=== PATIENT | female | born 1945 | race Caucasian/White ===

== ENCOUNTER 2017-12-17 08:19 | Inpatient (IN) | payer OTHER ==
[2017-11-25 15:45] VITALS: Ht 162.6 cm; Wt 127.6 kg
--- NOTE | 2017-11-25 16:30 | PAT Medication Instructions ---
Service Date Nov 25, 2017. Current Home Medication List Acetaminophen (Tylenol Arthritis Ext Rel), 650 MG PO Q8H PRN for Pain or Fever Albuterol Hfa (Ventolin Hfa), 2-4 PUFFS INH Q6H PRN for SOB/Wheezing Cholecalciferol (Vitamin D), 1 TAB PO QAM Diclofenac (Voltaren), 50 MG PO TID Fish Oil (Dundas-3), 1 CAP PO QDD Hydrochlorothiazide (Hydrochlorothiazide), 1 TAB PO QAM Lisinopril (Zestril), 40 MG PO QAM Meclizine HCl (Meclizine HCl), 1 TAB PO TID PRN for Dizziness or Vertigo Multivitamins/Minerals (Mvi With Minerals), 1 TABLET PO QDL Medication Instructions For Your Scheduled Surgery - Hold the following medications 2 weeks prior to surgery (stop 12/03): Fish Oil (Dundas-3), 1 CAP PO QDD - Hold the following medications 7 days prior to surgery per your surgeon's instructions: Diclofenac (Voltaren), 50 MG PO TID Cholecalciferol (Vitamin D), 1 TAB PO QAM Multivitamins/Minerals (Mvi With Minerals), 1 TABLET PO QDL - Hold the following medications the morning of surgery: Hydrochlorothiazide (Hydrochlorothiazide), 1 TAB PO QAM Lisinopril (Zestril), 40 MG PO QAM - Take the following medications the morning of surgery with a sip of water: Acetaminophen (Tylenol Arthritis Ext Rel), 650 MG PO Q8H PRN for Pain or Fever ( if needed, can be taken up to four hours before surgery) Albuterol Hfa (Ventolin Hfa), 2-4 PUFFS INH Q6H PRN for SOB/Wheezing (if needed , and bring it with you to the hospital) - Take the following medications as scheduled the night before surgery: Acetaminophen (Tylenol Arthritis Ext Rel), 650 MG PO Q8H PRN for Pain or Fever ( if needed) Albuterol Hfa (Ventolin Hfa), 2-4 PUFFS INH Q6H PRN for SOB/Wheezing (if needed) Meclizine HCl (Meclizine HCl), 1 TAB PO TID PRN for Dizziness or Vertigo (if needed) If you have any questions please call us at [phone] or [phone] or [phone]
[2017-11-25 17:18] LABS: BASO % 0.5 %; BASO ABS # 0.04 K/uL (0-0.2); EOS ABS # 0.23 K/uL (0-0.5); HEMATOCRIT 35.2 % (37-47); HEMOGLOBIN 11.5 g/dL (12.0-16.0); IG# 0.01 K/uL (0.00-0.02); LYMPH % 21.7 %; LYMPH ABS # 1.69 K/uL (1.2-3.4); MEAN CELL VOLUME 93.9 fL (80-100); MEAN CORPUSCULAR HEMOGLOBIN 30.7 pg (25-34); MEAN CORPUSCULAR HGB CONC 32.7 g/dl (32-36); MEAN PLATELET VOLUME 11.1 fL (7.4-10.4); MONO % 9.1 %; MONO ABS # 0.71 K/uL (0.11-0.59); NEUT % 65.6 %; NEUT ABS # 5.11 K/uL (1.4-6.5); PLATELET COUNT 257 K/uL (130-400); RED CELL DISTRIBUTION WIDTH CV 13.6 % (11.5-14.5); RED CELL DISTRIBUTION WIDTH SD 46.5 fL (36.4-46.3); WHITE BLOOD COUNT 7.79 K/uL (4.8-10.8)
--- NOTE | 2017-11-25 17:18 | DIAGNOSTIC IMAGING REPORT ---
CHEST 2 VIEWS ROUTINE CLINICAL HISTORY: pat preoperative evaluation COMPARISON STUDY: 11/02/2009 FINDINGS: The bones soft tissues and hemidiaphragms are normal. The cardiomediastinal silhouette is normal. The lungs are clear. The pulmonary vasculature is normal. IMPRESSION: Negative chest. The above report was generated using voice recognition software. It may contain grammatical, syntax or spelling errors. Electronically signed by: Osmar Osborne M.D. 11/25/2017 5:17 PM Dictated Date/Time: 11/25/2017 5:17 PM
[2017-11-25 17:25] LABS: CREATININE 1.2 mg/dl (0.60-1.20); POTASSIUM 4.5 mmol/L (3.5-5.1)
[2017-11-25 17:28] LABS: PTT PATIENT 24.3 SECONDS (21.0-31.0)
--- NOTE | 2017-12-16 17:06 | HISTORY & PHYSICAL EXAMINATION ---
DATE OF ADMISSION: 12/17/2017 CHIEF COMPLAINT: Primary osteoarthritis of the left hip. HISTORY OF PRESENT ILLNESS: Candi is a pleasant 71-year-old female who has been dealing with chronic progressively worsening left hip pain. She is having a hard time ambulating up and down stairs. She lives in a split level house. X-rays and clinical examination were diagnostic for advanced osteoarthritis of the left hip. I have given her injections, but the injections do not seem to last long. She elected to proceed with a left total hip arthroplasty. PAST MEDICAL HISTORY: Significant for hypertension, asthma, sleep apnea on a CPAP machine, and obesity. MEDICATIONS: Lisinopril 40 mg daily, HCTZ 25 mg daily, Diclofenac 50 mg 3 times a day for pain, meclizine 12.5 mg as needed for vertigo, hydroxyzine 10 mg as needed, vitamin D 2000 units daily, multivitamin, omega 3 and Albuterol inhaler as needed. PAST SURGICAL HISTORY: Cholecystectomy in 1964. ALLERGIES: MOLD AND PENICILLIN. SOCIAL HISTORY: She denies any tobacco, alcohol or IV drug use. She lives in a split level house. FAMILY HISTORY: Denies. REVIEW OF SYSTEMS: She complains of left hip pain. All other pertinent review of systems are negative. PHYSICAL EXAMINATION. GENERAL: She is awake, alert and orient x3. She is in no apparent distress. She is very pleasant. HEENT: Pupils equal, round, reactive to light. Extraocular motions are intact. Oral mucosa is pink and moist. HEART: The heart is regular rate per radial pulse. LUNGS: Dawn symmetrically bilaterally with no audible breath sounds. ABDOMEN: Soft, nontender, nondistended. MUSCULOSKELETAL: On physical examination of the hip, she ambulates via cane in the office. Her leg lengths are essentially equal. She has very limited internal and external rotation of the hip and reproducible deep groin pain. She has active dorsiflexion and plantarflexion of her left ankle and sensation is intact. IMAGING DATA: X-rays of the left hip do show advanced osteoarthritis with joint space narrowing and osteophyte formation. IMPRESSION: Primary osteoarthritis of the left hip. PLAN: Will proceed with a left lateral total hip arthroplasty using Biomet Taperloc total hip system. Postoperatively, she will be placed on aspirin for DVT prophylaxis and kept in the hospital, likely 2 midnights for postoperative medical management.
[~2017-12-17] VITALS: Ht 162.6 cm; Wt 127.6 kg
[2017-12-17] MEDS: TRANEXAMIC ACID INJ 1,000 MG x 2 Bags IV SCH ×4 (06:00→06:30)
[~2017-12-17 08:19] MED LIST: ACET1TAB84 PO; ACETAMINOPHEN 500 MG TAB PO SCH; ATROPINE SULFATE 0.1 MG/ML 5ML SYR IV PRN; BUPIVACAINE 0.5 % 5 MG/1 ML PF 10ML VIAL ONE; CHOL1TAB42 PO; DICL50TA3 PO; EpHEDrine SULFATE INJ 50 MG/ML AMP IV PRN; FAMOTIDINE 20 MG TAB PO SCH; FENTANYL CITRATE INJ 50 MCG/1 ML 2 ML VIAL IV PRN; GABAPENTIN 300 MG CAP PO SCH; HYDR25TA5 PO; HYDROmorphone INJ 1 MG/ML SYR IV PRN; LACTATED RINGER'S 1000ML 1,000 ML IV SCH; LACTATED RINGER'S 1000ML 500 ML IV SCH; LACTATED RINGER'S 1000ML IV SCH; LISI40TA PO; MECL1TAB40 PO; MULTTAB PO; OMEG10007 PO; ONDANSETRON INJ 2 MG/ML 2 ML VIAL IV PRN; PHENYLEPHRINE 100MCG/ML 5ML SYR IV PRN; ROPIVACAINE 5MG/ML 30 ML 150 MG, BUPIVACAINE 0.5% MPF INJ 30 ML, EpINEphrine HCL INJ 0.... INFIL SCH; VANCOMYCIN INJ 2,000 MG in SODIUM CHLORIDE 0.9% 500ML 500 ML IV SCH; VNTHFA/IN INH; [UNRECOGNIZED DRUG - REMARK] SCH
[2017-12-17] MEDS ORDERED: FENTANYL CITRATE INJ 50 MCG/1 ML 2 ML VIAL ONE (08:58)
[2017-12-17] MEDS ORDERED: MIDAZOLAM HCL 1 MG/ML 2ML VIAL ONE ×3 (08:58→13:15)
[2017-12-17 09:31] VITALS: O2SAT 100
[2017-12-17] MEDS ORDERED: BACITRACIN 50000 UNIT VIAL ONE (11:11)
--- NOTE | 2017-12-17 11:59 | History & Physical Bridge Note ---
H&P Re-Evaluation Bridge Note: I have examined the patient, reviewed the History & Physical and in the interval since the performance of the History & Physical I have noted the following changes of clinical significance: No changes noted
--- NOTE | 2017-12-17 13:44 | DIAGNOSTIC IMAGING REPORT ---
CROSSTABLE AP VIEW OF THE LEFT HIP History: Left total hip arthroplasty. Degenerative arthritis. FINDINGS: Intraoperative view of the left hip was submitted. The acetabular cup appears to be in good position. The femoral spacer is in place. There are 2 long radiopaque linear densities overlying the left hip possibly representing a sponge. There is partially visualized metallic clamp along the medial aspect of the left hip. No additional radiopaque foreign bodies identified. The hardware is intact. No fracture or dislocation. IMPRESSION: Intraoperative view of the left hip for a left hip arthroplasty. No evidence for hardware complication. Electronically signed by: Xavier Montano M.D. 12/17/2017 1:42 PM Dictated Date/Time: 12/17/2017 1:40 PM
[2017-12-17] MEDS ORDERED: PHENYLEPHRINE 100MCG/ML 5ML SYR ONE (14:15)
[2017-12-17] MEDS ORDERED: PHENYLEPHRINE HCL INJ 10 MG/ML VIAL ONE (14:15)
[2017-12-17] MEDS ORDERED: EpHEDrine SULFATE 50MG/5ML SYR ONE (14:15)
[2017-12-17] MEDS ORDERED: PROPOFOL IV EMULSION 10 MG/ML 20 ML VIAL IV ONE ×2 (14:15→14:39)
[2017-12-17] MEDS ORDERED: LIDOCAINE HCL 2% 2 ML VIAL (20MG/ML) ONE (14:15)
--- NOTE | 2017-12-17 14:46 | [facility] Post Operative Brief Note ---
Immediate Operative Summary Operative Date Dec 17, 2017. Pre-Operative Diagnosis Primary Osteoarthritis, Left Hip Post-Operative Diagnosis Primary Osteoarthritis, Left Hip Procedure(s) Performed Lateral Left Total Hip Arthroplasty Surgeon Dr. Breezy Hilliard Regional Sales Leader Surgeon(s) None Estimated Blood Loss 200ML Findings Consistent with Post-Op Diagnosis Specimens Permanent Solution: A.) Left Femoral Head Anesthesia Type Spinal MAC Complication(s) none Disposition Disposition: Recovery Room / PACU
[2017-12-17] MEDS ORDERED: METOCLOPRAMIDE HCL INJ 5 MG/ML 2 ML VIAL IV PRN (15:00)
[2017-12-17] MEDS ORDERED: ONDANSETRON INJ 2 MG/ML 2 ML VIAL IV PRN (15:00)
[2017-12-17] MEDS ORDERED: MAGNESIUM HYDROXIDE SUSP 30 ML UDC PO PRN (15:00)
[2017-12-17] MEDS ORDERED: VANCOMYCIN CONSULT ACTIVE PRN (15:00)
[2017-12-17] MEDS ORDERED: SOD PHOSPHATE/SOD BIPHOSPHATE ENEMA 132 ML BTL PR PRN (15:00)
[2017-12-17] MEDS ORDERED: MoRPHine SULFATE 2 MG/ML CARP IV PRN (15:00)
[2017-12-17] MEDS ORDERED: MECLIZINE HCL 12.5 MG TAB PO PRN (15:00)
[2017-12-17] MEDS ORDERED: BISACODYL 10 MG SUPP PR PRN (15:00)
[2017-12-17] MEDS ORDERED: ACETAMINOPHEN 325 MG TAB PO PRN (15:00)
[2017-12-17] MEDS ORDERED: ALBUTEROL HFA 8 GM INHALER INH PRN (15:00)
--- NOTE | 2017-12-17 15:41 | DIAGNOSTIC IMAGING REPORT ---
SINGLE VIEW PELVIS; SINGLE VIEW LEFT HIP CLINICAL HISTORY: Postoperative examination. FINDINGS: An AP portable view of the hips and pelvis with a crosstable lateral portable view of the left hip are obtained. A bipolar left hip arthroplasty is in near-anatomic alignment. A single cortical lag screw transfixes the acetabular cup. No acute fracture is identified. There are expected postoperative changes overlying the left hip including skin clips, subcutaneous gas, a surgical drain, and soft tissue swelling. IMPRESSION: Expected postoperative findings status post left hip arthroplasty. No acute fracture is seen. Electronically signed by: Ronni Mills M.D. 12/17/2017 3:40 PM Dictated Date/Time: 12/17/2017 3:39 PM
[2017-12-17] MEDS ORDERED: MEPERIDINE HCL 25 MG/ML CARP ONE (16:11)
--- NOTE | 2017-12-17 16:19 | Anesthesiology Progress Note ---
Anesthesia Post Op Note Date & Time Dec 17, 2017 at 16:13 Vital Signs Pain Intensity: 0 Vital Signs Past 12 Hours Date Time Temp Pulse Resp B/P (MAP) Pulse Ox O2 Delivery O2 Flow Rate FiO2 12/17/17 16:00 58 16 123/55 100 Nasal Cannula 3 12/17/17 15:50 61 16 129/56 100 Oxymask 3 12/17/17 15:40 60 16 118/56 99 Oxymask 3 12/17/17 15:30 36.4 68 16 112/66 99 Oxymask 3 12/17/17 15:20 60 16 116/48 99 Oxymask 3 12/17/17 15:10 58 16 113/55 99 Oxymask 3 12/17/17 15:00 58 18 108/51 98 Oxymask 3 12/17/17 14:52 36.4 72 18 103/56 99 Oxymask 5 12/17/17 09:31 100 Room Air Notes Mental Status: alert / awake / arousable, participated in evaluation Pt Amnestic to Procedure: Yes Nausea / Vomiting: adequately controlled Pain: adequately controlled Airway Patency, RR, SpO2: stable & adequate BP & HR: stable & adequate, see Notes Hydration State: stable & adequate Neuraxial Anesthesia: was administered, sensory block is resolving Anesthetic Complications: no major complications apparent The patient appears to have tolerated the procedure well. In the PACU, she was noted to have several PACs by the PACU nurse. The patient noted that her heart "raced a little" but quickly resolved and her chest now feels fine. She has experienced this sensation in the past prior to surgery. A 12 lead EKG was obtained and showed NSR with sinus arrhythmia. The patient's vital signs are stable with HR in the 60s, BP 126/57, RR 16, SpO2 98, and T 36.4. The patient' s only complaint is some shivering so she was given meperidine IV. She is otherwise stable, comfortable, and is moving her legs.
[2017-12-17] MEDS ORDERED: MEPERIDINE HCL 25 MG/ML CARP IV ONE (16:30)
[2017-12-17 17:00] VITALS: BP 117/71; PULSE 56; TEMP 36.3; O2SAT 99
[2017-12-17] MEDS: ACETAMINOPHEN IV 100 ML IV SCH ×2 (17:00→21:41)
[2017-12-17 17:39] VITALS: BP 127/75; PULSE 58; TEMP 36.4; O2SAT 100
[2017-12-17] MEDS: KETOROLAC TROMETHAMINE 15 MG/ML VIAL IV. SCH ×2 (18:36→23:43)
[2017-12-17] MEDS: ACETAMINOPHEN 500 MG TAB PO SCH ×2 (18:36→21:41)
[2017-12-17] MEDS: SODIUM CHLORIDE 0.9% 1000ML 1,000 ML IV SCH (18:44)
[2017-12-17 18:58] VITALS: BP 113/73; PULSE 62; TEMP 37.5; O2SAT 100
[2017-12-17] MEDS: SENNA 8.6 MG TAB PO SCH (20:34)
[2017-12-17] MEDS: ASPIRIN 325 MG ECTAB PO SCH (20:34)
[2017-12-17] MEDS: DOCUSATE SODIUM 100 MG CAP PO SCH (20:34)
[2017-12-17] MEDS ORDERED: VANCOMYCIN INJ 2,000 MG in SODIUM CHLORIDE 0.9% 500ML 500 ML IV ONE (21:00)
--- NOTE | 2017-12-17 21:23 | OPERATIVE REPORT ---
DATE OF OPERATION: 12/17/2017 PREOPERATIVE DIAGNOSIS: Primary osteoarthritis of the left hip. POSTOPERATIVE DIAGNOSIS: Same. PROCEDURE: Left total hip arthroplasty. SURGEON: Breezy Hilliard DO. BUSINESS IMPROVEMENT MANAGER: None. ANESTHESIA: Spinal. COMPLICATIONS: None. CONDITION: Stable to PACU. This case took almost twice as long as a normal total hip arthroplasty given her size. Her BMI was 48 and all her weight was right in her hips. It caused difficulty with retraction as well as position the leg for insertion of the components. IMPLANTS USED: Biomet Taperloc total hip arthroplasty system with a 46 mm G7 cup, a 20 mm screw, a 32 mm neutral E-poly liner, a 12 mm Taperloc standard offset stem and a 32 mm ceramic head with a 0 neck. INDICATIONS: Candi is a pleasant 71-year-old female who presented to my office with chronic left hip and groin pain. X-rays and clinical examination were diagnostic for primary osteoarthritis of the left hip. After failing extensive conservative treatment, she elected to undergo a left total hip arthroplasty. OPERATION AND FINDINGS: On 12/17/2017, she arrived at [facility] for the above procedure. She was seen in preoperative holding and the operative extremity was identified and signed. She was given preoperative antibiotic and a spinal anesthetic. She was taken back to the operating room, laid on the table in supine position and put under basic sedation. She was then put in lateral decubitus position. The left hip was then prepped and draped in sterile fashion. Time-out was done. The patient and operative extremity was properly identified. An anterior lateral approach was used. She had a very large thigh and I had to do a larger incision. Dissection was taken down through all the fat tissue and significant time was spent obtaining hemostasis. The extra long retractors were used to help retract back the fat layers. The fascia was then identified and split. The abductors were then exposed. The anterior third of the abductors were then tenotomized off the greater trochanter. The capsule was identified and excised. The proximal femur was then dislocated out of the joint. The femoral neck was then resected with an oscillating saw and the head was removed. Time was spent to gain exposure of the acetabulum. Again, given her size, exposure was difficult and I had to use extra long retractors. Once I had exposure, time was spent doing a complete circumferential capsular and labral release. Sequential reaming of the acetabulum up to a size 45 reamer was done. A size 46 mm G7 cup was then impacted into place. A single 20 mm screw was placed. The 32 mm neutral E-poly liner was then snapped into place. The leg was then placed in a [id number] position and the proximal femur was exposed. It was very difficult getting exposure of the proximal femur given the size of her leg. Once I did have exposure, sequential broaching of the femur up to a size 12 broach was done. A standard head and neck assembly was applied. The hip was reduced. The hip was brought through a full range of motion and felt to be stable. A single flat plate x-ray was taken and I was happy with the overall size of the components and the length and the version. The hip was then dislocated. The broach was removed. The final size 12 standard offset Taperloc stem was then impacted into place. A 32 mm ceramic head with a 0 neck was then impacted into place. The hip was then reduced, brought through a full range of motion and felt to be stable. The abductors were then tenodesed back to the greater trochanter with transosseous FiberWire sutures and [id number] sutures. Two drains were placed. The fascia was then closed with PDS suture. Time was spent doing deep fat layer closures followed by a 2-0 Vicryl superficial closure and brigette. A Prevena VAC dressing was applied. She was then transferred to a hospital bed and taken to the postanesthesia care unit in stable condition. She tolerated the procedure well. I attest to the content of the Intraoperative Record and any orders documented therein. Any exception s are noted below.
[2017-12-17 23:07] VITALS: BP 97/63; PULSE 60; TEMP 36.9; O2SAT 97
[2017-12-18] MEDS: SODIUM CHLORIDE 0.9% 1000ML 1,000 ML IV SCH ×2 (00:40→05:50)
[2017-12-18 03:32] VITALS: BP 109/60; PULSE 57; TEMP 36.5; O2SAT 98
[2017-12-18] MEDS: ACETAMINOPHEN 500 MG TAB PO SCH ×3 (05:49→21:32)
[2017-12-18] MEDS: KETOROLAC TROMETHAMINE 15 MG/ML VIAL IV. SCH ×2 (05:49→12:56)
[2017-12-18] MEDS: ACETAMINOPHEN IV 100 ML IV SCH ×2 (05:50→14:00)
[2017-12-18 06:26] LABS: BASO % 0.2 %; BASO ABS # 0.02 K/uL (0-0.2); EOS % 0.2 %; EOS ABS # 0.02 K/uL (0-0.5); HEMATOCRIT 30.5 % (37-47); HEMOGLOBIN 9.7 g/dL (12.0-16.0); IG# 0.02 K/uL (0.00-0.02); LYMPH % 8.7 %; LYMPH ABS # 0.73 K/uL (1.2-3.4); MEAN CELL VOLUME 92.4 fL (80-100); MEAN CORPUSCULAR HEMOGLOBIN 29.4 pg (25-34); MEAN CORPUSCULAR HGB CONC 31.8 g/dl (32-36); MEAN PLATELET VOLUME 11.2 fL (7.4-10.4); MONO % 8.8 %; MONO ABS # 0.74 K/uL (0.11-0.59); NEUT % 81.9 %; NEUT ABS # 6.87 K/uL (1.4-6.5); PLATELET COUNT 202 K/uL (130-400); RED CELL DISTRIBUTION WIDTH CV 13.2 % (11.5-14.5); RED CELL DISTRIBUTION WIDTH SD 44.9 fL (36.4-46.3)
[2017-12-18 07:07] VITALS: BP 102/63; PULSE 59; TEMP 36.8; O2SAT 94
[2017-12-18 07:07] LABS: CALCIUM 8.1 mg/dl (8.5-10.1); CREATININE 1.22 mg/dl (0.60-1.20); POTASSIUM 4.3 mmol/L (3.5-5.1)
[2017-12-18] MEDS: OXYCODONE HCL IR 5 MG TAB (IMMEDIATE RELEASE) PO PRN ×3 (09:33→18:50)
[2017-12-18] MEDS: ASPIRIN 325 MG ECTAB PO SCH ×2 (09:33→20:43)
[2017-12-18] MEDS: MULTIVITAMIN TAB PO SCH (09:33)
[2017-12-18] MEDS: DOCUSATE SODIUM 100 MG CAP PO SCH ×2 (09:33→20:43)
--- NOTE | 2017-12-18 09:33 | PROGRESS NOTE ---
DATE: 12/18/2017 CHIEF COMPLAINT: Status post left total hip arthroplasty postop day #1. PROGRESS: Candi was seen and examined at bedside today. She was sitting up at bedside when I came in. Overall, she is doing fairly well. She has not ambulated much yet which I had not expected. She says her leg feels heavy, but is neurovascularly intact. She has no other complaints. PHYSICAL EXAMINATION: LEFT HIP: The Prevena VAC dressing is in place and to suction. Her Hemovac drain is to suction. She has active dorsiflexion, plantarflexion of her left ankle. She can actively extend her knee and her sensation is intact. LABORATORY DATA: She has an H&H today of 9.7 and 30.5. Her glucose is 121. Her vital signs are all stable on room air. Her Hemovac put out 125 mL since midnight and she just had a White catheter removed. X-rays postoperatively of the left hip show the prosthesis to be in anatomic alignment without any evidence of fracture, dislocation or loosening. IMPRESSION: Status post left total hip arthroplasty postop day #1. PLAN: At this point, she is doing as well as expected. She will be up and walking today with physical therapy. I wanted to take it slow and steady. She is looking to discharge to [facility] on Wednesday.
[2017-12-18] MEDS: LISINOPRIL 40 MG TAB PO SCH (09:34)
[2017-12-18] MEDS: HYDROCHLOROTHIAZIDE 25 MG TAB PO SCH (09:34)
[2017-12-18] MEDS: CHOLECALCIFEROL 1000 INTER.UNIT TAB PO SCH (11:24)
[2017-12-18 15:37] VITALS: BP 96/63; PULSE 56; TEMP 36.5; O2SAT 100
[2017-12-18] MEDS: SENNA 8.6 MG TAB PO SCH (21:32)
[2017-12-18 23:17] VITALS: BP 111/66; PULSE 62; TEMP 36.9; O2SAT 92
[2017-12-19] MEDS: OXYCODONE HCL IR 5 MG TAB (IMMEDIATE RELEASE) PO PRN ×4 (04:51→18:49)
[2017-12-19] MEDS: ACETAMINOPHEN 500 MG TAB PO SCH ×3 (05:44→21:38)
[2017-12-19 07:26] VITALS: BP 122/70; PULSE 64; TEMP 36.9; O2SAT 94
[2017-12-19] MEDS: LISINOPRIL 40 MG TAB PO SCH (09:39)
[2017-12-19] MEDS: MULTIVITAMIN TAB PO SCH (09:39)
[2017-12-19] MEDS: HYDROCHLOROTHIAZIDE 25 MG TAB PO SCH (09:39)
[2017-12-19] MEDS: DOCUSATE SODIUM 100 MG CAP PO SCH ×2 (13:03→20:34)
[2017-12-19] MEDS: ASPIRIN 325 MG ECTAB PO SCH ×2 (13:03→20:34)
[2017-12-19] MEDS: CHOLECALCIFEROL 1000 INTER.UNIT TAB PO SCH (14:18)
[2017-12-19 15:27] VITALS: BP 113/54; PULSE 65; TEMP 36.9; O2SAT 94
[2017-12-19] MEDS ORDERED: ASPEC325 PO (16:02)
[2017-12-19] MEDS ORDERED: RXC5 PO (16:02)
--- NOTE | 2017-12-19 16:04 | Discharge Instructions ---
Discharge Instructions Date of Service Dec 19, 2017. Admission Reason for Admission: Left Hip Degenerative Joint Disease Discharge Discharge Diagnosis / Problem: Left Total Hip Arthroplasty Discharge Goals Goal(s): Decrease discomfort, Improve function Activity Recommendations Activity Limitations: as noted below . Instructions / Follow-Up Instructions / Follow-Up Activity and Therapy Recommendations: * If you are using [facility] then Physical Therapy will be provided until they feel you are ready to start Outpatient Physical Therapy. If you are not using a Home Health agency then Outpatient Physical Therapy should start about 3-5 days from your day of surgery. Therapy will last about 3-6 weeks * You were shown a series of exercises in the hospital. Do these exercises three times each day including the exercises you were shown in physical therapy. * Get up and walk several times each day.~ For the first four weeks, try not to stand or walk for more than one hour at a time. If you do stand or walk for more than one hour, you will not hurt anything, but your leg will likely swell.~ ~ * As you feel comfortable, you may change from the walker or crutches to a cane and~then to independent walking. Medications: * Narcotic You will likely be sent home from the hospital with a prescription for the narcotic pain medication that worked best throughout your stay. * Aspirin Most patients will be required to take Aspirin 325mg twice a day for 6 weeks after surgery. This is obtained [id number] and a prescription is not necessary. * Other medications may be prescribed for specific circumstances. If you have any questions, please call the office at . * Resume previous home medications unless otherwise instructed TEDs/Elastic Stockings: The white elastic stockings help limit swelling and prevent blood clots from forming in your legs. The more you wear them, the more they work. Wear them for six weeks. Dressing Care: The VAC will stop working in 8 days. Just peel it off and leave incision open to air or cover with dry dressing. Showering: You may shower with the VAC in place. Let the shower spray hit the opposite side. Things To Watch For: * Drainage from the incision site that occurs more than one week after your surgery. * Increased redness at the incision site. * Fever above 102 degrees Fahrenheit. * Unusual chest pain or shortness of breath. * Call [facility] at with any of the above problems Follow-Up Visit: Follow-up with Dr. Hilliard 2 weeks after your day of surgery. An appointment was probably scheduled when you signed-up for surgery in the office. If you have any questions call Office Instructions: More detailed instructions as well as Frequently Asked Questions were provided in a folder by our office when you signed-up for surgery. Please review these instructions when you get home. If you have any further questions or concerns, please feel free to call the office at [phone] Current Hospital Diet Patient's current hospital diet: Regular Diet Discharge Diet Recommended Diet: Regular Diet Procedures Procedures Performed: Lateral Left Total Hip Arthroplasty Pending Studies Studies pending at discharge: no Medical Emergencies . Who to Call and When: Medical Emergencies: If at any time you feel your situation is an emergency, please call 911 immediately. . Non-Emergent Contact Non-Emergency issues call your: Surgeon Call Non-Emergent contact if: wound has increased drainage, wound has increased redness . "Provider Documentation" section prepared by Breezy Hilliard. .
--- NOTE | 2017-12-19 16:40 | PROGRESS NOTE ---
DATE: 12/19/2017 CHIEF COMPLAINT: Status post left total hip arthroplasty, postop day #2. PROGRESS: Kenan Christopher was seen and examined at bedside today. She complained a lot of soreness in her hip. She has been very slow to ambulate with physical therapy. She walked about 30 feet today. She could only go to the bathroom yesterday. She has had no acute events and has no other complaints. PHYSICAL EXAMINATION: LEFT HIP: The Prevena VAC dressing is to suction. The drain has been removed. Her leg lengths are equal. She has active dorsiflexion and plantarflexion of the left ankle. IMPRESSION: Status post left total hip arthroplasty, postop day #2. PLAN: At this point, she is doing fairly well. She has soreness in her hip and her ambulation has been slow. This is to be expected given her weight. Will continue aspirin for DVT prophylaxis. We will look at discharge to [facility] tomorrow morning.
[2017-12-19] MEDS: SENNA 8.6 MG TAB PO SCH (20:34)
[2017-12-19 23:15] VITALS: BP 138/75; PULSE 72; TEMP 37.1; O2SAT 94
[2017-12-20] MEDS: OXYCODONE HCL IR 5 MG TAB (IMMEDIATE RELEASE) PO PRN ×2 (04:23→13:04)
[2017-12-20 06:07] VITALS: BP 148/74; PULSE 75; TEMP 37.6; O2SAT 91
[2017-12-20] MEDS: ACETAMINOPHEN 500 MG TAB PO SCH ×2 (06:26→13:04)
[2017-12-20 07:09] VITALS: TEMP 36.8
[2017-12-20 07:30] VITALS: BP 110/73; PULSE 62; TEMP 37; O2SAT 95
[2017-12-20] MEDS: HYDROCHLOROTHIAZIDE 25 MG TAB PO SCH (07:54)
[2017-12-20] MEDS: ASPIRIN 325 MG ECTAB PO SCH (07:54)
[2017-12-20] MEDS: DOCUSATE SODIUM 100 MG CAP PO SCH (07:54)
[2017-12-20] MEDS: MULTIVITAMIN TAB PO SCH (07:54)
[2017-12-20] MEDS: CHOLECALCIFEROL 1000 INTER.UNIT TAB PO SCH (07:55)
[2017-12-20] MEDS: LISINOPRIL 40 MG TAB PO SCH (07:55)
[2017-12-20 08:19] VITALS: O2SAT 95
[2017-12-20 09:30] VITALS: BP 110/73; PULSE 62; TEMP 37; O2SAT 95
--- NOTE | 2017-12-20 11:00 | Anesthesiology Progress Note ---
Anesthesia Post Op Note Date & Time Dec 20, 2017 at 10:59 Vital Signs Pain Intensity: 0.0 Vital Signs Past 12 Hours Date Time Temp Pulse Resp B/P (MAP) Pulse Ox O2 Delivery O2 Flow Rate FiO2 12/20/17 09:30 37.0 62 16 95 Room Air 12/20/17 08:19 95 Room Air 12/20/17 07:41 Room Air 12/20/17 07:30 37.0 62 16 110/73 (85) 95 Room Air 12/20/17 07:09 36.8 12/20/17 06:07 37.6 75 16 148/74 (98) 91 Room Air 12/19/17 23:15 Room Air 12/19/17 23:15 37.1 72 18 138/75 (96) 94 Room Air Notes Mental Status: alert / awake / arousable, participated in evaluation Pt Amnestic to Procedure: Yes Nausea / Vomiting: adequately controlled Pain: adequately controlled Airway Patency, RR, SpO2: stable & adequate BP & HR: stable & adequate Hydration State: stable & adequate Anesthetic Complications: no major complications apparent Anesthetic Complications: Awake alert, awaiting discharge. No complaints.
[2017-12-20 11:43] VITALS: BP 134/77; PULSE 62; TEMP 36.8; O2SAT 98
--- NOTE | 2017-12-20 19:15 | DISCHARGE SUMMARY ---
DISCHARGE DIAGNOSIS: Primary osteoarthritis of the left hip. PROCEDURE: Left total hip arthroplasty on 12/18/[address] Breezy Hilliard. DISCHARGE INSTRUCTIONS: 1. Aspirin 325 mg twice a day for 6 weeks. 2. ORTIZ hose stockings for 6 weeks. 3. Oxycodone 5-10 mg every 4 hours as needed for pain. 4. Tylenol 650 mg every 8 hours. 5. Albuterol 2-4 puffs q. 6 hours. 6. Vitamin D 5000 units daily. 7. Diclofenac 50 mg 3 times a day. 8. Fish oil daily. 9. Hydrochlorothiazide 25 mg daily. 10. Zestril 40 mg daily. 11. Meclizine 12.5 mg as needed. 12. Daily multivitamin. 13. Weightbear as tolerated. 14. Keep wound VAC on for about 8 days. 15. Follow up with Dr. Hilliard in 2 weeks. 16. Call the office of Dr. Hilliard with any questions or concerns. HOSPITAL COURSE: Candi is a pleasant 71-year-old female who presented to my office with severe chronic left hip pain. X-rays and clinical examination were diagnostic for advanced osteoarthritis of the left hip. After failing conservative treatment, she elected to proceed with a left total hip arthroplasty. On 12/17/2017 she arrived at [facility] and underwent a left hip replacement without complications. She had a spinal anesthetic. Postoperatively, she was started on aspirin for DVT prophylaxis and discharged to general orthopedic floor. Her hospital course was uneventful. On postop day #1 her H&H was stable at 9.7 and 30.5. She was up and slow to ambulate with physical therapy. She was having soreness in her hip and given her weight she was just slow to keep moving. On postop day #2 she was still having pain in her hip. She was still very slow to ambulate with physical therapy. Otherwise, her vital signs were stable and she seemed to be doing fine from a medical standpoint. On postop day #3 she continued to ambulate slow with physical therapy. She continued to have some pain in her hip, but medically she was stable. [facility] with the above instructions.
== END 2017-12-20 13:39 | DRG 470 ==
LOC: C.ACU 08:19 → C.3E 12:03 → ENRESERV 15:47
PROVIDERS: ADMIT Orthopaedic Surgery; ATTEND Orthopaedic Surgery
PROC: 0SRB0JA Replacement of Left Hip Joint with Synthetic Substitute, Uncemented, Open Approach (ICD-10-PCS; principal; 2017-12-17 11:30)
DX: M16.12 Unilateral primary osteoarthritis, left hip (principal); Z68.42 Body mass index [BMI] 45.0-49.9, adult; E66.9 Obesity, unspecified; Z88.0 Allergy status to penicillin

== ENCOUNTER → 2018-02-18 | Outpatient (CLI) | payer OTHER ==
[~2018-02-18] MED LIST changes: -ACETAMINOPHEN 500 MG TAB PO SCH; -ATROPINE SULFATE 0.1 MG/ML 5ML SYR IV PRN; -BUPIVACAINE 0.5 % 5 MG/1 ML PF 10ML VIAL ONE; -EpHEDrine SULFATE INJ 50 MG/ML AMP IV PRN; -FAMOTIDINE 20 MG TAB PO SCH; -FENTANYL CITRATE INJ 50 MCG/1 ML 2 ML VIAL IV PRN; -GABAPENTIN 300 MG CAP PO SCH; -HYDROmorphone INJ 1 MG/ML SYR IV PRN; -LACTATED RINGER'S 1000ML 1,000 ML IV SCH; -LACTATED RINGER'S 1000ML 500 ML IV SCH; -LACTATED RINGER'S 1000ML IV SCH; +LEVO1TAB33 PO; +LINE1TAB6 PO; -ONDANSETRON INJ 2 MG/ML 2 ML VIAL IV PRN; -PHENYLEPHRINE 100MCG/ML 5ML SYR IV PRN; -ROPIVACAINE 5MG/ML 30 ML 150 MG, BUPIVACAINE 0.5% MPF INJ 30 ML, EpINEphrine HCL INJ 0.... INFIL SCH; +SULF800T23 PO; -VANCOMYCIN INJ 2,000 MG in SODIUM CHLORIDE 0.9% 500ML 500 ML IV SCH; -[UNRECOGNIZED DRUG - REMARK] SCH
== END | disposition home or self-care (01) ==
LOC: C.LABSPEC 11:09
PROVIDERS: ATTEND Emergency Medicine
DX: S71.002A Unspecified open wound, left hip, initial encounter (principal); X58.XXXA Exposure to other specified factors, initial encounter

== ENCOUNTER 2020-02-03 11:56 | Inpatient (IN) ==
--- OUTSIDE RECORDS SUMMARY | 2020-02-03 11:58 | External Medical Summary | Continuity of Care Document ---
:1945 Author Name Aydin Palomares, Provider Address Unavailable Unavailable , Care Team Providers Name Role Phone Unavailable Unavailable Unavailable PCP, UNKNOWN Unavailable Unavailable Problems Active medical history not documented Allergies and Adverse Reactions Allergy history not documented Medications Medications not documented Procedures Procedures not documented Immunizations Immunizations not documented Plan of Treatment Planned Observations Planned Goals not documented Results No Known Results Results not documented
[2020-02-03] MEDS ORDERED: SODIUM CHLORIDE 0.9% 1000ML 1,000 ML IV ONE (12:30)
--- NOTE | 2020-02-03 12:35 | Emergency Department Note ---
Impression & Plan Sepsis, Acute pyelonephritis, Acute hyponatremia, Acute dehydration, Leukocytosis, Elevated troponin ED Provider Note NAME: LATISHA BO AGE: 74 SEX: F : 1945 ARRIVES VIA: Ambulance INFORMANT: Patient ED PROVIDER(S): Michael Jones DO CHIEF COMPLAINT: Fever and weakness HPI: Patient is a 74-year-old female who presents the ER for weakness which has been present for the past week. She admits to fevers of about 103 for the past week. She has been taking Tylenol which has been helping with the fevers. She admits to a very intermittent mild cough associated with a runny nose. She did vomit several times couple days ago but nothing today. She denies any urinary frequency or urgency or dysuria but notes that she is incontinent. She has a rash on the upper extremities which she notes has been present for the past 24 hours but has now resolved. She notes she has not been eating as she feels very weak. ROS: See above HPI for pertinent positives & negatives. A total of 10 systems reviewed and were otherwise negative. PAST MEDICAL HISTORY:See Below PAST SURGICAL HISTORY:See Below FAMILY HISTORY:See Below SOCIAL HISTORY:See Below HOME MEDICATIONS:See Below ALLERGIES:See Below VITALS:See Below PHYSICAL EXAMINATION: GENERAL: Sitting up in bed, morbidly obese, chronically ill-appearing, disheveled EYE EXAM: normal conjunctiva. PERRL and EOM's grossly intact. OROPHARYNX: no exudate, no erythema, lips, buccal mucosa, and tongue normal and mucous membranes are dry NECK: supple, no nuchal rigidity, no adenopathy, non-tender LUNGS: Distant lung sounds. Normal chest wall mechanics HEART: no murmurs, S1 normal and S2 normal ABDOMEN: abdomen soft, non-tender, normo-active bowel sounds, no masses, no rebound or guarding. BACK: Back is symmetrical on inspection and there is no deformity, no midline tenderness, no CVA tenderness. SKIN: no rashes and no bruising UPPER EXTREMITIES: upper extremities are grossly normal. LOWER EXTREMITIES: No pitting edema. Calves are equal bilateral NEURO EXAM: Normal sensorium, cranial nerves II-XII grossly intact, normal speech, no gross weakness of arms, no gross weakness of legs. MEDICAL DECISION MAKING: Patient is a 74-year-old female who presents the ER for persistent fevers which have been present for the past week associated with weakness nausea and some in termittent vomiting. She notes that she has not been eating or drinking. IV was established blood work was obtained. Labs show a leukocytosis of 20,000. Mild anemia 11. INR was unremarkable. Significant hyponatremia at 118. Potassium low at 3.1. Creatinine is up to 2.8 off of a baseline of 1.2. Serum and urine osmolalities are low. Troponin was elevated 0.085 consistent with most likely demand ischemia at this point as she denies any chest pain or shortness of breath. UA does suggest a UTI with nitrite positive, white cells and bacteria without epithelial cells. Patient was covered with broad-spectrum antibiotics and given 2 L IV fluids. Influenza was negative. EKG did show new T wave inversions in the septal leads although I do again believe that this is secondary to demand ischemia. Chest x-ray was unremarkable. CT abdomen pelvis does show some inflammation around the kidney in conjunction with the UA that is consistent with pyelonephritis and her symptoms. Triage Nursing notes reviewed. Prior medical records reviewed Vital Signs: reviewed and remarkable for hypertension Differential diagnosis: Differential diagnosis includes etiologies such as sepsis, UTI, pneumonia, metabolic, electrolyte abnormalities, cardiac sources, intracerebral event, toxicologic, neurological, as well as others were entertained. ER treatment provided: See below Diagnostics interpreted by me: ECG: Sinus bradycardia rate of 57 Normal axis Inferior Q waves T WI in the septal leads Normal QTC T wave inversion is new from old. Cardiac Monitoring: An order was placed for continuous cardiac monitoring. The monitor shows a rate of 61 with sinus rhythm. Laboratory studies: As stated above and show below. Imaging studies: Portable AP upright 1 view of the chest shows no focal infiltrate or pneumothorax. CT abdomen pelvis shows inflammation around the left kidney suggesting pyelonephritis. Consultation(s): Discussed with Dr. Ame Carrion. ED COURSE: Procedures: none Critical Care: I have personally spent 35 minutes of critical care time in the direct management of this patient. This includes bedside care, interpretation of diagnostic studies, and testing, discussion with consultants, patient, and family members, and other required patient management activities. This 35 minutes is in excess of all separately billable procedures. 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 Required: No Beliefs That Will Affect Care: None Current Living Situation: Alone Feels Safe at Home: Yes Smoking Status: Never smoker Tobacco Type: cigarettes ; Cigarettes Per Day: QUIT AT AGE 36 ; Second Hand Exposure: No ; Hx Alcohol Use: Yes Alcohol type: wine Hx Substance Use: No Allergies Allergies Allergy/AdvReac Type Severity Reaction Status Date / Time gluten Allergy Unknown GI SYMPTOMS Verified 02/03/20 13:50 Penicillins Allergy Unknown CHILDHOOD Verified 02/03/20 13:50 ALLERGY adhesive tape Allergy Blister Verified 02/03/20 13:50 SEASONAL ALLERGIES Allergy Unknown itchy eyes Uncoded 02/03/20 13:50 and hayfever WHEAT/GLUTEN Allergy Unknown eczema and Uncoded 02/03/20 13:50 stomach ache Home Meds Home Medications Medication Instructions Recorded Confirmed hydrochlorothiazide 25 mg PO QAM 12/09/18 02/03/20 lisinopril 40 mg PO QAM 12/09/18 02/03/20 Results & Data (ED) Vital Signs Vital Signs - 24 hr 02/03/20 12:04 02/03/20 12:11 02/03/20 12:20 Temperature 36.6 C Temperature Source Oral Pulse Rate 59 L 59 L 60 Pulse Rate from SpO2 Sensor 59 L 59 L Pulse Rhythm Regular Pulse Strength Normal Respiratory Rate 20 26 H 20 Respiratory Effort / Characteristics Non-Labored Spontaneous Respiratory Depth Normal Blood Pressure 145/69 H 145/69 H Blood Pressure Mean 87 94 Blood Pressure Position Lying Pulse Oximetry 99 100 100 Oxygen Delivery Method Room Air Sepsis Recent Fever Within 48 Hours No Sepsis New/Unexplained Change in Mental Status No Sepsis Action Taken by Nursing No Action Required 02/03/20 12:30 02/03/20 12:31 02/03/20 13:03 Temperature Temperature Source Pulse Rate 58 L 53 L Pulse Rate from SpO2 Sensor 56 L 53 L 56 L Pulse Rhythm Pulse Strength Respiratory Rate 17 17 Respiratory Effort / Characteristics Respiratory Depth Blood Pressure 137/70 150/65 H Blood Pressure Mean 84 90 Blood Pressure Position Pulse Oximetry 99 99 100 Oxygen Delivery Method Sepsis Recent Fever Within 48 Hours Sepsis New/Unexplained Change in Mental Status Sepsis Action Taken by Nursing 02/03/20 13:30 02/03/20 13:40 02/03/20 13:44 Temperature Temperature Source Pulse Rate 51 L 54 L 56 L Pulse Rate from SpO2 Sensor 53 L 58 L Pulse Rhythm Pulse Strength Respiratory Rate 21 19 19 Respiratory Effort / Characteristics Respiratory Depth Blood Pressure 82/46 L 117/35 L Blood Pressure Mean 69 64 Blood Pressure Position Pulse Oximetry 97 97 Oxygen Delivery Method Sepsis Recent Fever Within 48 Hours Sepsis New/Unexplained Change in Mental Status Sepsis Action Taken by Nursing 02/03/20 13:45 02/03/20 14:00 02/03/20 14:01 Temperature Temperature Source Pulse Rate 61 54 L 58 L Pulse Rate from SpO2 Sensor 61 54 L 57 L Pulse Rhythm Pulse Strength Respiratory Rate 20 20 20 Respiratory Effort / Characteristics Respiratory Depth Blood Pressure 120/63 Blood Pressure Mean 83 Blood Pressure Position Pulse Oximetry 100 99 100 Oxygen Delivery Method Sepsis Recent Fever Within 48 Hours Sepsis New/Unexplained Change in Mental Status Sepsis Action Taken by Nursing 02/03/20 15:17 02/03/20 15:30 02/03/20 16:01 Temperature Temperature Source Pulse Rate 54 L 54 L 49 L Pulse Rate from SpO2 Sensor 52 L 54 L 49 L Pulse Rhythm Pulse Strength Respiratory Rate 19 19 18 Respiratory Effort / Characteristics Respiratory Depth Blood Pressure 114/69 145/77 H 135/54 L Blood Pressure Mean 83 123 86 Blood Pressure Position Pulse Oximetry 99 97 98 Oxygen Delivery Method Room Air Room Air Room Air Sepsis Recent Fever Within 48 Hours Sepsis New/Unexplained Change in Mental Status Sepsis Action Taken by Nursing Laboratory Data Result diagrams: 02/03/20 12:18 02/03/20 12:18 Lab Results 02/03/20 02/03/20 02/03/20 Range/Units 12:18 12:18 12:18 WBC 20.18 H (4.8-10.8) K/uL RBC 3.64 L (4.2-5.4) M/uL Hgb 11.1 L (12.0-16.0) g/dL Hct 30.7 L (37-47) % MCV 84.3 (80-100) fL MCH 30.5 (25-34) pg MCHC 36.2 H (32-36) g/dL RDW Std Deviation 40.6 (36.4-46.3) fL RDW Coeff of Carlos 13.2 (11.5-14.5) % Plt Count 240 (130-400) K/uL MPV 10.6 H (7.4-10.4) fL Immature Gran % (Auto) 1.0 % Neut % (Auto) 85.5 % Lymph % (Auto) 3.2 % [place] % (Auto) 10.0 % Eos % (Auto) 0.1 % Baso % (Auto) 0.2 % Immature Gran # (Auto) 0.21 H (0.00-0.02) K/uL Neut # (Auto) 17.26 H (1.4-6.5) K/uL Lymph # (Auto) 0.64 L (1.2-3.4) K/uL [place] # (Auto) 2.01 H (0.11-0.59) K/uL Eos # (Auto) 0.02 (0-0.5) K/uL Baso # (Auto) 0.04 (0-0.2) K/uL PT 10.9 (9.0-12.0) Seconds INR 1.0 (0.9-1.1) APTT 20.2 L (21.0-31.0) Seconds PTT Ratio 0.7 Sodium 118 L* (136-145) mmol/L Potassium 3.1 L (3.5-5.1) mmol/L Chloride 85 L (98-107) mmol/L Carbon Dioxide 23 (21-32) mmol/L Anion Gap 10.0 (3-11) BUN 68 H (7-18) mg/dl Creatinine 2.85 H (0.6-1.2) mg/dl Est Cr Clr Drug Dosing 22.5 ml/min Est GFR ( Amer) 18.2 Est GFR (Non-Af Amer) 15.7 BUN/Creatinine Ratio 23.9 H (10-20) Glucose 132 H (70-99) mg/dl Osmolality (280-300) mOsm/kg Lactate (0.4-2.0) mmol/L Calcium 8.6 (8.5-10.1) mg/dl Magnesium 2.2 (1.8-2.4) mg/dl Total Bilirubin 1.2 H (0.2-1) mg/dl AST 30 (15-37) U/L ALT 39 (12-78) U/L Alkaline Phosphatase 258 H (45-117) U/L Troponin I 0.085 H* (0-0.045) ng/ml Total Protein 6.4 (6.4-8.2) gm/dl Albumin 2.1 L (3.4-5.0) gm/dl Globulin 4.3 H (2.5-4.0) gm/dl Albumin/Globulin Ratio 0.5 L (0.9-2) Urine Color Urine Appearance (Clear) Urine pH (4.5-7.5) Ur Specific [place] (1.000-1.030) Urine Protein (Negative) Urine Glucose (UA) (Negative) Urine Ketones (Negative) Urine Blood (Negative) Urine Nitrite (Negative) Urine Bilirubin (Negative) Urine Urobilinogen (Negative) Ur Leukocyte Esterase (Negative) Urine WBC (Auto) (0-5) /hpf Urine RBC (Auto) (0-4) /hpf U Hyaline Cast (Auto) (0-5) /lpf U Epithel Cells (Auto) (0-5) /lpf Urine Bacteria (Auto) (Negative) Urine Osmolality (500-800) mOsm/kg Ur Random Sodium mmol/L Influenza Type A (PCR) (Neg) Influenza Type B (PCR) (Neg) 02/03/20 02/03/20 02/03/20 Range/Units 12:18 13:10 13:30 WBC (4.8-10.8) K/uL RBC (4.2-5.4) M/uL Hgb (12.0-16.0) g/dL Hct (37-47) % MCV (80-100) fL MCH (25-34) pg MCHC (32-36) g/dL RDW Std Deviation (36.4-46.3) fL RDW Coeff of Carlos (11.5-14.5) % Plt Count (130-400) K/uL MPV (7.4-10.4) fL Immature Gran % (Auto) % Neut % (Auto) % Lymph % (Auto) % [place] % (Auto) % Eos % (Auto) % Baso % (Auto) % Immature Gran # (Auto) (0.00-0.02) K/uL Neut # (Auto) (1.4-6.5) K/uL Lymph # (Auto) (1.2-3.4) K/uL [place] # (Auto) (0.11-0.59) K/uL Eos # (Auto) (0-0.5) K/uL Baso # (Auto) (0-0.2) K/uL PT (9.0-12.0) Seconds INR (0.9-1.1) APTT (21.0-31.0) Seconds PTT Ratio Sodium (136-145) mmol/L Potassium (3.5-5.1) mmol/L Chloride (98-107) mmol/L Carbon Dioxide (21-32) mmol/L Anion Gap (3-11) BUN (7-18) mg/dl Creatinine (0.6-1.2) mg/dl Est Cr Clr Drug Dosing ml/min Est GFR ( Amer) Est GFR (Non-Af Amer) BUN/Creatinine Ratio (10-20) Glucose (70-99) mg/dl Osmolality 267 L (280-300) mOsm/kg Lactate (0.4-2.0) mmol/L Calcium (8.5-10.1) mg/dl Magnesium (1.8-2.4) mg/dl Total Bilirubin (0.2-1) mg/dl AST (15-37) U/L ALT (12-78) U/L Alkaline Phosphatase (45-117) U/L Troponin I (0-0.045) ng/ml Total Protein (6.4-8.2) gm/dl Albumin (3.4-5.0) gm/dl Globulin (2.5-4.0) gm/dl Albumin/Globulin Ratio (0.9-2) Urine Color Yellow Urine Appearance Cloudy A (Clear) Urine pH 5.0 (4.5-7.5) Ur Specific [place] 1.012 (1.000-1.030) Urine Protein 1+ H (Negative) Urine Glucose (UA) Negative (Negative) Urine Ketones Negative (Negative) Urine Blood 1+ H (Negative) Urine Nitrite Positive A (Negative) Urine Bilirubin Negative (Negative) Urine Urobilinogen Negative (Negative) Ur Leukocyte Esterase 1+ H (Negative) Urine WBC (Auto) >30 H (0-5) /hpf Urine RBC (Auto) 5-10 H (0-4) /hpf U Hyaline Cast (Auto) 1-5 (0-5) /lpf U Epithel Cells (Auto) 0-5 (0-5) /lpf Urine Bacteria (Auto) 4+ H (Negative) Urine Osmolality (500-800) mOsm/kg Ur Random Sodium mmol/L Influenza Type A (PCR) Neg for Influ A (Neg) Influenza Type B (PCR) Neg for Influ B (Neg) 02/03/20 02/03/20 02/03/20 Range/Units 13:30 13:30 16:15 WBC (4.8-10.8) K/uL RBC (4.2-5.4) M/uL Hgb (12.0-16.0) g/dL Hct (37-47) % MCV (80-100) fL MCH (25-34) pg MCHC (32-36) g/dL RDW Std Deviation (36.4-46.3) fL RDW Coeff of Carlos (11.5-14.5) % Plt Count (130-400) K/uL MPV (7.4-10.4) fL Immature Gran % (Auto) % Neut % (Auto) % Lymph % (Auto) % [place] % (Auto) % Eos % (Auto) % Baso % (Auto) % Immature Gran # (Auto) (0.00-0.02) K/uL Neut # (Auto) (1.4-6.5) K/uL Lymph # (Auto) (1.2-3.4) K/uL [place] # (Auto) (0.11-0.59) K/uL Eos # (Auto) (0-0.5) K/uL Baso # (Auto) (0-0.2) K/uL PT (9.0-12.0) Seconds INR (0.9-1.1) APTT (21.0-31.0) Seconds PTT Ratio Sodium (136-145) mmol/L Potassium (3.5-5.1) mmol/L Chloride (98-107) mmol/L Carbon Dioxide (21-32) mmol/L Anion Gap (3-11) BUN (7-18) mg/dl Creatinine (0.6-1.2) mg/dl Est Cr Clr Drug Dosing ml/min Est GFR ( Amer) Est GFR (Non-Af Amer) BUN/Creatinine Ratio (10-20) Glucose (70-99) mg/dl Osmolality (280-300) mOsm/kg Lactate 0.9 (0.4-2.0) mmol/L Calcium (8.5-10.1) mg/dl Magnesium (1.8-2.4) mg/dl Total Bilirubin (0.2-1) mg/dl AST (15-37) U/L ALT (12-78) U/L Alkaline Phosphatase (45-117) U/L Troponin I (0-0.045) ng/ml Total Protein (6.4-8.2) gm/dl Albumin (3.4-5.0) gm/dl Globulin (2.5-4.0) gm/dl Albumin/Globulin Ratio (0.9-2) Urine Color Urine Appearance (Clear) Urine pH (4.5-7.5) Ur Specific [place] (1.000-1.030) Urine Protein (Negative) Urine Glucose (UA) (Negative) Urine Ketones (Negative) Urine Blood (Negative) Urine Nitrite (Negative) Urine Bilirubin (Negative) Urine Urobilinogen (Negative) Ur Leukocyte Esterase (Negative) Urine WBC (Auto) (0-5) /hpf Urine RBC (Auto) (0-4) /hpf U Hyaline Cast (Auto) (0-5) /lpf U Epithel Cells (Auto) (0-5) /lpf Urine Bacteria (Auto) (Negative) Urine Osmolality 234 L (500-800) mOsm/kg Ur Random Sodium 19 mmol/L Influenza Type A (PCR) (Neg) Influenza Type B (PCR) (Neg) Administered Medications Potassium Phosphate 9 mmol/ (Sodium Chloride) 253 mls @ 88 mls/hr IV NOW STA Stop: 02/03/20 20:11 Last Admin: 02/03/20 17:38 Dose: 88 mls/hr Documented by: [id number] Discontinued Medications Aspirin (Aspirin) 324 mg PO NOW STA Stop: 02/03/20 13:07 Last Admin: 02/03/20 13:41 Dose: 324 mg Documented by: [id number] Sodium Chloride (Nss 1000ml) 1,000 mls @ 999 mls/hr IV .Q1H1M ONE Stop: 02/03/20 13:30 Last Infusion: 02/03/20 16:03 Dose: 0 mls/hr Documented by: [id number] Admin: 02/03/20 13:41 Dose: 999 mls/hr Documented by: [id number] Cefepime HCl 2,000 mg/ Syringe 20 mls @ 5.5 mls/min IV NOW STA; Protocol Stop: 02/03/20 12:43 Last Admin: 02/03/20 13:41 Dose: 5.5 mls/min Documented by: [id number] Sodium Chloride (Nss 1000ml) 1,000 mls @ 999 mls/hr IV .Q1H1M CANDICE Stop: 02/03/20 14:07 Last Admin: 02/03/20 15:30 Dose: 999 mls/hr Documented by: [id number] Discharge Plan Visit Data Chief Complaint: Illness Stated Complaint: weakness/cough ED Provider: Michael Jones Discharge Problem: Sepsis, Acute pyelonephritis, Acute hyponatremia, Acute dehydration, Leukocytosis, Elevated troponin Forms Stand Alone Forms: [facility] Prescriptions Prescriptions: No Action hydrochlorothiazide 25 mg Tablet 25 mg PO QAM RF: 0 lisinopril 40 mg Tablet 40 mg PO QAM RF: 0 Discharge Problem: Sepsis Qualifiers: Sepsis type: sepsis due to unspecified organism Sepsis acute organ dysfunction status: unspecified Qualified Code(s): A41.9 - Sepsis, unspecified organism Leukocytosis Qualifiers: Leukocytosis type: unspecified Qualified Code(s): D72.829 - Elevated white blood cell count, unspecified
[2020-02-03 12:38] LABS: Hematocrit (blood only) 30.7 % (37-47); Hemoglobin 11.1 g/dL (12.0-16.0); Mean Corpuscular Hemoglobin 30.5 pg (25-34); Mean Corpuscular Hgb Conc 36.2 g/dL (32-36); Mean Corpuscular Volume 84.3 fL (80-100); Mean Platelet Volume 10.6 fL (7.4-10.4); Platelet Count 240 K/uL (130-400); RDW Coefficient of Variation 13.2 % (11.5-14.5); RDW Standard Deviation 40.6 fL (36.4-46.3); Red Blood Count 3.64 M/uL (4.2-5.4); White Blood Count 20.18 K/uL (4.8-10.8)
[2020-02-03] MEDS ORDERED: CEFEPIME 2,000 MG in SYRINGE 7.5 ML IV STA (12:40)
[2020-02-03 12:44] LABS: Partial Thromboplastin Ratio 0.7; Partial Thromboplastin Time 20.2 Seconds (21.0-31.0); Prothrombin Time 10.9 Seconds (9.0-12.0)
[2020-02-03 12:51] LABS: Albumin Globulin Ratio 0.5 (0.9-2); Albumin Level 2.1 gm/dl (3.4-5.0); BUN Creatinine Ratio 23.9 (10-20); Bilirubin,Total 1.2 mg/dl (0.2-1); Calcium 8.6 mg/dl (8.5-10.1); Creatinine Clr Calc Pharmacy 22.5 ml/min; Est GFR (African American) 18.2; Est GFR (Non-African American) 15.7; Globulin 4.3 gm/dl (2.5-4.0); Magnesium 2.2 mg/dl (1.8-2.4); Potassium 3.1 mmol/L (3.5-5.1); Total Protein 6.4 gm/dl (6.4-8.2); Troponin I 0.085 ng/ml (0-0.045)
[2020-02-03] MEDS ORDERED: ASPIRIN CHEW 324 MG PO STA (13:06)
[2020-02-03] MEDS ORDERED: SODIUM CHLORIDE 0.9% 1000ML 1,000 ML IV SCH (13:07)
[2020-02-03 13:19] LABS: Basophils # (auto) 0.04 K/uL (0-0.2); Basophils % (auto) 0.2 %; Eosinophils # (auto) 0.02 K/uL (0-0.5); Eosinophils % (auto) 0.1 %; Immature Granulocytes # (auto) 0.21 K/uL (0.00-0.02); Lymphocytes # (auto) 0.64 K/uL (1.2-3.4); Lymphocytes % (auto) 3.2 %; Monocytes # (auto) 2.01 K/uL (0.11-0.59); Neutrophils # (auto) 17.26 K/uL (1.4-6.5); Neutrophils % (auto) 85.5 %
[2020-02-03 14:03] LABS: Appearance Urine Cloudy (Clear); Bilirubin Urine Negative (Negative); Blood Urine 1+ (Negative); Color Urine Yellow; Glucose Urine UA Negative (Negative); Ketones Urine Negative (Negative); Leukocyte Esterase Urine 1+ (Negative); Nitrite Urine Positive (Negative); Protein Urine 1+ (Negative); Specific Gravity Urine 1.012 (1.000-1.030); Urobilinogen Urine Negative (Negative)
[2020-02-03 14:15] LABS: Influenza A virus by PCR Neg for Influ A (Neg); Influenza B virus by PCR Neg for Influ B (Neg)
[2020-02-03 14:17] LABS: Epithelial Cell Urine Auto 0-5 /lpf (0-5); WBC Urine Automated >30 /hpf (0-5)
[2020-02-03 14:18] LABS: Bacteria Urine Automated 4+ (Negative)
--- NOTE | 2020-02-03 14:36 | XRay Report ---
XR chest 1V portable CLINICAL HISTORY: Sepsis. COMPARISON STUDY: Chest radiograph November 25, 2017. FINDINGS: There is no pneumothorax or pleural effusion. A moderate sized hiatal hernia is noted. Mild cardiomegaly is noted without evidence for pulmonary edema. The appearance of the chest is unchanged . IMPRESSION: No acute cardiopulmonary findings. No change in appearance of the chest. ACT 112: Negative or not required by law. Electronically signed by: David Dobbins M.D. 02/03/2020 2:34 PM
--- NOTE | 2020-02-03 14:53 | CT Scan Report ---
CT OF THE ABDOMEN AND PELVIS WITHOUT CONTRAST CLINICAL HISTORY: Abdominal pain. COMPARISON STUDY: No previous studies for comparison. TECHNIQUE: Axial images of the abdomen and pelvis were obtained without IV contrast. Images were revi ewed in the axial, sagittal, and coronal planes. Automated exposure control was utilized for the malka dy. A dose lowering technique was utilized adhering to the principles of ALARA. FINDINGS: Imaged portions of the lower chest demonstrate trace bilateral pleural effusions and a mode rate sized hiatal hernia. Evaluation of the abdomen and pelvis is suboptimal on this unenhanced exami nation. No pneumatosis, free air or portal venous gas is present. Unenhanced images of liver, spleen, adrenal glands are unremarkable. Glandular atrophy of the pancreas is noted. The gallbladder is not visualized and likely surgically absent. There is no hydronephrosis. There is trace left perinephric fluid. No evidence for a bowel obstruction. Extensive colonic diverticulosis is noted without evidenc e for acute diverticulitis. A small amount of ascites within the pelvis is noted. Images of the pelvi s are degraded by streak artifact from a left hip arthroplasty. There is mild bladder wall thickening . The appendix is not visualized. There is no lymphadenopathy. No suspicious osseous lesions are note d. IMPRESSION: 1. Technically difficult study to interpret given the lack of contrast and streak artifact from left hip arthroplasty. 2. Evidence for mild volume overload. Trace ascites and trace bilateral pleural effusions. 3. Mild bladder wall thickening and trace left perinephric fluid. Findings could be correlated with u rinalysis to exclude an infectious process. 4. Extensive colonic diverticulosis without evidence for acute diverticulitis on this unenhanced exam . ACT 112: Negative or not required by law. Electronically signed by: David Dobbins M.D. 02/03/2020 2:51 PM
[2020-02-03] MEDS ORDERED: POTASSIUM PHOS 3 MMOL/1 ML INFUSION IV STA (17:16)
[2020-02-03] MEDS ORDERED: POTASSIUM PHOSPHATE 9 MMOL in SODIUM CHLORIDE 0.9% 250 ML IV STA (17:19)
--- NOTE | 2020-02-03 17:31 | History & Physical Report ---
Date of Service February 03, 2020 Assessment & Plan (1) Acute pyelonephritis: UA noted, CTAP c/w cystitis/pyelo Started on cefepime in the ED, will continue Urine and blood cx pending (2) Fever: Likely related to pyelo Flu swab neg CXR neg for acute No sick contacts, no SOB, will not continue with COVID precautions given clear reasons for fever COVID testing not sent from ED (3) Acute hyponatremia: Recent decreased PO intake Monitor with PO and IVF Repeat BMP 8p (4) Hypokalemia: Replace and monitor (5) Acute dehydration: Likely related to above Monitor on IVF Baseline cr 1.2, noted to be 2.8 on admission (6) Elevated troponin: Likely related to renal function Minimal elevation at 0.085, serials pending EKG with nonspecific T wave inversions (7) Hypertension: continue home meds (8) DVT prophylaxis: SCDs History of Present Illness Primary Care Provider: NO PCP 74 y/o F c/o feeling generally unwell. Pt states that she has been having fevers for the last week. She has had issues with nausea with emesis, but no emesis today. She has felt weak. She is having back pain on the L, which is unusual for her. She has been urinating a lot more recently, but no pain with urination. She has had some abd pain as well, mostly lower abd. Pt denies SOB, chest pain, c/d, LE pain or swelling. Pt was started on a medication last week for nausea and it has caused her to have hiccups with occasional coughing related to hiccups. She has had no appetite and her intake has been low. No loss of taste or smell. No sick contacts. Pt has hx of UTI a few years ago when she was in [facility] for rehab. She states she had no burning or other major sx, but a UA was done and she was tx with abx at that time. Pt states she is already feeling improved s/p IVF and abx in the ED. She is hungry now, which is the first she has been hungry in days. Allergies Allergy/AdvReac Type Severity Reaction Status Date / Time gluten Allergy Unknown GI SYMPTOMS Verified 02/03/20 13:50 Penicillins Allergy Unknown CHILDHOOD Verified 02/03/20 13:50 ALLERGY adhesive tape Allergy Blister Verified 02/03/20 13:50 SEASONAL ALLERGIES Allergy Unknown itchy eyes Uncoded 02/03/20 13:50 and hayfever WHEAT/GLUTEN Allergy Unknown eczema and Uncoded 02/03/20 13:50 stomach ache Home Medications Home Medications Medication Instructions Recorded Confirmed Type hydrochlorothiazide 25 mg PO QAM 12/09/18 02/03/20 History lisinopril 40 mg PO QAM 12/09/18 02/03/20 History Past Med/Surg History Medical History Asthma LAST USED PRN INH 2-3 MONTHS AGO Chronic back pain GERD (gastroesophageal reflux disease) Hypertension Osteoarthritis Sleep apnea CPAP Temporomandibular joint disorder Surgical History History of [place] with lens [place] [facility] [place] of chole[place]ectomy History of colonoscopy History of esophagogastroduodenoscopy (EGD) History of total hip arthroplasty LEFT Social History Preferred Language: Mozambican 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 Ability: Effective 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 Beliefs That Will Affect Care: None Current Living Situation: Alone Feels Safe at Home: Yes Smoking Status: Never smoker Tobacco Type: cigarettes ; Cigarettes Per Day: QUIT AT AGE 36 ; Second Hand Exposure: No ; Hx Alcohol Use: Yes Alcohol type: wine Hx Substance Use: No Review of Systems Review of Systems: Pertinent positives and negatives reviewed in HPI--all others negative Physical Exam Constitutional: WD/WN, vitals as above Eyes: normal visual chacon by confrontation and + anicteric sclerae Neck: normal visual inspection and trachea midline Respiratory: normal respiratory effort, lungs clear to auscultation Cardiovascular: Rate/Rhythm: regular rate and regular rhythm Gastrointestinal (Abdomen): Inspection/Auscultation: abdomen not distended Percussion/Palpation: + abdomen tender (mild lower abd) and abdomen soft Musculoskeletal: Head/Neck/Chest: normocephalic and head atraumatic negative for edema, peripheral pulses intact Mild discomfort to L CVA percussion Skin: no rashes, warm and dry Neurologic: awake; not confused Speech / Cognition: normal speech Psychiatric: A+Ox3, euthymic affect Results & Data Results & Data ([facility]) Vital Signs (Past 12 Hours) Vital Signs Temp Pulse Resp BP Pulse Ox 02/03/20 16:01 49 L 18 135/54 L 98 02/03/20 15:30 54 L 19 145/77 H 97 02/03/20 15:17 54 L 19 114/69 99 02/03/20 14:01 58 L 20 100 02/03/20 14:00 54 L 20 120/63 99 02/03/20 13:45 61 20 100 02/03/20 13:44 56 L 19 117/35 L 97 02/03/20 13:40 54 L 19 82/46 L 97 02/03/20 13:30 51 L 21 02/03/20 13:03 150/65 H 100 02/03/20 12:31 53 L 17 137/70 99 02/03/20 12:30 58 L 17 99 02/03/20 12:20 36.6 C 60 20 145/69 H 100 02/03/20 12:11 59 L 26 H 100 02/03/20 12:04 59 L 20 145/69 H 99 Diagnostic Findings CXR: neg for acute CTAP: L perinephritic fluid with bladder wall thickening c/w cystitis, trace pleural effusions ECG Additional Comments: T wave invesions, nonspecific Code Status & VTE Plan Code Status Full code. "I told them earlier no, but now I feel like I would want resuscitated." VTE Prophylaxis Plan VTE Prophylaxis will be ordered: Yes PG Care Time/CCT Total # of Minutes Spent Total Time Spent with Patient: Total time spent is greater than 50% in coordination of care (as documented) at patient's floor/unit and/or counseling patient: Coding Level of Care Code 33004 Initial Inpt Care Lvl 3 Diagnoses Acute pyelonephritis N10 Fever R50.9 Acute hyponatremia E87.1 Hypokalemia E87.6 Acute dehydration E86.0 Elevated troponin R79.89 Hypertension I10 DVT prophylaxis Z29.9
[2020-02-03] MEDS ORDERED: MAGNESIUM HYDROXIDE SUSP 30 ML UDC PO PRN (18:30)
[2020-02-03] MEDS ORDERED: ACETAMINOPHEN 325 MG TAB PO PRN (18:30)
[2020-02-03] MEDS: NSS + 20MEQ KCL 20 MEQ/1,000 ML BAG IV SCH (20:41)
[2020-02-03 21:24] LABS: BUN Creatinine Ratio 24.8 (10-20); Calcium 7.9 mg/dl (8.5-10.1); Creatinine Clr Calc Pharmacy 22.2 ml/min; Est GFR (African American) 18.6; Est GFR (Non-African American) 16.1; Potassium 2.9 mmol/L (3.5-5.1)
[2020-02-04] MEDS: NSS + 20MEQ KCL 20 MEQ/1,000 ML BAG IV SCH ×2 (06:13→16:36)
--- NOTE | 2020-02-04 07:43 | Hospitalist Progress Note ---
Date of Service February 04, 2020 Assessment & Plan (1) Acute pyelonephritis: UA abnormal, CTAP c/w cystitis/pyelo, also some ascites Started on cefepime in the ED, will continue Urine and blood cx show gram negative bacteria CT abd/Pelvis without contrast 02/04/20 IMPRESSION: 1. Technically difficult study to interpret given the lack of contrast and streak artifact from left hip arthroplasty. 2. Evidence for mild volume overload. Trace ascites and trace bilateral pleural effusions. 3. Mild bladder wall thickening and trace left perinephric fluid. Findings could be correlated with urinalysis to exclude an infectious process. (2) Fever: Likely related to pyelo and bacteremia Flu swab neg CXR neg for acute No sick contacts, no SOB, will not continue with COVID precautions given clear reasons for fever COVID testing not sent from ED (3) Acute hyponatremia: Recent decreased PO intake, low serum osm, likely siadh from illness, however her urine random sodium is not elevated Monitor with PO and IVF Repeat BMP 8p, has had a trend upward (4) Hypokalemia: Replete with both oral and intravenous infusion check a magnesium level on 02/05/2020 (5) Elevated troponin: Likely related to renal function Minimal elevation at 0.085-<0.068 EKG with nonspecific T wave inversions will order echo to evaluate for regional wall motion abnormalities (6) Hypertension: hold lisinopril given renal failure, may use as needed hydralazine (7) DVT prophylaxis: [facility] [place] Admission and Anticipated Discharge Date Admission Date: February 03, 2020 Subjective Patient is awake and alert she is less lethargic than 1 day ago. She recounts having escalating urinary symptoms prior to coming into the hospital. She is denies having any recent chest pain or pressure. She has no history of angina that she tells me. She does have some variable bowel habits having intermittent constipation which is been most recently resolved. Review of Systems Review of Systems: Mild distress and moderate fatigue no headache, blurry or double vision no speech or swallowing issues no chest pain, pressure or palpitations no shortness of breath, cough or wheezes no abdominal pain, nausea or vomiting, has had a few days of constipation now relieved Patient's had a few days of changes in urine habits but no overt dysuria, hematuria she has had increasing frequency no focal joint pain or swelling no back pain, CVA tenderness or radicular pain no bruising, bleeding or rashes no focal signs of weakness or numbness or altered sensation globally feels weak and deconditioned no complaints or anxiety or depression Physical Exam Physical Exam: The patient appeared morbidly obese she is markedly fatigued Vital signs as documented. Head exam is unremarkable. No scleral icterus Neck is without JVD, thyromegaly, or carotid bruits. Lungs are clear to auscultation but diminished at the bases Cardiac exam, Rhythm is regular.. No murmurs, rubs or gallops. Abdominal exam reveals normal bowel sounds, soft mild suprapubic and left-sided tenderness, no masses Extremities are nonedematous there is a bruise on her anterior right ankle Neurologic exam is alert and oriented, no focal loss of strength or sensation Skin is without bruises or rashes other than the right ankle Psychologically is without concerns for anxiety or depression Results & Data Results & Data ([facility]) Vital Signs (Past 12 Hours) Vital Signs Temp Pulse Pulse Resp BP Pulse Ox 02/04/20 03:51 97.9 F 86 16 100/63 97 02/04/20 01:41 99.7 F H 02/04/20 00:00 59 L 02/03/20 22:21 101.1 F H 70 22 145/67 H 94 02/03/20 22:03 76 16 95 02/03/20 21:00 75 PG Care Time/CCT Total # of Minutes Spent Total Time Spent with Patient: Total time spent is greater than 50% in coordination of care (as documented) at patient's floor/unit and/or counseling patient: Coding Level of Care Code 67470 Subseq Hosp Care Lvl 3 Diagnoses Acute pyelonephritis N10 Fever R50.9 Acute hyponatremia E87.1 Hypokalemia E87.6 Elevated troponin R79.89 Hypertension I10 DVT prophylaxis Z29.9
[2020-02-04] MEDS ORDERED: HydrALAZINE HCL 20 MG/ML VIAL IV PRN (07:44)
[2020-02-04] MEDS ORDERED: lisinopriL 40 MG TAB PO SCH (09:00)
[2020-02-04] MEDS ORDERED: hydroCHLOROthiazide 25 MG TAB PO SCH (09:00)
[2020-02-04 09:02] LABS: Hematocrit (blood only) 29.7 % (37-47); Hemoglobin 10.4 g/dL (12.0-16.0); Mean Corpuscular Hemoglobin 29.9 pg (25-34); Mean Corpuscular Volume 85.3 fL (80-100); Mean Platelet Volume 10.3 fL (7.4-10.4); Platelet Count 254 K/uL (130-400); RDW Coefficient of Variation 13.6 % (11.5-14.5); RDW Standard Deviation 42.2 fL (36.4-46.3); Red Blood Count 3.48 M/uL (4.2-5.4); White Blood Count 16.69 K/uL (4.8-10.8)
[2020-02-04 09:38] LABS: BUN Creatinine Ratio 26.4 (10-20); Calcium 7.6 mg/dl (8.5-10.1); Creatinine Clr Calc Pharmacy 22.6 ml/min; Est GFR (African American) 18.9; Est GFR (Non-African American) 16.3; Potassium 3.2 mmol/L (3.5-5.1)
[2020-02-04 09:43] LABS: Troponin I 0.031 ng/ml (0-0.045)
[2020-02-04 09:53] LABS: Basophils # (auto) 0.03 K/uL (0-0.2); Basophils % (auto) 0.2 %; Eosinophils # (auto) 0.07 K/uL (0-0.5); Eosinophils % (auto) 0.4 %; Immature Granulocytes # (auto) 0.31 K/uL (0.00-0.02); Immature Granulocytes % (auto) 1.9 %; Lymphocytes # (auto) 0.89 K/uL (1.2-3.4); Lymphocytes % (auto) 5.3 %; Monocytes # (auto) 1.93 K/uL (0.11-0.59); Monocytes % (auto) 11.6 %; Neutrophils # (auto) 13.46 K/uL (1.4-6.5); Neutrophils % (auto) 80.6 %
--- NOTE | 2020-02-04 10:25 | Electrocardiogram Report ---
Test Reason : Blood Pressure : / mmHG Vent. Rate : 057 BPM Atrial Rate : 057 BPM P-R Int : 180 ms QRS Dur : 104 ms QT Int : 462 ms P-R-T Axes : 083 -21 127 degrees QTc Int : 449 ms Sinus bradycardia Anteroseptal T wave abnormality Abnormal ECG When compared with ECG of 17-DEC-2017 16:06, Questionable change in QRS axis Confirmed by Howard Ngo ([id number]) on 02/04/2020 10:24:38 AM Referred By: REFERRED SELF Confirmed By:Howard Ngo
[2020-02-04] MEDS: CEFEPIME 1,000 MG in SYRINGE 0 ML IV SCH (12:36)
[2020-02-04] MEDS ORDERED: POTASSIUM CHLORIDE 20 MEQ TABCR PO SCH (21:00)
[2020-02-04] MEDS ORDERED: Nursing to Pharmacy Communication ONE (22:11)
[2020-02-04] MEDS: POTASSIUM CHLORIDE PWD 20 MEQ PACK PO SCH (23:14)
[2020-02-05] MEDS: NSS + 20MEQ KCL 20 MEQ/1,000 ML BAG IV SCH (00:58)
[2020-02-05] MEDS: POTASSIUM CHLORIDE PWD 20 MEQ PACK PO SCH (08:02)
[2020-02-05 08:13] LABS: BUN Creatinine Ratio 26.9 (10-20); Basophils # (auto) 0.03 K/uL (0-0.2); Basophils % (auto) 0.3 %; Calcium 7.9 mg/dl (8.5-10.1); Creatinine Clr Calc Pharmacy 25.6 ml/min; Eosinophils # (auto) 0.15 K/uL (0-0.5); Eosinophils % (auto) 1.3 %; Est GFR (African American) 21.6; Est GFR (Non-African American) 18.6; Hematocrit (blood only) 29.2 % (37-47); Hemoglobin 10.2 g/dL (12.0-16.0); Immature Granulocytes # (auto) 0.38 K/uL (0.00-0.02); Immature Granulocytes % (auto) 3.3 %; Lymphocytes # (auto) 0.87 K/uL (1.2-3.4); Lymphocytes % (auto) 7.6 %; Mean Corpuscular Hemoglobin 30.3 pg (25-34); Mean Corpuscular Hgb Conc 34.9 g/dL (32-36); Mean Corpuscular Volume 86.6 fL (80-100); Mean Platelet Volume 10.5 fL (7.4-10.4); Monocytes # (auto) 1.84 K/uL (0.11-0.59); Neutrophils # (auto) 8.22 K/uL (1.4-6.5); Neutrophils % (auto) 71.5 %; Platelet Count 348 K/uL (130-400); Potassium 4.4 mmol/L (3.5-5.1); RDW Standard Deviation 44.6 fL (36.4-46.3); Red Blood Count 3.37 M/uL (4.2-5.4); White Blood Count 11.49 K/uL (4.8-10.8)
[2020-02-05] MEDS ORDERED: SODIUM CHLORIDE 0.9% 1000ML 1,000 ML IV SCH (10:00)
--- NOTE | 2020-02-05 10:12 | XCELERA ---
[id number] \\[id number]___[id number]
--- NOTE | 2020-02-05 11:14 | Hospitalist Progress Note ---
Date of Service February 05, 2020 Assessment & Plan (1) Sepsis: Present on admission due to pyelonephritis with E coli bacteremia responding well to fluids, stop today responding well to Cefepime IV, continue for now repeat blood cultures drawn on 02/04 (2) Acute pyelonephritis: UA abnormal, CTAP c/w cystitis/pyelo, also some ascites Started on cefepime in the ED, will continue Urine and blood cx - growing E coli, sensitive to Cefepime repeat blood cultures drawn on 02/04 to prove clean would need 14 days of antibiotics from 02/04 could likely transition to Cipro BID for PO treatment (3) CARIE (acute kidney injury): due to dehydration and pyelonephritis Cr improving slowly, down to 2.4 today, making adequate urine electrolytes stable (4) Fever: Likely related to pyelo and bacteremia Flu swab neg CXR neg for acute No sick contacts, no SOB, will not continue with COVID precautions given clear reasons for fever COVID testing not sent from ED no fevers on antibiotics (5) Acute hyponatremia: Na up to 131 Cr down to 2.4 will repeat tomorrow stop NSS today (6) Hypokalemia: resolved today, K is 4.4 stop K in fluids, stop PO replacement repeat K tomorrow (7) Elevated troponin: Likely related to renal function Minimal elevation at 0.085-<0.068 EKG with nonspecific T wave inversions will order echo to evaluate for regional wall motion abnormalities no further work up (8) Hypertension: hold lisinopril given renal failure, may use as needed hydralazine BP stable (9) DVT prophylaxis: [facility] Admission and Anticipated Discharge Date Admission Date: February 03, 2020 Subjective patient doing a little better than yesterday she says she is eating well, making urine (a lot actually), has not moved BM for 5 days no fever/chills, no abdominal pain, no dysuria does admit to being really thirsty, drinking a lot of water today does admit to feeling a little short of breath, like she cannot take a deep breath in, no cough, no chest pain reviewed chart, urine and blood cultures grew E coli, sensitive to the Cefepime she is on labs this morning show WBC down to 11k, Cr down to 2.4, K is 4.4 patient very weak with getting cleaned up this morning, per aides will order PT/OT to evaluate discussed with her that likely not home until Wed at the earliest Review of Systems Review of Systems: All systems reviewed & are unremarkable except as noted in HPI & below Physical Exam Constitutional: well developed and + obese; no acute distress Eyes: PERRL, conjunctivae normal, anicteric sclerae ENMT: external ear and nose normal, oropharynx normal Neck: trachea midline, no thyromegaly Respiratory: normal respiratory effort, lungs clear to auscultation Cardiovascular: RRR, no murmur, no edema Gastrointestinal (Abdomen): normal bowel sounds, soft, nontender, no hepatosplenomegaly Musculoskeletal: no cyanosis or clubbing, extremities motor strength 5/5 Skin: no rashes, warm and dry Neurologic: patellar DTR's 2+ bilat, sensation intact and PERRL, EOMI, accommodation nl, no face palsy, no dysarthria Psychiatric: A+Ox3, euthymic affect Lymphatic: no cervical or axillary lymphadenopathy Results & Data Results & Data ([facility]) Vital Signs (Past 12 Hours) Vital Signs Temp Pulse Pulse Resp BP Pulse Ox 02/05/20 08:54 63 02/05/20 07:00 36.6 C 59 L 22 127/52 L 98 02/05/20 04:00 36.8 C 68 20 119/75 98 Laboratory Results Laboratory Results - last 24 hr 02/05/20 02/05/20 02/05/20 06:02 06:03 06:03 WBC 11.49 H RBC 3.37 L Hgb 10.2 L Hct 29.2 L MCV 86.6 MCH 30.3 MCHC 34.9 RDW Std Deviation 44.6 RDW Coeff of Carlos 14.0 Plt Count 348 MPV 10.5 H Immature Gran % (Auto) 3.3 Neut % (Auto) 71.5 Lymph % (Auto) 7.6 Wilkes % (Auto) 16.0 Eos % (Auto) 1.3 Baso % (Auto) 0.3 Immature Gran # (Auto) 0.38 H Neut # (Auto) 8.22 H Lymph # (Auto) 0.87 L Wilkes # (Auto) 1.84 H Eos # (Auto) 0.15 Baso # (Auto) 0.03 Sodium 131 L Potassium 4.4 D Chloride 101 Carbon Dioxide 21 Anion Gap 9.0 BUN 67 H Creatinine 2.48 H Est Cr Clr Drug Dosing 25.6 Est GFR ( Amer) 21.6 Est GFR (Non-Af Amer) 18.6 BUN/Creatinine Ratio 26.9 H Glucose 92 Calcium 7.9 L Magnesium 2.3 Microbiology 02/03/20 12:50 Blood Aerobic Blood Culture - Preliminary No growth in Aerobic bottle after 24 hours. 02/03/20 12:50 Blood Anaerobic Blood Culture - Preliminary Escherichia coli 02/03/20 12:45 Blood Aerobic Blood Culture - Preliminary No growth in Aerobic bottle after 24 hours. 02/03/20 12:45 Blood Anaerobic Blood Culture - Preliminary Escherichia coli 02/03/20 13:30 Urine,Indwelling Cath Urine Culture - Final Escherichia coli Medications Administered Current Inpatient Medications Acetaminophen (Tylenol) 650 mg PO Q4H PRN PRN Reason: Pain or Fever Stop: 03/04/20 18:29 Last Admin: 02/03/20 23:28 Dose: 650 mg Documented by: Hydralazine HCl (Hydralazine Hcl) 10 mg IV Q8H PRN PRN Reason: Blood Pressure - High Stop: 03/05/20 07:43 Cefepime HCl 1,000 mg/ Syringe 11.3 mls @ 5.5 mls/min IV Q24H [facility]; Protocol Stop: 02/14/20 12:59 Last Admin: 02/04/20 12:36 Dose: 5.5 mls/min Documented by: Sodium Chloride (Nss 1000ml) 1,000 mls @ 80 mls/hr IV .[id number] CANDICE Stop: 03/06/20 09:59 Last Admin: 02/05/20 10:23 Dose: 80 mls/hr Documented by: Magnesium Hydroxide (Milk Of Magnesia) 30 ml PO Q12H PRN PRN Reason: Constipation Stop: 03/04/20 18:29 Ondansetron HCl (Zofran) 4 mg IV Q6H PRN PRN Reason: Nausea Stop: 03/04/20 18:29 PG Care Time/CCT Total # of Minutes Spent Total Time Spent with Patient: Total time spent is greater than 50% in coordination of care (as documented) at patient's floor/unit and/or counseling patient: Coding Level of Care Code 84731 Subseq Hosp Care Lvl 3 Diagnoses Sepsis A41.9 Sepsis acute organ dysfunction status: unspecified Sepsis type: sepsis due to unspecified organism Acute pyelonephritis N10 CARIE (acute kidney injury) N17.9 Fever R50.9 Acute hyponatremia E87.1 Hypokalemia E87.6 Elevated troponin R79.89 Hypertension I10 DVT prophylaxis Z29.9 (1) Sepsis Sepsis acute organ dysfunction status: unspecified Sepsis type: sepsis due to unspecified organism Qualified Code(s): A41.9 - Sepsis, unspecified organism
[2020-02-05] MEDS: CEFEPIME 1,000 MG in SYRINGE 0 ML IV SCH (13:45)
[2020-02-05] MEDS: DOCUSATE SODIUM 100 MG CAP PO SCH ×2 (13:45→20:11)
[2020-02-05] MEDS: GUAIFENESIN/DEXTROM SYRUP 100MG/10MG 5ML UDC PO PRN (22:16)
[2020-02-06 07:13] LABS: Creatinine Clr Calc Pharmacy 27.9 ml/min; Est GFR (African American) 23.8; Est GFR (Non-African American) 20.5
[2020-02-06 07:58] LABS: BUN Creatinine Ratio 27.7 (10-20); Calcium 7.9 mg/dl (8.5-10.1); Creatinine Clr Calc Pharmacy 28.6 ml/min; Est GFR (African American) 24.5; Est GFR (Non-African American) 21.2; Potassium 4.7 mmol/L (3.5-5.1)
[2020-02-06] MEDS: GUAIFENESIN/DEXTROM SYRUP 100MG/10MG 5ML UDC PO PRN ×2 (09:15→16:38)
[2020-02-06] MEDS: DOCUSATE SODIUM 100 MG CAP PO SCH ×2 (09:17→21:43)
[2020-02-06] MEDS: ONDANSETRON INJ 2 MG/ML 2 ML VIAL IV PRN ×2 (12:17→21:46)
--- NOTE | 2020-02-06 15:56 | Hospitalist Progress Note ---
Date of Service February 06, 2020 Assessment & Plan (1) Sepsis: Present on admission due to pyelonephritis with E coli bacteremia responded well to fluids, stopped 02/04 responded well to Cefepime IV repeat blood cultures drawn on 02/04 - no growth changed antibiotics to Cipro 250mg BID (renally dosed), plan for 14 days total from 02/04 (02/18) (2) Acute pyelonephritis: UA abnormal, CTAP c/w cystitis/pyelo, also some ascites Started on cefepime on admission, continued until 02/05 Urine and blood cx - growing E coli, sensitive to Cefepime repeat blood cultures drawn on 02/04 - no growth would need 14 days of antibiotics from 02/04 transition to Cipro 250mg BID for PO treatment (3) CARIE (acute kidney injury): due to dehydration and pyelonephritis Cr improving slowly, down to 2.2 today, making adequate urine electrolytes stable unsure of baseline (4) Fever: Likely related to pyelo and bacteremia Flu swab neg CXR neg for acute No sick contacts, no SOB, will not continue with COVID precautions given clear reasons for fever COVID testing not sent from ED no fevers on antibiotics (5) Acute hyponatremia: Na up to 133 Cr down to 2.2 stopped saline on 02/04 (6) Hypokalemia: resolved, K is 4.7 (7) Elevated troponin: Likely related to renal function Minimal elevation at 0.085-<0.068 EKG with nonspecific T wave inversions will order echo to evaluate for regional wall motion abnormalities no further work up (8) Hypertension: held lisinopril given renal failure, may use as needed hydralazine BP up today resume Lisinopril tomorrow (9) DVT prophylaxis: SCDs Admission and Anticipated Discharge Date Admission Date: February 03, 2020 Subjective patient feeling much better, still admits that she is weak eating more today, no fever or chills labs show Cr down to 2.29, electrolytes stable, making urine changed antibiotics to Cipro 250mg BID to complete 14 days total she agrees to going to rehab reviewed PT/OT notes, discussed with CM, [facility] can accept the patient they will call tomorrow morning if they have a bed updated patient's brother over the phone Review of Systems Review of Systems: All systems reviewed & are unremarkable except as noted in HPI & below Constitutional: + fatigue and + weakness; no fever and no sweats Respiratory: no cough and no dyspnea Cardiovascular: no chest pain and no edema Gastrointestinal: no abdominal pain, no nausea, no vomiting, no constipation and no diarrhea/loose stools Genitourinary: + urinary incontinence; no dysuria, no difficulty urinating, no urinary frequency and no hematuria Musculoskeletal: + muscle weakness Physical Exam Constitutional: well developed and + obese; no acute distress Eyes: PERRL, conjunctivae normal, anicteric sclerae ENMT: external ear and nose normal, oropharynx normal Neck: trachea midline, no thyromegaly Respiratory: normal respiratory effort, lungs clear to auscultation Cardiovascular: RRR, no murmur, no edema Gastrointestinal (Abdomen): normal bowel sounds, soft, nontender, no hepatosplenomegaly Musculoskeletal: no cyanosis or clubbing, extremities motor strength 5/5 Skin: no rashes, warm and dry Neurologic: patellar DTR's 2+ bilat, sensation intact and PERRL, EOMI, accommodation nl, no face palsy, no dysarthria Psychiatric: A+Ox3, euthymic affect Lymphatic: no cervical or axillary lymphadenopathy Results & Data Results & Data ([facility]) Vital Signs (Past 12 Hours) Vital Signs Temp Pulse Resp BP Pulse Ox 02/06/20 15:50 36.8 C 61 20 162/70 H 98 02/06/20 07:45 36.7 C 64 20 120/63 96 Laboratory Results Laboratory Results - last 24 hr 02/06/20 02/06/20 05:52 05:53 Sodium 133 L Potassium 4.7 Chloride 105 Carbon Dioxide 21 Anion Gap 8.0 BUN 62 H Creatinine 2.23 H 2.29 H Est Cr Clr Drug Dosing 28.6 27.9 Est GFR ( Amer) 24.5 23.8 Est GFR (Non-Af Amer) 21.2 20.5 BUN/Creatinine Ratio 27.7 H Glucose 92 Calcium 7.9 L Medications Administered Current Inpatient Medications Acetaminophen (Tylenol) 650 mg PO Q4H PRN PRN Reason: Pain or Fever Stop: 03/04/20 18:29 Last Admin: 02/03/20 23:28 Dose: 650 mg Documented by: Ciprofloxacin (Cipro) 250 mg PO Q12H [facility] Stop: 02/16/20 20:59 Docusate Sodium (Colace) 100 mg PO BID CANDICE Stop: 03/06/20 11:59 Last Admin: 02/06/20 09:17 Dose: 100 mg Documented by: Guaifenesin/Dextromethorphan (Robitussin Cough-Chest Dm) 5 ml PO Q6H PRN PRN Reason: Cough Stop: 03/06/20 22:00 Last Admin: 02/06/20 09:15 Dose: 5 ml Documented by: Hydralazine HCl (Hydralazine Hcl) 10 mg IV Q8H PRN PRN Reason: Blood Pressure - High Stop: 03/05/20 07:43 Magnesium Hydroxide (Milk Of Magnesia) 30 ml PO Q12H PRN PRN Reason: Constipation Stop: 03/04/20 18:29 Ondansetron HCl (Zofran) 4 mg IV Q6H PRN PRN Reason: Nausea Stop: 03/04/20 18:29 Last Admin: 02/06/20 12:17 Dose: 4 mg Documented by: PG Care Time/CCT Total # of Minutes Spent Total Time Spent with Patient: Total time spent is greater than 50% in coordination of care (as documented) at patient's floor/unit and/or counseling patient: Coding Level of Care Code 25267 Subseq Hosp Care Lvl 3 Diagnoses Sepsis A41.9 Sepsis acute organ dysfunction status: unspecified Sepsis type: sepsis due to unspecified organism Acute pyelonephritis N10 CARIE (acute kidney injury) N17.9 Fever R50.9 Acute hyponatremia E87.1 Hypokalemia E87.6 Elevated troponin R79.89 Hypertension I10 DVT prophylaxis Z29.9 (1) Sepsis Sepsis acute organ dysfunction status: unspecified Sepsis type: sepsis due to unspecified organism Qualified Code(s): A41.9 - Sepsis, unspecified organism
[2020-02-06] MEDS: CIPROFLOXACIN 250 MG TAB PO SCH (21:43)
[2020-02-07 07:53] LABS: BUN Creatinine Ratio 26.8 (10-20); Calcium 8.4 mg/dl (8.5-10.1); Creatinine Clr Calc Pharmacy 30.5 ml/min; Est GFR (African American) 26.5; Est GFR (Non-African American) 22.9; Potassium 5.1 mmol/L (3.5-5.1)
[2020-02-07] MEDS: lisinopriL 40 MG TAB PO SCH (08:59)
[2020-02-07] MEDS: CIPROFLOXACIN 250 MG TAB PO SCH ×2 (08:59→21:06)
[2020-02-07] MEDS: DOCUSATE SODIUM 100 MG CAP PO SCH ×2 (08:59→21:06)
--- NOTE | 2020-02-07 12:27 | Hospitalist Progress Note ---
Date of Service February 07, 2020 Assessment & Plan (1) Acute pyelonephritis: CT a/p on 02/02 c/w cystitis & left-sided pyelonephritis. Urine & blood cultures from 02/02 growing E. coli. - Started on cefepime on admission, continued until 02/05. - Transitioned to ciprofloxacin (End date: 01/13/2020) (2) Sepsis: Present on admission due to pyelonephritis. - Resolved (3) CARIE (acute kidney injury): Due to dehydration and pyelonephritis. Baseline Cr unknown as her last Cr was in 2018 prior to this admission. - Cr peaked at 2.85, and down from there. - Cr 2.1 on 02/06. - Monitor (4) Fever: Likely related to pyelo and bacteremia. Flu swab neg. No sick contacts, no SOB, will not continue with COVID precautions given clear reasons for fever. - No further fevers since 02/02 (5) Acute hyponatremia: Na was 118 on presentation. - Now up to 132 on 02/04. (6) Elevated troponin: Likely related to renal function. Minimal elevation at 0.085-<0.068. EKG with nonspecific T wave inversions. Echo was normal with EF 60-65%, no regional wall motional abnormalities. - No further work up (7) Hypertension: Held lisinopril on admission due to renal failure. BP generally normal with highest being 160/70. - Restarted lisinopril on 02/06. (8) DVT prophylaxis: [facility] Admission and Anticipated Discharge Date Admission Date: February 03, 2020 Subjective Doing better today. Reported that she still has a post-nasal drip cough with frequent throat clearing. No sinus pressure. Reports no fevers/chills, chest pain, shortness of breath, abdominal pain, nausea, or vomiting. Physical Exam Constitutional: WD/WN, vitals as above + morbidly obese Eyes: EOM intact bilaterally; no conjunctival abnormality ENMT: external ear and nose normal, oropharynx normal Neck: trachea midline, no thyromegaly normal visual inspection Respiratory: normal respiratory effort, lungs clear to auscultation no respiratory distress Cardiovascular: RRR, no murmur, no edema Gastrointestinal (Abdomen): Inspection/Auscultation: abdomen normal to inspection; abdomen not distended Musculoskeletal: no cyanosis or clubbing, extremities motor strength 5/5 Skin: no rashes, warm and dry Neurologic: moves all extremities and awake Psychiatric: Orientation: alert, oriented to person and cooperative Results & Data Results & Data ([facility]) Vital Signs (Past 12 Hours) Vital Signs Temp Pulse Resp BP BP Pulse Ox 02/07/20 11:16 36.8 C 60 20 133/72 94 02/07/20 07:27 36.9 C 68 18 126/67 95 PG Care Time/CCT Total # of Minutes Spent Total Time Spent with Patient: Total time spent is greater than 50% in coordination of care (as documented) at patient's floor/unit and/or counseling patient: Coding Level of Care Code 52785 Subseq Hosp Care Lvl 3 Diagnoses Acute pyelonephritis N10 Sepsis A41.9 Sepsis acute organ dysfunction status: unspecified Sepsis type: sepsis due to unspecified organism CARIE (acute kidney injury) N17.9 Fever R50.9 Acute hyponatremia E87.1 Elevated troponin R79.89 Hypertension I10 DVT prophylaxis Z29.9 (1) Sepsis Sepsis acute organ dysfunction status: unspecified Sepsis type: sepsis due to unspecified organism Qualified Code(s): A41.9 - Sepsis, unspecified organism
[2020-02-07] MEDS: SODIUM CHLORIDE 0.65% NA SOLN 45 ML (OCEAN) SCH ×3 (14:05→21:07)
[2020-02-07] MEDS: FLUTICASONE PROPIONATE NA SPR 16 GM BTL SCH ×2 (14:06→21:06)
[2020-02-07] MEDS: GUAIFENESIN/DEXTROM SYRUP 100MG/10MG 5ML UDC PO PRN (21:23)
[2020-02-08 06:34] LABS: Creatinine Clr Calc Pharmacy 33.7 ml/min; Est GFR (Non-African American) 25.9
[2020-02-08] MEDS: lisinopriL 40 MG TAB PO SCH (09:33)
[2020-02-08] MEDS: SODIUM CHLORIDE 0.65% NA SOLN 45 ML (OCEAN) SCH ×2 (09:34→13:51)
[2020-02-08] MEDS: DOCUSATE SODIUM 100 MG CAP PO SCH (09:34)
[2020-02-08] MEDS: CIPROFLOXACIN 250 MG TAB PO SCH (09:34)
[2020-02-08] MEDS: FLUTICASONE PROPIONATE NA SPR 16 GM BTL SCH (09:34)
[2020-02-08] MEDS: ONDANSETRON INJ 2 MG/ML 2 ML VIAL IV PRN (14:05)
--- NOTE | 2020-02-08 18:12 | Discharge Summary ---
Date of Service February 08, 2020 Admission HPI Per Admitting Provider 74 y/o F c/o feeling generally unwell. Pt states that she has been having fevers for the last week. She has had issues with nausea with emesis, but no emesis today. She has felt weak. She is having back pain on the L, which is unusual for her. She has been urinating a lot more recently, but no pain with urination. She has had some abd pain as well, mostly lower abd. Pt denies SOB, chest pain, c/d, LE pain or swelling. Pt was started on a medication last week for nausea and it has caused her to have hiccups with occasional coughing related to hiccups. She has had no appetite and her intake has been low. No loss of taste or smell. No sick contacts. Pt has hx of UTI a few years ago when she was in [facility] for rehab. She states she had no burning or other major sx, but a UA was done and she was tx with abx at that time. Pt states she is already feeling improved s/p IVF and abx in the ED. She is hungry now, which is the first she has been hungry in days. Principal Diagnosis Sepsis due to pyelonephritis, E coli Discharge Exam Constitutional well developed and + obese; no acute distress Eyes PERRL, conjunctivae normal, anicteric sclerae ENMT external ear and nose normal, oropharynx normal Neck trachea midline, no thyromegaly Respiratory normal respiratory effort, lungs clear to auscultation Cardiovascular RRR, no murmur, no edema Gastrointestinal (Abdomen) normal bowel sounds, soft, nontender, no hepatosplenomegaly Musculoskeletal Head/Neck/Chest: normocephalic and head atraumatic Extremities: extremities normal to inspection and + abnormal strength (generalized weakness); no cyanosis and no clubbing Skin no rashes, warm and dry Neurologic patellar DTR's 2+ bilat, sensation intact and PERRL, EOMI, accommodation nl, no face palsy, no dysarthria Psychiatric A+Ox3, euthymic affect Lymphatic no cervical or axillary lymphadenopathy Discharge Data Allergies Allergy/AdvReac Type Severity Reaction Status Date / Time gluten Allergy Unknown GI SYMPTOMS Verified 02/03/20 13:50 Penicillins Allergy Unknown CHILDHOOD Verified 02/03/20 13:50 ALLERGY adhesive tape Allergy Blister Verified 02/03/20 13:50 SEASONAL ALLERGIES Allergy Unknown itchy eyes Uncoded 02/03/20 13:50 and hayfever WHEAT/GLUTEN Allergy Unknown eczema and Uncoded 02/03/20 13:50 stomach ache Consultations 02/03/20 15:06 ED Decision to Admit Stat Ordered Studies 02/03/20 13:06 CT abd pelvis wo con Stat Hospital Course (1) Acute pyelonephritis: CT a/p on 02/02 c/w cystitis & left-sided pyelonephritis. Urine & blood cultures from 02/02 growing E. coli. - Started on cefepime on admission, continued until 02/05. - Transitioned to ciprofloxacin 250mg BID complete a total of 14 days from the negative blood culture on 02/05/20 (2) Sepsis: Present on admission due to pyelonephritis. - Resolved with fluids and antibiotics (3) CARIE (acute kidney injury): Due to dehydration and pyelonephritis. Baseline Cr unknown as her last Cr was in 2017 prior to this admission. - Cr peaked at 2.85, and down from there. - Cr continues to improve, down to 1.8 today safe to resume Lisinopril HCTZ stopped, should not resume in future due to hyponatremia (4) Fever: Likely related to pyelo and bacteremia. Flu swab neg. No sick contacts, no SOB, will not continue with COVID precautions given clear reasons for fever. - No further fevers since 02/02 (5) Acute hyponatremia: Na was 118 on presentation. - Now up to 132 on 02/04. (6) Elevated troponin: Likely related to renal function. Minimal elevation at 0.085-<0.068. EKG with nonspecific T wave inversions. Echo was normal with EF 60-65%, no regional wall motional abnormalities. - No further work up (7) Hypertension: Held lisinopril on admission due to renal failure. BP generally normal with highest being 160/70. - Restarted lisinopril on 02/06 again, if BP elevated in the future, consider another agent such as Norvasc, would NOT use HCTZ due to hyponatremia (8) DVT prophylaxis: SCDs Total Time Total Time Spent Total Time Spent (In Minutes): 33 minutes Total Time Includes: Examination of the Patient, Discharge Planning and Medication Reconciliation Discharge Plan Discharge Items Patient Disposition: Transfer Detention Fac Reason For Visit: PYELONEPHRITIS, HYPONATREMIA Discharge Diagnosis: Pyelonephritis E coli bacteremia Acute kidney injury Hyponatremia Condition on Discharge: Good Goals: complete course of Ciprofloxacin improve strength and mobility improve nutrition and hydration Activity: Resume your previous activity Weightbearing: Full weightbearing Non-emergency contact: Primary Care Provider Call non-emergency contact if: you have any medication questions and you have a fever Follow-up/Referrals: PCP,NO [Primary Care Provider] - Diet: Regular Addtl Attending Provider Instructions: Medications: - CIPRO: 250mg twice a day for 10 more days for 14 days from negative culture for bacteremia, pyelonephritis - FLONASE: use for 7 days as prescribed - NASAL SPRAY, SALINE: use for 7 days as prescribed Pyelonephritis, E coli bacteremia, Acute kidney injury improved greatly over past 5 days, was treated with Cefepime initially transitioned to Cipro 250mg BID two days ago, tolerating well complete 10 more days, this would be 14 days from negative blood cultures renal function improving each day, Cr down to 1.8, was 2.8 on admission making more urine, electrolytes stable, Na up to normal would recheck a BMP next week Hypertension: BP fluctuates she is back on her Lisinopril 40mg daily if BP is elevated despite this, would NOT add back HCTZ due to hyponatremia event could consider Norvasc 5mg daily patient needs rehab, plan would be to go home once strong enough Pending Studies at Discharge: No Stand-Alone Forms: My [facility] Skilled Items Patient informed of condition?: Yes DNR: No Discharge Level of Care: Acute rehab Communicable Disease: No Discharge Prognosis: Stable Lines: None Urinary Catheter: No Medications and DC Order Prescriptions: New fluticasone propionate 50 mcg/actuation [place],Suspension 1 spray NA BID 7 Days Qty: 18.2 RF: 0 sodium chloride [Saline Mist] 0.65 % Aerosol,[place] 2 spray NA TID 7 Days Qty: 30 RF: 0 ciprofloxacin HCl 250 mg Tablet 250 mg PO Q12H 10 Days Qty: 20 RF: 0 Continued lisinopril 40 mg Tablet 40 mg PO QAM RF: 0 Discontinued hydrochlorothiazide 25 mg Tablet 25 mg PO QAM RF: 0 Discharge Orders: Discharge Order (Routine); Ordered 02/08/20 Ordered By: Cody Montoya Admission Data Admit Date/Time: 02/03/20 17:31 Attending Provider: Cody Montoya Admit Provider: Ame Carrion Primary Care Provider: PCP,NO Other Providers: Nabila Hayes at [place] ; Armin Arreaga ; Cele Pennington Other Interventions: Discharge Summary Assessment (RN) Last Done: 02/08/20 13:51 DC Date/Time DO NOT enter until pt leaves facility: 02/08/20 14:34 Coding Level of Care Code D/C Day Management >30 mins Diagnoses Acute pyelonephritis N10 Sepsis A41.9 Sepsis acute organ dysfunction status: unspecified Sepsis type: sepsis due to unspecified organism CARIE (acute kidney injury) N17.9 Fever R50.9 Acute hyponatremia E87.1 Elevated troponin R79.89 Hypertension I10 DVT prophylaxis Z29.9
== END 2020-02-08 14:34 | DRG 872 ==
LOC: ED 11:56 → SUATTDRO 17:31 → 2S 17:31 → 2N 02-04 16:49

== ENCOUNTER 2023-08-08 13:09 | Inpatient (IN) ==
[2023-08-08] MEDS ORDERED: ONDANSETRON INJ 2 MG/ML 2 ML VIAL IV STA (13:58)
[2023-08-08] MEDS ORDERED: SODIUM CHLORIDE 0.9% 1,000 ML IV ONE (13:58)
--- NOTE | 2023-08-08 13:58 | Emergency Department Note ---
Impression & Plan Generalized weakness, Acute UTI (urinary tract infection) ED Provider Note HISTORY OF PRESENT ILLNESS: Patient is a 77-year-old female presenting with general malaise and weakness. Patient reports for the last week she has been feeling very fatigued and rundown. States that she has been having some foul-smelling urine, but no dysuria or hematuria. Reports nausea but no vomiting or diarrhea. Denies any chest pain or shortness of breath. Denies any measured fevers, but reports subjective fevers and chills at home. She reports she has had a intermittent nonproductive cough. She had poor oral intake in the last week. States that last time she had symptoms like this was in 2020 when she was diagnosed with urosepsis. Denies any recent travel. Denies any recent sick contact exposure ROS: as above PHYSICAL EXAM: Constitutional: Patient appears in no acute distress. HENT: Head: Normocephalic and atraumatic. Eyes: EOMI, PERRL Mouth/Throat: Mucous membranes moist. Neck: Trachea midline. Neck supple. Cardiovascular: RRR, No murmurs, rubs or gallops. Intact distal pulses. Pulmonary/Chest: No respiratory distress. Breath sounds clear and equal bilaterally. No wheezes or rales. Abdominal: Abdomen soft, no tenderness, rebound or guarding. Musculoskeletal: No edema, tenderness or deformity noted. Skin: Warm and dry. No rash, erythema, pallor or cyanosis Psychiatric: Appropriate mood and affect for situation. Neurological: Alert and keenly responsive. CN II-XII grossly intact, moving all extremities equally and fully. MDM: - Vitals signs stable. - History obtained via patient. Patient presents with general malaise and weakness. Patient reports for the last week has been feeling very rundown and fatigued. States she has been having some foul-smelling urine but no dysuria or hematuria. Reports nausea but no vomiting or diarrhea. Denies any abdominal pa in. Denies any measured fevers, but reports subjective fevers and chills. Reports an intermittent nonproductive cough. - Chronic conditions affecting care: CKD; HTN - Differential diagnoses include, but are not limited to: viral syndrome; UTI; pneumonia; dehydration; electrolyte abnormality - Order placed for continuous cardiac monitoring. At this time, monitor showed rate of 74 bpm with normal sinus rhythm, per my interpretation. - External medical records reviewed. - EKG reviewed by myself showed normal sinus rhythm. Rate 70 bpm. QTc 425. No acute ischemic changes - Laboratory workup interpreted by myself showed normal WBC; chronic anemia; hyponatremia (Na 131); normal lactate; normal procalcitonin - UA showed evidence of infection. Given 2g IV rocephin - CXR negative for pneumonia, per my interpretation - Biofire negative - Blood cultures were obtained prior to antibiotic administration. - Discussed results with the patient. She is still feeling very and concerned about going home and that she has been unable to get up and get around like normal. Offered admission for observation for PT/OT assessment. - Discussion was had with perinatal social worker about patient's case and need for admit - Hospitalist consulted for admission - Patient admitted to [facility]ist service for further evaluation and management. ASSESSMENT AND PLAN: Diagnosis: generalized weakness; UTI Plan: admit Past Med/Surg History Medical History (Updated 08/08/23 @ 17:29 by Citlaly Kilgore MD) Asthma LAST USED PRN INH 2-3 MONTHS AGO Chronic back pain CKD (chronic kidney disease), stage III GERD (gastroesophageal reflux disease) Hypertension Obesity Osteoarthritis Sleep apnea CPAP Temporomandibular joint disorder Surgical History History of cataract extraction with lens replacement RIGHT EYE 12/21/[place] [facility] [place] of cholecystectomy History of colonoscopy History of esophagogastroduodenoscopy (EGD) History of total hip arthroplasty LEFT Social History Smoking Status: Never smoker Cigarettes Per Day: QUIT AT AGE 36; Second Hand Exposure: No; Do You Dip or Chew Tobacco: No; Hx Alcohol Use: Yes Alcohol type: wine Hx Substance Use: No Preferred Language: Ukrainian 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 Ability: Effective Dining Server Required: No Beliefs That Will Affect Care: None Current Living Situation: Alone Feels Safe at Home: Yes Assistive Devices: Walker Allergies Allergies Allergy/AdvReac Type Severity Reaction Status Date / Time gluten Allergy Unknown GI SYMPTOMS Verified 08/08/23 16:44 Penicillins Allergy Unknown CHILDHOOD Verified 08/08/23 16:44 ALLERGY adhesive tape Allergy Blister Verified 08/08/23 16:44 SEASONAL ALLERGIES Allergy Unknown itchy eyes Uncoded 08/08/23 16:44 and hayfever WHEAT/GLUTEN Allergy Unknown eczema and Uncoded 08/08/23 16:44 stomach ache Home Meds Home Medications Medication Instructions Recorded Confirmed conjugated estrogens 0.625 mg/gram 1 applic vaginal 2XWK 02/11/21 08/08/23 vaginal cream (Premarin) triamcinolone acetonide 0.025 % 1 applic topical BID PRN eczema 02/11/21 08/08/23 topical cream amlodipine 2.5 mg tablet 2.5 mg PO HS 08/08/23 08/08/23 clindamycin HCl 150 mg capsule 600 mg PO UD PRN dental procedures 08/08/23 08/08/23 furosemide 20 mg tablet 20 mg PO UD 08/08/23 08/08/23 lisinopril 5 mg tablet 5 mg PO DAILY 08/08/23 08/08/23 ondansetron HCl 4 mg tablet 4 mg PO Q6 PRN Nausea 08/08/23 08/08/23 pantoprazole 40 mg tablet,delayed 40 mg PO DAILYBB 08/08/23 08/08/23 release Previous Rx's Medication Instructions Recorded aspirin 81 mg chewable tablet 81 mg PO DAILY #30 tabs 02/11/21 Results & Data (ED) Vital Signs Vital Signs - 24 hr 08/08/23 13:18 08/08/23 15:54 08/08/23 16:03 Temperature 36.8 C Temperature Source Oral Pulse Rate 79 70 Pulse Rate [Right Finger] 74 Respiratory Rate 18 17 Blood Pressure 124/66 Blood Pressure [Left Arm] 169/83 H Blood Pressure Mean 85 Blood Pressure Mean [Left Arm] 111 Pulse Oximetry 96 96 Oxygen Delivery Method Room Air Room Air Sepsis Recent Fever Within 48 Hours No Sepsis New/Unexplained Change in Mental Status No Sepsis Action Taken by Nursing No Action Required Laboratory Data 08/08/23 14:15 08/08/23 14:15 Lab Results 08/08/23 08/08/23 08/08/23 Range/Units 14:15 14:15 14:15 WBC 9.80 (4.8-10.8) K/ul RBC 3.45 L (4.20-5.40) M/uL Hgb 9.2 L (12.0-16.0) g/dl Hct 29.0 L (37.0-47.0) % MCV 84.1 (80.0-100.0) fL MCH 26.7 (25.0-34.0) pg MCHC 31.7 L (32.0-36.0) g/dL RDW Std Deviation 45.9 (36.4-46.3) fL RDW Coeff of Carlos 14.9 H (11.5-14.5) % Plt Count 460 H (130-400) K/uL MPV 9.6 (9.4-12.4) fL Immature Gran % (Auto) 0.5 % Neut % (Auto) 77.8 % Lymph % (Auto) 10.0 % Jerome % (Auto) 10.8 % Eos % (Auto) 0.4 % Baso % (Auto) 0.5 % Neut # (Auto) 7.62 H (1.40-6.50) K/uL Lymph # (Auto) 0.98 L (1.20-3.40) K/uL Jerome # (Auto) 1.06 H (0.11-0.59) K/uL Eos # (Auto) 0.04 (0.00-0.50) K/uL Baso # (Auto) 0.05 (0.00-0.20) K/uL Immature Gran # (Auto) 0.05 (0.01-0.20) K/uL PT 11.3 (9.0-12.0) Seconds INR 1.0 (0.9-1.1) APTT 26.5 (21.0-31.0) Seconds PTT Ratio 0.9 Sodium (136-145) mmol/L Potassium (3.5-5.1) mmol/L Chloride (98-107) mmol/L Carbon Dioxide (21-32) mmol/L Anion Gap (3-11) BUN (6-23) mg/dl Creatinine (0.6-1.2) mg/dl Est Cr Clr Drug Dosing ml/min Est GFR ( Amer) ml/min Est GFR (Non-Af Amer) ml/min BUN/Creatinine Ratio (10-20) Glucose (70-99(Fasting)) mg/dl Lactate 1.5 (0.4-2.0) mmol/L Calcium (8.6-10.3) mg/dl Magnesium (1.7-2.4) mg/dl Total Bilirubin (0.2-1.0) mg/dl AST (13-39) U/L ALT (7-52) U/L Alkaline Phosphatase (34-104) U/L Troponin I High Sens (0-14) pg/ml Total Protein (6.0-8.3) gm/dl Albumin (3.4-5.0) gm/dl Globulin (2.5-4.0) gm/dl Albumin/Globulin Ratio (0.9-2) Procalcitonin (0-0.5) ng/ml Urine Color Urine Appearance (Clear) Urine pH (4.5-7.5) Ur Specific Wyano (1.000-1.030) Urine Protein (Negative) Urine Glucose (UA) (Negative) Urine Ketones (Negative) Urine Blood (Negative) Urine Nitrite (Negative) Urine Bilirubin (Negative) Urine Urobilinogen (Negative) Ur Leukocyte Esterase (Negative) Urine WBC (Auto) (0-5) /hpf Urine RBC (Auto) (0-4) /hpf U Hyaline Cast (Auto) (0-5) /lpf U Epithel Cells (Auto) (0-5) /lpf Urine Bacteria (Auto) (Negative) Adenovirus (PCR) (NotDetected) B. pertussis DNA (PCR) (NotDetected) B.parapertussis DNA PCR (NotDetected) C. pneumoniae DNA (PCR) (NotDetected) Coronavirus OC43 (PCR) (NotDetected) Coronavirus HKU1 (PCR) (NotDetected) Coronavirus 229E (PCR) (NotDetected) SARS-CoV-2 (PCR) (NotDetected) Coronavirus NL63 (PCR) (NotDetected) Human Metapneumovir PCR (NotDetected) Influenza Type A (PCR) (NotDetected) Influenza Type B (PCR) (NotDetected) M. pneumoniae (PCR) (NotDetected) Parainfluenza 1 (PCR) (NotDetected) Parainfluenza 2 (PCR) (NotDetected) Parainfluenza 3 (PCR) (NotDetected) Parainfluenza 4 (PCR) (NotDetected) RSV (PCR) (NotDetected) Entero/Rhino (PCR) (NotDetected) 08/08/23 08/08/23 08/08/23 Range/Units 14:15 14:15 14:50 WBC (4.8-10.8) K/ul RBC (4.20-5.40) M/uL Hgb (12.0-16.0) g/dl Hct (37.0-47.0) % MCV (80.0-100.0) fL MCH (25.0-34.0) pg MCHC (32.0-36.0) g/dL RDW Std Deviation (36.4-46.3) fL RDW Coeff of Carlos (11.5-14.5) % Plt Count (130-400) K/uL MPV (9.4-12.4) fL Immature Gran % (Auto) % Neut % (Auto) % Lymph % (Auto) % Jerome % (Auto) % Eos % (Auto) % Baso % (Auto) % Neut # (Auto) (1.40-6.50) K/uL Lymph # (Auto) (1.20-3.40) K/uL Jerome # (Auto) (0.11-0.59) K/uL Eos # (Auto) (0.00-0.50) K/uL Baso # (Auto) (0.00-0.20) K/uL Immature Gran # (Auto) (0.01-0.20) K/uL PT (9.0-12.0) Seconds INR (0.9-1.1) APTT (21.0-31.0) Seconds PTT Ratio Sodium 131 L (136-145) mmol/L Potassium 4.3 (3.5-5.1) mmol/L Chloride 98 (98-107) mmol/L Carbon Dioxide 25 (21-32) mmol/L Anion Gap 8 (3-11) BUN 20 (6-23) mg/dl Creatinine 1.19 (0.6-1.2) mg/dl Est Cr Clr Drug Dosing 48.2 ml/min Est GFR ( Amer) 51.4 ml/min Est GFR (Non-Af Amer) 44.3 ml/min BUN/Creatinine Ratio 16.8 (10-20) Glucose 91 (70-99(Fasting)) mg/dl Lactate (0.4-2.0) mmol/L Calcium 9.0 (8.6-10.3) mg/dl Magnesium 1.9 (1.7-2.4) mg/dl Total Bilirubin 0.5 (0.2-1.0) mg/dl AST 14 (13-39) U/L ALT 8 (7-52) U/L Alkaline Phosphatase 69 (34-104) U/L Troponin I High Sens 7.4 (0-14) pg/ml Total Protein 7.4 (6.0-8.3) gm/dl Albumin 3.3 L (3.4-5.0) gm/dl Globulin 4.1 H (2.5-4.0) gm/dl Albumin/Globulin Ratio 0.8 L (0.9-2) Procalcitonin 0.32 (0-0.5) ng/ml Urine Color Urine Appearance (Clear) Urine pH (4.5-7.5) Ur Specific Wyano (1.000-1.030) Urine Protein (Negative) Urine Glucose (UA) (Negative) Urine Ketones (Negative) Urine Blood (Negative) Urine Nitrite (Negative) Urine Bilirubin (Negative) Urine Urobilinogen (Negative) Ur Leukocyte Esterase (Negative) Urine WBC (Auto) (0-5) /hpf Urine RBC (Auto) (0-4) /hpf U Hyaline Cast (Auto) (0-5) /lpf U Epithel Cells (Auto) (0-5) /lpf Urine Bacteria (Auto) (Negative) Adenovirus (PCR) Not Detected (NotDetected) B. pertussis DNA (PCR) Not Detected (NotDetected) B.parapertussis DNA PCR Not Detected (NotDetected) C. pneumoniae DNA (PCR) Not Detected (NotDetected) Coronavirus OC43 (PCR) Not Detected (NotDetected) Coronavirus HKU1 (PCR) Not Detected (NotDetected) Coronavirus 229E (PCR) Not Detected (NotDetected) SARS-CoV-2 (PCR) Not Detected (NotDetected) Coronavirus NL63 (PCR) Not Detected (NotDetected) Human Metapneumovir PCR Not Detected (NotDetected) Influenza Type A (PCR) Not Detected (NotDetected) Influenza Type B (PCR) Not Detected (NotDetected) M. pneumoniae (PCR) Not Detected (NotDetected) Parainfluenza 1 (PCR) Not Detected (NotDetected) Parainfluenza 2 (PCR) Not Detected (NotDetected) Parainfluenza 3 (PCR) Not Detected (NotDetected) Parainfluenza 4 (PCR) Not Detected (NotDetected) RSV (PCR) Not Detected (NotDetected) Entero/Rhino (PCR) Not Detected (NotDetected) 08/08/23 Range/Units 15:15 WBC (4.8-10.8) K/ul RBC (4.20-5.40) M/uL Hgb (12.0-16.0) g/dl Hct (37.0-47.0) % MCV (80.0-100.0) fL MCH (25.0-34.0) pg MCHC (32.0-36.0) g/dL RDW Std Deviation (36.4-46.3) fL RDW Coeff of Carlos (11.5-14.5) % Plt Count (130-400) K/uL MPV (9.4-12.4) fL Immature Gran % (Auto) % Neut % (Auto) % Lymph % (Auto) % Jerome % (Auto) % Eos % (Auto) % Baso % (Auto) % Neut # (Auto) (1.40-6.50) K/uL Lymph # (Auto) (1.20-3.40) K/uL Jerome # (Auto) (0.11-0.59) K/uL Eos # (Auto) (0.00-0.50) K/uL Baso # (Auto) (0.00-0.20) K/uL Immature Gran # (Auto) (0.01-0.20) K/uL PT (9.0-12.0) Seconds INR (0.9-1.1) APTT (21.0-31.0) Seconds PTT Ratio Sodium (136-145) mmol/L Potassium (3.5-5.1) mmol/L Chloride (98-107) mmol/L Carbon Dioxide (21-32) mmol/L Anion Gap (3-11) BUN (6-23) mg/dl Creatinine (0.6-1.2) mg/dl Est Cr Clr Drug Dosing ml/min Est GFR ( Amer) ml/min Est GFR (Non-Af Amer) ml/min BUN/Creatinine Ratio (10-20) Glucose (70-99(Fasting)) mg/dl Lactate (0.4-2.0) mmol/L Calcium (8.6-10.3) mg/dl Magnesium (1.7-2.4) mg/dl Total Bilirubin (0.2-1.0) mg/dl AST (13-39) U/L ALT (7-52) U/L Alkaline Phosphatase (34-104) U/L Troponin I High Sens (0-14) pg/ml Total Protein (6.0-8.3) gm/dl Albumin (3.4-5.0) gm/dl Globulin (2.5-4.0) gm/dl Albumin/Globulin Ratio (0.9-2) Procalcitonin (0-0.5) ng/ml Urine Color Yellow Urine Appearance Clear (Clear) Urine pH 7.5 (4.5-7.5) Ur Specific Wyano 1.005 (1.000-1.030) Urine Protein Negative (Negative) Urine Glucose (UA) Negative (Negative) Urine Ketones Negative (Negative) Urine Blood Negative (Negative) Urine Nitrite Negative (Negative) Urine Bilirubin Negative (Negative) Urine Urobilinogen Negative (Negative) Ur Leukocyte Esterase 2+ H (Negative) Urine WBC (Auto) 10-30 H (0-5) /hpf Urine RBC (Auto) 0-4 (0-4) /hpf U Hyaline Cast (Auto) 1-5 (0-5) /lpf U Epithel Cells (Auto) 0-5 (0-5) /lpf Urine Bacteria (Auto) 2+ H (Negative) Adenovirus (PCR) (NotDetected) B. pertussis DNA (PCR) (NotDetected) B.parapertussis DNA PCR (NotDetected) C. pneumoniae DNA (PCR) (NotDetected) Coronavirus OC43 (PCR) (NotDetected) Coronavirus HKU1 (PCR) (NotDetected) Coronavirus 229E (PCR) (NotDetected) SARS-CoV-2 (PCR) (NotDetected) Coronavirus NL63 (PCR) (NotDetected) Human Metapneumovir PCR (NotDetected) Influenza Type A (PCR) (NotDetected) Influenza Type B (PCR) (NotDetected) M. pneumoniae (PCR) (NotDetected) Parainfluenza 1 (PCR) (NotDetected) Parainfluenza 2 (PCR) (NotDetected) Parainfluenza 3 (PCR) (NotDetected) Parainfluenza 4 (PCR) (NotDetected) RSV (PCR) (NotDetected) Entero/Rhino (PCR) (NotDetected) Administered Medications Discontinued Medications Sodium Chloride (Nss) 1,000 mls @ 999 mls/hr IV .[id number] ONE Stop: 08/08/23 14:58 Last Admin: 08/08/23 14:23 Dose: 999 mls/hr Documented By: OL Ceftriaxone Sodium (Rocephin) 2,000 mg in 50 mls @ 100 mls/hr IV NOW STA Stop: 08/08/23 16:20 Last Admin: 08/08/23 16:01 Dose: 100 mls/hr Documented By: ASW Ondansetron HCl (Ondansetron Inj 2 Mg/Ml 2 Ml Vial) 4 mg IV NOW STA Stop: 08/08/23 13:59 Last Admin: 08/08/23 14:45 Dose: 4 mg Documented By: OL Imaging Data Radiologist's Impression: Chest X-Ray 08/08/23 13:57 XR chest 1V portable HISTORY: 77 years-old Female Sepsis acute sepsis COMPARISON: 02/03/2020 TECHNIQUE: AP view of the chest FINDINGS: Cardiac silhouette is enlarged. Hiatal hernia. No pneumothorax, pleural effusion or airspace consolidation. Bones appear grossly intact. Thoracic dextroscoliosis. IMPRESSION: 1. Cardiomegaly without acute process. 2. Hiatal hernia. ACT 112: Negative or not required by law. The above report was generated using voice recognition software. It may contain grammatical, syntax or spelling errors. Electronically signed by: Tre Alvarado M.D. 08/08/2023 2:36 PM Discharge Plan Visit Data Chief Complaint: Urinary Symptoms Stated Complaint: WEAKNESS, URINARY SX ED Provider: Citlaly Kilgore Discharge Problem: Generalized weakness, Acute UTI (urinary tract infection) Forms Stand Alone Forms: [facility] Prescriptions Prescriptions: No Action ondansetron HCl 4 mg tablet 4 mg PO Q6 PRN (Reason: Nausea) pantoprazole 40 mg tablet,delayed release (DR/EC) 40 mg PO DAILYBB lisinopril 5 mg tablet 5 mg PO DAILY amlodipine 2.5 mg tablet 2.5 mg PO HS clindamycin HCl 150 mg capsule 600 mg PO UD PRN (Reason: dental procedures) Rx Instructions: take 4 capsules 1 hour prior to dental procedures furosemide 20 mg tablet 20 mg PO UD Rx Instructions: take 1 tablet every morning,take a 2nd tablet at least 4 hours after first dose on wednesday,wednesday,fridays triamcinolone acetonide 0.025 % cream 1 applic TOPICAL BID PRN (Reason: eczema) Premarin 0.625 mg/gram cream 1 applic vaginal 2XWK Rx Instructions: Insert 0.5 grams vaginally once daily on Wednesday and . aspirin 81 mg tablet,chewable 81 mg PO DAILY Qty: 30 0RF Referrals Referrals: Farhana Caraballo PA-C [Primary Care Provider] -
[2023-08-08 14:38] LABS: Basophils # (auto) 0.05 K/uL (0.00-0.20); Basophils % (auto) 0.5 %; Eosinophils # (auto) 0.04 K/uL (0.00-0.50); Eosinophils % (auto) 0.4 %; Hemoglobin 9.2 g/dl (12.0-16.0); Immature Granulocytes # (auto) 0.05 K/uL (0.01-0.20); Immature Granulocytes % (auto) 0.5 %; Lymphocytes # (auto) 0.98 K/uL (1.20-3.40); Mean Corpuscular Hemoglobin 26.7 pg (25.0-34.0); Mean Corpuscular Hgb Conc 31.7 g/dL (32.0-36.0); Mean Corpuscular Volume 84.1 fL (80.0-100.0); Mean Platelet Volume 9.6 fL (9.4-12.4); Monocytes # (auto) 1.06 K/uL (0.11-0.59); Monocytes % (auto) 10.8 %; Neutrophils # (auto) 7.62 K/uL (1.40-6.50); Neutrophils % (auto) 77.8 %; Platelet Count 460 K/uL (130-400); RDW Coefficient of Variation 14.9 % (11.5-14.5); RDW Standard Deviation 45.9 fL (36.4-46.3); Red Blood Count 3.45 M/uL (4.20-5.40)
--- NOTE | 2023-08-08 14:38 | XRay Report ---
XR chest 1V portable HISTORY: 77 years-old Female Sepsis acute sepsis COMPARISON: 02/03/2020 TECHNIQUE: AP view of the chest FINDINGS: Cardiac silhouette is enlarged. Hiatal hernia. No pneumothorax, pleural effusion or airspace consolid ation. Bones appear grossly intact. Thoracic dextroscoliosis. IMPRESSION: 1. Cardiomegaly without acute process. 2. Hiatal hernia. ACT 112: Negative or not required by law. The above report was generated using voice recognition software. It may contain grammatical, syntax o r spelling errors. Electronically signed by: Tre Alvarado M.D. 08/08/2023 2:36 PM
[2023-08-08 14:54] LABS: Albumin Globulin Ratio 0.8 (0.9-2); Albumin Level 3.3 gm/dl (3.4-5.0); BUN Creatinine Ratio 16.8 (10-20); Bilirubin,Total 0.5 mg/dl (0.2-1.0); Creatinine Clr Calc Pharmacy 48.2 ml/min; Est GFR (African American) 51.4 ml/min; Est GFR (Non-African American) 44.3 ml/min; Globulin 4.1 gm/dl (2.5-4.0); Magnesium 1.9 mg/dl (1.7-2.4); Potassium 4.3 mmol/L (3.5-5.1); Total Protein 7.4 gm/dl (6.0-8.3)
[2023-08-08 14:59] LABS: Troponin I High Sensitivity 7.4 pg/ml (0-14)
[2023-08-08 15:21] LABS: Partial Thromboplastin Ratio 0.9; Partial Thromboplastin Time 26.5 Seconds (21.0-31.0); Prothrombin Time 11.3 Seconds (9.0-12.0)
[2023-08-08 15:38] LABS: Appearance Urine Clear (Clear); Bacteria Urine Automated 2+ (Negative); Bilirubin Urine Negative (Negative); Blood Urine Negative (Negative); Color Urine Yellow; Epithelial Cell Urine Auto 0-5 /lpf (0-5); Glucose Urine UA Negative (Negative); Ketones Urine Negative (Negative); Leukocyte Esterase Urine 2+ (Negative); Nitrite Urine Negative (Negative); Protein Urine Negative (Negative); RBC Urine Automated 0-4 /hpf (0-4); Specific Gravity Urine 1.005 (1.000-1.030); Urobilinogen Urine Negative (Negative); pH Urine 7.5 (4.5-7.5)
[2023-08-08 15:51] LABS: Adenovirus PCR Not Detected (NotDetected); Bordetella parapertussis PCR Not Detected (NotDetected); Bordetella pertussis PCR Not Detected (NotDetected); Chlamydia pneumoniae PCR Not Detected (NotDetected); Coronavirus 229E PCR Not Detected (NotDetected); Coronavirus CoV-2 (COVID19)PCR Not Detected (NotDetected); Coronavirus HKU1 PCR Not Detected (NotDetected); Coronavirus NL63 PCR Not Detected (NotDetected); Coronavirus OC43PCR Not Detected (NotDetected); Human Metapneumovirus PCR Not Detected (NotDetected); Influenza A PCR Not Detected (NotDetected); Influenza B PCR Not Detected (NotDetected); Mycoplasma pneumoniae PCR Not Detected (NotDetected); Parainfluenza Virus 1 PCR Not Detected (NotDetected); Parainfluenza Virus 2 PCR Not Detected (NotDetected); Parainfluenza Virus 3 PCR Not Detected (NotDetected); Parainfluenza Virus 4 PCR Not Detected (NotDetected); Respiratory Syncytial VirusPCR Not Detected (NotDetected); Rhinovirus/Enterovirus PCR Not Detected (NotDetected)
[2023-08-08] MEDS ORDERED: cefTRIAXone SODIUM 2,000 MG/50 ML BAG IV STA (15:51)
--- NOTE | 2023-08-08 16:37 | History & Physical Report ---
Date of Service August 08, 2023 Assessment & Plan (1) UTI (urinary tract infection): (2) Generalized weakness: Plan: Patient is 77-year-old female with PMH HTN, CKD III, NTAHALIE, anemia presented to ER with c/o weakness x 1 week. Chronic dry cough. In ER afebrile, vitals stable. No leukocytosis. UA: 2+ leuk est, 10-20 WBC, 2+ bacteria. Negative respiratory panel CXR: no acute infiltrate Blood culture pending Urine culture pending In ER given 1L NSS, Rocephin Continue Rocephin PT/OT eval CBC, BMP in am (3) CKD (chronic kidney disease), stage III: Plan: Cr: 1.2. Baseline Cr: 1.2-1.3 Monitor renal functions, avoid nephrotoxic agents when possible (4) Bilateral lower extremity edema: Plan: history BLE edema On lasix 20mg daily with additional 20mg on MWF, however pt states forgets the extra dose will change lasix to 30mg daily for now and monitor (5) Hypertension: Plan: Continue amlodipine, lisinopril, lasix (6) Anemia: Plan: H/H: 9.. Hgb: 10.8 on 06/24/23 Anemia labs pending (7) Hyponatremia: Plan: Na: 131. Was 133 on 06/24/23 & 137 on 03/26/23 Serum osmolality, urine osmolality, urine sodium pending (8) NATHALIE (obstructive sleep apnea): Plan: CPAP HS DVT Prophylaxis Heparin SQ Full Code as per discussion with pt Follows with Dr Samy Sharif/Farhana Caraballo PA-C for routine care Pt was seen and care coordinated with Dr Lawson. See addendum History of Present Illness Chief Complaint: Generalized weakness Primary Care Provider: Farhana Caraballo PA-C Patient is 77-year-old female with PMH HTN, CKD III, NATHALIE, anemia presented to ER with c/o weakness x 1 week. Patient states past week having generalized weakness. Typically can do all ADLs, past couple of days having a hard time doing ADLs. Also c/o chills. Denies hematuria, dysuria, urinary frequency. Thinks urine has increased odor last week. Did not take temperature. Denies abdominal pain. Has chronic dry cough since 02/2023. Having nausea for past several months also. Saw PCP and thought may be GERD and started on PPI. Constipation last week but did have BM yesterday. In 2019 history E. coli bacteremia, pyelonephritis. Denies N/V/D/C, SALEEM, dizziness, CP, SOB, hemoptysis, sore throat, choking, rhinorrhea, extremity edema, rashes. Allergies Allergy/AdvReac Type Severity Reaction Status Date / Time gluten Allergy Unknown GI SYMPTOMS Verified 08/08/23 16:44 Penicillins Allergy Unknown CHILDHOOD Verified 08/08/23 16:44 ALLERGY adhesive tape Allergy Blister Verified 08/08/23 16:44 SEASONAL ALLERGIES Allergy Unknown itchy eyes Uncoded 08/08/23 16:44 and hayfever WHEAT/GLUTEN Allergy Unknown eczema and Uncoded 08/08/23 16:44 stomach ache Home Medications Medication Instructions Recorded Confirmed Type aspirin 81 mg chewable tablet 81 mg PO DAILY #30 tabs 02/11/21 08/08/23 Rx conjugated estrogens 0.625 mg/gram 1 applic vaginal 2XWK 02/11/21 08/08/23 History vaginal cream (Premarin) amlodipine 2.5 mg tablet 2.5 mg PO HS 08/08/23 08/08/23 History cholecalciferol (vitamin D3) 10 400 unit PO DAILY 08/08/23 08/08/23 History mcg (400 unit) tablet (Vitamin D3) clindamycin HCl 150 mg capsule 600 mg PO UD PRN dental procedures 08/08/23 08/08/23 History furosemide 20 mg tablet 20 mg PO UD 08/08/23 08/08/23 History lisinopril 5 mg tablet 5 mg PO DAILY 08/08/23 08/08/23 History ondansetron HCl 4 mg tablet 4 mg PO Q6 PRN Nausea 08/08/23 08/08/23 History pantoprazole 40 mg tablet,delayed 40 mg PO DAILYBB 08/08/23 08/08/23 History release Past Med/Surg History Medical History (Updated 08/08/23 @ 17:41 by Tara Vieyra PA-C) Asthma LAST USED PRN INH 2-3 MONTHS AGO Chronic back pain CKD (chronic kidney disease), stage III GERD (gastroesophageal reflux disease) Hypertension Obesity Osteoarthritis Sleep apnea CPAP Temporomandibular joint disorder Surgical History History of cataract extraction with lens replacement RIGHT EYE 12/21/18 [facility] – [place], [place] History of cholecystectomy History of colonoscopy History of esophagogastroduodenoscopy (EGD) History of total hip arthroplasty LEFT Social History Smoking Status: Never smoker Cigarettes Per Day: QUIT AT AGE 36; Second Hand Exposure: No; Do You Dip or Chew Tobacco: No; Hx Alcohol Use: Yes Alcohol type: wine Hx Substance Use: No Preferred Language: Syrian 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 Ability: Effective Websphere Architect Required: No Beliefs That Will Affect Care: None Current Living Situation: Alone Feels Safe at Home: Yes Assistive Devices: Walker Review of Systems Review of Systems: All systems reviewed & are unremarkable except as noted in HPI & below Physical Exam Physical Exam: PE per Dr Lawson Results & Data Results & Data Vital Signs (Past 12 Hours) Vital Signs Temp Pulse Pulse Resp BP BP Pulse Ox 08/08/23 16:03 74 17 169/83 H 96 08/08/23 15:54 70 08/08/23 13:18 36.8 C 79 18 124/66 96 O2 Del Method 08/08/23 16:03 Room Air 08/08/23 15:54 08/08/23 13:18 Room Air Laboratory Results Short CBC 08/08/23 Range/Units 14:15 WBC 9.80 (4.8-10.8) K/ul Hgb 9.2 L (12.0-16.0) g/dl Hct 29.0 L (37.0-47.0) % Plt Count 460 H (130-400) K/uL BMP 08/08/23 14:15 Sodium 131 L Potassium 4.3 Chloride 98 Carbon Dioxide 25 BUN 20 Creatinine 1.19 Glucose 91 Calcium 9.0 Liver Function 08/08/23 Range/Units 14:15 Total Bilirubin 0.5 (0.2-1.0) mg/dl AST 14 (13-39) U/L ALT 8 (7-52) U/L Alkaline Phosphatase 69 (34-104) U/L Albumin 3.3 L (3.4-5.0) gm/dl Urine 08/08/23 Range/Units 15:15 Urine Color Yellow Urine Appearance Clear (Clear) Urine pH 7.5 (4.5-7.5) Ur Specific [place] 1.005 (1.000-1.030) Urine Protein Negative (Negative) Urine Glucose (UA) Negative (Negative) Diagnostic Findings Chest X-Ray 08/08/23 13:57 XR chest 1V portable HISTORY: 77 years-old Female Sepsis acute sepsis COMPARISON: 02/03/2020 TECHNIQUE: AP view of the chest FINDINGS: Cardiac silhouette is enlarged. Hiatal hernia. No pneumothorax, pleural effusion or airspace consolidation. Bones appear grossly intact. Thoracic dextrosc oliosis. IMPRESSION: 1. Cardiomegaly without acute process. 2. Hiatal hernia. ACT 112: Negative or not required by law. The above report was generated using voice recognition software. It may contain grammatical, syntax or spelling errors. Electronically signed by: Tre Alvarado M.D. 08/08/2023 2:36 PM Supervising Physician Co-Signing Physician Notes Patient seen and examined Reports generalized weakness, chills and subjective fever over the past week Had one fall at home Denied dysuria, freq, urgency, hematuria but reported her urine had changed odor Denied melena, hematochezia but reported constipation Reports chronic dry cough and nausea Reports she had been taking her meds daily but has not been taking the extra 20mg lasix on MWF On exam, General: No acute distress, Obese Eyes: PERRL, conjunctivae normal, not pale, anicteric sclerae, EOM intact bilaterally ENMT: External ear and nose normal, oropharynx normal Respiratory: Normal respiratory effort, no respiratory distress, lungs clear to auscultation, no crackles and no wheezes Cardiovascular: RRR S1 S2 Gastrointestinal (Abdomen): Abdomen is not distended, soft, non-tender to palpation, no guarding, no palpable hepatosplenomegaly, normal bowel sounds Musculoskeletal: Trace pedal edema Genitourinary: No CVA tenderness Skin: No rash noted on gross inspection, No ulcers noted Neurologic: Alert and oriented x 3, No focal weakness, sensation grossly intact Psychiatric: Euthymic affect Lab notable for Hb of 9.2 (was 10.8 last month). UA showed 2+ Leuk esterase, 10-30 WBC IV ceftriaxone for possible UTI Continue lasix. May benefit from doing daily lasix 30 or 40mg instead of the extra dose on MWF as patient reports she usually forgets the second dose. Follow up infectious workup; blood cultures and urine cultures PT/OT eval Anemia workup Hyponatremia. Check serum Osm, UOsm, Berenice
[2023-08-08 18:32] LABS: Ferritin 435.6 ng/ml (8-388)
[2023-08-08 19:12] LABS: Folate (Folic Acid),Ser orPlas 14.02 ng/ml (>5.38)
[2023-08-08 19:13] LABS: Vitamin B12 > 1500 pg/ml (180-914)
[2023-08-08] MEDS ORDERED: ACETAMINOPHEN 325 MG TAB PO PRN (20:05)
[2023-08-08] MEDS ORDERED: ONDANSETRON INJ 2 MG/ML 2 ML VIAL IV PRN (20:05)
[2023-08-08] MEDS ORDERED: POLYETHYLENE (MIRALAX) 17 GM PACK PO PRN (20:05)
[2023-08-08] MEDS: amLODIPine BESYLATE 5 MG TAB PO SCH (22:48)
[2023-08-08] MEDS: HEPARIN SOD 5,000 UNIT/0.5 ML VIAL SQ SCH (22:55)
[2023-08-09] MEDS: PANTOprazole 40 MG TAB PO SCH (05:50)
[2023-08-09 07:42] LABS: Hematocrit (blood only) 26.7 % (37.0-47.0); Hemoglobin 8.6 g/dl (12.0-16.0); Mean Corpuscular Hgb Conc 32.2 g/dL (32.0-36.0); Mean Platelet Volume 9.9 fL (9.4-12.4); Platelet Count 426 K/uL (130-400); RDW Coefficient of Variation 15.4 % (11.5-14.5); Red Blood Count 3.18 M/uL (4.20-5.40); White Blood Count 7.78 K/ul (4.8-10.8)
--- NOTE | 2023-08-09 07:57 | Hospitalist Progress Note ---
Date of Service August 09, 2023 Assessment & Plan (1) UTI (urinary tract infection): (2) Generalized weakness: Plan: Patient is 77-year-old female with PMH HTN, CKD III, NATHALIE, anemia presented to ER with c/o weakness x 1 week. Chronic dry cough. In ER afebrile, vitals stable. No leukocytosis. UA: 2+ leuk est, 10-20 WBC, 2+ bacteria. Negative respiratory panel CXR: no acute infiltrate Blood culture pending Urine culture pending In ER given 1L NSS, Rocephin Continue Rocephin PT/OT eval CBC, BMP in am (3) CKD (chronic kidney disease), stage III: Plan: Cr: 1.2. Baseline Cr: 1.2-1.3 Monitor renal functions, avoid nephrotoxic agents when possible (4) Bilateral lower extremity edema: Plan: history BLE edema On lasix 20mg daily with additional 20mg on MWF, however pt states forgets the extra dose changed lasix to 30mg daily for now and monitor (5) Hypertension: Plan: Continue amlodipine, lisinopril, lasix (6) Anemia: Plan: H/H: 9.. Hgb: 10.8 on 06/24/23 Anemia labs pending (7) Hyponatremia: Plan: Na: 131. Was 133 on 06/24/23 & 137 on 03/26/23 Serum osmolality, urine osmolality, urine sodium pending (8) NATHALIE (obstructive sleep apnea): Plan: CPAP HS DVT Prophylaxis Heparin SQ Full Code as per discussion with pt Follows with Dr Samy Sharif/Farhana Caraballo PA-C for routine care Admission and Anticipated Discharge Date Admission Date: August 08, 2023 Subjective Pt seen in follow up of weakness, UTI Currently sitting up in bed in NAD, working w/ PT No fever, chills, chest pain, shortness of breath, no abd. pain Nausea has resolved Reports foul smelling urine Overall feels improved Review of Systems Review of Systems: All systems reviewed & are unremarkable except as noted in Subjective Physical Exam Physical Exam: General: No acute distress, Obese F Eyes: PERRL, conjunctivae normal, not pale, anicteric sclerae, EOM intact bilaterally ENMT: External ear and nose normal, oropharynx normal Respiratory: Normal respiratory effort, no respiratory distress, lungs clear to auscultation, no crackles and no wheezes Cardiovascular: RRR S1 S2 Gastrointestinal (Abdomen): Abdomen is not distended, soft, non-tender to palpation, no guarding,normal bowel sounds Musculoskeletal: Trace pedal edema Genitourinary: No CVA tenderness Skin: No rash noted on gross inspection, No ulcers noted Neurologic: Alert and oriented x 3, No focal weakness, sensation grossly intact Psychiatric: Euthymic affect Results & Data Results & Data Vital Signs (Past 12 Hours) Vital Signs Temp Pulse Pulse Resp BP Pulse Ox O2 Del Method 08/09/23 03:03 21 08/08/23 23:10 68 28 H 97 08/08/23 20:45 Room Air 08/08/23 20:45 Room Air 08/08/23 20:45 36.7 C 82 18 127/77 95 Room Air 08/08/23 20:14 95 H 22 114/80 95 Room Air [email or web address] 08/09/23 03:03 21 08/08/23 23:10 21 08/08/23 20:45 08/08/23 20:45 08/08/23 20:45 08/08/23 20:14 Laboratory Results 08/09/23 08/09/23 08/09/23 Range/Units 06:39 06:39 06:39 WBC 7.78 (4.8-10.8) K/ul RBC 3.18 L (4.20-5.40) M/uL Hgb 8.6 L (12.0-16.0) g/dl Hct 26.7 L (37.0-47.0) % MCV 84.0 (80.0-100.0) fL MCH 27.0 (25.0-34.0) pg MCHC 32.2 (32.0-36.0) g/dL RDW Std Deviation 47.0 H (36.4-46.3) fL RDW Coeff of Carlos 15.4 H (11.5-14.5) % Plt Count 426 H (130-400) K/uL MPV 9.9 (9.4-12.4) fL Immature Gran % (Auto) % Neut % (Auto) % Lymph % (Auto) % [place] % (Auto) % Eos % (Auto) % Baso % (Auto) % Neut # (Auto) (1.40-6.50) K/uL Lymph # (Auto) (1.20-3.40) K/uL [place] # (Auto) (0.11-0.59) K/uL Eos # (Auto) (0.00-0.50) K/uL Baso # (Auto) (0.00-0.20) K/uL Immature Gran # (Auto) (0.01-0.20) K/uL Haptoglobin PT (9.0-12.0) Seconds INR (0.9-1.1) APTT (21.0-31.0) Seconds PTT Ratio Sodium Pending (136-145) mmol/L Potassium Pending (3.5-5.1) mmol/L Chloride Pending (98-107) mmol/L Carbon Dioxide Pending (21-32) mmol/L Anion Gap Pending (3-11) BUN Pending (6-23) mg/dl Creatinine Pending (0.6-1.2) mg/dl Est Cr Clr Drug Dosing Pending ml/min Est GFR ( Amer) Pending ml/min Est GFR (Non-Af Amer) Pending ml/min BUN/Creatinine Ratio Pending (10-20) Glucose Pending (70-99(Fasting)) mg/dl Osmolality (280-300) mOsm/kg Lactate (0.4-2.0) mmol/L Calcium Pending (8.6-10.3) mg/dl Magnesium (1.7-2.4) mg/dl Iron (35-150) mcg/dl Transferrin (200-360) mg/dl Ferritin (8-388) ng/ml Total Bilirubin (0.2-1.0) mg/dl AST (13-39) U/L ALT (7-52) U/L Alkaline Phosphatase (34-104) U/L Lactate Dehydrogenase (86-244) U/L Troponin I High Sens (0-14) pg/ml Total Protein (6.0-8.3) gm/dl Albumin (3.4-5.0) gm/dl Globulin (2.5-4.0) gm/dl Albumin/Globulin Ratio (0.9-2) Vitamin B12 (180-914) pg/ml Folate (>5.38) ng/ml Procalcitonin (0-0.5) ng/ml Urine Color Urine Appearance (Clear) Urine pH (4.5-7.5) Ur Specific [place] (1.000-1.030) Urine Protein (Negative) Urine Glucose (UA) (Negative) Urine Ketones (Negative) Urine Blood (Negative) Urine Nitrite (Negative) Urine Bilirubin (Negative) Urine Urobilinogen (Negative) Ur Leukocyte Esterase (Negative) Urine WBC (Auto) (0-5) /hpf Urine RBC (Auto) (0-4) /hpf U Hyaline Cast (Auto) (0-5) /lpf U Epithel Cells (Auto) (0-5) /lpf Urine Bacteria (Auto) (Negative) Urine Osmolality (500-800) mOsm/kg Ur Random Sodium mmol/L Adenovirus (PCR) (NotDetected) B. pertussis DNA (PCR) (NotDetected) B.parapertussis DNA PCR (NotDetected) C. pneumoniae DNA (PCR) (NotDetected) Coronavirus OC43 (PCR) (NotDetected) Coronavirus HKU1 (PCR) (NotDetected) Coronavirus 229E (PCR) (NotDetected) SARS-CoV-2 (PCR) (NotDetected) Coronavirus NL63 (PCR) (NotDetected) Hepatitis C Ab (EIA) Pending Human Metapneumovir PCR (NotDetected) Influenza Type A (PCR) (NotDetected) Influenza Type B (PCR) (NotDetected) M. pneumoniae (PCR) (NotDetected) Parainfluenza 1 (PCR) (NotDetected) Parainfluenza 2 (PCR) (NotDetected) Parainfluenza 3 (PCR) (NotDetected) Parainfluenza 4 (PCR) (NotDetected) RSV (PCR) (NotDetected) Entero/Rhino (PCR) (NotDetected) 08/08/23 08/08/23 08/08/23 Range/Units 18:17 15:15 15:15 WBC (4.8-10.8) K/ul RBC (4.20-5.40) M/uL Hgb (12.0-16.0) g/dl Hct (37.0-47.0) % MCV (80.0-100.0) fL MCH (25.0-34.0) pg MCHC (32.0-36.0) g/dL RDW Std Deviation (36.4-46.3) fL RDW Coeff of Carlos (11.5-14.5) % Plt Count (130-400) K/uL MPV (9.4-12.4) fL Immature Gran % (Auto) % Neut % (Auto) % Lymph % (Auto) % [place] % (Auto) % Eos % (Auto) % Baso % (Auto) % Neut # (Auto) (1.40-6.50) K/uL Lymph # (Auto) (1.20-3.40) K/uL [place] # (Auto) (0.11-0.59) K/uL Eos # (Auto) (0.00-0.50) K/uL Baso # (Auto) (0.00-0.20) K/uL Immature Gran # (Auto) (0.01-0.20) K/uL Haptoglobin Pending PT (9.0-12.0) Seconds INR (0.9-1.1) APTT (21.0-31.0) Seconds PTT Ratio Sodium (136-145) mmol/L Potassium (3.5-5.1) mmol/L Chloride (98-107) mmol/L Carbon Dioxide (21-32) mmol/L Anion Gap (3-11) BUN (6-23) mg/dl Creatinine (0.6-1.2) mg/dl Est Cr Clr Drug Dosing ml/min Est GFR ( Amer) ml/min Est GFR (Non-Af Amer) ml/min BUN/Creatinine Ratio (10-20) Glucose (70-99(Fasting)) mg/dl Osmolality (280-300) mOsm/kg Lactate (0.4-2.0) mmol/L Calcium (8.6-10.3) mg/dl Magnesium (1.7-2.4) mg/dl Iron (35-150) mcg/dl Transferrin (200-360) mg/dl Ferritin (8-388) ng/ml Total Bilirubin (0.2-1.0) mg/dl AST (13-39) U/L ALT (7-52) U/L Alkaline Phosphatase (34-104) U/L Lactate Dehydrogenase (86-244) U/L Troponin I High Sens (0-14) pg/ml Total Protein (6.0-8.3) gm/dl Albumin (3.4-5.0) gm/dl Globulin (2.5-4.0) gm/dl Albumin/Globulin Ratio (0.9-2) Vitamin B12 (180-914) pg/ml Folate (>5.38) ng/ml Procalcitonin (0-0.5) ng/ml Urine Color Urine Appearance (Clear) Urine pH (4.5-7.5) Ur Specific [place] (1.000-1.030) Urine Protein (Negative) Urine Glucose (UA) (Negative) Urine Ketones (Negative) Urine Blood (Negative) Urine Nitrite (Negative) Urine Bilirubin (Negative) Urine Urobilinogen (Negative) Ur Leukocyte Esterase (Negative) Urine WBC (Auto) (0-5) /hpf Urine RBC (Auto) (0-4) /hpf U Hyaline Cast (Auto) (0-5) /lpf U Epithel Cells (Auto) (0-5) /lpf Urine Bacteria (Auto) (Negative) Urine Osmolality 166 L (500-800) mOsm/kg Ur Random Sodium 38 mmol/L Adenovirus (PCR) (NotDetected) B. pertussis DNA (PCR) (NotDetected) B.parapertussis DNA PCR (NotDetected) C. pneumoniae DNA (PCR) (NotDetected) Coronavirus OC43 (PCR) (NotDetected) Coronavirus HKU1 (PCR) (NotDetected) Coronavirus 229E (PCR) (NotDetected) SARS-CoV-2 (PCR) (NotDetected) Coronavirus NL63 (PCR) (NotDetected) Hepatitis C Ab (EIA) Human Metapneumovir PCR (NotDetected) Influenza Type A (PCR) (NotDetected) Influenza Type B (PCR) (NotDetected) M. pneumoniae (PCR) (NotDetected) Parainfluenza 1 (PCR) (NotDetected) Parainfluenza 2 (PCR) (NotDetected) Parainfluenza 3 (PCR) (NotDetected) Parainfluenza 4 (PCR) (NotDetected) RSV (PCR) (NotDetected) Entero/Rhino (PCR) (NotDetected) 08/08/23 08/08/23 08/08/23 Range/Units 15:15 14:50 14:15 WBC (4.8-10.8) K/ul RBC (4.20-5.40) M/uL Hgb (12.0-16.0) g/dl Hct (37.0-47.0) % MCV (80.0-100.0) fL MCH (25.0-34.0) pg MCHC (32.0-36.0) g/dL RDW Std Deviation (36.4-46.3) fL RDW Coeff of [place] (11.5-14.5) % Plt Count (130-400) K/uL MPV (9.4-12.4) fL Immature Gran % (Auto) % Neut % (Auto) % Lymph % (Auto) % [place] % (Auto) % Eos % (Auto) % Baso % (Auto) % Neut # (Auto) (1.40-6.50) K/uL Lymph # (Auto) (1.20-3.40) K/uL [place] # (Auto) (0.11-0.59) K/uL Eos # (Auto) (0.00-0.50) K/uL Baso # (Auto) (0.00-0.20) K/uL Immature Gran # (Auto) (0.01-0.20) K/uL Haptoglobin PT (9.0-12.0) Seconds INR (0.9-1.1) APTT (21.0-31.0) Seconds PTT Ratio Sodium (136-145) mmol/L Potassium (3.5-5.1) mmol/L Chloride (98-107) mmol/L Carbon Dioxide (21-32) mmol/L Anion Gap (3-11) BUN (6-23) mg/dl Creatinine (0.6-1.2) mg/dl Est Cr Clr Drug Dosing ml/min Est GFR ( Amer) ml/min Est GFR (Non-Af Amer) ml/min BUN/Creatinine Ratio (10-20) Glucose (70-99(Fasting)) mg/dl Osmolality 276 L (280-300) mOsm/kg Lactate (0.4-2.0) mmol/L Calcium (8.6-10.3) mg/dl Magnesium (1.7-2.4) mg/dl Iron (35-150) mcg/dl Transferrin (200-360) mg/dl Ferritin (8-388) ng/ml Total Bilirubin (0.2-1.0) mg/dl AST (13-39) U/L ALT (7-52) U/L Alkaline Phosphatase (34-104) U/L Lactate Dehydrogenase (86-244) U/L Troponin I High Sens (0-14) pg/ml Total Protein (6.0-8.3) gm/dl Albumin (3.4-5.0) gm/dl Globulin (2.5-4.0) gm/dl Albumin/Globulin Ratio (0.9-2) Vitamin B12 (180-914) pg/ml Folate (>5.38) ng/ml Procalcitonin (0-0.5) ng/ml Urine Color Yellow Urine Appearance Clear (Clear) Urine pH 7.5 (4.5-7.5) Ur Specific [place] 1.005 (1.000-1.030) Urine Protein Negative (Negative) Urine Glucose (UA) Negative (Negative) Urine Ketones Negative (Negative) Urine Blood Negative (Negative) Urine Nitrite Negative (Negative) Urine Bilirubin Negative (Negative) Urine Urobilinogen Negative (Negative) Ur Leukocyte Esterase 2+ H (Negative) Urine WBC (Auto) 10-30 H (0-5) /hpf Urine RBC (Auto) 0-4 (0-4) /hpf U Hyaline Cast (Auto) 1-5 (0-5) /lpf U Epithel Cells (Auto) 0-5 (0-5) /lpf Urine Bacteria (Auto) 2+ H (Negative) Urine Osmolality (500-800) mOsm/kg Ur Random Sodium mmol/L Adenovirus (PCR) Not Detected (NotDetected) B. pertussis DNA (PCR) Not Detected (NotDetected) B.parapertussis DNA PCR Not Detected (NotDetected) C. pneumoniae DNA (PCR) Not Detected (NotDetected) Coronavirus OC43 (PCR) Not Detected (NotDetected) Coronavirus HKU1 (PCR) Not Detected (NotDetected) Coronavirus 229E (PCR) Not Detected (NotDetected) SARS-CoV-2 (PCR) Not Detected (NotDetected) Coronavirus NL63 (PCR) Not Detected (NotDetected) Hepatitis C Ab (EIA) Human Metapneumovir PCR Not Detected (NotDetected) Influenza Type A (PCR) Not Detected (NotDetected) Influenza Type B (PCR) Not Detected (NotDetected) M. pneumoniae (PCR) Not Detected (NotDetected) Parainfluenza 1 (PCR) Not Detected (NotDetected) Parainfluenza 2 (PCR) Not Detected (NotDetected) Parainfluenza 3 (PCR) Not Detected (NotDetected) Parainfluenza 4 (PCR) Not Detected (NotDetected) RSV (PCR) Not Detected (NotDetected) Entero/Rhino (PCR) Not Detected (NotDetected) 08/08/23 08/08/23 08/08/23 Range/Units 14:15 14:15 14:15 WBC (4.8-10.8) K/ul RBC (4.20-5.40) M/uL Hgb (12.0-16.0) g/dl Hct (37.0-47.0) % MCV (80.0-100.0) fL MCH (25.0-34.0) pg MCHC (32.0-36.0) g/dL RDW Std Deviation (36.4-46.3) fL RDW Coeff of [place] (11.5-14.5) % Plt Count (130-400) K/uL MPV (9.4-12.4) fL Immature Gran % (Auto) % Neut % (Auto) % Lymph % (Auto) % [place] % (Auto) % Eos % (Auto) % Baso % (Auto) % Neut # (Auto) (1.40-6.50) K/uL Lymph # (Auto) (1.20-3.40) K/uL [place] # (Auto) (0.11-0.59) K/uL Eos # (Auto) (0.00-0.50) K/uL Baso # (Auto) (0.00-0.20) K/uL Immature Gran # (Auto) (0.01-0.20) K/uL Haptoglobin PT (9.0-12.0) Seconds INR (0.9-1.1) APTT (21.0-31.0) Seconds PTT Ratio Sodium 131 L (136-145) mmol/L Potassium 4.3 (3.5-5.1) mmol/L Chloride 98 (98-107) mmol/L Carbon Dioxide 25 (21-32) mmol/L Anion Gap 8 (3-11) BUN 20 (6-23) mg/dl Creatinine 1.19 (0.6-1.2) mg/dl Est Cr Clr Drug Dosing 48.2 ml/min Est GFR ( Amer) 51.4 ml/min Est GFR (Non-Af Amer) 44.3 ml/min BUN/Creatinine Ratio 16.8 (10-20) Glucose 91 (70-99(Fasting)) mg/dl Osmolality (280-300) mOsm/kg Lactate (0.4-2.0) mmol/L Calcium 9.0 (8.6-10.3) mg/dl Magnesium 1.9 (1.7-2.4) mg/dl Iron 21 L (35-150) mcg/dl Transferrin 160 L (200-360) mg/dl Ferritin 435.6 H (8-388) ng/ml Total Bilirubin 0.5 (0.2-1.0) mg/dl AST 14 (13-39) U/L ALT 8 (7-52) U/L Alkaline Phosphatase 69 (34-104) U/L Lactate Dehydrogenase 163 (86-244) U/L Troponin I High Sens 7.4 (0-14) pg/ml Total Protein 7.4 (6.0-8.3) gm/dl Albumin 3.3 L (3.4-5.0) gm/dl Globulin 4.1 H (2.5-4.0) gm/dl Albumin/Globulin Ratio 0.8 L (0.9-2) Vitamin B12 > 1500 H (180-914) pg/ml Folate 14.02 (>5.38) ng/ml Procalcitonin 0.32 (0-0.5) ng/ml Urine Color Urine Appearance (Clear) Urine pH (4.5-7.5) Ur Specific [place] (1.000-1.030) Urine Protein (Negative) Urine Glucose (UA) (Negative) Urine Ketones (Negative) Urine Blood (Negative) Urine Nitrite (Negative) Urine Bilirubin (Negative) Urine Urobilinogen (Negative) Ur Leukocyte Esterase (Negative) Urine WBC (Auto) (0-5) /hpf Urine RBC (Auto) (0-4) /hpf U Hyaline Cast (Auto) (0-5) /lpf U Epithel Cells (Auto) (0-5) /lpf Urine Bacteria (Auto) (Negative) Urine Osmolality (500-800) mOsm/kg Ur Random Sodium mmol/L Adenovirus (PCR) (NotDetected) B. pertussis DNA (PCR) (NotDetected) B.parapertussis DNA PCR (NotDetected) C. pneumoniae DNA (PCR) (NotDetected) Coronavirus OC43 (PCR) (NotDetected) Coronavirus HKU1 (PCR) (NotDetected) Coronavirus 229E (PCR) (NotDetected) SARS-CoV-2 (PCR) (NotDetected) Coronavirus NL63 (PCR) (NotDetected) Hepatitis C Ab (EIA) Human Metapneumovir PCR (NotDetected) Influenza Type A (PCR) (NotDetected) Influenza Type B (PCR) (NotDetected) M. pneumoniae (PCR) (NotDetected) Parainfluenza 1 (PCR) (NotDetected) Parainfluenza 2 (PCR) (NotDetected) Parainfluenza 3 (PCR) (NotDetected) Parainfluenza 4 (PCR) (NotDetected) RSV (PCR) (NotDetected) Entero/Rhino (PCR) (NotDetected) 08/08/23 08/08/23 08/08/23 Range/Units 14:15 14:15 14:15 WBC 9.80 (4.8-10.8) K/ul RBC 3.45 L (4.20-5.40) M/uL Hgb 9.2 L (12.0-16.0) g/dl Hct 29.0 L (37.0-47.0) % MCV 84.1 (80.0-100.0) fL MCH 26.7 (25.0-34.0) pg MCHC 31.7 L (32.0-36.0) g/dL RDW Std Deviation 45.9 (36.4-46.3) fL RDW Coeff of [place] 14.9 H (11.5-14.5) % Plt Count 460 H (130-400) K/uL MPV 9.6 (9.4-12.4) fL Immature Gran % (Auto) 0.5 % Neut % (Auto) 77.8 % Lymph % (Auto) 10.0 % [place] % (Auto) 10.8 % Eos % (Auto) 0.4 % Baso % (Auto) 0.5 % Neut # (Auto) 7.62 H (1.40-6.50) K/uL Lymph # (Auto) 0.98 L (1.20-3.40) K/uL [place] # (Auto) 1.06 H (0.11-0.59) K/uL Eos # (Auto) 0.04 (0.00-0.50) K/uL Baso # (Auto) 0.05 (0.00-0.20) K/uL Immature Gran # (Auto) 0.05 (0.01-0.20) K/uL Haptoglobin PT 11.3 (9.0-12.0) Seconds INR 1.0 (0.9-1.1) APTT 26.5 (21.0-31.0) Seconds PTT Ratio 0.9 Sodium (136-145) mmol/L Potassium (3.5-5.1) mmol/L Chloride (98-107) mmol/L Carbon Dioxide (21-32) mmol/L Anion Gap (3-11) BUN (6-23) mg/dl Creatinine (0.6-1.2) mg/dl Est Cr Clr Drug Dosing ml/min Est GFR ( Amer) ml/min Est GFR (Non-Af Amer) ml/min BUN/Creatinine Ratio (10-20) Glucose (70-99(Fasting)) mg/dl Osmolality (280-300) mOsm/kg Lactate 1.5 (0.4-2.0) mmol/L Calcium (8.6-10.3) mg/dl Magnesium (1.7-2.4) mg/dl Iron (35-150) mcg/dl Transferrin (200-360) mg/dl Ferritin (8-388) ng/ml Total Bilirubin (0.2-1.0) mg/dl AST (13-39) U/L ALT (7-52) U/L Alkaline Phosphatase (34-104) U/L Lactate Dehydrogenase (86-244) U/L Troponin I High Sens (0-14) pg/ml Total Protein (6.0-8.3) gm/dl Albumin (3.4-5.0) gm/dl Globulin (2.5-4.0) gm/dl Albumin/Globulin Ratio (0.9-2) Vitamin B12 (180-914) pg/ml Folate (>5.38) ng/ml Procalcitonin (0-0.5) ng/ml Urine Color Urine Appearance (Clear) Urine pH (4.5-7.5) Ur Specific [place] (1.000-1.030) Urine Protein (Negative) Urine Glucose (UA) (Negative) Urine Ketones (Negative) Urine Blood (Negative) Urine Nitrite (Negative) Urine Bilirubin (Negative) Urine Urobilinogen (Negative) Ur Leukocyte Esterase (Negative) Urine WBC (Auto) (0-5) /hpf Urine RBC (Auto) (0-4) /hpf U Hyaline Cast (Auto) (0-5) /lpf U Epithel Cells (Auto) (0-5) /lpf Urine Bacteria (Auto) (Negative) Urine Osmolality (500-800) mOsm/kg Ur Random Sodium mmol/L Adenovirus (PCR) (NotDetected) B. pertussis DNA (PCR) (NotDetected) B.parapertussis DNA PCR (NotDetected) C. pneumoniae DNA (PCR) (NotDetected) Coronavirus OC43 (PCR) (NotDetected) Coronavirus HKU1 (PCR) (NotDetected) Coronavirus 229E (PCR) (NotDetected) SARS-CoV-2 (PCR) (NotDetected) Coronavirus NL63 (PCR) (NotDetected) Hepatitis C Ab (EIA) Human Metapneumovir PCR (NotDetected) Influenza Type A (PCR) (NotDetected) Influenza Type B (PCR) (NotDetected) M. pneumoniae (PCR) (NotDetected) Parainfluenza 1 (PCR) (NotDetected) Parainfluenza 2 (PCR) (NotDetected) Parainfluenza 3 (PCR) (NotDetected) Parainfluenza 4 (PCR) (NotDetected) RSV (PCR) (NotDetected) Entero/Rhino (PCR) (NotDetected) Medications Administered Current Inpatient Medications Acetaminophen (Acetaminophen 325 Mg Tab) 650 mg PO Q4H PRN PRN Reason: pain/fever Stop: 09/07/23 20:04 Amlodipine Besylate (Amlodipine Besylate 5 Mg Tab) 2.5 mg PO HS [facility] Stop: 09/07/23 20:59 Last Admin: 08/08/23 22:48 Dose: 2.5 mg Aspirin (Aspirin 81 Mg Ectab) 81 mg PO DAILY [facility] Stop: 09/08/23 08:59 Furosemide (Furosemide 20 Mg Tab) 30 mg PO QAM [facility] Stop: 09/08/23 08:59 Heparin Sodium (Porcine) (Heparin Sod 5,000 Unit/0.5 Ml Vial) 7,500 units SQ Q12 [facility] Stop: 09/07/23 20:59 Last Admin: 08/08/23 22:55 Dose: 7,500 units Ceftriaxone Sodium 2,000 mg/ (Dextrose) 50 mls @ 100 mls/hr IV Q24H [facility]; Protocol Stop: 08/14/23 15:59 Lisinopril (Lisinopril 5 Mg Tab) 5 mg PO DAILY C[facility]ICE Stop: 09/08/23 08:59 Ondansetron HCl (Ondansetron Inj 2 Mg/Ml 2 Ml Vial) 4 mg IV Q6H PRN PRN Reason: Nausea Stop: 09/07/23 20:04 Pantoprazole Sodium (Pantoprazole 40 Mg Tab) 40 mg PO DAILYBB [facility] Stop: 09/08/23 06:29 Last Admin: 08/09/23 05:50 Dose: 40 mg Polyethylene Glycol (Polyethylene (Miralax) 17 Gm Pack) 17 gm PO DAILY PRN PRN Reason: Constipation Stop: 09/07/23 20:04
[2023-08-09 07:59] LABS: BUN Creatinine Ratio 14.8 (10-20); Calcium 8.4 mg/dl (8.6-10.3); Creatinine Clr Calc Pharmacy 45.9 ml/min; Est GFR (African American) 49.8 ml/min; Potassium 3.9 mmol/L (3.5-5.1)
[2023-08-09] MEDS: HEPARIN SOD 5,000 UNIT/0.5 ML VIAL SQ SCH ×2 (09:14→19:53)
[2023-08-09] MEDS: ASPIRIN 81 MG ECTAB PO SCH ×2 (09:14→11:21)
[2023-08-09] MEDS: lisinopril 5 MG TAB PO SCH (10:23)
[2023-08-09] MEDS: FUROSEMIDE 20 MG TAB PO SCH (10:23)
--- NOTE | 2023-08-09 13:02 | Electrocardiogram Report ---
Test Reason : Blood Pressure : / mmHG Vent. Rate : 070 BPM Atrial Rate : 070 BPM P-R Int : 176 ms QRS Dur : 078 ms QT Int : 394 ms P-R-T Axes : 044 007 030 degrees QTc Int : 425 ms Normal sinus rhythm Normal ECG When compared with ECG of 03-FEB-2020 12:06, QRS duration has decreased Nonspecific T wave abnormality no longer evident in Lateral leads Confirmed by Bal Mauro ([id number]) on 08/09/2023 1:02:17 PM Referred By: REFERRED SELF Confirmed By:Gustavo Mauro
[2023-08-09] MEDS: cefTRIAXone SODIUM 2,000 MG in DEXTROSE 5 % MINI-B 50 ML IV SCH (15:35)
[2023-08-09] MEDS: amLODIPine BESYLATE 5 MG TAB PO SCH (19:52)
[2023-08-10] MEDS: PANTOprazole 40 MG TAB PO SCH (05:48)
[2023-08-10] MEDS: ASPIRIN 81 MG ECTAB PO SCH (07:33)
[2023-08-10] MEDS: lisinopril 5 MG TAB PO SCH (07:33)
[2023-08-10] MEDS: FUROSEMIDE 20 MG TAB PO SCH (07:33)
[2023-08-10] MEDS: HEPARIN SOD 5,000 UNIT/0.5 ML VIAL SQ SCH ×2 (07:35→20:15)
--- NOTE | 2023-08-10 07:59 | Hospitalist Progress Note ---
Date of Service August 10, 2023 Assessment & Plan (1) UTI (urinary tract infection): (2) Generalized weakness: Plan: Patient is 77-year-old female with PMH HTN, CKD III, NATHALIE, anemia presented to ER with c/o weakness x 1 week. Chronic dry cough. In ER afebrile, vitals stable. No leukocytosis. UA: 2+ leuk est, 10-20 WBC, 2+ bacteria. Negative respiratory panel CXR: no acute infiltrate Blood culture - positive for Gram posit. bacilli - poss. contaminant, repeat blood cultures ordered, follow final results Urine culture - positive for E. coli In ER given 1L NSS, Rocephin Continue Rocephin PT/OT eval -> recommend rehab monitor CBC, BMP in am 08/10 Pt feels much better, nausea has resolved. Reports weakness improved however still needs a lot of assistence. PT recommend rehab. (3) CKD (chronic kidney disease), stage III: Plan: Cr: 1.2. Baseline Cr: 1.2-1.3 Monitor renal functions, avoid nephrotoxic agents when possible (4) Bilateral lower extremity edema: Plan: history BLE edema On lasix 20mg daily with additional 20mg on MWF, however pt states forgets the extra dose changed lasix to 30mg daily for now and monitor (5) Hypertension: Plan: Continue amlodipine, lisinopril, lasix (6) Anemia: Plan: H/H: 9.2/. Hgb: 10.8 on 06/24/23 Anemia labs ordered peripheral smear ordered (7) Hyponatremia: Plan: Na: 131. Was 133 on 06/24/23 & 137 on 03/26/23 Serum osmolality, urine osmolality, urine sodium ordered (8) NATHALIE (obstructive sleep apnea): Plan: CPAP HS DVT Prophylaxis Heparin SQ Full Code as per discussion with pt Follows with Dr Samy Sharif/Farhana Caraballo PA-C for routine care Admission and Anticipated Discharge Date Admission Date: August 09, 2023 Subjective Pt seen in follow up of weakness, UTI Currently sitting up in bed in NAD No fever, chills, chest pain, shortness of breath, no abd. pain Nausea has resolved Overall feels much improved PT recommends rehab Review of Systems Review of Systems: All systems reviewed & are unremarkable except as noted in Subjective Physical Exam Physical Exam: General: No acute distress, Obese F Eyes: PERRL, conjunctivae normal, not pale, anicteric sclerae, EOM intact bilaterally ENMT: External ear and nose normal, oropharynx normal Respiratory: Normal respiratory effort, no respiratory distress, lungs clear to auscultation, no crackles and no wheezes Cardiovascular: RRR S1 S2 Gastrointestinal (Abdomen): Abdomen is not distended, soft, non-tender to palpation, no guarding,normal bowel sounds Musculoskeletal: Trace pedal edema Genitourinary: No CVA tenderness Skin: No rash noted on gross inspection, No ulcers noted Neurologic: Alert and oriented x 3, No focal weakness, sensation grossly intact Psychiatric: Euthymic affect Results & Data Results & Data Vital Signs (Past 12 Hours) Vital Signs Temp Pulse Pulse Resp BP Pulse Ox O2 Del Method 08/10/23 07:46 36.9 C 66 18 110/64 95 Room Air 08/10/23 02:08 08/09/23 22:54 71 21 96 FiO2 08/10/23 07:46 08/10/23 02:08 21 08/09/23 22:54 21 Laboratory Results 08/10/23 08/10/23 08/09/23 Range/Units 06:53 06:53 06:39 WBC 6.99 (4.8-10.8) K/ul RBC 3.01 L (4.20-5.40) M/uL Hgb 8.1 L (12.0-16.0) g/dl Hct 25.9 L (37.0-47.0) % MCV 86.0 (80.0-100.0) fL MCH 26.9 (25.0-34.0) pg MCHC 31.3 L (32.0-36.0) g/dL RDW Std Deviation 47.8 H (36.4-46.3) fL RDW Coeff of Carlos 15.4 H (11.5-14.5) % Plt Count 419 H (130-400) K/uL MPV 10.2 (9.4-12.4) fL Peripher Smr Path Cons Haptoglobin (43-212) mg/dL Sodium 137 (136-145) mmol/L Potassium 3.7 (3.5-5.1) mmol/L Chloride 103 (98-107) mmol/L Carbon Dioxide 28 (21-32) mmol/L Anion Gap 6 (3-11) BUN 19 (6-23) mg/dl Creatinine 1.15 (0.6-1.2) mg/dl Est Cr Clr Drug Dosing 48.6 ml/min Est GFR ( Amer) 53.5 ml/min Est GFR (Non-Af Amer) 46.2 ml/min BUN/Creatinine Ratio 16.5 (10-20) Glucose 113 H (70-99(Fasting)) mg/dl Calcium 8.4 L (8.6-10.3) mg/dl Phosphorus 3.7 (2.5-4.9) mg/dl Magnesium 1.8 (1.7-2.4) mg/dl Hepatitis C Ab (EIA) NON-REACTIVE (NON-REACTIVE) Bld Cult ID Panel PCR (NotDetected) 08/08/23 08/08/23 Range/Units 18:17 14:15 WBC (4.8-10.8) K/ul RBC (4.20-5.40) M/uL Hgb (12.0-16.0) g/dl Hct (37.0-47.0) % MCV (80.0-100.0) fL MCH (25.0-34.0) pg MCHC (32.0-36.0) g/dL RDW Std Deviation (36.4-46.3) fL RDW Coeff of Carlos (11.5-14.5) % Plt Count (130-400) K/uL MPV (9.4-12.4) fL Peripher Smr Path Cons Haptoglobin 310 H (43-212) mg/dL Sodium (136-145) mmol/L Potassium (3.5-5.1) mmol/L Chloride (98-107) mmol/L Carbon Dioxide (21-32) mmol/L Anion Gap (3-11) BUN (6-23) mg/dl Creatinine (0.6-1.2) mg/dl Est Cr Clr Drug Dosing ml/min Est GFR ( Amer) ml/min Est GFR (Non-Af Amer) ml/min BUN/Creatinine Ratio (10-20) Glucose (70-99(Fasting)) mg/dl Calcium (8.6-10.3) mg/dl Phosphorus (2.5-4.9) mg/dl Magnesium (1.7-2.4) mg/dl Hepatitis C Ab (EIA) (NON-REACTIVE) Bld Cult ID Panel PCR PCR Panel Negative (NotDetected) Medications Administered Current Inpatient Medications Acetaminophen (Acetaminophen 325 Mg Tab) 650 mg PO Q4H PRN PRN Reason: pain/fever Stop: 09/07/23 20:04 Amlodipine Besylate (Amlodipine Besylate 5 Mg Tab) 2.5 mg PO HS CANDICE Stop: 09/07/23 20:59 Last Admin: 08/09/23 19:52 Dose: 2.5 mg Aspirin (Aspirin 81 Mg Ectab) 81 mg PO DAILY CANDICE Stop: 09/08/23 08:59 Last Admin: 08/10/23 07:33 Dose: 81 mg Furosemide (Furosemide 20 Mg Tab) 30 mg PO QAM CANDICE Stop: 09/08/23 08:59 Last Admin: 08/10/23 07:33 Dose: 30 mg Heparin Sodium (Porcine) (Heparin Sod 5,000 Unit/0.5 Ml Vial) 7,500 units SQ Q12 CANDICE Stop: 09/07/23 20:59 Last Admin: 08/10/23 07:35 Dose: 7,500 units Ceftriaxone Sodium 2,000 mg/ (Dextrose) 50 mls @ 100 mls/hr IV Q24H CANDICE; Protocol Stop: 08/14/23 15:59 Last Infusion: 08/10/23 16:25 Dose: Infused Lisinopril (Lisinopril 5 Mg Tab) 5 mg PO DAILY CANDICE Stop: 09/08/23 08:59 Last Admin: 08/10/23 07:33 Dose: 5 mg Ondansetron HCl (Ondansetron Inj 2 Mg/Ml 2 Ml Vial) 4 mg IV Q6H PRN PRN Reason: Nausea Stop: 09/07/23 20:04 Pantoprazole Sodium (Pantoprazole 40 Mg Tab) 40 mg PO DAILYBB CANDICE Stop: 09/08/23 06:29 Last Admin: 08/10/23 05:48 Dose: 40 mg Polyethylene Glycol (Polyethylene (Miralax) 17 Gm Pack) 17 gm PO DAILY PRN PRN Reason: Constipation Stop: 09/07/23 20:04
[2023-08-10 08:17] LABS: Hematocrit (blood only) 25.9 % (37.0-47.0); Hemoglobin 8.1 g/dl (12.0-16.0); Mean Corpuscular Hemoglobin 26.9 pg (25.0-34.0); Mean Corpuscular Hgb Conc 31.3 g/dL (32.0-36.0); Mean Platelet Volume 10.2 fL (9.4-12.4); Platelet Count 419 K/uL (130-400); RDW Coefficient of Variation 15.4 % (11.5-14.5); RDW Standard Deviation 47.8 fL (36.4-46.3); Red Blood Count 3.01 M/uL (4.20-5.40); White Blood Count 6.99 K/ul (4.8-10.8)
[2023-08-10 08:30] LABS: BUN Creatinine Ratio 16.5 (10-20); Calcium 8.4 mg/dl (8.6-10.3); Creatinine Clr Calc Pharmacy 48.6 ml/min; Est GFR (African American) 53.5 ml/min; Est GFR (Non-African American) 46.2 ml/min; Magnesium 1.8 mg/dl (1.7-2.4); Phosphorus 3.7 mg/dl (2.5-4.9); Potassium 3.7 mmol/L (3.5-5.1)
[2023-08-10 13:27] LABS: A calco-baum cmplx NotReported Not Detected (NotDetected); Bact fragilis Not Reported Not Detected (NotDetected); C auris Not Reported Not Detected (NotDetected); Calbicans Not Reported Not Detected (NotDetected); Candida glabrata Not Reported Not Detected (NotDetected); Candida krusei Not Reported Not Detected (NotDetected); Cneoformans/gatti Not Reported Not Detected (NotDetected); Cparapsilosis Not Reported Not Detected (NotDetected); E cloacae compx Not Reported Not Detected (NotDetected); Efaecalis Not Reported Not Detected (NotDetected); Efaecium Not Reported Not Detected (NotDetected); Enterobacterales Not Reported Not Detected (NotDetected); Escherichia coli Not Reported Not Detected (NotDetected); H influenzae Not Reported Not Detected (NotDetected); K aerogenes Not Reported Not Detected (NotDetected); Koxytoca Not Reported Not Detected (NotDetected); Kpneumoniae grp Not Reported Not Detected (NotDetected); Lmonocyt Not Reported Not Detected (NotDetected); N meningitidis Not Reported Not Detected (NotDetected); P aeruginosa Not Reported Not Detected (NotDetected); Proteus spp Not Reported Not Detected (NotDetected); Salmonella spp Not Reported Not Detected (NotDetected); Smarcescens Not Reported Not Detected (NotDetected); Staph lugdunensis Not Reported Not Detected (NotDetected); Staph spp. Not Reported Not Detected (NotDetected); Staphaureus Not Reported Not Detected (NotDetected); Staphepi Not Reported Not Detected (NotDetected); Stenmaltophilia Not Reported Not Detected (NotDetected); Strep agal(GrpB) Not Reported Not Detected (NotDetected); Strep pneum Not Reported Not Detected (NotDetected); Strep pyog (GrpA) Not Reported Not Detected (NotDetected); Strep spp Not Reported Not Detected (NotDetected)
[2023-08-10] MEDS: cefTRIAXone SODIUM 2,000 MG in DEXTROSE 5 % MINI-B 50 ML IV SCH (15:38)
[2023-08-10] MEDS: amLODIPine BESYLATE 5 MG TAB PO SCH (20:14)
[2023-08-11] MEDS: PANTOprazole 40 MG TAB PO SCH (06:01)
[2023-08-11 08:06] LABS: Hematocrit (blood only) 26.9 % (37.0-47.0); Hemoglobin 8.6 g/dl (12.0-16.0); Mean Corpuscular Volume 84.3 fL (80.0-100.0); Mean Platelet Volume 10.1 fL (9.4-12.4); Platelet Count 447 K/uL (130-400); RDW Coefficient of Variation 15.5 % (11.5-14.5); RDW Standard Deviation 47.3 fL (36.4-46.3); Red Blood Count 3.19 M/uL (4.20-5.40); White Blood Count 7.47 K/ul (4.8-10.8)
[2023-08-11] MEDS: FUROSEMIDE 20 MG TAB PO SCH (08:26)
[2023-08-11] MEDS: ASPIRIN 81 MG ECTAB PO SCH (08:26)
[2023-08-11] MEDS: lisinopril 5 MG TAB PO SCH (08:26)
[2023-08-11] MEDS: HEPARIN SOD 5,000 UNIT/0.5 ML VIAL SQ SCH ×2 (08:28→20:24)
[2023-08-11 08:34] LABS: BUN Creatinine Ratio 16.1 (10-20); Calcium 8.6 mg/dl (8.6-10.3); Creatinine Clr Calc Pharmacy 49.9 ml/min; Est GFR (African American) 55.3 ml/min; Est GFR (Non-African American) 47.7 ml/min; Magnesium 1.8 mg/dl (1.7-2.4); Phosphorus 3.7 mg/dl (2.5-4.9); Potassium 3.8 mmol/L (3.5-5.1)
--- NOTE | 2023-08-11 15:58 | Ultrasound Report ---
US extremity non-vascular ltd CLINICAL HISTORY: swelling posterior right thigh COMPARISON STUDY: None. FINDINGS: Real-time sonographic imaging of the right posterior mid to distal thigh was performed with practice representative images submitted. At the patient's area of interest there is a 16 x 13 x 12 cm lobula r lesion demonstrating central cystic change/necrosis and associated color flow. Therefore, this favo rs a soft tissue mass. IMPRESSION: A 16 x 13 x 12 mm lobular lesion within the right posterior thigh corresponding to the p atient's palpable abnormality. This is concerning for a soft tissue mass. Dedicated contrast-enhanced MRI is recommended for further evaluation. ACT 112: Positive. There are findings on this exam that require communication between the performing entity and the patient following Patient Test Result Information Act ([place] Act 112) guidelines. Electronically signed by: Xavier Montano M.D. 08/11/2023 3:57 PM
--- NOTE | 2023-08-11 16:06 | Ultrasound Report ---
RIGHT LOWER EXTREMITY VENOUS DOPPLER HISTORY: Right leg swelling COMPARISON STUDY: None. FINDINGS: There is normal compressibility, flow, and augmentation within the right lower extremity de ep venous system. IMPRESSION: No DVT within the right lower extremity ACT 112: Negative or not required by law. Electronically signed by: Xavier Montano M.D. 08/11/2023 4:05 PM
--- NOTE | 2023-08-11 16:34 | Hospitalist Progress Note ---
Date of Service August 11, 2023 Assessment & Plan (1) UTI (urinary tract infection): (2) Generalized weakness: Plan: Patient is 77-year-old female with PMH HTN, CKD III, NATHALIE, anemia presented to ER with c/o weakness x 1 week. Chronic dry cough. In ER afebrile, vitals stable. No leukocytosis. UA: 2+ leuk est, 10-20 WBC, 2+ bacteria. Negative respiratory panel CXR: no acute infiltrate On IV ceftriaxone (day 4) Urine culture -pansensitive E. coli / blood culture -Corynebacterium, likely contaminant. Repeat blood cultures NGTD PT/OT recommending rehab. Likely DC to [facility] tomorrow on PO antibiotics to complete course. (3) Leg mass: Plan: Patient reported a firm, palpable area on her right posterior thigh Doppler negative for DVT Soft tissue US shows A 16 x 13 x 12 mm lobular lesion within the right posterior thigh corresponding to the patient's palpable abnormality. This is concerning for a soft tissue mass. Dedicated contrast-enhanced MRI is recommended for further evaluation. MRI ordered (4) Anemia: Plan: Hgb: 10.8 on 06/24/23 Hgb 8.1 08/10 --> 8.6 today Anemia labs showed mildly low iron Peripheral smear suggesting anemia of chronic disease Will start iron replacement Last colonoscopy in 2012, recommend outpatient colonoscopy for additional work- up of anemia (5) CKD (chronic kidney disease), stage III: Plan: Baseline Cr: 1.2-1.3 Creatinine 1.1 today Monitor renal functions, avoid nephrotoxic agents when possible (6) Bilateral lower extremity edema: Plan: history BLE edema On lasix 20mg daily with additional 20mg on MWF, however pt states forgets the extra dose changed lasix to 30mg daily for now and monitor (7) Hypertension: Plan: Chronic, stable Continue amlodipine, lisinopril, lasix (8) Hyponatremia: Plan: Na+ 129 on admission Likely hypovolemic hyponatremia in the setting of acute illness Improved with IVF Na+ 137 today (9) NATHALIE (obstructive sleep apnea): Plan: CPAP HS DVT PROPHYLAXIS SQ heparin Dispo -likely DC to [facility] tomorrow Patient seen in collaboration with Dr. Kapadia. Admission and Anticipated Discharge Date Admission Date: August 09, 2023 Supervising Physician Co-Signing Physician Notes Patient is seen and examined at bedside. States feeling better today. Generalized weakness improved. Denies any dysuria, hematuria, abdominal pain, chest pain, dyspnea. Reports right lower extremity swelling posteriorly since many days. On exam patient is obese, no apparent distress, normocephalic/atraumatic, EOMI, normal breath sounds, clear to auscultation, S1- S2, no murmur, no pedal edema,+ posterior thigh swollen, abdomen soft, nontender, normal bowel sounds, alert, awake, oriented, grossly no focal deficits. Patient is currently being treated for UTI secondary to E. coli currently on IV Rocephin. Blood cultures likely contaminant growing current bacterium. Right lower extremity lesion--pending MRI. Further management based on MRI results. I personally reviewed the record. Patient is interviewed and examined at bedside. Patient's care is coordinated with Tamra Gonzales EDUCATION COORDINATOR. Please refer to the documentation above for details of patient's presentation and for discussion of other issues. Subjective Follow up for UTI, weakness, anemia. Patient seen and examined. Reports she is feeling improved however continues to feel generally weak, eager to go to rehab. No urinary symptoms. Denies abdominal pain and nausea. No chest pain or shortness of breath. Patient reporting hardened area on her right posterior thigh that has been present for the past 1 month. Review of Systems Review of Systems: All systems reviewed & are unremarkable except as noted in Subjective Physical Exam Constitutional: WD/WN, vitals as above no acute distress Respiratory: normal respiratory effort, lungs clear to auscultation Cardiovascular: Rate/Rhythm: regular rate and regular rhythm Vessels: normal peripheral pulses Extremities: no edema Gastrointestinal (Abdomen): Percussion/Palpation: abdomen soft; abdomen nontender Musculoskeletal: large firm area noted on right posterior thigh, no erythema, open area, or drainage noted Skin: no rashes, warm and dry Neurologic: no focal motor deficits Psychiatric: A+Ox3, euthymic affect Results & Data Results & Data Vital Signs (Past 12 Hours) Vital Signs Temp Pulse Resp BP Pulse Ox O2 Del Method FiO2 08/11/23 15:12 37.0 C 75 20 125/68 95 Room Air 08/11/23 07:35 21 08/11/23 07:02 36.6 C 70 16 116/69 97 Room Air Laboratory Results Short CBC 08/11/23 Range/Units 06:59 WBC 7.47 (4.8-10.8) K/ul Hgb 8.6 L (12.0-16.0) g/dl Hct 26.9 L (37.0-47.0) % Plt Count 447 H (130-400) K/uL BMP 08/11/23 06:59 Sodium 137 Potassium 3.8 Chloride 101 Carbon Dioxide 30 BUN 18 Creatinine 1.12 Glucose 128 H Calcium 8.6 Diagnostic Findings Vascular Ultrasound 08/11/23 10:25 US extremity non-vascular ltd CLINICAL HISTORY: swelling posterior right thigh COMPARISON STUDY: None. FINDINGS: Real-time sonographic imaging of the right posterior mid to distal thigh was performed with textile machinery sales representative images submitted. At the patient's area of interest there is a 16 x 13 x 12 cm lobular lesion demonstrating central cystic change/necrosis and associated color flow. Therefore, this favors a soft tissue mass. IMPRESSION: A 16 x 13 x 12 mm lobular lesion within the right posterior thigh corresponding to the patient's palpable abnormality. This is concerning for a soft tissue mass. Dedicated contrast-enhanced MRI is recommended for further evaluation. ACT 112: Positive. There are findings on this exam that require communication between the performing entity and the patient following Patient Test Result Information Act ([place] Act 112) guidelines. Electronically signed by: Xavier Montano M.D. 08/11/2023 3:57 PM Venous Doppler Study 08/11/23 10:25 RIGHT LOWER EXTREMITY VENOUS DOPPLER HISTORY: Right leg swelling COMPARISON STUDY: None. FINDINGS: There is normal compressibility, flow, and augmentation within the right lower extremity deep venous system. IMPRESSION: No DVT within the right lower extremity ACT 112: Negative or not required by law. Electronically signed by: Xavier Montano M.D. 08/11/2023 4:05 PM
[2023-08-11] MEDS: cefTRIAXone SODIUM 2,000 MG in DEXTROSE 5 % MINI-B 50 ML IV SCH (16:56)
[2023-08-11] MEDS: FERROUS SULFATE 325 MG TAB PO SCH (16:56)
[2023-08-11] MEDS: amLODIPine BESYLATE 5 MG TAB PO SCH (20:24)
[2023-08-12] MEDS ORDERED: GADOBUTROL 65ML VIAL IV ONE (00:33)
[2023-08-12] MEDS: PANTOprazole 40 MG TAB PO SCH (05:54)
[2023-08-12 06:41] LABS: Hematocrit (blood only) 27.4 % (37.0-47.0); Hemoglobin 8.6 g/dl (12.0-16.0)
--- NOTE | 2023-08-12 07:53 | Magnetic Resonance Report ---
MR femur RT wo/w con HISTORY: f/u right posterior thigh mass TECHNIQUE: Multiplanar multisequence MRI of the right femur was performed both before and after the i ntravenous administration of 10 cc of Gadavist contrast. COMPARISON STUDY: Right leg ultrasound 08/11/2023. FINDINGS: There is normal marrow signal intensity within the right femur. No fracture or dislocation within the right femur. In the visualized pelvic bones are intact. There is a small right knee effusi on. Subcutaneous edema within the right thigh most pronounced posteriorly. There is confirmation of t he lobular heterogeneous enhancing large necrotic mass within the right posterior thigh musculature. This appears to invade into both the semimembranosus and semitendinosus muscles. This lesion measures approximately 23 x 15 x 11 cm. There is ill-defined edema and enhancement extending superiorly from this lesion measuring approximately 7.4 cm in length which involves the proximal semimembranosus and semitendinosus muscles. This may represent an additional area of tumor extension. This lesion does no t extend into the sciatic nerve. This lesion does not involve or abut the femur. No inguinal or popli teal lymphadenopathy identified. IMPRESSION: There is a 23 x 15 x 11 cm necrotic mass involving the majority of the semimembranosus and semitendin osus muscles with additional edema/enhancement extending superiorly into the proximal hamstring muscl es as described above. 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 ACT 112: Negative or not required by law. Electronically signed by: Xavier Montano M.D. 08/12/2023 7:52 AM
[2023-08-12] MEDS: FUROSEMIDE 20 MG TAB PO SCH (09:29)
[2023-08-12] MEDS: ASPIRIN 81 MG ECTAB PO SCH (09:29)
[2023-08-12] MEDS: FERROUS SULFATE 325 MG TAB PO SCH ×2 (09:29→16:27)
[2023-08-12] MEDS: lisinopril 5 MG TAB PO SCH (09:30)
[2023-08-12] MEDS: HEPARIN SOD 5,000 UNIT/0.5 ML VIAL SQ SCH ×2 (09:30→20:56)
[2023-08-12] MEDS: cefTRIAXone SODIUM 2,000 MG in DEXTROSE 5 % MINI-B 50 ML IV SCH (15:50)
--- NOTE | 2023-08-12 17:22 | Hospitalist Progress Note ---
Date of Service August 12, 2023 Assessment & Plan (1) UTI (urinary tract infection): (2) Generalized weakness: Plan: Patient is 77-year-old female with PMH HTN, CKD III, NATHALIE, anemia presented to ER with c/o weakness x 1 week. Chronic dry cough. In ER afebrile, vitals stable. No leukocytosis. UA: 2+ leuk est, 10-20 WBC, 2+ bacteria. Negative respiratory panel CXR: no acute infiltrate On IV ceftriaxone (day 5) Urine culture -pansensitive E. coli 1/ blood culture -Corynebacterium, likely contaminant. Repeat blood cultures NGTD PT/OT recommending rehab. Likely DC to [facility] tomorrow on PO antibiotics to complete course. (3) Leg mass: Plan: Patient reported a firm, palpable area on her right posterior thigh Doppler negative for DVT Femur MRI with a 23 x 15 x 11 cm necrotic mass involving the majority of the semimembranosus and semitendinosus muscles with additional edema/enhancement extending superiorly into the proximal hamstring muscles as described above. 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 Discussed finding with patient Consulted heme/onc for further evaluation and recommendations (4) Anemia: Plan: Hgb: 10.8 on 06/24/23 Hgb 8.1 08/10 --> 8.6 today Anemia labs showed mildly low iron Peripheral smear suggesting anemia of chronic disease Will start iron replacement Last colonoscopy in 2012, recommend outpatient colonoscopy for additional work- up of anemia (5) CKD (chronic kidney disease), stage III: Plan: Baseline Cr: 1.2-1.3 Creatinine 1.1 today Monitor renal functions, avoid nephrotoxic agents when possible (6) Bilateral lower extremity edema: Plan: History BLE edema On lasix 20mg daily with additional 20mg on MWF, however pt states forgets the extra dose changed lasix to 30mg daily for now and monitor (7) Hypertension: Plan: Chronic, stable Continue amlodipine, lisinopril, lasix (8) Hyponatremia: Plan: Na+ 129 on admission Likely hypovolemic hyponatremia in the setting of acute illness Improved with IVF (9) NATHALIE (obstructive sleep apnea): Plan: CPAP HS DVT PROPHYLAXIS SQ heparin Dispo -likely DC to [facility] once medically stable, plan in place for R thigh mass Patient seen in collaboration with Dr. Kapadia. Admission and Anticipated Discharge Date Admission Date: August 09, 2023 Supervising Physician Co-Signing Physician Notes Patient is seen and examined at bedside. Reports having right leg posterior discomfort after having PT this morning. No new complaints otherwise. 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 Patient is currently being treated for UTI secondary to E. coli currently on IV Rocephin. Blood cultures likely contaminant growing Corynebacterium. Right lower extremity lesion:MRI suggestive of sarcoma. Oncology consulted for further recommendations. I personally reviewed the record. Patient is interviewed and examined at bedside. Patient's care is coordinated with Danuta Martinez PA-C. Please refer to the documentation above for details of patient's presentation and for discussion of other issues. Subjective Patient seen and examined in 388 bed 1 in follow up for UTI, weakness, anemia. Continues to feel generally weak but otherwise improved overnight. Still with significant discomfort on posterior right leg, especially with movement working with therapy. No fever, chills, lightheadedness, chest pain, shortness of breath, nausea, vomiting, abdominal pain, diarrhea or constipation. Review of Systems Review of Systems: At least ten systems reviewed and negative except as noted in the HPI. Physical Exam Physical Exam: Gen: WD/WN, NAD, resting in bed eating a meal, A&Ox3, pleasant HEENT: Normocephalic, atraumatic, conjunctivae moist, sclerae anicteric, mucous membranes moist Lung: Clear to Auscultation bilaterally, no wheezes/rales/rhonchi Heart: Regular rate, regular rhythm, no murmurs, rubs, or gallops Abdomen: Soft, NT, ND +BS x 4 Extremities: + R posterior thigh TTP with hardened mass, mild edema, no erythema or drainage noted Skin: Warm, no rash Results & Data Results & Data Vital Signs (Past 12 Hours) Vital Signs Temp Pulse Resp BP Pulse Ox O2 Del Method 08/12/23 14:31 36.7 C 76 136/79 96 Room Air 08/12/23 07:10 37.2 C 63 15 124/70 95 Room Air Laboratory Results Short CBC 08/12/23 Range/Units 06:00 Hgb 8.6 L (12.0-16.0) g/dl Hct 27.4 L (37.0-47.0) % Diagnostic Findings Chest X-Ray 08/08/23 13:57 XR chest 1V portable HISTORY: 77 years-old Female Sepsis acute sepsis COMPARISON: 02/03/2020 TECHNIQUE: AP view of the chest FINDINGS: Cardiac silhouette is enlarged. Hiatal hernia. No pneumothorax, pleural effusion or airspace consolidation. Bones appear grossly intact. Thoracic dextroscoliosis. IMPRESSION: 1. Cardiomegaly without acute process. 2. Hiatal hernia. ACT 112: Negative or not required by law. The above report was generated using voice recognition software. It may contain grammatical, syntax or spelling errors. Electronically signed by: Tre Alvarado M.D. 08/08/2023 2:36 PM Vascular Ultrasound 08/11/23 10:25 US extremity non-vascular ltd CLINICAL HISTORY: swelling posterior right thigh COMPARISON STUDY: None. FINDINGS: Real-time sonographic imaging of the right posterior mid to distal thigh was performed with dermatology sales representative images submitted. At the patient's area of interest there is a 16 x 13 x 12 cm lobular lesion demonstrating central cystic change/necrosis and associated color flow. Therefore, this favors a soft tissue mass. IMPRESSION: A 16 x 13 x 12 mm lobular lesion within the right posterior thigh corresponding to the patient's palpable abnormality. This is concerning for a soft tissue mass. Dedicated contrast-enhanced MRI is recommended for further evaluation. ACT 112: Positive. There are findings on this exam that require communication between the performing entity and the patient following Patient Test Result [place] Act ([place] Act 112) guidelines. Electronically signed by: Xavier Montano M.D. 08/11/2023 3:57 PM Venous Doppler Study 08/11/23 10:25 RIGHT LOWER EXTREMITY VENOUS DOPPLER HISTORY: Right leg swelling COMPARISON STUDY: None. FINDINGS: There is normal compressibility, flow, and augmentation within the right lower extremity deep venous system. IMPRESSION: No DVT within the right lower extremity ACT 112: Negative or not required by law. Electronically signed by: Xavier Montano M.D. 08/11/2023 4:05 PM Femur MRI 08/11/23 16:25 MR femur RT wo/w con HISTORY: f/u right posterior thigh mass TECHNIQUE: Multiplanar multisequence MRI of the right femur was performed both before and after the intravenous administration of 10 cc of Gadavist contrast. COMPARISON STUDY: Right leg ultrasound 08/11/2023. FINDINGS: There is normal marrow signal intensity within the right femur. No fracture or dislocation within the right femur. In the visualized pelvic bones are intact. There is a small right knee effusion. Subcutaneous edema within the right thigh most pronounced posteriorly. There is confirmation of the lobular heterogeneous enhancing large necrotic mass within the right posterior thigh musculature. This appears to invade into both the semimembranosus and semitendinosus muscles. This lesion measures approximately 23 x 15 x 11 cm. There is ill-defined edema and enhancement extending superiorly from this lesion measuring approximately 7.4 cm in length which involves the proximal semimembranosus and semitendinosus muscles. This may represent an additional area of tumor extension. This lesion does not extend into the sciatic nerve. This lesion does not involve or abut the femur. No inguinal or popliteal lymphadenopathy identified. IMPRESSION: There is a 23 x 15 x 11 cm necrotic mass involving the majority of the semimembranosus and semitendinosus muscles with additional edema/enhancement extending superiorly into the proximal hamstring muscles as described above. 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 ACT 112: Negative or not required by law. Electronically signed by: Xavier Montano M.D. 08/12/2023 7:52 AM
[2023-08-12] MEDS: amLODIPine BESYLATE 5 MG TAB PO SCH (20:59)
--- NOTE | 2023-08-12 22:10 | Consultation ---
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 Other than her aunt with a combination of uterine and breast cancer, there is no family history to suggest Rodríguez syndrome or Li-Fraumeni syndrome Pivotal issue will be a biopsy. Historic incisional biopsies were notorious for tracking malignancy along the surgical approach leading to local failure within that biopsy scar if not appropriately coordinated with the sarcoma surgeon to assure its full excision at the time of definitive resection. With a greater reliance on needle core biopsies as opposed to traditional surgical biopsies, the rate of contaminated needle tracks has dramatically decreased to very low single digit percentages though not eliminated altogether. [https://www.ncbi.nlm.nih.gov/pmc/articles/JBH5949458/] Nevertheless, coordinating with oncologic surgery to assure that the needle approach placed such that it would be resected at the time of definitive surgery could be worthwhile. Furthermore, obtaining that biopsy at an institution with an active sarcoma service may assure its optimal pathological review and processing for both standard and potential investigational interventions I would consider a chest CT while she is here to make sure there is no suggestion of mets (the lung is one of the more frequent places for soft tissue sarcoma to travel) which might change the overall conversation with regards to diagnostic approach and overall coordination of care. She anticipates going to rehab for several days after she has been stabilized with respect to her infection. We may want to prioritize that to get her to the strongest performance status possible in anticipation of what may be the need for very aggressive management with neoadjuvant chemotherapy, radiation and surgery of her sarcoma if she is to proceed. That will also give us time to finalize a plan as to whether to coordinate the biopsy here or at an institution with appropriate surgical oncology resources to guide the best placement for the biopsy site and ultimate resection. (2) Anemia: Apparent longstanding anemia which is probably multifactorial. She does have a mild element of azotemia but the degree of anemia seems somewhat out of proportion to that as a sole explanation. B12 folic acid levels are in good range. Her serum iron is low but her ferritin is significantly elevated and even accounting for an acute phase reactant that suggests that she is not iron deficient but rather has an issue of iron utilization which might signal an element of anemia of chronic disease and/or the consequence of acute inflammatory suppression of erythropoiesis related to her significant infection. Frankly elevated haptoglobin, normal LDH and bilirubin indirectly rule out pathologic hemolysis though we do not have a specific reticulocyte count - that will be included with her morning labs. Peripheral smear is completely unremarkable suggesting against florid myelodysplasia or marrow replacement. Anemia is not sufficiently severe to warrant transfusion. Other cellular elements in her peripheral blood seem intact. Would monitor for now but if there is not recovery to reasonably good double-digit range, may be worthwhile to consider marrow aspiration biopsy to exclude myelodysplasia or other marrow as a prelude to what may be a discussion of aggressive chemotherapy required to treat what appears to be a potential sarcoma in the right lower extremity Plan Would still focus initially on stabilizing her urinary tract infection and coordinating an aggressive rehabilitation program to get her back to the best performance status possible in anticipation of what may be very aggressive intervention for likely sarcoma Monitor her anemia for now but if it persists to a significant degree, that may warrant an aggressive work-up as a prelude to the potential chemotherapy she would receive for the likely sarcoma May want to interact with a surgical oncology service at [place] or [place] and even consider whether the diagnostic needle biopsy of the mass should be performed there both to strategically coordinate its placement for optimal resection of at time of surgery but also so that fresh tissue is available for optimal pathology processing particularly to help identify any potential investigational trials that would be available to her for treatment History of Present Illness Reason for Consultation: Posterior right thigh mass Attending Physician: Jarrett Kapadia MD History of Present Illness 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 Retrospectively acute deterioration seems to be attributable to a urinary tract infection and she already feels much improved after initial antibiotics Work-up results incidentally indicated a right thigh mass which upon bring that to her attention she notes has been present for perhaps a month or a little bit more. She has no history of injury to that area. She has had no specific malignant diagnosis herself. Other than a paternal aunt with both uterus and breast cancer but occurring at age over 50, there is no family history to suggest Li-Fraumeni or other high penetrance family cancer syndrome She has a remote history of smoking stopping 40 years ago. She has no history of unusual workplace toxic exposures. Allergies Allergy/AdvReac Type Severity Reaction Status Date / Time gluten Allergy Unknown GI SYMPTOMS Verified 08/08/23 16:44 Penicillins Allergy Unknown CHILDHOOD Verified 08/08/23 16:44 ALLERGY adhesive tape Allergy Blister Verified 08/08/23 16:44 wheat Allergy Verified 08/12/23 13:08 SEASONAL ALLERGIES Allergy Unknown itchy eyes Uncoded 08/08/23 16:44 and hayfever WHEAT/GLUTEN Allergy Unknown eczema and Uncoded 08/08/23 16:44 stomach ache Home Medications Medication Instructions Recorded Confirmed Type aspirin 81 mg chewable tablet 81 mg PO DAILY #30 tabs 02/11/21 08/08/23 Rx conjugated estrogens 0.625 mg/gram 1 applic vaginal 2XWK 02/11/21 08/08/23 History vaginal cream (Premarin) amlodipine 2.5 mg tablet 2.5 mg PO HS 08/08/23 08/08/23 History cholecalciferol (vitamin D3) 10 400 unit PO DAILY 08/08/23 08/08/23 History mcg (400 unit) tablet (Vitamin D3) clindamycin HCl 150 mg capsule 600 mg PO UD PRN dental procedures 08/08/23 08/08/23 History furosemide 20 mg tablet 20 mg PO UD 08/08/23 08/08/23 History lisinopril 5 mg tablet 5 mg PO DAILY 08/08/23 08/08/23 History ondansetron HCl 4 mg tablet 4 mg PO Q6 PRN Nausea 08/08/23 08/08/23 History pantoprazole 40 mg tablet,delayed 40 mg PO DAILYBB 08/08/23 08/08/23 History release Patient History Medical History (Updated 08/11/23 @ 16:39 by JAHAIRA Wong) Obesity CKD (chronic kidney disease), stage III Chronic back pain Osteoarthritis GERD (gastroesophageal reflux disease) Temporomandibular joint disorder Hypertension Sleep apnea CPAP Asthma LAST USED PRN INH 2-3 MONTHS AGO Surgical History History of cataract extraction with lens replacement [place] [facility] [place] of total hip arthroplasty LEFT History of cholecystectomy History of esophagogastroduodenoscopy (EGD) History of colonoscopy Social History Smoking Status: Never smoker Cigarettes Per Day: QUIT AT AGE 36; Second Hand Exposure: No; Do You Dip or Chew Tobacco: No; Tobacco Cessation Education Requested by Patient: No Hx Alcohol Use: No Hx Substance Use: No Preferred Language: Wolof 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 Ability: Effective 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 Neurologically she seems completely intact, there is no pathologic adenopathy in the cervical, supraclavicular axillary, or inguinal regions. Lungs seem clear cardiac rhythm seems regular and her abdomen seems benign. In the posterior right thigh there is an area of firm subcutaneous tissue with overlying mildly violaceous discoloration with its long axis along the axis of the femur quite large occupying the bulk of the posterior right thigh. There does not seem to be any distal neurovascular compromise Results & Data Vital Signs (Past 12 Hours) Vital Signs Temp Pulse BP Pulse Ox O2 Del Method 08/12/23 19:40 Room Air, CPAP 08/12/23 14:31 36.7 C 76 136/79 96 Room Air Laboratory Results Laboratory Results - last 24 hr 08/12/23 06:00 Hgb 8.6 L Hct 27.4 L Diagnostic Findings Chest X-Ray 08/08/23 13:57 XR chest 1V portable HISTORY: 77 years-old Female Sepsis acute sepsis COMPARISON: 02/03/2020 TECHNIQUE: AP view of the chest FINDINGS: Cardiac silhouette is enlarged. Hiatal hernia. No pneumothorax, pleural effusion or airspace consolidation. Bones appear grossly intact. Thoracic dextroscoliosis. IMPRESSION: 1. Cardiomegaly without acute process. 2. Hiatal hernia. ACT 112: Negative or not required by law. The above report was generated using voice recognition software. It may contain grammatical, syntax or spelling errors. Electronically signed by: Tre Alvarado M.D. 08/08/2023 2:36 PM Vascular Ultrasound 08/11/23 10:25 US extremity non-vascular ltd CLINICAL HISTORY: swelling posterior right thigh COMPARISON STUDY: None. FINDINGS: Real-time sonographic imaging of the right posterior mid to distal thigh was performed with hospital sales representative images submitted. At the patient's area of interest there is a 16 x 13 x 12 cm lobular lesion demonstrating central cystic change/necrosis and associated color flow. Therefore, this favors a soft tissue mass. IMPRESSION: A 16 x 13 x 12 mm lobular lesion within the right posterior thigh corresponding to the patient's palpable abnormality. This is concerning for a soft tissue mass. Dedicated contrast-enhanced MRI is recommended for further evaluation. ACT 112: Positive. There are findings on this exam that require communication between the performing entity and the patient following Patient Test Result Information Act ([place] Act 112) guidelines. Electronically signed by: Xavier Montano M.D. 08/11/2023 3:57 PM Venous Doppler Study 08/11/23 10:25 RIGHT LOWER EXTREMITY VENOUS DOPPLER HISTORY: Right leg swelling COMPARISON STUDY: None. FINDINGS: There is normal compressibility, flow, and augmentation within the right lower extremity deep venous system. IMPRESSION: No DVT within the right lower extremity ACT 112: Negative or not required by law. Electronically signed by: Xavier Montano M.D. 08/11/2023 4:05 PM Femur MRI 08/11/23 16:25 MR femur RT wo/w con HISTORY: f/u right posterior thigh mass TECHNIQUE: Multiplanar multisequence MRI of the right femur was performed both before and after the intravenous administration of 10 cc of Gadavist contrast. COMPARISON STUDY: Right leg ultrasound 08/11/2023. FINDINGS: There is normal marrow signal intensity within the right femur. No fracture or dislocation within the right femur. In the visualized pelvic bones are intact. There is a small right knee effusion. Subcutaneous edema within the right thigh most pronounced posteriorly. There is confirmation of the lobular heterogeneous enhancing large necrotic mass within the right posterior thigh musculature. This appears to invade into both the semimembranosus and semitendinosus muscles. This lesion measures approximately 23 x 15 x 11 cm. There is ill-defined edema and enhancement extending superiorly from this lesion measuring approximately 7.4 cm in length which involves the proximal semimembranosus and semitendinosus muscles. This may represent an additional area of tumor extension. This lesion does not extend into the sciatic nerve. This lesion does not involve or abut the femur. No inguinal or popliteal lymphadenopathy identified. IMPRESSION: There is a 23 x 15 x 11 cm necrotic mass involving the majority of the semimembranosus and semitendinosus muscles with additional edema/enhancement extending superiorly into the proximal hamstring muscles as described above. 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 ACT 112: Negative or not required by law. Electronically signed by: Xavier Montano M.D. 08/12/2023 7:52 AM PG Care Time/CCT Total # of Minutes Spent Total Time Spent with Patient: Total time spent is greater than 50% in coordination of care (as documented) at patient's floor/unit and/or counseling patient: [place] [address] IN/OBS CONSULT LVL 4,60M Patient Type New Medical Decision Making High Complexity Diagnoses Leg mass R22.40 Anemia D64.9
[2023-08-13] MEDS: PANTOprazole 40 MG TAB PO SCH (06:01)
[2023-08-13 07:56] LABS: Basophils # (auto) 0.07 K/uL (0.00-0.20); Basophils % (auto) 0.9 %; Eosinophils # (auto) 0.36 K/uL (0.00-0.50); Eosinophils % (auto) 4.8 %; Hematocrit (blood only) 27.1 % (37.0-47.0); Hemoglobin 8.5 g/dl (12.0-16.0); Immature Granulocytes # (auto) 0.03 K/uL (0.01-0.20); Immature Granulocytes % (auto) 0.4 %; Lymphocytes # (auto) 1.62 K/uL (1.20-3.40); Lymphocytes % (auto) 21.6 %; Mean Corpuscular Hemoglobin 26.7 pg (25.0-34.0); Mean Corpuscular Hgb Conc 31.4 g/dL (32.0-36.0); Mean Corpuscular Volume 85.2 fL (80.0-100.0); Mean Platelet Volume 9.9 fL (9.4-12.4); Monocytes # (auto) 0.99 K/uL (0.11-0.59); Monocytes % (auto) 13.2 %; Neutrophils # (auto) 4.43 K/uL (1.40-6.50); Neutrophils % (auto) 59.1 %; Platelet Count 449 K/uL (130-400); RDW Coefficient of Variation 15.5 % (11.5-14.5); RDW Standard Deviation 48.3 fL (36.4-46.3); Red Blood Count 3.18 M/uL (4.20-5.40)
[2023-08-13 08:09] LABS: BUN Creatinine Ratio 19.1 (10-20); Calcium 8.6 mg/dl (8.6-10.3); Creatinine Clr Calc Pharmacy 48.6 ml/min; Est GFR (African American) 53.5 ml/min; Est GFR (Non-African American) 46.2 ml/min; Potassium 4.4 mmol/L (3.5-5.1)
[2023-08-13] MEDS: lisinopril 5 MG TAB PO SCH (08:46)
[2023-08-13] MEDS: FERROUS SULFATE 325 MG TAB PO SCH (08:46)
[2023-08-13] MEDS: HEPARIN SOD 5,000 UNIT/0.5 ML VIAL SQ SCH (08:46)
[2023-08-13] MEDS: FUROSEMIDE 20 MG TAB PO SCH (08:46)
[2023-08-13] MEDS: ASPIRIN 81 MG ECTAB PO SCH (08:46)
[2023-08-13] MEDS ORDERED: OPTIRAY 320 100ml IV ONE (10:27)
--- NOTE | 2023-08-13 10:52 | CT Scan Report ---
CT OF THE CHEST WITH IV CONTRAST CLINICAL HISTORY: Evaluate for possible mets, right thigh mass. COMPARISON STUDY: Chest radiograph August 08, 2023. TECHNIQUE: Following IV administration of 93 mL of Optiray, helical axial images of the chest were o btained. Sagittal and coronal reconstructions were viewed as well as maximal intensity projections o n an independent 3-D workstation. Automated exposure control was utilized for the study. A dose low ering technique was utilized adhering to the principles of ALARA. CT DOSE: 914.07 mGy.cm FINDINGS: No enlarged axillary, mediastinal or hilar lymph nodes are present. Size of the heart is n ormal. There is moderate coronary artery calcification. There is no pericardial effusion. A moderate sized hiatal hernia is noted with partially intrathoracic stomach. Central airways are patent. No con solidation is present. No pulmonary nodules are present. A few subpleural densities favor atelectasis . There is no pneumothorax or pleural effusion. There are no suspicious lesions within the bony thora x. Left renal atrophy is incidentally noted. IMPRESSION: 1. No evidence of metastatic disease within the chest. 2. No acute intrathoracic findings. 3. Moderate sized hiatal hernia. ACT 112: Negative or not required by law. Electronically signed by: David Dobbins M.D. 08/13/2023 10:50 AM
--- NOTE | 2023-08-13 12:46 | Discharge Summary ---
Discharge Summary Date of Service August 13, 2023 Notes For Next Care Provider Generalized weakness in the setting of E.coli UTI, anemia of chronic disease and R leg mass Medication Changes From Visit Cefdinir 300mg by mouth twice daily to complete 7d course of antibiotic for UTI Lasix increased to 30mg daily Started on magnesium supplementation 400mg BID Admission HPI Per Admitting Provider Patient is 77-year-old female with PMH HTN, CKD III, NATHALIE, anemia presented to ER with c/o weakness x 1 week. Patient states past week having generalized weakne ss. Typically can do all ADLs, past couple of days having a hard time doing ADLs. Also c/o chills. Denies hematuria, dysuria, urinary frequency. Thinks urine has increased odor last week. Did not take temperature. Denies abdominal pain. Has chronic dry cough since 02/2023. Having nausea for past several months also. Saw PCP and thought may be GERD and started on PPI. Constipation last week but did have BM yesterday. In 2019 history E. coli bacteremia, pyelonephritis. Denies N/V/D/C, SALEEM, dizziness, CP, SOB, hemoptysis, sore throat, choking, rhinorrhea, extremity edema, rashes. Admission Exam Per Admitting Provider General: No acute distress, Obese Eyes: PERRL, conjunctivae normal, not pale, anicteric sclerae, EOM intact bilaterally ENMT: External ear and nose normal, oropharynx normal Respiratory: Normal respiratory effort, no respiratory distress, lungs clear to auscultation, no crackles and no wheezes Cardiovascular: RRR S1 S2 Gastrointestinal (Abdomen): Abdomen is not distended, soft, non-tender to palpation, no guarding, no palpable hepatosplenomegaly, normal bowel sounds Musculoskeletal: Trace pedal edema Genitourinary:No CVA tenderness Skin: No rash noted on gross inspection, No ulcers noted Neurologic: Alert and oriented x 3, No focal weakness, sensation grossly intact Psychiatric: Euthymic affect Principal Dx & Hospital Course #1 = Principal Diagnosis (1) UTI (urinary tract infection): (2) Generalized weakness: On IV ceftriaxone (day 6) Urine culture -pansensitive E. coli 1/4 blood culture -Corynebacterium, likely contaminant. Repeat blood cultures NGTD PT/OT recommending rehab. Discharging to [facility] for rehab. Complete 7 day abx course with 1 additional day of Cefdinir 300mg BID. (3) Leg mass: Patient reported a firm, palpable area on her right posterior thigh Doppler negative for DVT Femur MRI with a 23 x 15 x 11 cm necrotic mass involving the majority of the semimembranosus and semitendinosus muscles with additional edema/enhancement extending superiorly into the proximal hamstring muscles as described above. 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 Dr. Mcpherson of heme/onc consulted - -Recommends initial focus of transition to rehab for an aggressive rehabilitation program to improve performance status in anticipation of what may be very aggressive intervention for likely sarcoma -Anemia likely 2/2 chronic disease, continue to monitor for now and may need a further workup as a preclude to potential chemo in future -[facility] will arrange follow up with patient for further mgmt, likely surg onc service at [place] or [place] for biopsy vs resection of mass (4) Anemia: Hgb: 10.8 on 06/24/23 Hgb 8.1 08/10 --> 8.6 today Anemia labs showed mildly low iron Peripheral smear suggesting anemia of chronic disease Last colonoscopy in 2012, recommend outpatient colonoscopy for additional work- up of anemia Per heme onc, likely multifactorial given recent illness, anemia of chronic dise ase. Not consistent with QAMAR. Recommend continued monitoring with repeat CBC, heme/onc follow-up (5) CKD (chronic kidney disease), stage III: Baseline Cr: 1.2-1.3 Monitor renal functions, avoid nephrotoxic agents when possible (6) Bilateral lower extremity edema: History BLE edema On lasix 20mg daily with additional 20mg on MWF, however pt states forgets the extra dose Changed lasix to 30mg daily at time of discharge to [facility], monitor BMP for renal fxn, lytes (7) Hypertension: Chronic, stable Continue amlodipine, lisinopril, lasix (8) Hyponatremia: Na+ 129 on admission Likely hypovolemic hyponatremia in the setting of acute illness Improved with IVF (9) NATHALIE (obstructive sleep apnea): CPAP HS Plan Patient is a 77-year-old female with PMH HTN, CKD III, NATHALIE, anemia presented to ER with c/o weakness x 1 week. Patient states past week having generalized weakness. Found to have a UTI with urine culture growing bee sensitive E coli. Discharge Exam Gen: WD/WN, NAD, resting in bed eating a meal, A&Ox3, pleasant HEENT: Normocephalic, atraumatic, conjunctivae moist, sclerae anicteric, mucous membranes moist Lung: Clear to Auscultation bilaterally, no wheezes/rales/rhonchi Heart: Regular rate, regular rhythm, no murmurs, rubs, or gallops Abdomen: Soft, NT, ND +BS x 4 Extremities: + R posterior thigh TTP with hardened mass, mild edema, no erythema or drainage noted Skin: Warm, no rash Updated Medication List Medication Instructions Recorded Confirmed Type aspirin 81 mg chewable tablet 81 mg PO DAILY #30 tabs 02/11/21 08/08/23 Rx conjugated estrogens 0.625 mg/gram 1 applic vaginal 2XWK 02/11/21 08/08/23 History vaginal cream (Premarin) amlodipine 2.5 mg tablet 2.5 mg PO HS 08/08/23 08/08/23 History cholecalciferol (vitamin D3) 10 400 unit PO DAILY 08/08/23 08/08/23 History mcg (400 unit) tablet (Vitamin D3) clindamycin HCl 150 mg capsule 600 mg PO UD PRN dental procedures 08/08/23 08/08/23 History lisinopril 5 mg tablet 5 mg PO DAILY 08/08/23 08/08/23 History ondansetron HCl 4 mg tablet 4 mg PO Q6 PRN Nausea 08/08/23 08/08/23 History pantoprazole 40 mg tablet,delayed 40 mg PO DAILYBB 08/08/23 08/08/23 History release cefdinir 300 mg capsule 300 mg PO BID #3 caps 08/13/23 Rx furosemide 20 mg tablet 30 mg (1.5 x 20 mg) PO DAILY #30 08/13/23 08/08/23 Rx tabs Hospital Stay Data Consultations 08/08/23 16:33 ED Decision to Admit Stat 08/12/23 09:30 Consult Oncology Routine Diagnostic Imagining Performed 08/11/23 10:25 US extremity non-vascular ltd Routine US venous doppler LE RT Routine 08/11/23 16:25 MRI Leg [MR femur RT wo/w con] Routine 08/13/23 08:54 CT chest diagnostic w con Urgent Pending Results Patient Have Any Pending Studies at Discharge: No Discharge Instructions Given to Patient (Per Discharging Provider) MEDICATION CHANGES: Cefdinir 300mg by mouth twice daily to complete 7d course of antibiotic for UTI. Lasix changed to 30mg daily with improved lower extremity edema- continue new dose. SUMMARY OF TEST RESULTS: You were admitted to hospital secondary generalized weakness in the setting of UTI, iron deficiency anemia and R leg mass. Urine culture grew E. coli. 1/4 blood cultures grew Corynebacterium- likely contaminant. Repeat blood cultures without growth to date. R thigh MRI revealed a necrotic mass on R posterior thigh suspicious for soft tissue sarcoma. Blood work revealed low hemoglobin levels likely due to anemia of chronic disease, per heme onc. PENDING TEST RESULTS: None RECOMMENDATIONS FOR FOLLOW-UP: Follow up with PCP as scheduled. Dr. Mcpherson of heme onc and his office will be arranging outpatient follow-up and biopsy of R thigh mass. Complete antibiotic in its entirety. Repeat CBC to monitor anemia and BMP to monitor renal function and electrolytes on more frequent lasix dose. Follow up Mg levels given discharge on supplementation. OTHER INSTRUCTIONS: Seek medical attention if you have: * temperature above 101 * chest pain or trouble breathing * abdominal pain, nausea, vomiting * diarrhea, dark stools or bloody stools * any unanswered questions or concerns Call 911 if symptoms are severe. Please take good care of yourself. Call if you have any questions or problems. You can reach a [facility] hospitalist on duty at [facility] [address] 24 hours a day by calling [phone]. Danuta Martinez PA-C [facility] Hospitalist Total Time Total Time Spent Total Time Spent (In Minutes): 60 Supervising Physician Co-Signing Physician Notes Patient is seen and examined at bedside. No new complaints. Has intermittent right leg pain. Discussed with oncology today. On exam patient is obese, no apparent distress, normocephalic/atraumatic, EOMI, normal breath sounds, clear to auscultation, S1-S2, no murmur, no pedal edema,+ posterior thigh swollen, abdomen soft, nontender, normal bowel sounds, alert, awake, oriented, grossly no focal deficits. Patient is currently being treated for UTI secondary to E. coli currently on IV Rocephin. Agreed to transition to cefdinir to complete antibiotic course. Blood cultures contaminant growing Corynebacterium. Repeat blood cultures negative to date. Right lower extremity lesion:MRI suggestive of sarcoma. Appreciate oncology input. Needs follow-up with oncology as outpatient and nonemergent evaluation by surgical oncology for possible excision. I personally reviewed the record. Patient is interviewed and examined at bedside. Patient's care is coordinated with Danuta Martinez PA-C. Please refer to the documentation above for details of patient's presentation and for discussion of other issues.
== END 2023-08-13 14:06 | DRG 690 ==
LOC: EDINP 13:09 → ED 13:09 → SUATTDRO 16:52 → 3N 20:05 → SUATTDRO 08-09 13:02

== ENCOUNTER 2023-10-12 10:45 | Inpatient (IN) ==
--- NOTE | 2023-10-12 12:06 | XRay Report ---
XR chest 1V not portable HISTORY: 77 years-old Female weakness acute weakness COMPARISON: 08/08/2023 TECHNIQUE: AP view of the chest FINDINGS: Hiatal hernia. Cardiomegaly. Chronic interstitial coarsening. No pneumothorax, pleural effusion or pu lmonary edema. The bones appear grossly intact. IMPRESSION: 1. Cardiomegaly without acute process. 2. Hiatal hernia. ACT 112: Negative or not required by law. The above report was generated using voice recognition software. It may contain grammatical, syntax o r spelling errors. Electronically signed by: Tre Alvarado M.D. 10/12/2023 12:05 PM
[2023-10-12 13:11] LABS: Basophils # (auto) 0.09 K/uL (0.00-0.20); Basophils % (auto) 0.6 %; Eosinophils # (auto) 0.04 K/uL (0.00-0.50); Eosinophils % (auto) 0.3 %; Hematocrit (blood only) 33.1 % (37.0-47.0); Hemoglobin 10.4 g/dl (12.0-16.0); Immature Granulocytes # (auto) 0.17 K/uL (0.01-0.20); Immature Granulocytes % (auto) 1.1 %; Lymphocytes # (auto) 0.82 K/uL (1.20-3.40); Lymphocytes % (auto) 5.2 %; Mean Corpuscular Hemoglobin 25.4 pg (25.0-34.0); Mean Corpuscular Hgb Conc 31.4 g/dL (32.0-36.0); Mean Corpuscular Volume 80.7 fL (80.0-100.0); Monocytes # (auto) 1.14 K/uL (0.11-0.59); Monocytes % (auto) 7.2 %; Neutrophils # (auto) 13.63 K/uL (1.40-6.50); Neutrophils % (auto) 85.6 %; Platelet Count 518 K/uL (130-400); RDW Coefficient of Variation 15.9 % (11.5-14.5); RDW Standard Deviation 46.4 fL (36.4-46.3); White Blood Count 15.89 K/ul (4.8-10.8)
[2023-10-12 13:27] LABS: Alanine Aminotransferase 8 U/L (7-52); Albumin Globulin Ratio 0.7 (0.9-2); Albumin Level 3.4 gm/dl (3.4-5.0); Alkaline Phosphatase 85 U/L (34-104); Anion Gap 12 (3-11); Aspartate Aminotransferase 19 U/L (13-39); BUN Creatinine Ratio 15.3 (10-20); Bilirubin,Total 0.4 mg/dl (0.2-1.0); Blood Urea Nitrogen 18 mg/dl (6-23); Calcium 9.4 mg/dl (8.6-10.3); Carbon Dioxide 21 mmol/L (21-32); Chloride 97 mmol/L (98-107); Est GFR (African American) 51.9 ml/min; Est GFR (Non-African American) 44.8 ml/min; Globulin 4.7 gm/dl (2.5-4.0); Glucose 126 mg/dl (70-99(Fasting)); Magnesium 1.7 mg/dl (1.7-2.4); Potassium 4.2 mmol/L (3.5-5.1); Sodium 130 mmol/L (136-145); Total Protein 8.1 gm/dl (6.0-8.3)
[2023-10-12 13:37] LABS: Troponin I High Sensitivity 72.7 pg/ml (0-14)
[2023-10-12 13:42] LABS: Thyroid Stimulating Hormone 6.805 uIu/ml (0.300-4.500)
--- NOTE | 2023-10-12 13:53 | Emergency Department Note ---
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 For radiation treatment episodes thus far. Started having creasing weakness after these started last week. Some nausea brought today by ambulance. After she was lowered to floor by brother as she states she got very weak and her legs just gave out in the bathroom. Denies falling and hitting her head. Denies any numbness or tenderness. States she has some pain however in her right shoulder has been there over the last week or so prickly with movement. She thinks it might be from stress of people helping lift her and move her. General myalgias and aches reported. Denies abdominal pain. Decreased oral intake reported. Has had several episodes where she is gone to the ground due to weakness. Denies any significant trauma or falls. Denies head trauma. PAST MEDICAL HISTORY: As noted above MEDICATIONS: Reviewed home medications SOCIAL HISTORY: Currently at home with brother and [id number] assisting her at this time PHYSICAL EXAM: GENERAL: alert and oriented in no acute distress on stretcher Head: normocephalic and atraumatic EYES: No injection, discharge or icterus. NECK: Trachea midline. ENT: Mucous membranes pink and moist. LUNGS: Airway patent. No retractions. Breath sounds clear HEART: Regular rate and rhythm. No chest wall tenderness ABDOMEN: Soft and non-tender, without guarding or rebound. SKIN: Acyanotic, warm, dry, without rashes EXTREMITIES: 1-2+ edema of the lower extremities. Fairly swollen and firm right thigh in the area posteriorly where sarcoma is located by her report. Pain with elevation of the right shoulder reproducible on exam but no tenderness of the right elbow forearm wrist. Neurovascular intact in the upper extremities. NEUROLOGICAL: No focal deficits. No aphasia. No facial droop or slurred speech. Normal strength and tone in the extremities. Sensation to gross touch normal. Ambulatory. EK bpm sinus rhythm with PAC. No acute ST segment elevation or depression with a QTc of 427. No PVC. CONTINUOUS CARDIAC MONITORING: was ordered and showed a heart rate of 90s-100s bpm in normal sinus rhythm to sinus tachycardia Patient's laboratory studies and imaging reviewed. Differential includes Infection, dehydration, metabolic abnormality, hypo/hyperglycemia, electrolyte disturbance, anemia, hypoxia, cardiac sources, intracerebral event, toxicologic, neurologic, as well as other pathologies. IMPRESSION/MEDICAL DECISION MAKING: Seen at the time of high acuity and volume in the emergency department. Patient history of UTI. Weakness today. Current treatment for sarcoma located in the leg. Weakness since starting radiation this past week. Blood work noted to show increased leukocytosis of 15 with stable anemia 10.4. Slightly elevated platelet count of 518. Slight hyponatremia of 130 noted without significant potassium abnormality. Renal function stable. Troponin noted to be increased today from baseline of 72.7 and EKG reviewed. Question demand component more than ACS. Question related to possible infection versus stress from radiation. Urinalysis and respiratory viral panel sent to look for infectious etiology. Chest x-ray per radiology report without evidence of pneumonia. Will obtain shoulder x-ray but doubt acute fracture or dislocation based on clinical history. No fevers reported but generalized weakness. Patient given full dose aspirin. No significant trauma reported and was lowered to the ground and thus do not believe any additional imaging or head CT at this time. Denies abdominal pain or flank pain. Doubt kidney stone. Some decreased intake and given some IV fluid to try to promote urine sample as well to exclude UTI given her history. Will empirically cover ceftriaxone at this time. Blood cultures are ordered. Discussed with the patient would recommend that she stay for further care. She was in agreement. Lower suspicion at this time for DVT in the right lower extremity or PE. She is not on oxygen or hypoxic. DIAGNOSIS: Weakness, right leg sarcoma, elevated troponin DISPOSITION: Hospitalist will evaluate Patient was agreeable with this plan. Past Med/Surg History Medical History (Updated 10/12/23 @ 21:40 by Olegario Norwood M.D.) Obesity CKD (chronic kidney disease), stage III Chronic back pain Osteoarthritis GERD (gastroesophageal reflux disease) Temporomandibular joint disorder Hypertension Sleep apnea CPAP Asthma LAST USED PRN INH 2-3 MONTHS AGO Surgical History History of cataract extraction with lens replacement [place] E[place] 12/21/[place] 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 Beliefs That Will Affect Care: None Current Living Situation: Personal Care Facility Current Living Situation Comment: brother is currently staying with pt in her own homw current occupational status: retired Feels Safe at Home: Yes Assistive Devices: Walker and Wheelchair Allergies Allergies Allergy/AdvReac Type Severity Reaction Status Date / Time adhesive tape Allergy Intermediate Blister Verified 10/12/23 15:02 Penicillins Allergy Unknown CHILDHOOD Verified 10/12/23 15:02 ALLERGY Sulfa (Sulfonamide Allergy Unknown FACIAL Verified 10/12/23 15:02 Antibiotics) SWELLING gluten AdvReac Intermediate GI SYMPTOMS Verified 10/12/23 15:02 wheat AdvReac Intermediate eczema and Verified 10/12/23 15:02 stomach ache Home Meds Home Medications Medication Instructions Recorded Confirmed conjugated estrogens 0.625 mg/gram 1 applic vaginal 2XWK 02/11/21 10/12/23 vaginal cream (Premarin) amlodipine 2.5 mg tablet 2.5 mg PO HS 08/08/23 10/12/23 cholecalciferol (vitamin D3) 10 400 unit PO QDL 08/08/23 10/12/23 mcg (400 unit) tablet (Vitamin D3) clindamycin HCl 150 mg capsule 600 mg PO DIRECTED PRN dental 08/08/23 10/12/23 procedures pantoprazole 40 mg tablet,delayed 40 mg PO DAILYBB 08/08/23 10/12/23 release acetaminophen 325 mg capsule 325 mg PO QID PRN PAIN/FEVER 09/15/23 10/12/23 ferrous sulfate 325 mg (65 mg 325 mg PO QDL 09/15/23 10/12/23 iron) tablet losartan 25 mg tablet 25 mg PO DAILY 09/15/23 10/12/23 sertraline 50 mg tablet 50 mg PO DAILY 09/15/23 10/12/23 tramadol 50 mg tablet 50 mg PO Q6H PRN Pain 09/15/23 10/12/23 aspirin 81 mg chewable tablet 81 mg PO HS 10/12/23 10/12/23 cyanocobalamin (vitamin B-12) 1,000 mcg PO QDL 10/12/23 10/12/23 1,000 mcg tablet (Vitamin B-12) furosemide 20 mg tablet 20 mg PO DAILY 10/12/23 10/12/23 Results & Data (ED) Vital Signs Vital Signs - 24 hr 10/12/23 11:16 10/12/23 14:50 10/12/23 16:40 Temperature 36.3 C L Temperature Source Temporal Artery Scan Pulse Rate 87 83 Pulse Rate [Apical] 63 Respiratory Rate 20 18 Respiratory Effort / Characteristics Non-Labored Spontaneous Respiratory Depth Normal Respiratory Pattern Regular Blood Pressure 141/78 H Blood Pressure [Right Arm] 121/62 Blood Pressure Mean 99 Blood Pressure Mean [Right Arm] 81 Pulse Oximetry 95 93 Oxygen Delivery Method Room Air Room Air Sepsis Recent Fever Within 48 Hours No Sepsis New/Unexplained Change in Mental Status No Sepsis Action Taken by Nursing No Action Required Laboratory Data 10/12/23 12:46 10/12/23 12:46 Lab Results 10/12/23 10/12/23 Range/Units 12:46 15:18 WBC 15.89 H (4.8-10.8) K/ul RBC 4.10 L (4.20-5.40) M/uL Hgb 10.4 L (12.0-16.0) g/dl Hct 33.1 L (37.0-47.0) % MCV 80.7 (80.0-100.0) fL MCH 25.4 (25.0-34.0) pg MCHC 31.4 L (32.0-36.0) g/dL RDW Std Deviation 46.4 H (36.4-46.3) fL RDW Coeff of Carlos 15.9 H (11.5-14.5) % Plt Count 518 H (130-400) K/uL MPV 10.0 (9.4-12.4) fL Immature Gran % (Auto) 1.1 % Neut % (Auto) 85.6 % Lymph % (Auto) 5.2 % Nicollet % (Auto) 7.2 % Eos % (Auto) 0.3 % Baso % (Auto) 0.6 % Neut # (Auto) 13.63 H (1.40-6.50) K/uL Lymph # (Auto) 0.82 L (1.20-3.40) K/uL Nicollet # (Auto) 1.14 H (0.11-0.59) K/uL Eos # (Auto) 0.04 (0.00-0.50) K/uL Baso # (Auto) 0.09 (0.00-0.20) K/uL Immature Gran # (Auto) 0.17 (0.01-0.20) K/uL Sodium 130 L (136-145) mmol/L Potassium 4.2 (3.5-5.1) mmol/L Chloride 97 L (98-107) mmol/L Carbon Dioxide 21 (21-32) mmol/L Anion Gap 12 H (3-11) BUN 18 (6-23) mg/dl Creatinine 1.18 (0.6-1.2) mg/dl Est Cr Clr Drug Dosing Not Reportable Est GFR ( Amer) 51.9 ml/min Est GFR (Non-Af Amer) 44.8 ml/min BUN/Creatinine Ratio 15.3 (10-20) Glucose 126 H (70-99(Fasting)) mg/dl Lactate 2.1 H* (0.4-2.0) mmol/L Calcium 9.4 (8.6-10.3) mg/dl Magnesium 1.7 (1.7-2.4) mg/dl Total Bilirubin 0.4 (0.2-1.0) mg/dl AST 19 (13-39) U/L ALT 8 (7-52) U/L Alkaline Phosphatase 85 (34-104) U/L Troponin I High Sens 72.7 H* 109.1 H* D (0-14) pg/ml Total Protein 8.1 (6.0-8.3) gm/dl Albumin 3.4 (3.4-5.0) gm/dl Globulin 4.7 H (2.5-4.0) gm/dl Albumin/Globulin Ratio 0.7 L (0.9-2) Procalcitonin Cancelled TSH 6.805 H (0.300-4.500) uIu/ml Free T4 1.03 (0.61-1.60) ng/dl Adenovirus (PCR) Not Detected (NotDetected) B. pertussis DNA (PCR) Not Detected (NotDetected) B.parapertussis DNA PCR Not Detected (NotDetected) C. pneumoniae DNA (PCR) Not Detected (NotDetected) Coronavirus OC43 (PCR) Not Detected (NotDetected) Coronavirus HKU1 (PCR) Not Detected (NotDetected) Coronavirus 229E (PCR) Not Detected (NotDetected) SARS-CoV-2 (PCR) Not Detected (NotDetected) Coronavirus NL63 (PCR) Not Detected (NotDetected) Human Metapneumovir PCR Not Detected (NotDetected) Influenza Type A (PCR) Not Detected (NotDetected) Influenza Type B (PCR) Not Detected (NotDetected) M. pneumoniae (PCR) Not Detected (NotDetected) Parainfluenza 1 (PCR) Not Detected (NotDetected) Parainfluenza 2 (PCR) Not Detected (NotDetected) Parainfluenza 3 (PCR) Not Detected (NotDetected) Parainfluenza 4 (PCR) Not Detected (NotDetected) RSV (PCR) Not Detected (NotDetected) Entero/Rhino (PCR) Not Detected (NotDetected) Administered Medications Amlodipine Besylate (Amlodipine Besylate 5 Mg Tab) 2.5 mg PO [facility] Stop: 11/11/23 20:59 Last Admin: 10/12/23 20:36 Dose: 2.5 mg Documented By: PADMINI Discontinued Medications Aspirin (Aspirin Chew 324 Mg) 324 mg PO NOW STA Stop: 10/12/23 14:24 Last Admin: 10/12/23 17:12 Dose: 324 mg Documented By: VANESA Aspirin (Aspirin Chew 324 Mg) Confirm Administered Dose 324 mg .ROUTE .STK-MED ONE Stop: 10/12/23 17:10 Last Admin: 10/12/23 17:27 Dose: Not Given Documented By: PADMINI Fentanyl Citrate (Fentanyl Citrate Pf 100 Mcg/2 Ml Vial) 50 mcg IV NOW STA Stop: 10/12/23 14:37 Last Admin: 10/12/23 17:12 Dose: 50 mcg Documented By: VANESA Fentanyl Citrate (Fentanyl Citrate Pf 100 Mcg/2 Ml Vial) Confirm Administered Dose 100 mcg .ROUTE .STK-MED ONE Stop: 10/12/23 17:11 Last Admin: 10/12/23 17:27 Dose: Not Given Documented By: PADMINI Furosemide (Furosemide Inj 20 Mg/2 Ml Vial) 20 mg IV ONE ONE Stop: 10/12/23 16:16 Last Admin: 10/12/23 17:00 Dose: 20 mg Documented By: VANESA Sodium Chloride (Nss) 500 mls @ 999 mls/hr IV .Q31M ONE Stop: 10/12/23 14:53 Last Infusion: 10/12/23 18:15 Dose: Infused Documented By: Admin: 10/12/23 17:07 Dose: 999 mls/hr Documented By: VANESA Magnesium Sulfate/Dextrose (Magnesium Sulfate / D5w) 1 gm in 100 mls @ 200 mls/hr IV Q30M [facility] Stop: 10/12/23 15:44 Last Infusion: 10/12/23 18:15 Dose: Infused Documented By: Admin: 10/12/23 17:36 Dose: 200 mls/hr Documented By: Infusion: 10/12/23 17:36 Dose: Infused Documented By: Admin: 10/12/23 17:03 Dose: 200 mls/hr Documented By: VANESA Ceftriaxone Sodium (Rocephin) 2,000 mg in 50 mls @ 100 mls/hr IV NOW STA Stop: 10/12/23 15:06 Last Infusion: 10/12/23 17:38 Dose: Infused Documented By: Admin: 10/12/23 17:06 Dose: 100 mls/hr Documented By: VANESA Miscellaneous (Patient's Height &/Or Weight Needed) 1 each N/A Q2H CANDICE Stop: 11/11/23 19:29 Last Admin: 10/12/23 20:36 Dose: 1 each Documented By: PADMINI Ondansetron HCl (Ondansetron Inj 2 Mg/Ml 2 Ml Vial) 4 mg IV NOW STA Stop: 10/12/23 14:24 Last Admin: 10/12/23 20:31 Dose: Not Given Documented By: PADMINI Oxycodone HCl (Oxycodone Hcl Ir 5 Mg Tab (Immediate Release)) 5 mg PO NOW STA Stop: 10/12/23 15:43 Last Admin: 10/12/23 17:00 Dose: 5 mg Documented By: VANESA Imaging Data Radiologist's Impression: Chest X-Ray 10/12/23 10:46 XR chest 1V not portable HISTORY: 77 years-old Female weakness acute weakness COMPARISON: 08/08/2023 TECHNIQUE: AP view of the chest FINDINGS: Hiatal hernia. Cardiomegaly. Chronic interstitial coarsening. No pneumothorax, pleural effusion or pulmonary edema. The bones appear grossly intact. IMPRESSION: 1. Cardiomegaly without acute process. 2. Hiatal hernia. ACT 112: Negative or not required by law. The above report was generated using voice recognition software. It may contain grammatical, syntax or spelling errors. Electronically signed by: Tre Alvarado M.D. 10/12/2023 12:05 PM Shoulder X-Ray 10/12/23 14:36 XR shoulder RT min 2V routine HISTORY: 77 years-old Female pain acute right shoulder pain COMPARISON: Chest radiograph of same day TECHNIQUE: 3 views of the right shoulder FINDINGS: Moderate glenohumeral and AC joint osteoarthritis. No acute fracture, dislocation or opaque foreign body. The imaged lung chacon appear clear. IMPRESSION: No acute fracture or dislocation. ACT 112: Negative or not required by law. The above report was generated using voice recognition software. It may contain grammatical, syntax or spelling errors. Electronically signed by: Tre Alvarado M.D. 10/12/2023 4:13 PM Venous Doppler Study 10/12/23 16:28 Exam(s): US VENOUS RIGHT LOWER EXTREMITY EXAM: US Duplex Right Lower Extremity Veins CLINICAL HISTORY: Reason for exam: Eval for DVT. TECHNIQUE: Real-time duplex ultrasound scan of the right lower extremity veins integrating B-mode two-dimensional vascular structure, Doppler spectral analysis, color flow Doppler imaging and compression. COMPARISON: 08/11/2023. FINDINGS: Limitations: Exam is limited due to body habitus. Deep veins: Unremarkable. No DVT in the visualized common femoral, femoral, proximal deep femoral or popliteal veins. The veins demonstrate normal color flow, are normally compressible, with normal phasic flow and/or augmentation response. Superficial veins: Unremarkable. No thrombus in the visualized great saphenous vein. Soft tissues: No acute findings. No popliteal cyst. IMPRESSION: No ultrasonographic evidence of deep venous thrombosis involving the right lower extremity. Electronically signed by: Meagan Short MD 10/12/23 20:56 PM Discharge Plan Visit Data Chief Complaint: Weakness Stated Complaint: WEAKNESS ED Provider: Olegario Norwood Discharge Problem: Weakness, Elevated troponin, Sarcoma of right thigh Patient Disposition: Admitted As Inpatient Discharge Instructions Interventions: ED Discharge Assessment Last Done: 10/12/23 19:17
[2023-10-12 13:58] LABS: Adenovirus PCR Not Detected (NotDetected); Bordetella parapertussis PCR Not Detected (NotDetected); Bordetella pertussis PCR Not Detected (NotDetected); Chlamydia pneumoniae PCR Not Detected (NotDetected); Coronavirus 229E PCR Not Detected (NotDetected); Coronavirus CoV-2 (COVID19)PCR Not Detected (NotDetected); Coronavirus HKU1 PCR Not Detected (NotDetected); Coronavirus NL63 PCR Not Detected (NotDetected); Coronavirus OC43PCR Not Detected (NotDetected); Human Metapneumovirus PCR Not Detected (NotDetected); Influenza A PCR Not Detected (NotDetected); Influenza B PCR Not Detected (NotDetected); Mycoplasma pneumoniae PCR Not Detected (NotDetected); Parainfluenza Virus 1 PCR Not Detected (NotDetected); Parainfluenza Virus 2 PCR Not Detected (NotDetected); Parainfluenza Virus 3 PCR Not Detected (NotDetected); Parainfluenza Virus 4 PCR Not Detected (NotDetected); Respiratory Syncytial VirusPCR Not Detected (NotDetected); Rhinovirus/Enterovirus PCR Not Detected (NotDetected)
--- OUTSIDE RECORDS SUMMARY | 2023-10-12 14:06 | External Medical Summary | Summary of Care ---
Author Name Unknown Organization [facility] Address [address] [place] [address] Phone [phone] Care Team Providers Care Educational Speech Language Clinician Name Role Phone Samy Sharif DO Primary Care Provider [phone] Reason for Visit * Reason Comments [facility]: Telehealth Encounter Details Date Type Department Care Team (Late st Contact Info) Description 09/30/2023 11:00 AM EST Telemedicine [facility], [place] [place] [address] Enma Gautam PA-C [address] [place] [address] Rukhsana Sears, [employer] [address] [place] [address] Sarcoma (HCC)*; Stage 3b chronic kidney disease; Anemia of chronic disease Allergies Active Allergy Reactions Criticality Noted Date Comments Gluten Meal Itching 06/24/2017 Molds & Smuts 01/01/2012 Penicillin V 01/01/2012 Sulfa Antibiotics Edema face/lips/tongue High 2021 documented as of this encounter (statuses as of 09/30/2023) Medications Medication Sig Dispensed Refills Start Date End Date Status Vitamin D3 10 MCG (400 UNIT) Oral Tablet (Cholecalciferol) Take 1 Tablet by mouth in the morning. 0 Active Cranberry 125 MG Oral Tablet Take by mouth . 0 Active Aspirin EC 81 MG Oral Tablet Delayed ReleaseIndications:PV C (premature ventricular contraction),NSVT (nonsustained ventricular tachycardia) ([facility]) Take 1 Tablet by mouth in the morning. 90 Tablet 3 03/16/2022 Active Zoster Vac Recomb Adjuvanted 50 MCG/0.5ML Intramuscular Suspension Reconstituted (Shingrix) Inject 0.5 mL into a large muscle now and repeat dose in 60 to 180 days 1 Each 1 02/18/2023 Active Premarin 0.625 MG/GM Vaginal Cream (Estrogens Conjugated) INSERT 0.5 GRAMS VAGINALLY ONCE A DAY ON WEDNESDAY AND WEDNESDAY 30 g 12 06/21/2023 Active Furosemide 20 MG Oral Tablet (Lasix) Take 1 Tablet by mouth in the morning. Advised to take 20 mg. 0 08/17/2023 Active Magnesium Oxide 400 MG Oral Tablet Take 1 Tablet by mouth in the morning. 0 08/17/2023 Active Ondansetron HCl 4 MG Oral TabletIndications:Donny sea without vomiting Take 1 Tablet by mouth every 6 hours as needed for Nausea. 90 Tablet 0 09/01/2023 Active Meclizine HCl 12.5 MG Oral Tablet (Antivert)Indications :Nausea without vomiting Take 1 Tablet by mouth 3 times a day as needed for Dizziness or Nausea. 60 Tablet 0 09/01/2023 Active B-12 1000 MCG Oral Lozenge Take by mouth. 0 Active Acetaminophen 325 MG Oral Capsule Take by mouth. 0 Active traMADol HCl 50 MG Oral Tablet (Ultram)Indications:M ass of thigh, right,Pain of right lower extremity,Sarcoma (HCC) Take 1 Tablet by mouth every 6 hours as needed for Pain, Severe. 60 Tablet 0 09/20/2023 Active amLODIPine Besylate 2.5 MG Oral Tablet (Norvasc)Indications: HTN, goal below 140/90 TAKE 1 TABLET BY MOUTH NIGHTLY AT BEDTIME 90 Tablet 3 09/20/2023 Active Losartan Potassium 25 MG Oral Tablet (Cozaar)Indications:H TN, goal below 140/90 Take 1 Tablet by mouth in the morning. 90 Tablet 3 09/20/2023 Active Pantoprazole Sodium 40 MG Oral Tablet Delayed Release (Protonix)Indications :Gastroesophageal reflux disease without esophagitis Take 1 Tablet by mouth in the morning. 30 minutes before the first meal of the day. Do not crush, split or chew the tablet. 90 Tablet 3 09/20/2023 Active Sertraline HCl 50 MG Oral Tablet (Zoloft) Take 1 Tablet by mouth in the morning. 90 Tablet 3 09/20/2023 Active Ferrous Sulfate 325 (65 Fe) MG Oral Tablet (Feosol)Indications:I eleazar deficiency anemia, unspecified iron deficiency anemia type Take 1 Tablet by mouth daily with breakfast. 90 Tablet 3 09/20/2023 Active documented as of this encounter (statuses as of 09/30/2023) Active Problems Problem Noted Date Diagnosed Date Sarcoma 09/20/2023 Iron deficiency anemia 09/20/2023 Leg mass, right 08/17/2023 Anemia of chronic disease 08/17/2023 Hiatal hernia 08/17/2023 Gastroesophageal reflux disease without esophagi tis 08/17/2023 Body mass index (BMI) of 40.0 to 44.9 in adult 1 Overview: Per Obesity protocol - Per Obesity protocol - Per Obesity protocol - Per Obesity protocol - Per Obesity protocol - Per Obesity protocol - - Morbid obesity due to excess calories 11/11/2022 Advanced directives, counseling/discussion 11/08 Stage 3b chronic kidney disease 08/19/2020 Overview: Per CKD protocol Acquired hypothyroidism 01/13/2018 DDD (degenerative disc disease), lumbar 07/05/20 17 HTN, goal below 140/90 03/23/2016 Overview: Per HTN Protocol NATHALIE on CPAP 06/21/2014 Mild obstructive sleep apnea 06/21/2014 Overview: AHI 8.7 per PSG documented as of this encounter (statuses as of 09/30/2023) Resolved Problems Problem Noted Date Diagnosed Date Resolved Date Body mass index (BMI) of 45. 0 to 49.9 in adult 11/23/2022 07/22/2023 Overview: Per Obesity protocol - Per Obesity protocol - Per Obesity protocol - Per Obesity protocol - Per Obesity protocol - - Body mass index (BMI) of 40. 0 to 44.9 in adult 03/23/2022 11/25/2022 Overview: Per Obesity protocol - Per Obesity protocol - Per Obesity protocol - Per Obesity protocol - - Body mass index (BMI) of 45. 0 to 49.9 in adult 01/19/2022 03/26/2022 Overview: Per Obesity protocol - Per Obesity protocol - Per Obesity protocol - - Body mass index (BMI) of 40. 0 to 44.9 in adult 02/18/2021 01/22/2022 Overview: Per Obesity protocol - Per Obesity protocol - - Body mass index (BMI) of 45. 0 to 49.9 in adult 11/18/2020 02/20/2021 Overview: Per Obesity protocol - - Body mass index (BMI) of 40. 0 to 44.9 in adult 07/18/2018 11/21/2020 Overview: Per Obesity protocol #1 - Encounter for examination fo r normal comparison and control in clinical research program 07/04/2018 05/13/2020 Overview: DO NOT DELETE [facility] DETECT Study: Project # [id number], Plastic Surgery Assistant: Emery Graay, PhD. SUMMARY: Goal: Establish test characteristics (sensitivity, specificity, PPV, NPV) of a circulating tumor DNA (ctDNA)-based test for cancer. Hypothesis: Circulating tumor DNA (ctDNA) and elevated protein biomarkers (together, the marker panel) can be detected in asymptomatic individuals with early cancer. Specific Aim 1: Determine the prevalence of a positive marker panel test in a prospective clinical cohort of 10,000 asymptomatic women ages 65 to 75 years. Specific Aim 2: Determine the sensitivity, specificity, positive predictive value (PPV) and negative predictive value (NPV) of a marker panel test to identify histologically proven cancers that develop within 5-years of the marker panel evaluation. CONTACTS: During normal business hours, contact study staff at ; after hours Plastic Surgery Assistant via the [facility] hospital hydrogenation operator . Please contact study team before resolving/deleting from patients problem list. Study phone number: [phone]. Diagnosis changed due to Research Module. Go to Snapshot for study details. Encounter for examination fo r normal comparison and control in clinical research program 07/04/2018 06/11/2022 Overview: DO NOT DELETE - Ernesto BAUTISTA Study: Project # [id number], Plastic Surgery Assistant: Adolph Cheung, MS, MPH. SUMMARY: Goal: Establish test characteristics (sensitivity, specificity, PPV, NPV) of a circulating tumor DNA (ctDNA)-based test for cancer. - Hypothesis: Circulating tumor DNA (ctDNA) and elevated protein biomarkers (together, the marker panel) can be detected in asymptomatic individuals with early cancer. - Specific Aim 1: Determine the prevalence of a positive marker panel test in a prospective clinical cohort of 10,000 asymptomatic women ages 65 to 75 years. - Specific Aim 2: Determine the sensitivity, specificity, positive predictive value (PPV) and negative predictive value (NPV) of a marker panel test to identify histologically proven cancers that develop within 5-years of the marker panel evaluation. - CONTACTS: During normal business hours, contact study staff at ; after hours Plastic Surgery Assistant via the [facility] hospital hydrogenation operator . - Please contact study team before resolving/deleting from patients problem list. Study phone number: [phone]. Diagnosis changed due to Research Module. Go to Snapshot for study details. Morbid obesity with BMI of 45.0-49.9, adult 06/03/2018 06/03/2018 Kidney disease, chronic, sta ge III (GFR 30-59 ml/min) 01/18/2018 08/22/2020 Overview: Per CKD protocol #1 Body mass index (BMI) of 45. 0 to 49.9 in adult 07/12/2017 07/25/2018 Overview: Per Obesity protocol #1 HTN (hypertension) Overview: Per HTN Protocol Wheezing symptom 06/24/2017 Hypothyroidism 01/13/2018 Overview: told in recent years no longer hypothyroid documented as of this encounter (statuses as of 09/30/2023) Immunizations Name Administration Dates Next Due COVID-19 mRNA, LNP-s, No Pre serve, 2-Dose Series (Meebo) 12/24/2020,12/03/2020 COVID-19, LNP-s, No Preserve , Leonard-sucrose, Ages 12+ (Pfizer) 09/30/2021 Covid-19, Mrna, Lnp-s, Pf, B ivalent, 30 Mcg, IM, 12 yrs and above (Pfizer) 09/01/2022 Pneumococcal Conjugate Vacc, 13 Valent (Prevnar) 10/15/2016 Pneumococcal Polysaccharide PPV23 (Pneumovax) 04/20/2012 Seasonal Influenza, PF, 6 M & above, IM , (FluLaval or Fluzone) 10/21/2018,09/14/2017 Seasonal Influenza, Quadriva lent Hd (Fluzone Hd) 06/24/2023,08/06/2022,07/24/2021 Seasonal Influenza, Quadriva lent, No Preserve, IM 08/03/2019,10/15/2016,09/29/2016,10/08 Seasonal Influenza, Split, I IV3, With Preserve, Inj 06/21/2014,07/01/2013,09/06/2012,07/11 Seasonal Influenza, Trivalen t, Adjuvanted, 65+ yrs 07/08/2020 Seasonal Influenza, Trivalen t, High Dose, No Preserve, IM 08/03/2019 TDAP (age 10 and older)(Boostrix) 08/03/2019,07/2015 documented as of this encounter Social History Tobacco Use Types Packs/Day Years Used Date Smoking Tobacco: Former Cigarettes 0.5 10 Q uit: 10/14/1982 Smokeless Tobacco: Never Comments:quit approx 30 year s ago Alcohol Use Standard Drinks/Week Comments Yes 0 (1 standard drink = 0.6 oz pur e alcohol) rare glass of wine PHQ-2 Answer Date Recorded PHQ Adult Total Score 2 11/11/2022 Hunger Vital Sign Answer Date Recorded Within the past 12 months, y ou worried that your food would run out before you got the money to buy more. Never true 09/17/20 23 Within the past 12 months, t he food you bought just didn't last and you didn't have money to get more. Never true 09/17/2023 Sex and Gender Information Value Date Recorded Sex Assigned at Female 11/11/2022 2:03 PM EST Gender Identity Female 11/11/2022 2:03 PM EST Sexual Orientation Straight 11/11/2022 2: 03 PM EST Job Start Date Occupation Industry Not on file Not on file Not on file documented as of this encounter Last Filed Vital Signs Vital Sign Reading Time Taken Comments Blood Pressure 120/70 09/30/2023 11:07 AM EST Pulse 68 09/30/2023 11:07 AM EST Temperature 36.1 C (97 F) 09/30/2023 11:07 AM EST Respiratory Rate - - Oxygen Saturation 98% 09/30/2023 11:07 AM EST Inhaled Oxygen Concentration - - Weight - - Height - - Body Mass Index - - documented in this encounter Progress Notes * Rukhsana Sears, [employer] - 09/30/2023 11:34 AM EST Telemedicine visit: Yes Patient location: HOME. I was not in a hospital or clinic location. After connecting through televideo, patient was verified with two unique identifiers. 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 Methods to assure confidentiality were taken. Patient acknowledged consent and understanding of privacy and security of the Telemedicine visit. The patient agreed to participate. [employer] ([employer]) documentation: [facility] facilitated telehealth visit with provider Sharon Sears- [facility] Support Services/[email or web address] At Home 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 * Enma Gautam PA-C - 09/30/2023 11:12 AM EST [facility] Provider Telemedicine Visit Date: 09/30/2023 Time: 11:12 AM Assessment/Plan: 1. Sarcoma (HCC) Following with hem/onc Starting radiation therapy next week 2. Stage 3b chronic kidney disease Stable 3. Anemia of chronic disease Stable Follow up plan: Patient doing much better than initial visit. She is doing well on Lasix 20 mg every other day. Nausea and dizziness are much better. A total of 15 minutes was spent face to face via video-based telemedicine. Subjective Patient location: HOME. I was not in a hospital or clinic location. After connecting through televideo, patient was verified with two unique identifiers. 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 Methods to assure confidentiality were taken. Patient acknowledged consent and understanding of privacy and security of the Telemedicine visit. The patient agreed to participate. Reason for Visit: Follow-Up Current Concerns: Donte Grayson is a 77 year old female seen today for a [facility] Telemedicine Provider Visit. Date of last known acute care visit: 09/20/23 with PCP office Reason for last known acute care visit: Patient was admitted to [facility] from 08/09/23- 08/13/23 with generalized weakness secondary to UTI and a right thigh mass mass. She underwent a femur MRI which showed a necrotic mass with underlying muscle involvement. Labs showed anemia,hemoglobin was 8.6 at hospital d/c and she was started on oral iron therapy. Lasix dose was changed to 30 mg due increased LE edema. She was discharged from [facility] for rehab therapy. She had complaints of persistent nausea and was taking Protonix, Zofran and meclizine. She was evaluated by radiation oncology on 09/15/23 and they plan to begin radiation prior to surgery. Biopsy results were pending at the time she saw them. She is following with hem/onc through [facility]. They do not have plans of neoadjuvant chemo at this time butofficial biopsy results were not back. They noted they will order a gastric emptying study and EGD due to persistent nausea. I spoke with the patient on 09/23/23 and she was doing better. [place] improvement dropping the lasix to 20 mg daily. Advised she could try every other day and monitor for edema. Today's concerns are: Patient states she is doing better. She struggled getting a shower this morning as she felt weak. She has been ambulating around the apartment with her walker. No SOB or MEADOWS. She has minimal LE edemacurrently. She is scheduled to start radiation treatment next week. Appetite is improving. No changes with bowel or urinary habits. ROS: See HPI Objective Physical Exam: BP 120/70 (BP Site: Right Arm, BP Position: Sitting, BP Cuff Size: Large) | Pulse 68 | Temp 36.1 C (97 F) (Infrared ) | SpO2 98% Previous Wts: Wt Readings from Last 5 Encounters: 09/01/23 103.9 kg (229 lb) 08/16/23 103.3 kg (227 lb 12.8 oz) 07/27/23 108 kg (238 lb 1.6 oz) 06/24/23 107.5 kg (237 lb) 03/26/23 111.7 kg (246 lb 4 oz) Previous BPs: BP Readings from Last 5 Encounters: 09/30/23 120/70 09/17/23 120/60 09/01/23 106/66 08/31/23 122/62 08/26/23 126/74 Physical Exam Constitutional: General: She is not in acute distress. HENT: Head: Normocephalic and atraumatic. Nose: Nose normal. Mouth/Throat: Pharynx: Oropharynx is clear. Eyes: Extraocular Movements: Extraocular movements intact. Conjunctiva/sclera: Conjunctivae normal. Pulmonary: Effort: Pulmonary effort is normal. No respiratory distress. Musculoskeletal: Comments: Mild LE edema noted R>L Neurological: Mental Status: She is alert. Diagnostic Data Review: Hematology Lab Results Component Value Date/Time WBC AUTO - [facility] 10.35 09/21/2023 10:07 AM WBC AUTO - [facility] 9.76 09/09/2023 06:00 AM WBC AUTO - [facility] 8.06 08/26/2023 05:30 AM WBC AUTO - [facility] 7.39 04/01/2020 01:42 PM WBC AUTO - [facility] 6.14 02/09/2018 05:30 AM WBC AUTO - [facility] 5.52 01/31/2018 06:10 AM Lab Results Component Value Date/Time HGB - [facility] 10.2 (L) 09/21/2023 10:07 AM HGB - [facility] 8.5 (L) 09/09/2023 06:00 AM HGB - [facility] 8.5 (L) 08/26/2023 05:30 AM HGB - [facility] 12.5 04/15/2020 10:40 AM HGB - [facility] 12.2 04/01/2020 01:42 PM HGB - [facility] 9.5 (L) 02/09/2018 05:30 AM Lab Results Component Value Date/Time HCT - [facility] 33.5 (L) 09/21/2023 10:07 AM HCT - [facility] 27.5 (L) 09/09/2023 06:00 AM HCT - [facility] 27.5 (L) 08/26/2023 05:30 AM HCT - [facility] 37.6 04/01/2020 01:42 PM HCT - [facility] 29.9 (L) 02/09/2018 05:30 AM HCT - [facility] 29.0 (L) 01/31/2018 06:10 AM Lab Results Component Value Date/Time PLATELET AUTO - [facility] 572 (H) 09/21/2023 10:07 AM PLATELET AUTO - [facility] 480 (H) 09/09/2023 06:00 AM PLATELET AUTO - [facility] 501 (H) 08/26/2023 05:30 AM PLATELET AUTO - [facility] 235 04/01/2020 01:42 PM PLATELET AUTO - [facility] 292 02/09/2018 05:30 AM PLATELET AUTO - [facility] 320 01/31/2018 06:10 AM Lab Results Component Value Date/Time IRON - [facility] 39 09/21/2023 10:07 AM IRON - [facility] 83 04/15/2020 10:40 AM Lab Results Component Value Date/Time TRANSFERRIN SATURATION PERCENT - [facility] 16 09/21/2023 10:07 AM TRANSFERRIN SATURATION PERCENT - [facility] 29 04/15/2020 10:40 AM No results found for: "TRANSFERRIN - [facility]" Lab Results Component Value Date/Time VITAMIN B12 - [facility] 161 (L) 12/30/2021 09:57 AM Chemistry/Renal Lab Results Component Value Date/Time SODIUM - [facility] 133 (L) 09/21/2023 10:07 AM SODIUM - [facility] 132 (L) 08/26/2023 05:30 AM SODIUM - [facility] 133 (L) 10/31/2020 01:42 PM SODIUM - [facility] 136 07/03/2020 01:55 PM Lab Results Component Value Date/Time POTASSIUM - [facility] 4.4 09/21/2023 10:07 AM POTASSIUM - [facility] 4.9 08/26/2023 05:30 AM POTASSIUM - [facility] 5.2 (H) 10/31/2020 01:42 PM POTASSIUM - [facility] 5.2 (H) 07/03/2020 01:55 PM Lab Results Component Value Date/Time PHOSPHORUS - [facility] 4.3 09/01/2022 03:46 PM PHOSPHORUS - [facility] 4.9 (H) 12/30/2021 09:57 AM PHOSPHORUS - [facility] 4.2 04/15/2020 10:40 AM PHOSPHORUS - [facility] 4.2 04/01/2020 01:42 PM Lab Results Component Value Date/Time MAGNESIUM - [facility] 2.3 09/21/2023 10:07 AM MAGNESIUM - [facility] 2.3 08/18/2023 05:30 AM MAGNESIUM - [facility] 2.3 04/15/2020 10:40 AM Lab Results Component Value Date/Time BUN - [facility] 19 09/21/2023 10:07 AM BUN - [facility] 20 08/26/2023 05:30 AM BUN - [facility] 22 (H) 08/25/2023 05:25 AM BUN - [facility] 29 (H) 10/31/2020 01:42 PM BUN - [facility] 34 (H) 07/03/2020 01:55 PM BUN - [facility] 35 (H) 05/16/2020 11:05 AM Lab Results Component Value Date/Time CREATININE - [facility] 1.3 (H) 09/21/2023 10:07 AM CREATININE - [facility] 1.4 (H) 08/26/2023 05:30 AM CREATININE - [facility] 1.4 (H) 08/25/2023 05:25 AM CREATININE - [facility] 1.5 (H) 10/31/2020 01:42 PM CREATININE - [facility] 1.5 (H) 07/03/2020 01:55 PM CREATININE - [facility] 1.6 (H) 05/16/2020 11:05 AM Lab Results Component Value Date/Time ESTIMATED GLOMERULAR FILTRATION RATE - [facility] 44 (L) 09/21/2023 10:07 AM ESTIMATED GLOMERULAR FILTRATION RATE - [facility] 39 (L) 08/26/2023 05:30 AM ESTIMATED GLOMERULAR FILTRATION RATE - [facility] 40 (L) 08/25/2023 05:25 AM ESTIMATED GLOMERULAR FILTRATION RATE - [facility] 35.1 (L) 10/31/2020 01:42 PM ESTIMATED GLOMERULAR FILTRATION RATE - [facility] 33.1 (L) 07/03/2020 01:55 PM ESTIMATED GLOMERULAR FILTRATION RATE - [facility] 31.6 (L) 05/16/2020 11:05 AM ESTIMATED GLOMERULAR FILTRATION RATE - [facility] 55.5 (L) 04/19/2013 07:22 AM ESTIMATED GLOMERULAR FILTRATION RATE - [facility] >60.0 04/12/2012 07:10 AM Lab Results Component Value Date/Time PTH - [facility] 84 (H) 09/01/2022 03:46 PM PTH - [facility] 40 04/15/2020 10:40 AM Liver Lab Results Component Value Date/Time AST - [facility] 23 09/21/2023 10:07 AM AST - [facility] 15 08/26/2023 05:30 AM AST - [facility] 18 09/22/2016 09:02 AM AST - [facility] 18 04/30/2014 09:19 AM Lab Results Component Value Date/Time ALT - [facility] 10 09/21/2023 10:07 AM ALT - [facility] 9 (L) 08/26/2023 05:30 AM ALT - [facility] 12 09/22/2016 09:02 AM ALT - [facility] 16 04/30/2014 09:19 AM Lab Results Component Value Date/Time ALKALINE PHOSPHATASE - [facility] 99 09/21/2023 10:07 AM ALKALINE PHOSPHATASE - [facility] 76 08/26/2023 05:30 AM ALKALINE PHOSPHATASE - [facility] 67 09/22/2016 09:02 AM ALKALINE PHOSPHATASE - [facility] 65 04/30/2014 09:19 AM Lab Results Component Value Date/Time BILIRUBIN, TOTAL - [facility] 0.4 09/21/2023 10:07 AM BILIRUBIN, TOTAL - [facility] 0.3 08/26/2023 05:30 AM BILIRUBIN, TOTAL - [facility] 0.4 09/22/2016 09:02 AM BILIRUBIN, TOTAL - [facility] 0.4 04/30/2014 09:19 AM BILIRUBIN, URINE - [facility] Negative 08/26/2023 05:30 AM BILIRUBIN, URINE - [facility] NEGATIVE 10/31/2020 01:42 PM Cardiac No results found for: "PRO BNP" Lab Results Component Value Date/Time LEFT VENTRICULAR EJECTION FRACTION 55 04/09/2022 09:56 AM Lab Results Component Value Date/Time HDL CHOLESTEROL - [facility] 44 (L) 03/26/2023 02:16 PM HDL CHOLESTEROL - [facility] 65 10/18/2018 08:50 AM Lab Results Component Value Date/Time NON-HDL CHOLESTEROL - [facility] 105 03/26/2023 02:16 PM Endocrine Lab Results Component Value Date/Time HEMOGLOBIN A1C - [facility] 5.6 06/24/2023 02:10 PM Lab Results Component Value Date/Time ESTIMATED AVERAGE GLUCOSE - [facility] 114 06/24/2023 02:10 PM Lab Results Component Value Date/Time TSH - [facility] 2.30 09/01/2022 03:46 PM TSH - [facility] 4.03 12/30/2021 09:57 AM TSH - [facility] 3.43 12/26/2017 07:30 AM TSH - [facility] 1.59 09/22/2016 09:02 AM Lab Results Component Value Date/Time T4, FREE - [facility] 1.24 04/12/2012 07:10 AM Medication Review: Current Outpatient Medications Medication Sig Dispense Refill Vitamin D3 10 MCG (400 UNIT) Oral Tablet (Cholecalciferol) Take 1 Tablet by mouth in the morning. Cranberry 125 MG Oral Tablet Take by mouth . (Patient not taking: Reported on 09/17/2023) Aspirin EC 81 MG Oral Tablet Delayed Release Take 1 Tablet by mouth in the morning. 90 Tablet 3 Zoster Vac Recomb Adjuvanted 50 MCG/0.5ML Intramuscular Suspension Reconstituted (Shingrix) Inject 0.5 mL into a large muscle now and repeat dose in 60 to 180 days 1 Each 1 Premarin 0.625 MG/GM Vaginal Cream (Estrogens Conjugated) INSERT 0.5 GRAMS VAGINALLY ONCE A DAY ON WEDNESDAY AND WEDNESDAY 30 g 12 Furosemide 20 MG Oral Tablet (Lasix) Take 1.5 Tablets by mouth in the morning. Advised to take 20 mg. Magnesium Oxide 400 MG Oral Tablet Take 1 Tablet by mouth in the morning. Ondansetron HCl 4 MG Oral Tablet Take 1 Tablet by mouth every 6 hours as needed for Nausea. 90 Tablet 0 Meclizine HCl 12.5 MG Oral Tablet (Antivert) Take 1 Tablet by mouth 3 times a day as needed for Dizziness or Nausea. 60 Tablet 0 B-12 1000 MCG Oral Lozenge Take by mouth. Acetaminophen 325 MG Oral Capsule Take by mouth. traMADol HCl 50 MG Oral Tablet (Ultram) Take 1 Tablet by mouth every 6 hours as needed for Pain, Severe. 60 Tablet 0 amLODIPine Besylate 2.5 MG Oral Tablet (Norvasc) TAKE 1 TABLET BY MOUTH NIGHTLY AT BEDTIME 90 Tablet 3 Losartan Potassium 25 MG Oral Tablet (Cozaar) Take 1 Tablet by mouth in the morning. 90 Tablet 3 Pantoprazole Sodium 40 MG Oral Tablet Delayed Release (Protonix) Take 1 Tablet by mouth in the morning. 30 minutes before the first meal of the day. Do not crush, split or chew the tablet. 90 Tablet 3 Sertraline HCl 50 MG Oral Tablet (Zoloft) Take 1 Tablet by mouth in the morning. 90 Tablet 3 Ferrous Sulfate 325 (65 Fe) MG Oral Tablet (Feosol) Take 1 Tablet by mouth daily with breakfast. 90Tablet 3 No current facility-administered medications for this visit. Mobility Evaluation: MACH10 Assessment: Assistive Devices Used in the Home: Walker (standard or rollator) Recent Falls: Falls in the last 6 months: No SDoH: DME (Durable Medical Equipment) needs Curriculum And Instruction Director Services / Assistance with ADLs and Self-Care Routine Transportation Urgent Transportation Social Isolation Enma Anthony PA-C 11:12 AM *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 sent to PCP (via [facility] if [facility]), Population Health Care Team members, relevant Specialty Care Physicians* documented in this encounter Plan of Treatment Upcoming Encounters Date Type Department Care Team (Late st Contact Info) Description 11/15/2023 9:30 AM EST Telemedicine [facility] [place] [address] [place] [address] Enma Gautam PA-C [address] [place] [address] Rukhsana Sears, Community Health Net Sql Developer [address] [place] [address] 12/21/2023 2:00 PM EDT Telemedicine [facility] [address] [place] [address] Farhana Caraballo PA-C [address] [facility] [place] [address] 04/03/2024 9:30 AM EDT Office Visit Cardiology, [facility] [address] [facility] [place] [address] Kenya Marie CRNP [address] [place] [address] 04/19/2024 1:00 PM EDT Telemedicine [facility] [address] [place] [address] Samy Sharif DO [address] [facility] [place] [address] Health Maintenance Due Date Last Done Comments Zoster Vaccines (1 of 2) 1996 DXA Scan 05/09/2019 05/09/2012, 05/09/2012 COVID-19 Vaccine ( season) 2023 09/01/2022, 09/01/2022, 09/30/2021, Additional history exists CKD PHOS USE SMARTSET 59093 09/01/202308/12, 12/30/2021, 04/15/2020, Additional history exists Albumin/Creatinine Ratio 09/15/2023 022, 12/30/2021, 04/01/2020, Additional history exists Depression Screening 11/11/2023 11/11/2022, 10/15/2016 (Discussed) GFR 03/22/2024 09/21/2023, 08/11, 08/25/2023, Additional history exists CKD HGB USE SMARTSET 69768 09/21/202409/21, 09/21/2023, 09/09/2023, Additional history exists DTaP,Tdap,and Td Vaccines (3 - Td or Tdap) 08/03/2029 08/03/2019, 08/03/2019, 05/20/2015 Colonoscopy Discontinued 10/24/2012 Colorectal Cancer Screening Discontinued Pneumococcal Vaccine: 65+ Years Completed 10/15/2016, 04/20/2012 Influenza Vaccine (FLU shot) Completed 06/24/2023, 08/06/2022, 08/06/2022, Additional history exists Cologuard Discontinued Fecal Occult Blood Test Discontinued GARDASIL-HPV IMMUNIZATION SERIES Aged Out No longer eligible based on patient's age to complete this topic Hepatitis B Aged Out No longer eligi ble based on patient's age to complete this topic MENINGOCOCCAL (MENACTRA/MENVEO) Aged Out No longer eligible based on patient's age to complete this topic Sigmoidoscopy Discontinued documented as of this encounter Medical Devices Not on filedocumented as of this encounter Visit Diagnoses Diagnosis 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
--- OUTSIDE RECORDS SUMMARY | 2023-10-12 14:07 | External Medical Summary | Summary of Care ---
Author Name Unknown Organization [facility] Address [address] [place] [address] Phone [phone] Care Team Providers Care Threader Operator Name Role Phone Samy Sharif DO Primary Care Provider [phone] Reason for Visit * Reason Onset Date Comments Appointment 09/25/2023 Encounter Details Date Type Department Care Team (Late st Contact Info) Description 09/25/2023 Telephone [facility] [place] [address] [place], [place] [id number] Services, Scheduling [address] [place] [address] Appointment (//) Allergies Active Allergy Reactions Criticality Noted Date Comments Gluten Meal Itching 06/24/2017 Molds & Smuts 01/01/2012 Penicillin V 01/01/2012 Sulfa Antibiotics Edema face/lips/tongue High 2021 documented as of this encounter (statuses as of 09/25/2023) Medications Medication Sig Dispensed Refills Start Date End Date Status Vitamin D3 10 MCG (400 UNIT) Oral Tablet (Cholecalciferol) Take 1 Tablet by mouth in the morning. 0 Active Cranberry 125 MG Oral Tablet Take by mouth . 0 Active Aspirin EC 81 MG Oral Tablet Delayed ReleaseIndications:PV C (premature ventricular contraction),NSVT (nonsustained ventricular tachycardia) ([facility]) Take 1 Tablet by mouth in the [...] as of this encounter (statuses as of 09/25/2023) Active Problems Problem Noted Date Diagnosed Date [...] as of this encounter (statuses as of 09/25/2023) Resolved Problems Problem Noted Date Diagnosed Date [...] program 07/04/2018 05/13/2020 Overview: DO NOT DELETE [facility] DETECT Study: Project # [id number], Forestry Technical Officer: Emery Garay, PhD. SUMMARY: Goal: Establish test characteristics (sensitivity, [...] contact study staff at ; after hours Forestry Technical Officer via the [facility] hospital drawing kiln operator . Please contact study team before resolving/deleting from patients problem list. Study phone number: [phone]. Diagnosis changed due to Research Module. Go to Snapshot for study details. Encounter for examination fo r normal comparison and control in clinical research program 07/04/2018 06/11/2022 Overview: DO NOT DELETE - [facility] DETECT Study: Project # [id number], Forestry Technical Officer: Adolph Cheung, MS, MPH. SUMMARY: Goal: Establish [...] contact study staff at ; after hours Forestry Technical Officer via the [facility] hospital drawing kiln operator . - Please contact study team before resolving/deleting from patients problem list. Study phone number: [phone]. Diagnosis changed due to Research Module. Go to Snapshot for study details. Morbid obesity with BMI of 45.0-49.9, adult 06/03/2018 06/03/2018 Kidney disease, chronic, sta ge III (GFR 30-59 ml/min) 01/18/2018 08/22/2020 Overview: Per CKD protocol #1 Body mass index (BMI) of 45. 0 to 49.9 in adult 07/12/2017 07/25/2018 Overview: Per Obesity protocol #1 HTN (hypertension) 6 Overview: Per HTN Protocol Wheezing symptom 06/24/2017 Hypothyroidism 01/13/2018 Overview: told in recent years no longer hypothyroid documented as of this encounter (statuses as of 09/25/2023) Immunizations Name Administration Dates Next Due COVID-19 mRNA, LNP-s, No Pre serve, 2-Dose Series ([employer]) 12/24/2020,12/03/2020 COVID-19, LNP-s, No Preserve , Leonard-sucrose, Ages 12+ (Pfizer) 09/30/2021 Covid-19, Mrna, Lnp-s, Pf, B ivalent, 30 Mcg, IM, 12 yrs and above ([employer]) 09/01/2022 Pneumococcal Conjugate Vacc, 13 Valent (Prevnar) [...] on file documented as of this encounter Miscellaneous Notes * Telephone Encounter - Milton [place] OSA - 09/25/2023 2:52 PM EST Call to pt and confirmed return kaco telemd for 09/30 at 1130am, pt agreeable documented in this encounter Plan of Treatment Upcoming Encounters Date Type Department Care Team (Late st Contact Info) Description 09/30/2023 11:00 AM EST Telemedicine [facility], [place] [address] [place] [address] Enma Gautam PA-C [address] [place] [address] Rukhsana Sears, Community Health Neonatologist [address] [place] [address] 12/21/2023 2:00 PM EDT Telemedicine [facility] [address] [facility] [place] [address] Farhana Caraballo PA-C [address] [place] [address] 04/03/2024 9:30 AM EDT Office Visit Cardiology, [facility] [address] [facility] [place] [address] Kenya Marie CRNP [address] [place] [address] 04/19/2024 1:00 PM EDT Telemedicine [facility] [address] [facility] [place] [address] Samy Sharif DO [address] [place] [address] Health Maintenance Due Date Last Done Comments Zoster Vaccines (1 of 2) 1996 DXA Scan 05/09/2019 05/09/2012, 05/09/2012 COVID-19 Vaccine ( season) 2023 09/01/2022, 09/01/2022, 09/30/2021, Additional history exists CKD PHOS USE SMARTSET 23792 09/01/202308/12, 12/30/2021, 04/15/2020, Additional history exists Albumin/Creatinine Ratio 09/15/2023 022, 12/30/2021, 04/01/2020, Additional history exists Depression Screening 11/11/2023 11/11/2022, 10/15/2016 (Discussed) GFR 03/22/2024 09/21/2023, 08/11, 08/25/2023, Additional history exists CKD HGB USE SMARTSET 15596 09/21/202409/21, 09/21/2023, 09/09/2023, Additional history exists DTaP,Tdap,and [...] Not on filedocumented as of this encounter Care Teams Threader Operator Relationship Specialty Start Date End Date Samy Sharif DO [address] [address] PCP - General Family Medicine 03/24/23 documented as of this encounter
--- OUTSIDE RECORDS SUMMARY | 2023-10-12 14:07 | External Medical Summary ---
Author Name Unknown Address Unknown Organization [id number]:[facility] - [address] [facility] [place] [address] Laboratory Report Ordering Provider Test Date Status KWASI MORGAN 09/21/2023 10:07:00 Final Observation Date Value Abnormality Reference (Units ) Status SYNC LEUKOCYTES IN BLOOD BY AUTOMATED COUNT 09/21/2023 10:07:00 10.35 4.00-10.80 (K/uL) Final Segs 09/21/2023 10:07:00 77.1 Above high normal 40.0-75.0 (%) Final Lymphs % 09/21/2023 10:07:00 11.8 Below low normal 18.0-42.0 (%) Final Monos 09/21/2023 10:07:00 8.2 1.0-11.0 (%) Final Eosinophils 09/21/2023 10:07:00 1.6 0.0-6.0 (%) Final Basos 09/21/2023 10:07:00 0.6 0.0-2.0 (%) Final Immature Granulocyte, Percent 09/21/2023 10:07:00 0.7 0.0-2.0 (%) Final Absolute Segs 09/21/2023 10:07:00 7.98 Above high normal 1.80-7.70 (K/uL) Final Lymphs, absolute 09/21/2023 10:07:00 1.22 1.00-4.80 (K/ul) Final Monos, Abs 09/21/2023 10:07:00 0.85 0.00-1.10 (K/uL) Final Eos, Abs 09/21/2023 10:07:00 0.17 0.00-0.70 (K/uL) Final Basos, Abs 09/21/2023 10:07:00 0.06 0.00-0.20 (K/uL) Final Immature Granulocytes, Number 09/21/2023 10:07:00 0.07 0.00-0.20 (K/uL) Final Performing Location [facility] [place] [facility] [address] [place] [address]
--- OUTSIDE RECORDS SUMMARY | 2023-10-12 14:07 | External Medical Summary ---
Author Name Unknown Address Unknown Organization [id number][facility] [address] [facility] [place] [address] Laboratory Report Ordering Provider Test Date Status KWASI MORGAN 09/21/2023 10:07:00 Final Observation Date Value Abnormality Reference (Units ) Status WBC, Total 09/21/2023 10:07:00 10.35 4.00-10.8 0 (K/uL) Final RBC 09/21/2023 10:07:00 3.89 3.85-5.15 (M/uL) Final Hemoglobin 09/21/2023 10:07:00 10.2 Below low normal 12 .0-15.3 (g/dL) Final Anemia reflex testing trigge rs on a HGB < 12.0 for Females and HGB < 13.0 for Males in accordance with the WHO Anemia Guidelines
Anemia reflex testing triggers on a HGB < 12.0 for Females and HGB < 13.0 for Males in accordance with the WHO Anemia Guidelines HCT 09/21/2023 10:07:00 33.5 Below low normal 36. 0-45.2 (%) Final MCV 09/21/2023 10:07:00 86.1 81.5-97.5 (fL) Final MCH 09/21/2023 10:07:00 26.2 27.0-34.0 (pg) Final MCHC 09/21/2023 10:07:00 30.4 32.0-36.0 (g/dL) Final RDW 09/21/2023 10:07:00 16.1 11.5-15.5 (%) Final Platelets 09/21/2023 10:07:00 572 Above hi gh normal 140-400 (K/uL) Final MPV 09/21/2023 10:07:00 9.8 6.6-11.1 ( fL) Final Nucleated erythrocytes/100 leukocytes [Ratio] in Blood by Automated count 09/21/2023 10:07:00 0 <=0 (/100 WBCs) Final Performing Location [facility] [place] - [facility] [place] [address] [facility] [address]
--- OUTSIDE RECORDS SUMMARY | 2023-10-12 14:07 | External Medical Summary ---
Author Name Unknown Address Unknown Organization K01:[facility] - [address] [place] [address] Laboratory Report Ordering Provider Test Date Status KWASI MORGAN 09/21/2023 10:07:00 Final Observation Date Value Abnormality Reference (Units ) Status Magnesium 09/21/2023 10:07:00 2.3 1.5-2.6 (m g/dL) Final Performing Location [facility] - [address] [place] [address]
--- OUTSIDE RECORDS SUMMARY | 2023-10-12 14:07 | External Medical Summary ---
Author Name Unknown Address Unknown Organization K01:[facility] [place] [address] [facility] [address] [place] [address] Laboratory Report Ordering Provider Test Date Status KWASI MORGAN 09/21/2023 10:07:00 Final Observation Date Value Abnormality Reference (Units ) Status Retic, % (auto) 09/21/2023 10:07:00 2.10 Above high normal 0.80-1.90 (%) Final Reticulocytes, Absolute 09/21/2023 10:07:00 80.6 31.3-100.1 (K/uL) Final Reticulocyte fraction, immature 09/21/2023 10:07:00 22.3 Above high normal 2.5-20.6 (%) Final Reticulocyte HGB 09/21/2023 10:07:00 27.0 Below low normal 29.7-37.4 (pg) Final Performing Location [facility] [place] [address] [place] [place] [address]
--- OUTSIDE RECORDS SUMMARY | 2023-10-12 14:07 | External Medical Summary ---
Author Name Unknown Address Unknown Organization K01:[facility] - [address] [place] [address] Laboratory Report Ordering Provider Test Date Status KWASI MORGAN 09/21/2023 10:07:00 Final Observation Date Value Abnormality Reference (Units ) Status Iron 09/21/2023 10:07:00 39 33-151 (ug/dL) Final Iron-binding capacity 09/21/2023 10:07:00 243 Below low normal 250-425 (ug/dL) Final Transferrin Sat % 09/21/2023 10:07:00 16 15-55 (%) Final Performing Location LAB[facility]ORY [facility] - [address] [place] [address]
--- OUTSIDE RECORDS SUMMARY | 2023-10-12 14:07 | External Medical Summary | Summary of Care ---
Author Name Unknown Organization [facility] Address [address] [place] [address] Phone [phone] Care Team Providers Care Hand Almond Blancher Name Role Phone Samy Sharif DO Primary Care Provider Encounter Details Date Type Department Care Team (Late st Contact Info) Description 09/20/2023 Telephone Family Practice [facility] [address] [facility] [place] [address] Samy Sharif DO [address] [facility] [address] Allergies Active Allergy Reactions Criticality Noted Date Comments Gluten Meal Itching 06/24/2017 Molds & Smuts 01/01/2012 Penicillin V 01/01/2012 Sulfa Antibiotics Edema face/lips/tongue High 2021 documented as of this encounter (statuses as of 09/21/2023) Medications Medication Sig Dispensed Refills Start Date End Date Status Vitamin D3 10 MCG (400 UNIT) Oral Tablet (Cholecalciferol) Take 1 Tablet by mouth in the morning. 0 Active Cranberry 125 MG Oral Tablet Take by mouth . 0 Active Aspirin EC 81 MG Oral Tablet Delayed ReleaseIndications:PV C (premature ventricular contraction),NSVT (nonsustained ventricular tachycardia) ([facility]) Take 1 Tablet by mouth in [...] as of this encounter (statuses as of 09/21/2023) Active Problems Problem Noted Date Diagnosed Date [...] as of this encounter (statuses as of 09/21/2023) Resolved Problems Problem Noted Date Diagnosed Date [...] program 07/04/2018 05/13/2020 Overview: DO NOT DELETE [facility] DETECT Study: Project # [id number], Print Project Manager: Emery Garay, PhD. SUMMARY: Goal: Establish test [...] contact study staff at ; after hours Print Project Manager via the [facility] hospital bevel mill operator . Please contact study team before resolving/deleting from patients problem list. Study phone number: [phone]. Diagnosis changed due to Research Module. Go to Snapshot for study details. Encounter for examination fo r normal comparison and control in clinical research program 07/04/2018 06/11/2022 Overview: DO NOT DELETE - [facility] DETECT Study: Project # [id number], Print Project Manager: Adolph Cheung, MS, MPH. SUMMARY: Goal: Establish [...] contact study staff at ; after hours Print Project Manager via the [facility] hospital bevel mill operator . - Please contact study team before resolving/deleting from patients problem list. Study phone number: [phone]. Diagnosis changed due to Research Module. Go [...] as of this encounter (statuses as of 09/21/2023) Immunizations Name Administration Dates Next Due COVID-19 mRNA, LNP-s, No Pre serve, 2-Dose Series ([employer]) 12/24/2020,12/03/2020 COVID-19, LNP-s, No Preserve , Leonard-sucrose, Ages 12+ ([employer]) 09/30/2021 Covid-19, Mrna, Lnp-s, Pf, B ivalent, 30 Mcg, IM, 12 yrs and above ([employer]) 09/01/2022 Pneumococcal Conjugate Vacc, 13 Valent (Prevnar) [...] encounter Miscellaneous Notes * Telephone Encounter - Kenya Garcia OSA - 09/21/2023 11:56 AM EST Pt is scheduled for both appts and email was changed * Telephone Encounter - Samy Sharif DO - 09/20/2023 11:41 AM EST Please call Donte and schedule a 3 month 40 minute follow-up with Farhana and a 6 month 40 minute follow-up with me. Either can be in person or telemed if she likes. Please also confirm her e-mail. I think we have the wrong one in there. documented in this encounter Plan of Treatment Upcoming Encounters Date Type Department Care Team (Late st Contact Info) Description 09/23/2023 11:00 AM EST Telemedicine [facility] [place] [address] [place] [address] Enma Gautam PA-C [address] [place] [address] 09/30/2023 11:00 AM EST Telemedicine [facility] [place] [address] [place] [address] Enma Gautam PA-C [address] [place] [address] Rukhsana Sears, Community Health Harvest Worker [address] [place] [address] 12/21/2023 2:00 PM EDT Telemedicine Family Practice [facility] [address] [place] [address] Farhana Caraballo PA-C [address] [place] [address] 04/03/2024 9:30 AM EDT Office Visit Cardiology, [facility] [address] [place] [address] Kenya Marie CRNP [address] [place] [address] 04/19/2024 1:00 PM EDT Telemedicine Family Practice [facility] [address] [facility] [place] [address] Samy Sharif, [address] [facility] [place] [address] Health Maintenance Due Date Last Done Comments Zoster Vaccines (1 of 2) 1996 DXA Scan 05/09/2019 05/09/2012, 05/09/2012 COVID-19 Vaccine ( season) 2023 09/01/2022, 09/01/2022, 09/30/2021, Additional history exists CKD PHOS USE SMARTSET 77844 09/01/202308/12, 12/30/2021, 04/15/2020, Additional history exists Albumin/Creatinine Ratio 09/15/2023 022, 12/30/2021, 04/01/2020, Additional history exists Depression Screening 11/11/2023 11/11/2022, 10/15/2016 (Discussed) GFR 02/24/2024 08/26/2023, 08/11, 08/18/2023, Additional history exists CKD HGB USE SMARTSET 35838 09/09/202409/09, 09/09/2023, 08/26/2023, Additional history exists DTaP,Tdap,and Td Vaccines (3 [...] filedocumented as of this encounter Care Teams Hand Almond Blancher Relationship Specialty Start Date End Date Samy Sharif DO [address] [place] [address] PCP - General Family Medicine 03/24/23 documented as of this encounter
--- OUTSIDE RECORDS SUMMARY | 2023-10-12 14:07 | External Medical Summary | Summary of Care ---
Author Name Unknown Organization [facility] Address [address] [place] [address] Phone [phone] Care Team Providers Care Applications Programmer Name Role Phone Samy Sharif DO Primary Care Provider [phone] Reason for Visit * Reason Comments [facility]: Telehealth Encounter Details Date Type Department Care Team (Late st Contact Info) Description 09/23/2023 11:00 AM EST Telemedicine [facility], [place] [address] [place] [address] Enma Gautam PA-C [address] [place] [address] Sarcoma (HCC)*; Stage 3b chronic kidney disease; Iron deficiency anemia, unspecified iron deficiency anemia type Allergies Active Allergy Reactions Criticality Noted Date Comments Gluten Meal Itching 06/24/2017 Molds & Smuts 01/01/2012 Penicillin V 01/01/2012 Sulfa Antibiotics Edema face/lips/tongue High 2021 documented as of this encounter (statuses as of 09/23/2023) Medications Medication Sig Dispensed Refills Start Date End Date Status Vitamin D3 10 MCG (400 UNIT) Oral Tablet (Cholecalciferol) Take 1 Tablet by mouth in the morning. 0 Active Cranberry 125 MG Oral Tablet Take by mouth . 0 Active Aspirin EC 81 MG Oral Tablet Delayed ReleaseIndications:PV C (premature ventricular contraction),NSVT (nonsustained ventricular tachycardia) ([facility]) Take 1 Tablet by mouth [...] as of this encounter (statuses as of 09/23/2023) Active Problems Problem Noted Date Diagnosed Date [...] as of this encounter (statuses as of 09/23/2023) Resolved Problems Problem Noted Date Diagnosed Date [...] program 07/04/2018 05/13/2020 Overview: DO NOT DELETE [facility] [place] DETECT Study: Project # [id number], Machine Oiler: Emery Garay, PhD. SUMMARY: Goal: Establish test [...] contact study staff at ; after hours Machine Oiler via the [facility] staple shear operator . Please contact study team before resolving/deleting from patients problem list. Study phone number: [phone]. Diagnosis changed due to Research Module. Go to Snapshot for study details. Encounter for examination fo r normal comparison and control in clinical research program 07/04/2018 06/11/2022 Overview: DO NOT DELETE - [facility] DETECT Study: Project # [id number], Machine Oiler: Adolph Cheung, MS, MPH. SUMMARY: Goal: Establish [...] contact study staff at ; after hours Machine Oiler via the [facility] hospital staple shear operator . - Please contact study team before resolving/deleting from patients problem list. Study phone number: [phone]. Diagnosis changed due to Research Module. Go [...] as of this encounter (statuses as of 09/23/2023) Immunizations Name Administration Dates Next Due COVID-19 mRNA, LNP-s, No Pre serve, 2-Dose Series ([employer]) 12/24/2020,12/03/2020 COVID-19, LNP-s, No Preserve , Leonard-sucrose, [...] on file documented as of this encounter Progress Notes * Enma Gautam PA-C - 09/23/2023 1:05 PM EST Called to follow up with patient and review recent labs. She is doing much better. She is not feeling as dizzy or weak when ambulating. She states her edema is ok with dropping the lasix to 20 mg daily. She still feels dry and has intermittent dizziness. I told her she can try to go to every other day and monitor edema. Prior to the hospital visit that was her regimen for the lasix. Appetite is improving and she has much less nausea. She is doing PT without difficulty. She had hermapping completed for the radiation. She is not sure when radiation therapy will begin. I reviewed labs; hemoglobin much improved. Advised to continue oral iron. Kidney function is at herbaseline. Advised to reach out with any acute concerns. I am scheduled to see her again next week. documented in this encounter Plan of Treatment Upcoming Encounters Date Type Department Care Team (Late st Contact Info) Description 09/30/2023 11:00 AM EST Telemedicine [facility], [place] [address] [place] [address] Enma Gautam PA-C [address] [place] [address] Rukhsana Sears [facility] Paratransit Driver [address] [place] [address] 12/21/2023 2:00 PM EDT Telemedicine Family Practice [facility] [address] [facility] [place] [address] Farhana Caraballo PA-C [address] [facility] [place] [address] 04/03/2024 9:30 AM EDT Office Visit Cardiology, [facility] [address] [place] [address] Kenya Marie CRNP [address] [place] [address] 04/19/2024 1:00 PM EDT Telemedicine Family Practice [facility] [address] [facility] [place] [address] Samy Sharif DO [address] [facility] [place] [address] Health Maintenance Due Date Last Done Comments Zoster Vaccines (1 of 2) 1996 DXA Scan 05/09/2019 05/09/2012, 05/09/2012 COVID-19 Vaccine ( season) 2023 09/01/2022, 09/01/2022, 09/30/2021, Additional history exists CKD PHOS USE SMARTSET 34106 09/01/202308/12, 12/30/2021, 04/15/2020, Additional history exists Albumin/Creatinine Ratio 09/15/2023 022, 12/30/2021, 04/01/2020, Additional history exists Depression Screening 11/11/2023 11/11/2022, 10/15/2016 (Discussed) GFR 03/22/2024 09/21/2023, 08/11, 08/25/2023, Additional history exists CKD HGB USE SMARTSET 11932 09/21/202409/21, 09/21/2023, 09/09/2023, Additional history exists DTaP,Tdap,and [...] site unspecified Stage 3b chronic kidney disease Iron deficiency anemia, unspecified iron deficiency anemia type documented in this encounter Care Teams Applications Programmer Relationship Specialty Start Date End Date Samy Sharif DO [address] [place] [address] PCP - General Family Medicine 03/24/23 documented as of this encounter
--- OUTSIDE RECORDS SUMMARY | 2023-10-12 14:07 | External Medical Summary ---
Author Name Unknown Address Unknown Organization K01:[facility] [place] [address] [facility] [address] [place] [id number] Laboratory Report Ordering Provider Test Date Status KWASI MORGAN 09/21/2023 10:07:00 Final Observation Date Value Abnormality Reference (Units ) Status Ferritin 09/21/2023 10:07:00 818 Above high normal 13 -150 (ng/mL) Final Postmenopausal women have hi gher ferritin levels than pre-menopausal women. The above reference interval is based on pre-menopausal women. Performing Location [facility] - [address] [place] [id number]
--- OUTSIDE RECORDS SUMMARY | 2023-10-12 14:07 | External Medical Summary ---
Author Name Unknown Address Unknown Organization K0G:[facility] [address] - [address] [place] [id number] Laboratory Report Ordering Provider Test Date Status KWASI MORGAN 09/21/2023 10:07:00 Final Observation Date Value Abnormality Reference (Units ) Status BUN 09/21/2023 10:07:00 19 6-20 (mg/dL) Final Creatinine 09/21/2023 10:07:00 1.3 Above high normal 0.5-1.0 (mg/dL) Final Glomerular filtration rate/1.73 sq M.predicted [Volume Rate/Area] in Serum, Plasma or Blood by Creatinine-based formula (CKD-EPI) 09/21/2023 10:07:00 44 Below low normal >=60 (mL/min) Final eGFR is calculated based on the CKD-EPI 2020 equation SODIUM 09/21/2023 10:07:00 133 Below low normal 135 -146 (mmol/L) Final Potassium 09/21/2023 10:07:00 4.4 3.5-5.1 (m mol/L) Final Cl 09/21/2023 10:07:00 96 Below low normal 98- 107 (mmol/L) Final CO2 09/21/2023 10:07:00 23 22-32 (mmo l/L) Final Anion gap 09/21/2023 10:07:00 14 7-15 (mmol /L) Final Glucose 09/21/2023 10:07:00 127 Above high normal 70 -120 (mg/dL) Final Albumin 09/21/2023 10:07:00 3.1 Below low normal 3.8 -5.0 (g/dL) Final AST (Aspartate aminotransferase) 09/21/2023 10:07:00 23 10-35 (U/L) Fin al Alk Phos 09/21/2023 10:07:00 99 35-130 (U/ L) Final Bilirubin, Total 09/21/2023 10:07:00 0.4 <=1 .2 (mg/dL) Final Calcium 09/21/2023 10:07:00 8.9 8.4-10.2 ( mg/dL) Final Protein 09/21/2023 10:07:00 6.4 6.0-8.3 (g /dL) Final ALT (Alanine aminotransferase) 09/21/2023 10:07:00 10 10-35 (U/L) Oscar hargrove Performing Location [facility]ORY [facility] - [address] [place] [address]
--- OUTSIDE RECORDS SUMMARY | 2023-10-12 14:07 | External Medical Summary | Summary of Care ---
Author Name Unknown Organization [facility] Address [address] [place] [address] Phone [phone] Care Team Providers Care Replenisher Name Role Phone Samy Sharif DO Primary Care Provider Reason for Referral * Ancillary Services (Within 3 days (urgent)) - Authorized Specialty Diagnoses / Procedures Referred By Contac t Referred To Contact Technical Specialist Cytogenetics Diagnoses Anemia, unspecified type Samy Sharif, DO [address] [place] [address] Referral ID Status Reason Start Date Expiration Date Visits Requested Visits Authorized [id number] Authorized Ancillary Services Required 09/15/2023 999 999 Question Answer Referral Priority Within 3 days (urgent) Where should this appointment be scheduled? [facility] Comments Is Patient homebound? Yes All sections of this form must be filled out completely. Forms with missing or illegible information will be returned for completion. This form should not be modified in any way. Forms that have been modified will be returned. This form may not be submitted by a home health agency. It must be complete and submitted by the ordering provider. One full business day lead time is required and service will be scheduled based on the next service day for the [facility] Home Phlebotomy does not service every geographical location on a daily basis. Contact [facility] Client Services at to find out service days for a specific location. Medical Laboratory Barb Kaylee Patient Name: Donte Grayson : 1945 Sex: female Address [address] [address] Provider: None? Samy Sharif DO? Diagnosis: D64.9 Anemia, unspecified type (primary encounter diagnosis) Tests Requested CBC - Once starting September 16, 2023 Encounter Details Date Type Department Care Team (Late st Contact Info) Description 09/15/2023 Risk Control Consultant Telephone Care Coordination and Integration [address] [place] [address] Rukhsana Marion, RN [address] [place] [address] Allergies Active Allergy Reactions Criticality Noted Date [...] C (premature ventricular contraction),NSVT (nonsustained ventricular tachycardia) (HCC) Take 1 Tablet by mouth in the [...] or Nausea. 60 Tablet 0 09/01/2023 Active documented as of this encounter (statuses [...] [facility] [place] DET[facility] Study: Project # [id number], Hcc Coders: Emery Garay, PhD. SUMMARY: Goal: Establish test [...] contact study staff at ; after hours Hcc Coders via the [facility] pouring crane operator . Please contact study team before resolving/deleting from patients problem list. Study phone number: [phone]. Diagnosis changed due to Research Module. Go to Snapshot for study details. Encounter for examination fo r normal comparison and control in clinical research program 07/04/2018 06/11/2022 Overview: DO NOT DELETE - Ernesto [facility] DETECT Study: Project # [id number], Hcc Coders: Adolph Cheung, MS, MPH. SUMMARY: Goal: Establish [...] contact study staff at ; after hours Hcc Coders via the [facility] pouring crane operator . - Please contact study team before resolving/deleting from patients problem list. Study phone number: [phone]. Diagnosis changed due to Research Module. Go [...] mRNA, LNP-s, No Pre serve, 2-Dose Series ([employer]) 12/24/2020,12/03/2020 COVID-19, LNP-s, No Preserve , Leonard-sucrose, [...] encounter Miscellaneous Notes * Telephone Encounter - Rukhsana Marion RN - 09/15/2023 1:46 PM EST Please set up for first available mobile phlebotomy for CBC. * Telephone Encounter - Samy Sharif DO - 09/15/2023 1:36 PM EST CBC ordered if they can get it done, thanks. 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 Pt was anemic while in SNF. Last Hgb was 8.5 on 09/09. Was started of Ferrous Sulfate Was started on Lasix 30mg daily ASSESSMENT: Pt lives alone in a senior apartment. Her brother is helping her. She is having a lot of fatigue and feels generally unwell. She is not sure she can make in into the office for an appointment. She has a video appointment scheduled with Dr. Sharif on 09/20, but ideally she should be[place]ooner. She is agreeable to a referral to the [facility] [place], Nataly Ahmadi. I will see if I can get an earlier appointment for [place] assisted video visit. She has home PT coming in through [facility] She is going today to [facility] for ECG RECOMMENDATION: Do you think we could order mobile lab for repeat CBC as she was anemic and is still feeling very washed out and lethargic? I will keep you posted about the video visit Thank you in advanced, Rukhsana Marion RN Care Coordination and Integration [address] [facility] [address] documented in this encounter Plan of Treatment Upcoming Encounters Date Type Department Care Team (Late st Contact Info) Description 09/30/2023 11:00 AM EST [facility] [place] [address] [place] [address] Enma Gautam PA-C [address] [place] [address] Rukhsana Sears, [facility] Jitney Driver [address] [place] [address] 12/21/2023 2:00 PM EDT Telemedicine [facility] [address] [facility] [place] [address] Farhana Caraballo PA-C [address] [facility] [place] [address] 04/03/2024 9:30 AM EDT Office Visit Cardiology, [facility] [address] [facility] [place] [address] Kenya Marie CRNP [address] [place] [address] 04/19/2024 1:00 PM EDT Telemedicine [facility] [address] [facility] [place] [address] Samy Sharif DO [address] [place] [address] Scheduled Referrals Name Type Priority Associated Diagnoses Orde r Schedule HOME PHLEBOTOMY REFERRAL OP Referral Within 3 days (urgent) Anemia, unspecified type Ordered: 09/15/2023 Health Maintenance Due Date Last Done Comments Zoster Vaccines (1 of 2) 1996 DXA Scan 05/09/2019 05/09/2012, 05/09/2012 COVID-19 Vaccine ( season) 2023 09/01/2022, 09/01/2022, 09/30/2021, Additional history exists CKD PHOS USE SMARTSET 37847 09/01/202308/12, 12/30/2021, 04/15/2020, Additional history exists Albumin/Creatinine Ratio 09/15/2023 022, 12/30/2021, 04/01/2020, Additional history exists Depression Screening 11/11/2023 11/11/2022, 10/15/2016 (Discussed) GFR 03/22/2024 09/21/2023, 08/11, 08/25/2023, Additional history exists CKD HGB USE SMARTSET 82479 09/21/202409/21, 09/21/2023, 09/09/2023, Additional history exists DTaP,Tdap,and [...] as of this encounter Visit Diagnoses Diagnosis Anemia, unspecified type- Primary documented in this encounter Care Teams Replenisher Relationship Specialty Start Date End Date Samy Sharif DO [address] [place] [address] PCP - General Family Medicine 03/24/23 documented as of this encounter
--- OUTSIDE RECORDS SUMMARY | 2023-10-12 14:08 | External Medical Summary | Summary of Care ---
Author Name Unknown Organization [facility] Address [address] [place] [address] Phone [phone] Care Team Providers Care Fish Straightener Name Role Phone Samy Sharif DO Primary Care Provider [phone] Reason for Visit * Reason Onset Date Comments Appointment 09/15/2023 Encounter Details Date Type Department Care Team (Late st Contact Info) Description 09/15/2023 Telephone [facility] [place] [address] [place] [address] Services, Scheduling [address] [place] [address] Appointment (/) Allergies Active Allergy Reactions Criticality Noted Date Comments Gluten Meal Itching 06/24/2017 Molds & Smuts 01/01/2012 Penicillin V 01/01/2012 Sulfa Antibiotics Edema face/lips/tongue High 2021 documented as of this encounter (statuses as of 09/15/2023) Medications Medication Sig Dispensed Refills Start Date End Date Status Vitamin B-12 1000 MCG/15ML Oral Liquid Take by mouth . 0 Active Vitamin D3 10 MCG (400 UNIT) Oral Tablet (Cholecalciferol) Take 1 Tablet by mouth in the morning. 0 Active Cranberry 125 MG Oral Tablet Take by mouth . 0 Active Aspirin EC 81 MG Oral Tablet Delayed ReleaseIndications:PV C (premature ventricular contraction),NSVT (nonsustained ventricular tachycardia) (HCC) Take 1 Tablet by mouth in the morning. 90 Tablet 3 03/16/2022 Active amLODIPine Besylate 2.5 MG Oral Tablet (Norvasc)Indications: HTN, goal below 140/90 TAKE 1 TABLET BY MOUTH NIGHTLY AT BEDTIME 90 Tablet 2 02/15/2023 Active Zoster Vac Recomb Adjuvanted 50 MCG/0.5ML Intramuscular Suspension Reconstituted (Shingrix) Inject 0.5 mL into a large muscle now and repeat dose in 60 to 180 days 1 Each 1 02/18/2023 Active Premarin 0.625 MG/GM Vaginal Cream (Estrogens Conjugated) INSERT 0.5 GRAMS VAGINALLY ONCE A DAY ON WEDNESDAY AND WEDNESDAY 30 g 12 06/21/2023 Active Pantoprazole Sodium 40 MG Oral Tablet Delayed Release (Protonix)Indications :Gastroesophageal reflux disease without esophagitis Take 1 Tablet by mouth in the morning. 30 minutes before the first meal of the day. Do not crush, split or chew the tablet. 30 Tablet 5 06/24/2023 Active Furosemide 20 MG Oral Tablet (Lasix) Take 1.5 Tablets by mouth in the morning. 0 08/17/2023 Active Ferrous Sulfate 325 (65 Fe) MG Oral Tablet (Feosol) Take 1 Tablet by mouth in the morning and 1 Tablet before bedtime. 0 08/17/2023 Active Magnesium Oxide 400 MG Oral Tablet Take 1 Tablet by mouth in the morning. 0 08/17/2023 Active Ondansetron HCl 4 MG Oral TabletIndications:Donny sea without vomiting Take 1 Tablet by mouth every 6 hours as needed for Nausea. 90 Tablet 0 09/01/2023 Active traMADol HCl 50 MG Oral Tablet (Ultram)Indications:M ass of thigh, right,Pain of right lower extremity Take 1 Tablet by mouth every 6 hours as needed for Pain, Severe. 60 Tablet 0 09/01/2023 Active Losartan Potassium 25 MG Oral Tablet (Cozaar)Indications:H TN, goal below 140/90 Take 1 Tablet by mouth in the morning. 30 Tablet 0 09/01/2023 Active Meclizine HCl 12.5 MG Oral Tablet (Antivert)Indications :Nausea without vomiting Take 1 Tablet by mouth 3 times a day as needed for Dizziness or Nausea. 60 Tablet 0 09/01/2023 Active documented as of this encounter (statuses as of 09/15/2023) Active Problems Problem Noted Date Diagnosed Date Leg mass, right 08/17/2023 Anemia of chronic disease 08/17/2023 Hiatal hernia 08/17/2023 Body mass index (BMI) of 40.0 [...] as of this encounter (statuses as of 09/15/2023) Resolved Problems Problem Noted Date Diagnosed Date Resolved Date Gastroesophageal reflux disease 08/17/2023 08/17/2023 Body mass index (BMI) of 45. 0 [...] program 07/04/2018 05/13/2020 Overview: DO NOT DELETE W-21 DETECT Study: Project # [id number], Promotions Producer: Emery Garay, PhD. SUMMARY: Goal: Establish test [...] contact study staff at ; after hours Promotions Producer via the [facility] hospital pickle water pump operator . Please contact study team before resolving/deleting from patients problem list. Study phone number: [phone]. Diagnosis changed due to Research Module. Go to Snapshot for study details. Encounter for examination fo r normal comparison and control in clinical research program 07/04/2018 06/11/2022 Overview: DO NOT DELETE - W-21 DETECT Study: Project # [id number], Promotions Producer: Adolph Cheung, MS, MPH. SUMMARY: Goal: Establish [...] contact study staff at ; after hours Promotions Producer via the [facility] hospital pickle water pump operator . - Please contact study team before resolving/deleting from patients problem list. Study phone number: [phone]. Diagnosis changed due to Research Module. Go [...] as of this encounter (statuses as of 09/15/2023) Immunizations Name Administration Dates Next Due COVID-19 mRNA, LNP-s, No Pre serve, 2-Dose Series ([employer]) 12/24/2020,12/03/2020 COVID-19, LNP-s, No Preserve , Leonard-sucrose, Ages 12+ ([employer]) 09/30/2021 Covid-19, Mrna, Lnp-s, Pf, B ivalent, 30 Mcg, IM, 12 yrs and above (Pfizer) 09/01/2022 Pneumococcal Conjugate Vacc, 13 Valent (Prevnar) 10/15/2016 Pneumococcal Polysaccharide PPV23 (Pneumovax) 04/20/2012 SEASONAL INFLUENZA, PF, 6 M & Above, IM , (FLULAVAL or FLUZONE) 10/21/2018,09/14/2017 Seasonal Influenza, Quadriva lent Hd (Fluzone [...] the money to buy more. Never true 09/15/20 23 Within the past 12 months, t he food you bought just didn't last and you didn't have money to get more. Never true 09/15/2023 Sex and Gender Information Value Date Recorded Sex Assigned at Female 11/11/2022 2:03 PM EST Gender Identity Female 11/11/2022 2:03 PM EST Sexual Orientation Straight 11/11/2022 2: 03 PM EST Job Start Date Occupation Industry Not on file Not on file Not on file documented as of this encounter Miscellaneous Notes * Telephone Encounter - Milton Bush OSA - 09/15/2023 10:12 AM EST Call to son and confirmed [place] telemed for 09/17 at 11/1130am, pt agreeable, confirmed address and connectivity documented in this encounter Plan of Treatment Upcoming Encounters Date Type Department Care Team (Late st Contact Info) Description 09/17/2023 11:00 AM EST Telemedicine [facility], [place] [address] [place] [address] Enma Gautam PA-C [address] [place] [address] Rukhsana Sears, Community [facility] Head Of Strategy [address] [place] [address] 09/20/2023 11:00 AM EST Telemedicine Family Practice [facility] [address] [facility] [place] [address] Samy Sharif, DO [address] [place] [address] 09/21/2023 1:40 PM EST Office Visit Pod[facility] [place] [address] Karina Carlos DPM [facility] [place] [address] 04/03/2024 9:30 AM EDT Office Visit Cardiology, [facility] 132 [facility] [place] [address] Kenya Marie CRNP [facility] [place] [address] Health Maintenance Due Date Last Done Comments Zoster Vaccines (1 of 2) 1996 DXA Scan 05/09/2019 05/09/2012, 05/09/2012 COVID-19 Vaccine ( season) 2023 09/01/2022, 09/30/2021, 12/24/2020, Additional history exists CKD PHOS USE SMARTSET 15331 09/01/202308/12, 12/30/2021, 04/15/2020, Additional history exists Albumin/Creatinine Ratio 09/15/2023 022, 12/30/2021, 04/01/2020, Additional history exists Depression Screening 11/11/2023 11/11/2022, 10/15/2016 (Discussed) GFR 02/24/2024 08/26/2023, 08/11, 08/18/2023, Additional history exists CKD HGB USE SMARTSET 29414 09/09/202409/09, 09/09/2023, 08/26/2023, Additional history exists DTaP,Tdap,and Td Vaccines (3 - Td or Tdap) 08/03/2029 08/03/2019, 05/20/2015 Colonoscopy Discontinued 10/24/2012 Colorectal Cancer [...] filedocumented as of this encounter Care Teams Fish Straightener Relationship Specialty Start Date End Date Samy Sharif DO [address] [place] [address] PCP - General Family Medicine 03/24/23 documented as of this encounter
--- OUTSIDE RECORDS SUMMARY | 2023-10-12 14:08 | External Medical Summary | Summary of Care ---
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 Contact [facility] Client Services at to find out service days for a specific location. Medical Laboratory [address] [place] [address] Ray Gama M.D. Director and Cath Lab Patient Name: Donte Grayson : 1945 Sex: female Address [address] [address] Provider: Self? Samy Sharif, DO? Diagnosis: N18.32 Stage 3b chronic kidney disease (primary encounter diagnosis) D63.8 Anemia of chronic disease R22.41 Leg mass, right Tests Requested Cbc, cmp, mag Patient scheduled already for mobile lab on 09/17. Reason for Visit * Reason Comments [facility]: Transition of Care Encounter Details Date Type Department Care Team (Late st Contact Info) Description 09/17/2023 11:00 AM EST Telemedicine [facility] [place] [address] [place] [address] Enma Gautam PA-C [address] [place] [address] Rukhsana Sears, Community Health Registration Scheduling Specialist [address] [place] [address] Stage 3b chronic kidney disease*; Anemia of chronic disease; Leg mass, right Allergies Active Allergy Reactions Criticality Noted Date Comments Gluten Meal Itching 06/24/2017 Molds & Smuts 01/01/2012 Penicillin V 01/01/2012 Sulfa Antibiotics Edema face/lips/tongue High 2021 documented as of this encounter (statuses as of 09/17/2023) Medications Medication Sig Dispensed Refills Start Date End Date Status Vitamin D3 10 MCG (400 UNIT) Oral Tablet (Cholecalciferol) Take 1 Tablet by mouth in the morning. 0 Active Cranberry 125 MG Oral Tablet Take by mouth . 0 Active Aspirin EC 81 MG Oral Tablet Delayed ReleaseIndications: PVC (premature ventricular contraction),NSVT (nonsustained ventricular tachycardia) (HCC) Take 1 Tablet by mouth in the morning. 90 Tablet 3 03/16/2022 Active amLODIPine Besylate 2.5 MG Oral Tablet (Norvasc)Indication s:HTN, goal below 140/90 TAKE 1 TABLET BY [...] Sodium 40 MG Oral Tablet Delayed Release (Protonix)Indicatio ns:Gastroesophageal reflux disease without esophagitis Take 1 Tablet by mouth in the morning. 30 minutes before the first meal of the day. Do not crush, split or chew the tablet. 30 Tablet 5 06/24/2023 Active Furosemide 20 MG Oral Tablet (Lasix) Take 1.5 Tablets by mouth in the morning. Advised to take 20 mg. 0 08/17/2023 Active Ferrous Sulfate 325 (65 Fe) MG Oral Tablet (Feosol) Take 1 Tablet by mouth in the morning and 1 Tablet before bedtime. 0 08/17/2023 Active Magnesium Oxide 400 MG Oral Tablet Take 1 Tablet by mouth in the morning. 0 08/17/2023 Active Ondansetron HCl 4 MG Oral TabletIndications:N ausea without vomiting Take 1 Tablet by mouth every 6 hours as needed for Nausea. 90 Tablet 0 09/01/2023 Active traMADol HCl 50 MG Oral Tablet (Ultram)Indications :Mass of thigh, right,Pain of right lower extremity Take 1 Tablet by mouth every 6 hours as needed for Pain, Severe. 60 Tablet 0 09/01/2023 Active Losartan Potassium 25 MG Oral Tablet (Cozaar)Indications :HTN, goal below 140/90 Take 1 Tablet by mouth in the morning. 30 Tablet 0 09/01/2023 Active Meclizine HCl 12.5 MG Oral Tablet (Antivert)Indicatio ns:Nausea without vomiting Take 1 Tablet by mouth 3 times a day as needed for Dizziness or Nausea. 60 Tablet 0 09/01/2023 Active Sertraline HCl 50 MG Oral Tablet (Zoloft) Take 1 Tablet by mouth in the morning. 0 Active B-12 1000 MCG Oral Lozenge Take by mouth. 0 Active Acetaminophen 325 MG Oral Capsule Take by mouth. 0 Activ e Vitamin B-12 1000 MCG/15ML Oral Liquid Take by mouth . 0 3 Discontinue d(Medicatio n List Clean Up) documented as of this encounter (statuses as of 09/17/2023) Active Problems Problem Noted Date Diagnosed Date [...] as of this encounter (statuses as of 09/17/2023) Resolved Problems Problem Noted Date Diagnosed Date [...] program 07/04/2018 05/13/2020 Overview: DO NOT DELETE [employer] DETECT Study: Project # [id number], Business Process Representative: Emery Garay, PhD. SUMMARY: Goal: Establish test [...] contact study staff at ; after hours Business Process Representative via the [facility] acid pump operator . Please contact study team before resolving/deleting from patients problem list. Study phone number: [phone]. Diagnosis changed due to Research Module. Go to Snapshot for study details. Encounter for examination fo r normal comparison and control in clinical research program 07/04/2018 06/11/2022 Overview: DO NOT DELETE - [employer] DETECT Study: Project # [id number], Business Process Representative: Adolph Cheung, MS, MPH. SUMMARY: Goal: Establish [...] contact study staff at ; after hours Business Process Representative via the [facility] acid pump operator . - Please contact study team before resolving/deleting from patients problem list. Study phone number: [phone]. Diagnosis changed due to Research Module. Go [...] as of this encounter (statuses as of 09/17/2023) Immunizations Name Administration Dates Next Due COVID-19 mRNA, LNP-s, No Pre serve, 2-Dose Series ([employer]) 12/24/2020,12/03/2020 COVID-19, LNP-s, No Preserve , Leonard-sucrose, Ages 12+ ([employer]) 09/30/2021 Covid-19, Mrna, Lnp-s, Pf, B ivalent, [...] Sign Reading Time Taken Comments Blood Pressure 120/60 09/17/2023 11:26 AM EST Pulse 84 09/17/2023 11:26 AM EST Temperature 36.7 C (98 F) 09/17/2023 11:26 AM EST Respiratory Rate - - Oxygen Saturation 91% 09/17/2023 11:26 AM EST Inhaled Oxygen Concentration - - Weight - - Height - - Body Mass Index - - documented in this encounter Progress Notes * Rukhsana Sears [facility] Registration Scheduling Specialist - 09/17/2023 11:35 AM EST Telemedicine visit: Yes Patient location: HOME. I was in a hospital or clinic location. After connecting through [employer],patient was verified with two unique identifiers. 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 Methods to assure confidentiality were taken. Patient acknowledged consent and understanding of pr ivacy and security of the Telemedicine visit. The patient agreed to participate. Community [facility] Registration Scheduling Specialist (CELESTINO) documentation: [facility] facilitated telehealth visit with provider Enma Ahmadi- Electronically signed by Rukhsana Sears [facility] Registration Scheduling Specialist at 09/17/2023 2:39 PM EST * Enma Gautam PA-C - 09/17/2023 11:00 AM EST [facility] Provider Telemedicine Visit Date: 09/17/2023 Time: 11:21 AM Assessment/Plan: 1. Stage 3b chronic kidney disease - CBC WITH WBC DIFFERENTIAL AND ANEMIA REFLEX WORKUP; Future - COMPREHENSIVE METABOLIC PANEL; Future - MAGNESIUM; Future - HOME PHLEBOTOMY REFERRAL OP 2. Anemia of chronic disease - CBC WITH WBC DIFFERENTIAL AND ANEMIA REFLEX WORKUP; Future - COMPREHENSIVE METABOLIC PANEL; Future - MAGNESIUM; Future - HOME PHLEBOTOMY REFERRAL OP 3. Leg mass, right Following with hem/onc and radiation oncology Following with [facility] oncology Follow up plan: Patient notably dehydrated today on exam. Advised to decrease the Lasix back to 20 mg a day. She has only been drinking 24 oz of fluid a day. Advised to increase fluid intake but continue to monitor for edema. If she develops edema reach out me. Ordered repeat labs to assess anemia and kidney function. She is having CT mapping performed next Wednesday for radiation therapy to the leg mass. I will call next week to see how she is feeling and see her again in 2 weeks. She has a PCP appointment next week as well. A total of 55 minutes was spent face to face via video-based telemedicine. Subjective Patient location: HOME. I was not in a hospital or clinic location. After connecting through televideo, patient was verified with two unique identifiers. 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 Methods to assure confidentiality were taken. Patient acknowledged consent and understanding of privacy and security of the Telemedicine visit. The patient agreed to participate. Reason for Visit: Initial Visit Current Concerns: Donte Grayson is a 77 year old female seen today for a [facility] Telemedicine Provider Visit. Date of last known acute care visit: 09/09/23 at [facility] d/c Reason for last known acute care visit: Patient was admitted to [facility] from 08/09/23- 08/13/23 with generalized [...] edema. She was discharged from [facility] for rehab therapy. She had complaints [...] study and EGD due to persistent nausea. Today's concerns are: Patient states she is still very fatigued. She feels SOB when ambulating short distances. She feelslike she could fall asleep at any time. She admits to having worsening nausea when she is ambulating. No vomiting or abdominal pain. She has been constipated and had a BM yesterday that was large. She states she felt better after having the BM. She is eating meals although her appetite isn't great.She has ensure to drink as well. She admits to having RLE edema at baseline. No edema noted to the LLE. She isn't sure why she was on the lasix, no history of heart failure in the past. She did just have a repeat ECHO but results are not in EPIC. No changes in urinary habits; no dysuria or increased urgency/frequency. ROS: See HPI Objective Physical Exam: BP 120/60 (BP Site: Right Arm, BP Position: Sitting, BP Cuff Size: Large) | Pulse 84 | Temp 36.7 C (98 F) (Infrared ) | SpO2 91% Previous Wts: Wt Readings from Last 5 Encounters: 09/01/23 103.9 kg (229 lb) 08/16/23 103.3 kg (227 lb 12.8 oz) 07/27/23 108 kg (238 lb 1.6 oz) 06/24/23 107.5 kg (237 lb) 03/26/23 111.7 kg (246 lb 4 oz) Previous BPs: BP Readings from Last 5 Encounters: 09/01/23 106/66 08/31/23 122/62 08/26/23 126/74 08/25/23 132/62 08/23/23 102/53 Physical Exam Constitutional: General: She is not in acute distress. HENT: Head: Normocephalic and atraumatic. Nose: Nose normal. Mouth/Throat: Mouth: Mucous membranes are dry. Eyes: Extraocular Movements: Extraocular movements intact. Conjunctiva/sclera: Conjunctivae normal. Cardiovascular: Rate and Rhythm: Normal rate and regular rhythm. Pulmonary: Effort: Pulmonary effort is normal. No respiratory distress. Breath sounds: Normal breath sounds. Abdominal: General: There is no distension. Musculoskeletal: Comments: RLE: edema noted to the foot/ankle region LLE: no edema Neurological: General: No focal deficit present. Mental Status: She is alert and oriented to person, place, and time. Diagnostic Data Review: Hematology Lab Results Component Value Date/Time WBC AUTO - [facility] 9.76 09/09/2023 06:00 AM WBC AUTO - [facility] 8.06 08/26/2023 05:30 AM WBC AUTO - [facility] 9.26 08/25/2023 05:25 AM WBC AUTO - [facility] 7.39 04/01/2020 01:42 PM WBC AUTO - [facility] 6.14 02/09/2018 05:30 AM WBC AUTO - [facility] 5.52 01/31/2018 06:10 AM Lab Results Component Value Date/Time HGB - [facility] 8.5 (L) 09/09/2023 06:00 AM HGB - [facility] 8.5 (L) 08/26/2023 05:30 AM HGB - [facility] 8.5 (L) 08/25/2023 05:25 AM HGB - [facility] 12.5 04/15/2020 10:40 AM HGB - [facility] 12.2 04/01/2020 01:42 PM HGB - [facility] 9.5 (L) 02/09/2018 05:30 AM Lab Results Component Value Date/Time HCT - [facility] 27.5 (L) 09/09/2023 06:00 AM HCT - [facility] 27.5 (L) 08/26/2023 05:30 AM HCT - [facility] 27.2 (L) 08/25/2023 05:25 AM HCT - [facility] 37.6 04/01/2020 01:42 PM HCT - [facility] 29.9 (L) 02/09/2018 05:30 AM HCT - [facility] 29.0 (L) 01/31/2018 06:10 AM Lab Results Component Value Date/Time PLATELET AUTO - [facility] 480 (H) 09/09/2023 06:00 AM PLATELET AUTO - [facility] 501 (H) 08/26/2023 05:30 AM PLATELET AUTO - [facility] 497 (H) 08/25/2023 05:25 AM PLATELET AUTO - [facility] 235 04/01/2020 01:42 PM PLATELET AUTO - [facility] 292 02/09/2018 05:30 AM PLATELET AUTO - [facility] 320 01/31/2018 06:10 AM Lab Results Component Value Date/Time IRON - [facility] 83 04/15/2020 10:40 AM Lab Results Component Value Date/Time TRANSFERRIN SATURATION PERCENT - [facility] 29 04/15/2020 10:40 AM No results found for: "TRANSFERRIN - [facility]" Lab Results Component Value Date/Time VITAMIN B12 - [facility] 161 (L) 12/30/2021 09:57 AM Chemistry/Renal Lab Results Component Value Date/Time SODIUM - [facility] 132 (L) 08/26/2023 05:30 AM SODIUM - [facility] 133 (L) 08/25/2023 05:25 AM SODIUM - [facility] 133 (L) 10/31/2020 01:42 PM SODIUM - [facility] 136 07/03/2020 01:55 PM Lab Results Component Value Date/Time POTASSIUM - [facility] 4.9 08/26/2023 05:30 AM POTASSIUM - [facility] 4.7 08/25/2023 05:25 AM POTASSIUM - [facility] 5.2 (H) 10/31/2020 01:42 PM POTASSIUM - [facility] 5.2 (H) 07/03/2020 01:55 PM Lab Results Component Value Date/Time PHOSPHORUS - [facility] 4.3 09/01/2022 03:46 PM PHOSPHORUS - [facility] 4.9 (H) 12/30/2021 09:57 AM PHOSPHORUS - [facility] 4.2 04/15/2020 10:40 AM PHOSPHORUS - [facility] 4.2 04/01/2020 01:42 PM Lab Results Component Value Date/Time MAGNESIUM - [facility] 2.3 08/18/2023 05:30 AM MAGNESIUM - [facility] 2.3 04/15/2020 10:40 AM Lab Results Component Value Date/Time BUN - [facility] 20 08/26/2023 05:30 AM BUN - [facility] 22 (H) 08/25/2023 05:25 AM BUN - [facility] 22 (H) 08/18/2023 05:30 AM BUN - [facility] 29 (H) 10/31/2020 01:42 PM BUN - [facility] 34 (H) 07/03/2020 01:55 PM BUN - [facility] 35 (H) 05/16/2020 11:05 AM Lab Results Component Value Date/Time CREATININE - [facility] 1.4 (H) 08/26/2023 05:30 AM CREATININE - [facility] 1.4 (H) 08/25/2023 05:25 AM CREATININE - [facility] 1.2 (H) 08/18/2023 05:30 AM CREATININE - [facility] 1.5 (H) 10/31/2020 01:42 PM CREATININE - [facility] 1.5 (H) 07/03/2020 01:55 PM CREATININE - [facility] 1.6 (H) 05/16/2020 11:05 AM Lab Results Component Value Date/Time ESTIMATED GLOMERULAR FILTRATION RATE - [facility] 39 (L) 08/26/2023 05:30 AM ESTIMATED GLOMERULAR FILTRATION RATE - [facility] 40 (L) 08/25/2023 05:25 AM ESTIMATED GLOMERULAR FILTRATION RATE - [facility] 45 (L) 08/18/2023 05:30 AM ESTIMATED GLOMERULAR FILTRATION RATE - [...] Results Component Value Date/Time AST - [facility] 15 08/26/2023 05:30 AM AST - [facility] 18 09/22/2016 09:02 AM AST - [facility] 18 04/30/2014 09:19 AM Lab Results Component Value Date/Time ALT - [facility] 9 (L) 08/26/2023 05:30 AM ALT - [facility] 12 09/22/2016 09:02 AM ALT - [facility] 16 04/30/2014 09:19 AM Lab Results Component Value Date/Time ALKALINE PHOSPHATASE - [facility] 76 08/26/2023 05:30 AM ALKALINE PHOSPHATASE - [facility] 67 09/22/2016 09:02 AM ALKALINE PHOSPHATASE - [facility] 65 04/30/2014 09:19 AM Lab Results Component Value Date/Time BILIRUBIN, TOTAL - [facility] 0.3 08/26/2023 05:30 [...] Outpatient Medications Medication Sig Dispense Refill Vitamin B-12 1000 MCG/15ML Oral Liquid Take by mouth . Vitamin D3 10 MCG (400 UNIT) Oral Tablet (Cholecalciferol) Take 1 Tablet by mouth in the morning. Cranberry 125 MG Oral Tablet Take by mouth . Aspirin EC 81 MG Oral Tablet Delayed Release Take 1 Tablet by mouth in the morning. 90 Tablet 3 amLODIPine Besylate 2.5 MG Oral Tablet (Norvasc) TAKE 1 TABLET BY MOUTH NIGHTLY AT BEDTIME 90 Tablet 2 Zoster Vac Recomb Adjuvanted 50 MCG/0.5ML Intramuscular Suspension Reconstituted (Shingrix) Inject 0.5 mL into a large muscle now and repeat dose in 60 to 180 days 1 Each 1 Premarin 0.625 MG/GM Vaginal Cream (Estrogens Conjugated) INSERT 0.5 GRAMS VAGINALLY ONCE A DAY ON WEDNESDAY AND WEDNESDAY 30 g 12 Pantoprazole Sodium 40 MG Oral Tablet Delayed Release (Protonix) Take 1 Tablet by mouth in the morning. 30 minutes before the first meal of the day. Do not crush, split or chew the tablet. 30 Tablet 5 Furosemide 20 MG Oral Tablet (Lasix) Take 1.5 Tablets by mouth in the morning. Ferrous Sulfate 325 (65 Fe) MG Oral Tablet (Feosol) Take 1 Tablet by mouth in the morning and 1 Tablet before bedtime. Magnesium Oxide 400 MG Oral Tablet Take 1 Tablet by mouth in the morning. Ondansetron HCl 4 MG Oral Tablet Take 1 Tablet by mouth every 6 hours as needed for Nausea. 90 Tablet 0 traMADol HCl 50 MG Oral Tablet (Ultram) Take 1 Tablet by mouth every 6 hours as needed for Pain, Severe. 60 Tablet 0 Losartan Potassium 25 MG Oral Tablet (Cozaar) Take 1 Tablet by mouth in the morning. 30 Tablet 0 Meclizine HCl 12.5 MG Oral Tablet (Antivert) Take 1 Tablet by mouth 3 times a day as needed for Dizziness or Nausea. 60 Tablet 0 No current facility-administered medications for this visit. Mobility Evaluation: MACH10 Assessment: Assistive Devices Used in the Home: Walker (standard or rollator) Recent Falls: Falls in the last 6 months: No [facility]Do[facility]: Routine Transportation Urgent Transportation Enma Anthony PA-C 11:21 AM *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 sent to PCP (via [facility] if [facility]), Population Health Care Team members, relevant Specialty Care Physicians* documented in this encounter Plan of Treatment Upcoming Encounters Date Type Department Care Team (Late st Contact Info) Description 09/20/2023 10:10 AM EST Laboratory Lab [facility] Phlebotomy [facility] [address] [place] [address] [facility] Mobile Home Draw [address] [place] [address] 09/20/2023 11:00 AM EST Telemedicine Family Practice [facility] [place] [address] [facility] [place] [address] Samy Sharif DO [address] [place] [address] 09/21/2023 1:40 PM EST Office Visit Podiatry [facility] [address] [facility] [place] [address] Karina Carlos DPM [address] [facility] [place] [address] 09/23/2023 11:00 AM EST Telemedicine [facility], [place] [address] [place] [address] Enma Gautam PA-C [address] [place] [address] 09/30/2023 11:00 AM EST Telemedicine [facility], [place] [address] [place] [address] Enma Gautam PA-C [address] [place] [address] Rukhsana Sears, Community Health Registration Scheduling Specialist [address] [place] [address] 04/03/2024 9:30 AM EDT Office Visit Cardiology, [facility] [address] [facility] [place] [address] Kenya Marie CRNP [address] [facility] [place] [address] Scheduled Orders Name Type Priority Associated Diagnoses Orde r Schedule CBC WITH WBC DIFFERENTIAL AND ANEMIA REFLEX WORKUP Lab Routine Stage 3b chronic kidney disease Anemia of chronic disease Expected: 09/17/2023 (Approximate), Expires: 09/17/2024 COMPREHENSIVE METABOLIC PANEL Lab Routine Stage 3b chronic kidney disease Anemia of chronic disease Expected: 09/17/2023 (Approximate), Expires: 09/16/2024 MAGNESIUM Lab Routine Stage 3b chronic kidney disease Anemia of chronic disease Expected: 09/17/2023 (Approximate), Expires: 09/16/2024 Scheduled Referrals Name Type Priority Associated Diagnoses Orde r Schedule HOME PHLEBOTOMY REFERRAL OP Referral Within 3 days (urgent) Stage 3b chronic kidney disease Anemia of chronic disease Ordered: 09/17/2023 Health Maintenance Due Date Last Done Comments Zoster Vaccines (1 of 2) 1996 DXA Scan 05/09/2019 05/09/2012, 05/09/2012 COVID-19 Vaccine ( season) 2023 09/01/2022, 09/30/2021, 12/24/2020, Additional history exists CKD PHOS USE SMARTSET 96331 09/01/202308/12, 12/30/2021, 04/15/2020, Additional history exists Albumin/Creatinine Ratio 09/15/2023 022, 12/30/2021, 04/01/2020, Additional history exists Depression Screening 11/11/2023 11/11/2022, 10/15/2016 (Discussed) GFR 02/24/2024 08/26/2023, 08/11, 08/18/2023, Additional history exists CKD HGB USE SMARTSET 46623 09/09/202409/09, 09/09/2023, 08/26/2023, Additional history exists DTaP,Tdap,and [...] as of this encounter Visit Diagnoses Diagnosis Stage 3b chronic kidney disease- Primary Anemia of chronic disease Anemia of other chronic disease Leg mass, right documented in this encounter Care Teams Scooper Relationship Specialty Start Date End Date Samy Sharif DO [address] [place] [address] PCP - General Family Medicine 03/24/23 documented as of this encounter
--- OUTSIDE RECORDS SUMMARY | 2023-10-12 14:08 | External Medical Summary | Summary of Care ---
Author Name Unknown Organization [facility] Address [address] [place] [address] Phone [phone] Care Team Providers Care Edger Saw Operator Name Role Phone Samy Sharif DO Primary Care Provider Reason for Visit * Reason Comments Hospital Follow-Up Encounter Details Date Type Department Care Team (Late st Contact Info) Description 09/20/2023 11:00 AM [facility] Telemedicine Family [facility] [address] [facility] [place] [address] Samy Sharif DO [address] [place] [address] Sarcoma (HCC)*; Mass of thigh, right; Pain of right lower extremity; HTN, goal below 140/90; Gastroesophageal reflux disease without esophagitis; Iron deficiency anemia, unspecified iron deficiency anemia type Allergies Active Allergy Reactions Criticality Noted Date Comments Gluten Meal Itching 06/24/2017 Molds & Smuts 01/01/2012 Penicillin V 01/01/2012 Sulfa Antibiotics Edema face/lips/tongue High 2021 documented as of this encounter (statuses as of 09/20/2023) Medications Medication Sig Dispensed Refills Start Date [...] Capsule Take by mouth. 0 Activ e traMADol HCl 50 MG Oral Tablet (Ultram)Indications :Mass of thigh, right,Pain of right lower extremity,Sarcoma [...] Sulfate 325 (65 Fe) MG Oral Tablet (Feosol)Indications :Iron deficiency anemia, unspecified iron deficiency anemia type Take 1 Tablet by mouth daily with breakfast. 90 Tablet 3 09/20/2023 Active amLODIPine Besylate 2.5 MG Oral Tablet (Norvasc)Indication s:HTN, goal below 140/90 TAKE 1 TABLET BY MOUTH NIGHTLY AT BEDTIME 90 Tablet 2 02/15/2023 3 Discontinue d(Refill) Pantoprazole Sodium 40 MG Oral Tablet Delayed Release (Protonix)Indicatio ns:Gastroesophageal reflux disease without esophagitis Take 1 Tablet by mouth in the morning. 30 minutes before the first meal of the day. Do not crush, split or chew the tablet. 30 Tablet 5 06/24/2023 3 Discontinue d(Refill) Ferrous Sulfate 325 (65 Fe) MG Oral Tablet (Feosol) Take 1 Tablet by mouth in the morning and 1 Tablet before bedtime. 0 08/17/2023 3 Discontinue d(Refill) traMADol HCl 50 MG Oral Tablet (Ultram)Indications :Mass of thigh, right,Pain of right lower extremity Take 1 Tablet by mouth every 6 hours as needed for Pain, Severe. 60 Tablet 0 09/01/2023 3 Discontinue d(Refill) Losartan Potassium 25 MG Oral Tablet (Cozaar)Indications :HTN, goal below 140/90 Take 1 Tablet by mouth in the morning. 30 Tablet 0 09/01/2023 3 Discontinue d(Refill) Sertraline HCl 50 MG Oral Tablet (Zoloft) Take 1 Tablet by mouth in the morning. 0 3 Discontinue d(Refill) documented as of this encounter (statuses as of 09/20/2023) Active Problems Problem Noted Date Diagnosed Date [...] as of this encounter (statuses as of 09/20/2023) Resolved Problems Problem Noted Date Diagnosed Date [...] 05/13/2020 Overview: DO NOT DELETE [facility] Study: Project # [id number], Court Usher: Emery Garay, PhD. SUMMARY: Goal: Establish test [...] contact study staff at ; after hours Court Usher via the [facility] hospital asphalt surface heater operator . Please contact study team before resolving/deleting from patients problem list. Study phone number: [phone]. Diagnosis changed due to Research Module. Go to Snapshot for study details. Encounter for examination fo r normal comparison and control in clinical research program 07/04/2018 06/11/2022 Overview: [facility] NOT DELETE [facility] [place] Study: Project # [id number], Court Usher: Adolph Cheung, MS, MPH. SUMMARY: Goal: Establish [...] contact study staff at ; after hours Court Usher via the [facility] hospital asphalt surface heater operator . - Please contact study team before resolving/deleting from patients problem list. Study phone number: [phone]. Diagnosis changed due to Research Module. Go [...] as of this encounter (statuses as of 09/20/2023) Immunizations Name Administration Dates Next Due COVID-19 mRNA, LNP-s, No Pre serve, 2-Dose Series ([employer]) 12/24/2020,12/03/2020 COVID-19, LNP-s, No Preserve , Leonard-sucrose, [...] as of this encounter Progress Notes * Samy Sharif, - 09/20/2023 11:12 AM EST After connecting to the patient via telephone, the patient was identified by name and date of . Patient was then informed that this was a telephone call only visit. The patient agreed to participate. Visit Disposition: Routine follow-up Total call duration was 29 minutes. Recent hospitalization discussed. Feeling weak since the summer. Got to a point where she could notstand up. UTI found and treated. She had a growth on her leg that wasn't checked out before. When they checked it there was necrosis to it and it was thought to be a sarcoma. We discussed her visits with oncology and rads onc. Doing a simulation Wednesday. Planning towrads radiation first and surgery later. Planning for radiation for 5 weeks. We discussed her anemia and feeling tired from that. Lab coming today to check her blood count. Last check was 8.5. She takes an iron pill every day. May need to go to twice daily if number does not improve. She has a lot of trouble getting one place to another. She has difficulty walking. Brother helping her a lot. Feels like she has deteriorated fast. She felt better in the hospital. PT helped at the hospital. Did okay at [facility] at first but then developed nausea with activity. Would start gagging. It is sort of still happening. Brother helps him get moving. We discussed an upper endoscopy and colonoscopy at some point. We discussed her diet and continuing to push to eat. documented in this encounter Plan of Treatment Upcoming Encounters Date Type Department Care Team (Late st Contact Info) Description 09/23/2023 11:00 AM EST Telemedicine [facility] [place] [address] [place] [address] Enma Gautam PA-C [address] [place] [address] 09/30/2023 11:00 AM EST Telemedicine [facility] [place] [address] [place] [address] Enma Gautam PA-C [address] [place] [address] Rukhsana Sears, Community Health Field Underwriter [facility] [place] [address] 04/03/2024 9:30 AM EDT Office Visit Cardiology, [facility] [address] [facility] [place] [address] Kenya Marie CRNP [address] [place] [address] Health Maintenance Due Date Last Done Comments Zoster Vaccines (1 of 2) 1996 DXA Scan 05/09/2019 05/09/2012, 05/09/2012 COVID-19 Vaccine ( season) 2023 09/01/2022, 09/01/2022, 09/30/2021, Additional history exists CKD PHOS USE SMARTSET 23330 09/01/202308/12, 12/30/2021, 04/15/2020, Additional history exists Albumin/Creatinine Ratio 09/15/2023 022, 12/30/2021, 04/01/2020, Additional history exists Depression Screening 11/11/2023 11/11/2022, 10/15/2016 (Discussed) GFR 02/24/2024 08/26/2023, 08/11, 08/18/2023, Additional history exists CKD HGB USE SMARTSET 62034 09/09/202409/09, 09/09/2023, 08/26/2023, Additional history exists DTaP,Tdap,and [...] connective and other soft tissue, site unspecified Mass of thigh, right Pain of right lower extremity HTN, goal below 140/90 Unspecified essential hypertension Gastroesophageal reflux disease without esophagitis Esophageal reflux Iron deficiency anemia, unspecified iron deficiency anemia type documented in this encounter Care Teams Edger Saw Operator Relationship Specialty Start Date End Date Samy Sharif DO [address] [place] [address] PCP - General Family Medicine 03/24/23 documented as of this encounter
--- OUTSIDE RECORDS SUMMARY | 2023-10-12 14:08 | External Medical Summary | Summary of Care ---
Author Name Unknown Organization [facility] Address [address] [place] [address] Phone [phone] Care Team Providers Care Manufacturing Project Engineer Name Role Phone Samy Sharif DO Primary Care Provider [phone] Reason for Visit * Reason Onset Date Comments Appointment 09/17/2023 Encounter Details Date Type Department Care Team (Late st Contact Info) Description 09/17/2023 Telephone [facility] [place] [address] [place] [address] Services, Scheduling [address] [place] [address] Appointment (/) Allergies Active Allergy Reactions Criticality [...] Oral Capsule Take by mouth. 0 Active documented as of this encounter (statuses [...] program 07/04/2018 05/13/2020 Overview: DO NOT DELETE [facility] DETECT Study: Project # [id number], Blanket Winder Helper: Emery Garay, PhD. SUMMARY: Goal: Establish test [...] contact study staff at ; after hours Blanket Winder Helper via the [facility] buckshot swage operator . Please contact study team before resolving/deleting from patients problem list. Study phone number: [phone]. Diagnosis changed due to Research Module. Go to Snapshot for study details. Encounter for examination fo r normal comparison and control in clinical research program 07/04/2018 06/11/2022 Overview: DO NOT DELETE - [employer] DETECT Study: Project # [id number], Blanket Winder Helper: Adolph Cheung, MS, MPH. SUMMARY: Goal: Establish [...] contact study staff at ; after hours Blanket Winder Helper via the [facility] hospital buckshot swage operator . - Please contact study team before resolving/deleting from patients problem list. Study phone number: [phone]. Diagnosis changed due to Research Module. Go [...] mRNA, LNP-s, No Pre serve, 2-Dose Series ([employer]) 12/24/2020,12/03/2020 COVID-19, LNP-s, No Preserve , Leonard-sucrose, [...] Telephone Encounter - Milton Bush OSA - 09/17/2023 1:20 PM EST Added provider PC for 12/14 and return kaco telemed for 09/30 at 11am, call to pt and she is not sure of her schedule for week of 09/27, asked for a CB on 09/27 documented in this encounter Plan of Treatment Upcoming Encounters Date Type Department Care Team (Late st Contact Info) Description 09/20/2023 10:10 AM EST Laboratory Lab Mobile Phlebotomy [facility] [address] [place] [address] [facility] Mobile Home Draw [address] [place] [address] 09/20/2023 11:00 AM EST Telemedicine Family Practice [facility] [address] [facility] [place] [address] Samy Sharif, DO 200 [facility] [place] [address] 09/21/2023 1:40 PM EST Office Visit Podiatry [facility] [address] [place] [address] Karina Carlos DPM [address] [place] [address] 09/23/2023 11:00 AM EST Telemedicine [facility] [place] [address] [place] [address] Enma Gautam PA-C [address] [place] [address] 09/30/2023 11:00 AM EST Telemedicine [facility] [place] [address] [place] [address] Enma Gautam PA-C [address] [place] [address] Rukhsana Sears, Community Health Pants Presser Automatic [address] [place] [address] 04/03/2024 9:30 AM EDT Office Visit Cardiology, [facility] [address] [place] [address] Kenya Marie CRNP [address] [place] [address] Health Maintenance Due Date Last Done Comments Zoster Vaccines (1 of 2) 1996 DXA Scan 05/09/2019 05/09/2012, 05/09/2012 COVID-19 Vaccine ( season) 2023 09/01/2022, 09/30/2021, 12/24/2020, Additional history exists CKD PHOS USE SMARTSET 57144 09/01/202308/12, 12/30/2021, 04/15/2020, Additional history exists Albumin/Creatinine Ratio 09/15/2023 022, 12/30/2021, 04/01/2020, Additional history exists Depression Screening 11/11/2023 11/11/2022, 10/15/2016 (Discussed) GFR 02/24/2024 08/26/2023, 08/11, 08/18/2023, Additional history exists CKD HGB USE SMARTSET 57536 09/09/202409/09, 09/09/2023, 08/26/2023, Additional history exists DTaP,Tdap,and [...] filedocumented as of this encounter Care Teams Manufacturing Project Engineer Relationship Specialty Start Date End Date Samy Sharif DO [address] [facility] [place] [address] PCP - General Family Medicine 03/24/23 documented as of this encounter
[2023-10-12 14:17] LABS: T4 Free Thyroxine 1.03 ng/dl (0.61-1.60)
[2023-10-12] MEDS ORDERED: SODIUM CHLORIDE 0.9% 500 ML IV ONE (14:23)
[2023-10-12] MEDS ORDERED: ONDANSETRON INJ 2 MG/ML 2 ML VIAL IV STA (14:23)
[2023-10-12] MEDS ORDERED: ASPIRIN CHEW 324 MG PO STA (14:23)
[2023-10-12] MEDS ORDERED: fentaNYL citrate PF 100 MCG/2 ML VIAL IV STA (14:36)
[2023-10-12] MEDS ORDERED: cefTRIAXone SODIUM 2,000 MG/50 ML BAG IV STA (14:37)
--- NOTE | 2023-10-12 15:19 | History & Physical Report ---
Date of Service October 12, 2023 Assessment & Plan (1) Sarcoma of right thigh: (2) Generalized weakness: (3) CKD (chronic kidney disease), stage III: (4) Leukocytosis: (5) NATHALIE (obstructive sleep apnea): (6) Obesity: (7) Elevated troponin: Plan: Weakness Sarcoma R Thigh on XRT - Admit to [facility] -Newly diagnosed sarcoma of the right thigh, currently undergoing radiation treatment for presurgical tumor reduction, [place] [facility] [place] Dr. Leeann Ramirez and [place] [facility] Layne [facility] with outpatient oncology. Dr. Mcpherson retired, and they are switching oncologist. -Pt is not on chemotherapy at this time -Complete infectious workup, CXR is negative for acute findings, bio fire is negative, awaiting for urine to be obtained, history of frequent UTIs - Follow blood Cx x 2, lactic acid noted elevated at 2.1 - started ceftriaxone IV empirically in ER, awaiting UA. Hold on further antibiotics at this time. -WBC 15.89 on admission, currently afebrile -Consult radiation oncology to continue sarcoma radiation treatment -Consult oncology for further recommendations/evaluation Lower extremity Edema -Creatinine at 1.18, BUN 18 on admission -Home antihypertensive medications include: Amlodipine, losartan, Lasix -Increased edema in RLE is likely secondary to mass compression on vessels, give Lasix 20 mg IV x 1 - Edema in RLE - will check doppler US since not on anticoagulation Elevated Troponin -EKG reviewed without ST wave changes or signs of acute ischemia, her troponin is mildly bumped at 72.7 -->109, trend x 1 more set, negative chest pain complaints -Consider cardiology consultation Obesity -Diet and exercise to be encouraged -BMI unknown currently, patient states she has been unable to stand on a scale, is unsure if she has gained or lost any weight admits to appetite being diminished recently -Albumin 3.4 NATHALIE -Continue CPAP at bedtime, will order, patient did not bring CPAP from home DVT PPx: lovenox subq Lines: 2 PIV FEN/GI:HH diet CODE: Full code Dispo: From home, likely to remain in the hospital x 1-2 days History of Present Illness Chief Complaint: Weakness Primary Care Provider: Farhana Caraballo PA-C This is a 77-year-old female who presents with 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 The patient was evaluated by Dr. Ramirez from [facility] who recommended preoperative radiation therapy followed by surgical resection. The patient does also follow with Dr. Alba at [facility] and Dr. Mcpherson at [facility] from medical oncology. She started radiation therapy on Oct 05 and has been getting it daily Other past medical history includes CKD stage III, chronic back pain, osteoarthritis, obesity, GERD, HTN, sleep apnea on CPAP and asthma. The patient has been at home, but has had difficulty with standing and walking several times recently. She has generalized fatigue and weakness. Given fluids and aspirin here today with minimally bumped troponin. Her brother and sister in law are helpful in her home but she lives alone. Also reports R sided shoulder pain recently but thinks that this could be due to people in her home helping her get up to help her move around. She admits to having on and off nausea, but currently is hungry as she hasn't eaten all day, pt reports decreased appetite. She admits to having diarrhea and constipation back and forth, she moved her bowels today for the first time since last Wednesday. She denies any urinary complaints but admits to having hx of urinary tract infection 3 years ago. Pt is on zoloft since mid Sep and isn't sure that it's truely helping her mood at all. She took all her medications yesterday, but not this morning. Denies any recent known sick contacts or other viral-like symptoms. Allergies Allergy/AdvReac Type Severity Reaction Status Date / Time adhesive tape Allergy Intermediate Blister Verified 10/12/23 15:02 Penicillins Allergy Unknown CHILDHOOD Verified 10/12/23 15:02 ALLERGY Sulfa (Sulfonamide Allergy Unknown FACIAL Verified 10/12/23 15:02 Antibiotics) SWELLING gluten AdvReac Intermediate GI SYMPTOMS Verified 10/12/23 15:02 wheat AdvReac Intermediate eczema and Verified 10/12/23 15:02 stomach ache Home Medications Medication Instructions Recorded Confirmed Type conjugated estrogens 0.625 mg/gram 1 applic vaginal 2XWK 02/11/21 10/12/23 History vaginal cream (Premarin) amlodipine 2.5 mg tablet 2.5 mg PO HS 08/08/23 10/12/23 History cholecalciferol (vitamin D3) 10 400 unit PO QDL 08/08/23 10/12/23 History mcg (400 unit) tablet (Vitamin D3) clindamycin HCl 150 mg capsule 600 mg PO DIRECTED PRN dental 08/08/23 10/12/23 History procedures pantoprazole 40 mg tablet,delayed 40 mg PO DAILYBB 08/08/23 10/12/23 History release acetaminophen 325 mg capsule 325 mg PO QID PRN PAIN/FEVER 09/15/23 10/12/23 History ferrous sulfate 325 mg (65 mg 325 mg PO QDL 09/15/23 10/12/23 History iron) tablet losartan 25 mg tablet 25 mg PO DAILY 09/15/23 10/12/23 History sertraline 50 mg tablet 50 mg PO DAILY 09/15/23 10/12/23 History tramadol 50 mg tablet 50 mg PO Q6H PRN Pain 09/15/23 10/12/23 History aspirin 81 mg chewable tablet 81 mg PO HS 10/12/23 10/12/23 History cyanocobalamin (vitamin B-12) 1,000 mcg PO QDL 10/12/23 10/12/23 History 1,000 mcg tablet (Vitamin B-12) furosemide 20 mg tablet 20 mg PO DAILY 10/12/23 10/12/23 History Past Med/Surg History Medical History (Updated 09/15/23 @ 08:39 by Carol Garcia PA-C) Obesity CKD (chronic kidney disease), stage III Chronic back pain Osteoarthritis GERD (gastroesophageal reflux disease) Temporomandibular joint disorder Hypertension Sleep apnea CPAP Asthma LAST USED PRN INH 2-3 MONTHS AGO Surgical History History of cataract extraction with lens replacement RIGHT EYE 12/21/18 [facility] [place] History of total hip arthroplasty LEFT History of cholecystectomy History of esophagogastroduodenoscopy (EGD) History of colonoscopy Social History (Updated 09/15/23 @ 13:28 by Gisel Shen RN) Smoking Status: Never smoker Cigarettes Per Day: QUIT AT AGE 36; Second Hand Exposure: No; Do You Dip or Chew Tobacco: No; Hx Alcohol Use: No Hx Substance Use: No Preferred Language: Maori 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 Ability: Effective Visual Impairment: No Limitations Hearing Ability: Normal Asphalt Surface Heater Operator Required: No Beliefs That Will Affect Care: None Current Living Situation: Personal Care Facility Current Living Situation Comment: brother is currently staying with pt in her own homw current occupational status: retired Feels Safe at Home: Yes Assistive Devices: Walker and Wheelchair Review of Systems Review of Systems: Constitutional: No fever, sweats or chills, + generalized fatigue and weakness as per HPI Eyes: No diplopia, no worsening or blurred vision ENT: normal hearing, no trouble swallowing Respiratory: No cough, sputum, dyspnea at rest or on exertion Cardiovascular: No chest pain, tightness or palpitations Abdomen: No pain, nausea, vomiting, diarrhea or constipation Musculoskeletal: No joint pain, calf pain, + increased right extremity swelling Neurologic: + Difficulty with ambulation, weakness in the right leg, secondary to progressing sarcoma size, otherwise no numbness/tingling, admits to several falls as per HPI Psychiatric: No anxiety or depression, currently on Zoloft Skin: No rash or itch Physical Exam Physical Exam: General: awake, alert, no apparent distress, morbidly obese white female Head: Normocephalic, atraumatic ENT: PERRL, EOMI, no pharyngeal exudate, mucous membranes moist Chest: Clear to auscultation, on room air, no adventitious breath sounds Cardiac: Regular rate and rhythm, no murmur, no JVD, normal peripheral pulses, good capillary refill Abdominal: NABS x 4 quadrants, soft, nondistended, nontender to palpation, no rebound or guarding Extremities: Right posterior thigh skin is hard/taught, surrounding skin appears without discoloration, has some edema in the anterior thigh and lower extremity with 1+ pitting, left leg normal inspection, no peripheral edema or erythema, calfs nontender to palpation Psych: Normal mood and affect Neuro: AAO x 3, strength intact bilaterally and rated 5/5, no motor deficits, speech is clear, no peripheral sensory deficits Results & Data Results & Data Vital Signs (Past 12 Hours) Vital Signs Temp Pulse Resp BP Pulse Ox O2 Del Method 10/12/23 11:16 36.3 C L 87 20 141/78 H 95 Room Air Laboratory Results 10/12/23 12:46 WBC 15.89 H RBC 4.10 L Hgb 10.4 L Hct 33.1 L MCV 80.7 MCH 25.4 MCHC 31.4 L RDW Std Deviation 46.4 H RDW Coeff of Carlos 15.9 H Plt Count 518 H MPV 10.0 Immature Gran % (Auto) 1.1 Neut % (Auto) 85.6 Lymph % (Auto) 5.2 Kay % (Auto) 7.2 Eos % (Auto) 0.3 Baso % (Auto) 0.6 Neut # (Auto) 13.63 H Lymph # (Auto) 0.82 L Kay # (Auto) 1.14 H Eos # (Auto) 0.04 Baso # (Auto) 0.09 Immature Gran # (Auto) 0.17 Sodium 130 L Potassium 4.2 Chloride 97 L Carbon Dioxide 21 Anion Gap 12 H BUN 18 Creatinine 1.18 Est Cr Clr Drug Dosing Not Reportable Est GFR ( Amer) 51.9 Est GFR (Non-Af Amer) 44.8 BUN/Creatinine Ratio 15.3 Glucose 126 H Calcium 9.4 Magnesium 1.7 Total Bilirubin 0.4 AST 19 ALT 8 Alkaline Phosphatase 85 Troponin I High Sens 72.7 H* Total Protein 8.1 Albumin 3.4 Globulin 4.7 H Albumin/Globulin Ratio 0.7 L TSH 6.805 H Free T4 1.03 Adenovirus (PCR) Not Detected B. pertussis DNA (PCR) Not Detected B.parapertussis DNA PCR Not Detected C. pneumoniae DNA (PCR) Not Detected Coronavirus OC43 (PCR) Not Detected Coronavirus HKU1 (PCR) Not Detected Coronavirus 229E (PCR) Not Detected SARS-CoV-2 (PCR) Not Detected Coronavirus NL63 (PCR) Not Detected Human Metapneumovir PCR Not Detected Influenza Type A (PCR) Not Detected Influenza Type B (PCR) Not Detected M. pneumoniae (PCR) Not Detected Parainfluenza 1 (PCR) Not Detected Parainfluenza 2 (PCR) Not Detected Parainfluenza 3 (PCR) Not Detected Parainfluenza 4 (PCR) Not Detected RSV (PCR) Not Detected Entero/Rhino (PCR) Not Detected Diagnostic Findings Chest X-Ray 10/12/23 10:46 XR chest 1V not portable HISTORY: 77 years-old Female weakness acute weakness COMPARISON: 08/08/2023 TECHNIQUE: AP view of the chest FINDINGS: Hiatal hernia. Cardiomegaly. Chronic interstitial coarsening. No pneumothorax, pleural effusion or pulmonary edema. The bones appear grossly intact. IMPRESSION: 1. Cardiomegaly without acute process. 2. Hiatal hernia. ACT 112: Negative or not required by law. The above report was generated using voice recognition software. It may contain grammatical, syntax or spelling errors. Electronically signed by: Tre Alvarado M.D. 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 Other PMH includes CKD stage III, osteoarthritis, obesity, GERD, HTN, sleep apnea on CPAP, asthma. She presented with worsening fatigue and weakness since about 2 months, had 2 falls in the last 1 weeks where her legs and back gave out, she was lowered down to the floor by her brother. No loss of consciousness, denied any hitting of her hips or head. Patient reports no fever or flulike illness or chest pain, reports eating okay and moving bowels okay, denies any pain or burning with passing urine. WBC elevated at presentation, no other signs of infections on exam or on lab. UA pending, respiratory pathogen panel negative. Chest x-ray negative for infection. Troponin elevated, patient with no chest pain, will trend troponin. EKG reviewed, no acute ST or T changes. Telemetry monitoring. Will consult radiation oncology to continue with her radiation therapy. Will consult oncology. PT/OT. RLE Doppler to rule out DVT. GENERAL: Alert and oriented x3. NAD, on RA. Obese HEENT: No pallor, no icterus. Pupils equal, round and reactive to light. Oral mucosa moist. NECK: No JVD, no neck masses. HEART: S1 and S2 heard. Regular rate and rhythm. No murmur, no gallop. RESPIRATORY SYSTEM: Normal AP diameter. No accessory muscle use. No wheezing, no crackles. ABDOMEN: Soft, bowel sounds present, nontender, no distention. CENTRAL NERVOUS SYSTEM: No facial droop. Speech is clear. Obeys simple commands. Moves extremities. EXTREMITIES: Rt post thigh indurated tissue overlying cancer area; rle 1/trace edema. LLE trace edema. No erythema or signs of infection noted. I have seen and examined the patient and have discussed the case with the provider above. I agree with the assessment and plan as stated. (4) Leukocytosis Leukocytosis type: unspecified Qualified Code(s): D72.829 - Elevated white blood cell count, unspecified
[2023-10-12] MEDS ORDERED: oxyCODONE HCL IR 5 MG TAB (IMMEDIATE RELEASE) PO STA (15:42)
--- NOTE | 2023-10-12 15:51 | Electrocardiogram Report ---
Test Reason : Blood Pressure : / mmHG Vent. Rate : 083 BPM Atrial Rate : 083 BPM P-R Int : 164 ms QRS Dur : 078 ms QT Int : 364 ms P-R-T Axes : 002 -04 024 degrees QTc Int : 427 ms Sinus rhythm with Premature atrial complexes Poor R wave progression, consider anterior WI vs. lead placement vs. LVH Abnormal ECG When compared with ECG of 08-AUG-2023 14:42, Premature atrial complexes are now Present Confirmed by Howard Ngo ([id number]) on 10/12/2023 3:50:49 PM Referred By: REFERRED SELF Confirmed By:Howard Ngo
[2023-10-12] MEDS ORDERED: FUROSEMIDE INJ 20 MG/2 ML VIAL IV ONE (16:15)
--- NOTE | 2023-10-12 16:16 | XRay Report ---
XR shoulder RT min 2V routine HISTORY: 77 years-old Female pain acute right shoulder pain COMPARISON: Chest radiograph of same day TECHNIQUE: 3 views of the right shoulder FINDINGS: Moderate glenohumeral and AC joint osteoarthritis. No acute fracture, dislocation or opaque foreign b moo. The imaged lung chacon appear clear. IMPRESSION: No acute fracture or dislocation. ACT 112: Negative or not required by law. The above report was generated using voice recognition software. It may contain grammatical, syntax o r spelling errors. Electronically signed by: Tre Alvarado M.D. 10/12/2023 4:13 PM
[2023-10-12] MEDS: MAGNESIUM SULFATE / D5W 1 GM/100 ML BAG IV SCH ×2 (17:03→17:36)
[2023-10-12] MEDS ORDERED: ASPIRIN CHEW 324 MG ONE (17:09)
[2023-10-12] MEDS ORDERED: fentaNYL citrate PF 100 MCG/2 ML VIAL ONE (17:10)
[2023-10-12] MEDS ORDERED: Patient's HEIGHT &/or WEIGHT Needed SCH (19:30)
[2023-10-12] MEDS: amLODIPine BESYLATE 5 MG TAB PO SCH (20:36)
--- NOTE | 2023-10-12 20:57 | Ultrasound Report ---
Exam(s): US VENOUS RIGHT LOWER EXTREMITY EXAM: US Duplex Right Lower Extremity Veins CLINICAL HISTORY: Reason for exam: Eval for DVT. TECHNIQUE: Real-time duplex ultrasound scan of the right lower extremity veins integrating B-mode two-dimensional vascular structure, Doppler spectral analysis, color flow Doppler imaging and compression. COMPARISON: 08/11/2023. FINDINGS: Limitations: Exam is limited due to body habitus. Deep veins: Unremarkable. No DVT in the visualized common femoral, femoral, proximal deep femoral or popliteal veins. The veins demonstrate normal color flow, are normally compressible, with normal phasic flow and/or augmentation response. Superficial veins: Unremarkable. No thrombus in the visualized great saphenous vein. Soft tissues: No acute findings. No popliteal cyst. IMPRESSION: No ultrasonographic evidence of deep venous thrombosis involving the right lower extremity. Electronically signed by: Meagan Short MD 10/12/23 20:56 PM
--- NOTE | 2023-10-13 08:06 | Radiation OncologyConsultation ---
Date of Consultation October 13, 2023 Assessment & Plan (1) Sarcoma of right thigh: Plan Assessment: Ms. 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 The patient was evaluated by Dr. Ramirez from [facility] who recommended preoperative radiation therapy followed by surgical resection. The patient does also follow with Dr. Alba and Dr. Mcpherson from medical oncology. The patient was seen in consultation on 09/15/2023 and the recommendation was for preoperative radiation therapy. The patient did start radiation therapy on 10/05/2023 in the outpatient setting and so far received 4/25 fractions with her last fraction of treatment on 10/08/2023. The patient has been admitted to the hospital due to a fall and other medical problems. I have been asked to evaluate the patient regarding continuation of radiation therapy while in the inpatient setting. Plan: 1. Continue radiation therapy during hospital admission. 2. Defer all other medical care to primary hospital team. 3. Patient and family encouraged to call us with any further questions or concerns. History of Present Illness Attending Physician: Moody Landry MD History of Present Illness 08/09/2023. Patient was hospitalized for generalized weakness and urinary tract infection. She reported that she had a mass of her right thigh. On examination the mass was found to be 16 x 13 x 12 cm. An MRI was ordered. 08/11/2023. MRI of the right femur. There is a 23 x 15 x 11 cm necrotic mass involving the majority of the semimembranosus and semitendinosus muscles with additional edema/enhancement extending superiorly into the proximal hamstring muscles as described above. 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 08/12/2023. Medical oncology consultation (Dr. Mcpherson). Patient has a 23 cm necrotic mass with the radiologic appearance of soft tissue sarcoma. Biopsy was discussed and chest CT recommended. 08/13/2023. Chest CT. No evidence of metastatic disease within the chest. No acute intrathoracic findings. Moderate size hiatal hernia. 08/30/2023. Bone marrow biopsy. Normocellular marrow (30%) with trilineage hematopoiesis No evidence of mild dysplasia or myeloproliferative neoplasm. 08/30/2023. Biopsy of soft tissue of the right thigh. 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 Surgical oncology consultation with Dr. Ramirez. Recommendation is for preoperative radiation therapy followed by surgical resection. 09/08/2023. Medical oncology letter to the oncologic surgeon. Review of path report and finding of high-grade malignancy neoplasm consistent with sarcoma. Necrosis and mitotic figures. 09/15/2023. Radiation oncology consultation. Patient complains of significant discomfort and weakness when she stands up. Unable to get herself up and easily. 10/12/2023. Patient admitted to hospital after fall for multiple medical issues. Allergies Allergy/AdvReac Type Severity Reaction Status Date / Time adhesive tape Allergy Intermediate Blister Verified 10/12/23 15:02 Penicillins Allergy Unknown CHILDHOOD Verified 10/12/23 15:02 ALLERGY Sulfa (Sulfonamide Allergy Unknown FACIAL Verified 10/12/23 15:02 Antibiotics) SWELLING gluten AdvReac Intermediate GI SYMPTOMS Verified 10/12/23 15:02 wheat AdvReac Intermediate eczema and Verified 10/12/23 15:02 stomach ache Home Medications Medication Instructions Recorded Confirmed Type conjugated estrogens 0.625 mg/gram 1 applic vaginal 2XWK 02/11/21 10/12/23 History vaginal cream (Premarin) amlodipine 2.5 mg tablet 2.5 mg PO HS 08/08/23 10/12/23 History cholecalciferol (vitamin D3) 10 400 unit PO QDL 08/08/23 10/12/23 History mcg (400 unit) tablet (Vitamin D3) clindamycin HCl 150 mg capsule 600 mg PO DIRECTED PRN dental 08/08/23 10/12/23 History procedures pantoprazole 40 mg tablet,delayed 40 mg PO DAILYBB 08/08/23 10/12/23 History release acetaminophen 325 mg capsule 325 mg PO QID PRN PAIN/FEVER 09/15/23 10/12/23 History ferrous sulfate 325 mg (65 mg 325 mg PO QDL 09/15/23 10/12/23 History iron) tablet losartan 25 mg tablet 25 mg PO DAILY 09/15/23 10/12/23 History sertraline 50 mg tablet 50 mg PO DAILY 09/15/23 10/12/23 History tramadol 50 mg tablet 50 mg PO Q6H PRN Pain 09/15/23 10/12/23 History aspirin 81 mg chewable tablet 81 mg PO HS 10/12/23 10/12/23 History cyanocobalamin (vitamin B-12) 1,000 mcg PO QDL 10/12/23 10/12/23 History 1,000 mcg tablet (Vitamin B-12) furosemide 20 mg tablet 20 mg PO DAILY 10/12/23 10/12/23 History Patient History Medical History (Updated 10/12/23 @ 21:40 by Olegario Norwood M.D.) Obesity CKD (chronic kidney disease), stage III Chronic back pain Osteoarthritis GERD (gastroesophageal reflux disease) Temporomandibular joint disorder Hypertension Sleep apnea CPAP Asthma LAST USED PRN INH 2-3 MONTHS AGO Surgical History History of cataract extraction with lens replacement RIGHT EYE 12/21/18 [facility] [place] History of total hip arthroplasty LEFT History of cholecystectomy History of esophagogastroduodenoscopy (EGD) History of colonoscopy Social History (Updated 09/15/23 @ 13:28 by Gisel Shen RN) Smoking Status: Never smoker Cigarettes Per Day: QUIT AT AGE 36; Second Hand Exposure: No; Do You Dip or Chew Tobacco: No; Hx Alcohol Use: No Hx Substance Use: No Preferred Language: Amharic 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 Ability: Effective Visual Impairment: No Limitations Hearing Ability: Normal Adult Day Care Worker Required: No Beliefs That Will Affect Care: None Current Living Situation: Family Current Living Situation Comment: brother is currently staying with pt in her own homw current occupational status: retired Other Information That Helps Us Care for You: No Feels Safe at Home: Yes Safety Concerns: Feels Safe At This Time Assistive Devices: Walker and Wheelchair Radiation History Diagnosis: Right Lower Extremity. Pleomorphic neoplasm consistent with a sarcoma. High grade. [id number]. Stage IIIB. Treatment: 10/05/2023 - 10/08/2023. External beam radiation therapy. 02/02 fractions. 200 cGy per fraction. Review of Systems Review of Systems: Patient continues to have difficulty walking. She has generalized fatigue and weakness. Additionally, she does have pain involving her right lower extremity. Physical Exam Physical Exam: Limited examination due to patient immobility. Constitutional: WD/WN, vitals as above Time Spent Attending I spent 15 minutes in preparation for this consultation including reviewing all the clinical records, reviewing laboratory studies, pathology reports and imaging results. I spent 15 minutes with direct face to face interaction with the patient and/or family including performing a physical exam and answering all questions. I spent 15 minutes documenting this patient's visit. PG Care Time/CCT Total # of Minutes Spent Total Time Spent with Patient: Total time spent is greater than 50% in coordination of care (as documented) at patient's floor/unit and/or counseling patient: Coding [place] [address] IN/OBS CONSULT LVL 3,45M Patient Type Established History Problem Focused Exam Problem Focused Medical Decision Making Straight Forward Diagnoses Sarcoma of right thigh C49.21
[2023-10-13] MEDS: PANTOprazole 40 MG TAB PO SCH (08:21)
[2023-10-13] MEDS: cefTRIAXone SODIUM 2,000 MG in DEXTROSE 5 % MINI-B 50 ML IV SCH (09:21)
[2023-10-13] MEDS: ENOXAPARIN INJ 40 MG/0.4 ML SYR SQ SCH ×2 (09:22→20:45)
[2023-10-13] MEDS: LOSARTAN POTASSIUM 25 MG TAB PO SCH (09:22)
[2023-10-13] MEDS: traMADol HCL 50 MG TABLET PO PRN (09:22)
[2023-10-13] MEDS: SERTRALINE HCL 50 MG TABLET PO SCH (09:22)
--- NOTE | 2023-10-13 12:34 | Hospitalist Progress Note ---
Date of Service October 13, 2023 Assessment & Plan (1) Sarcoma of right thigh: (2) Generalized weakness: (3) CKD (chronic kidney disease), stage III: (4) Leukocytosis: (5) NATHALIE (obstructive sleep apnea): (6) Obesity: (7) Elevated troponin: Plan: Generalized weakness weakness Sarcoma R Thigh on XRT -History of newly diagnosed sarcoma of the right thigh, currently undergoing radiation treatment for presurgical tumor reduction, anticipated surgical resection in [facility] [place]. Follows with Dr. Leeann Powell at [facility] [place] and Dr. Layne [facility] with outpatient oncology. CXR-no acute findings, bio fire is negative, Blood culture obtained WBC elevated Continue on IV ceftriaxone empirically for now; will follow-up on blood culture Continue radiation treatment; discussed with oncology PT OT evaluation Lower extremity Edema -Creatinine at 1.18, BUN 18 on admission -Venous duplexnegative for DVT -Home antihypertensive medications include: Amlodipine, losartan, Lasix. Blood pressure well-controlled. Elevated Troponin Likely secondary to demand ischemia EKG shows normal sinus rhythm with PAC High sensitive troponin elevated to 72; up trended to 109 and down trended. Echocardiogram from September 2023 shows EF of 60 to 65% Patient denies any chest pain, palpitation or dizziness. NATHALIE -Continue CPAP at bedtime, will order, patient did not bring CPAP from home DVT PPx: lovenox subq Lines: 2 PIV FEN/GI:HH diet CODE: Full code Dispo: From home, undergoing infectious workup. PT OT evaluation ordered. Time spent evaluating patient, direct bedside care, chart review, placing orders, interpretation of diagnostic studies, discussion with consultants, patient, and family members, as well as other required patient management activities is 60 minutes Please note the above document was generated using voice recognition software. It may contain grammatical, syntax or spelling errors. Any formal questions or concerns about the content, text or information contained within the body of this dictation should be directly addressed to the provider for clarification Admission and Anticipated Discharge Date Admission Date: October 12, 2023 Subjective Patient seen and examined at bedside. She reports generalized weakness and tiredness. No complaint of fever, chills, chest pain, abdominal pain or shortness of breath. Review of Systems Review of Systems: All systems reviewed & are unremarkable except as noted in Subjective Physical Exam Physical Exam: Constitutional: Alert oriented x 3; not in any distress. Respiratory: Bilateral vesicular breath sound. Cardiovascular: RRR, no murmur, no edema Vessels: no JVD or carotid bruit Chest: normal inspection of chest Abdomen: Soft, nontender Musculoskeletal:right posterior thigh indurated Skin: no rashes, warm and dry normal turgor Neurologic: Moves all extremities. PERRLA. EOMI. Psychiatric: A+Ox3, euthymic affect Results & Data Results & Data Vital Signs (Past 12 Hours) Vital Signs Temp Pulse Pulse Resp BP Pulse Ox O2 Del Method 10/13/23 12:06 Room Air 10/13/23 08:11 37.1 C 74 16 124/63 94 Room Air 10/13/23 08:00 Room Air 10/13/23 07:00 73 10/13/23 06:08 Room Air 10/13/23 04:04 64 (4) Leukocytosis Leukocytosis type: unspecified Qualified Code(s): D72.829 - Elevated white blood cell count, unspecified
[2023-10-13] MEDS: FERROUS SULFATE 325 MG TAB PO SCH (13:49)
[2023-10-13] MEDS: CYANOCOBALAMIN (B-12) 500 MCG TABLET PO SCH (13:49)
[2023-10-13] MEDS: ACETAMINOPHEN 500 MG TAB PO PRN (15:05)
[2023-10-13] MEDS: oxyCODONE HCL IR 5 MG TAB (IMMEDIATE RELEASE) PO PRN (18:32)
[2023-10-13] MEDS: amLODIPine BESYLATE 5 MG TAB PO SCH (20:43)
[2023-10-13] MEDS: ASPIRIN 81 MG ECTAB PO SCH (20:43)
[2023-10-13 23:47] LABS: Appearance Urine Cloudy (Clear); Bacteria Urine Automated Negative (Negative); Bilirubin Urine Negative (Negative); Blood Urine Trace (Negative); Color Urine Yellow; Epithelial Cell Urine Auto 0-5 /lpf (0-5); Glucose Urine UA Negative (Negative); Ketones Urine Negative (Negative); Leukocyte Esterase Urine 2+ (Negative); Nitrite Urine Negative (Negative); Protein Urine Trace (Negative); Specific Gravity Urine 1.018 (1.000-1.030); Urobilinogen Urine Negative (Negative); WBC Urine Automated >30 /hpf (0-5); pH Urine 5.5 (4.5-7.5)
[2023-10-14 00:02] LABS: Urine Potassium 33.6 mmol/L
[2023-10-14 00:20] LABS: RBC Urine Automated 0-4 /hpf (0-4)
[2023-10-14] MEDS: PANTOprazole 40 MG TAB PO SCH (06:18)
[2023-10-14 07:22] LABS: Basophils # (auto) 0.08 K/uL (0.00-0.20); Basophils % (auto) 0.7 %; Eosinophils # (auto) 0.29 K/uL (0.00-0.50); Eosinophils % (auto) 2.6 %; Hematocrit (blood only) 24.8 % (37.0-47.0); Hemoglobin 8.1 g/dl (12.0-16.0); Immature Granulocytes # (auto) 0.14 K/uL (0.01-0.20); Immature Granulocytes % (auto) 1.3 %; Lymphocytes # (auto) 1.09 K/uL (1.20-3.40); Lymphocytes % (auto) 9.9 %; Mean Corpuscular Hemoglobin 25.7 pg (25.0-34.0); Mean Corpuscular Hgb Conc 32.7 g/dL (32.0-36.0); Mean Corpuscular Volume 78.7 fL (80.0-100.0); Mean Platelet Volume 9.5 fL (9.4-12.4); Monocytes # (auto) 1.46 K/uL (0.11-0.59); Monocytes % (auto) 13.3 %; Neutrophils % (auto) 72.2 %; Platelet Count 407 K/uL (130-400); RDW Coefficient of Variation 15.9 % (11.5-14.5); RDW Standard Deviation 45.6 fL (36.4-46.3); Red Blood Count 3.15 M/uL (4.20-5.40); White Blood Count 10.96 K/ul (4.8-10.8)
[2023-10-14 07:47] LABS: BUN Creatinine Ratio 17.6 (10-20); Calcium 7.9 mg/dl (8.6-10.3); Creatinine Clr Calc Pharmacy 54.1 ml/min; Est GFR (African American) 61.9 ml/min; Est GFR (Non-African American) 53.4 ml/min; Potassium 3.6 mmol/L (3.5-5.1)
[2023-10-14] MEDS: ENOXAPARIN INJ 40 MG/0.4 ML SYR SQ SCH ×2 (08:41→20:59)
[2023-10-14] MEDS: LOSARTAN POTASSIUM 25 MG TAB PO SCH (08:42)
[2023-10-14] MEDS: SERTRALINE HCL 50 MG TABLET PO SCH (08:42)
[2023-10-14] MEDS: cefTRIAXone SODIUM 2,000 MG in DEXTROSE 5 % MINI-B 50 ML IV SCH (08:43)
[2023-10-14] MEDS: CYANOCOBALAMIN (B-12) 500 MCG TABLET PO SCH (10:56)
[2023-10-14] MEDS: FERROUS SULFATE 325 MG TAB PO SCH (10:57)
--- NOTE | 2023-10-14 12:38 | Hospitalist Progress Note ---
Date of Service October 14, 2023 Assessment & Plan (1) Sarcoma of right thigh: (2) Generalized weakness: (3) CKD (chronic kidney disease), stage III: (4) Leukocytosis: (5) NATHALIE (obstructive sleep apnea): (6) Obesity: (7) Elevated troponin: Plan: Generalized weakness weakness Sarcoma R Thigh on XRT -History of newly diagnosed sarcoma of the right thigh, currently undergoing radiation treatment for presurgical tumor reduction, anticipated surgical resection in [facility] [place]. Follows with Dr. Leeann Powell at [facility] and Dr. Layne [facility] with outpatient oncology. CXR-no acute findings, bio fire is negative, Blood culture no growth in 24 hours Urine culture pending Continue on IV ceftriaxone empirically for now; will follow-up on urine culture Continue radiation treatment; discussed with radiation oncology PT OT evaluation Lower extremity Edema -Venous duplexnegative for DVT -Home antihypertensive medications include: Amlodipine, losartan, Lasix. Blood pressure well-controlled. Elevated Troponin Likely secondary to demand ischemia EKG shows normal sinus rhythm with PAC High sensitive troponin elevated to 72; up trended to 109 and down trended. Echocardiogram from September 2023 shows EF of 60 to 65% Patient denies any chest pain, palpitation or dizziness. Repeat EKG shows normal sinus rhythm with no ST or T wave changes. NATHALIE -Continue CPAP at bedtime, will order, patient did not bring CPAP from home DVT PPx: lovenox subq Lines: 2 PIV FEN/GI:HH diet CODE: Full code Dispo: From home, undergoing infectious workup. PT OT evaluation ordered. Will likely need rehab. Please note the above document was generated using voice recognition software. It may contain grammatical, syntax or spelling errors. Any formal questions or concerns about the content, text or information contained within the body of this dictation should be directly addressed to the provider for clarification Admission and Anticipated Discharge Date Admission Date: October 12, 2023 Subjective Patient seen and examined at bedside. She is lying in the bed comfortably. She denies fever, chills, chest pain, shortness of breath. Review of Systems Review of Systems: All systems reviewed & are unremarkable except as noted in Subjective Physical Exam Physical Exam: Constitutional: Alert oriented x 3; not in any distress. Respiratory: Bilateral vesicular breath sound. Cardiovascular: RRR, no murmur, no edema Vessels: no JVD or carotid bruit Chest: normal inspection of chest Abdomen: Soft, nontender Musculoskeletal:right posterior thigh indurated Skin: no rashes, warm and dry normal turgor Neurologic: Moves all extremities. PERRLA. EOMI. Psychiatric: A+Ox3, euthymic affect Results & Data Results & Data Vital Signs (Past 12 Hours) Vital Signs Temp Pulse Pulse Pulse Resp BP Pulse Ox 10/14/23 08:12 37.1 C 84 18 124/68 92 10/14/23 07:15 94 H 10/14/23 03:14 36.9 C 73 18 143/72 H 91 O2 Del Method 10/14/23 08:12 Room Air 10/14/23 07:15 10/14/23 03:14 Room Air (4) Leukocytosis Leukocytosis type: unspecified Qualified Code(s): D72.829 - Elevated white blood cell count, unspecified
[2023-10-14] MEDS: GABAPENTIN 100 MG CAP PO SCH ×2 (13:11→20:59)
--- NOTE | 2023-10-14 14:58 | Electrocardiogram Report ---
Test Reason : Blood Pressure : / mmHG Vent. Rate : 080 BPM Atrial Rate : 080 BPM P-R Int : 166 ms QRS Dur : 088 ms QT Int : 386 ms P-R-T Axes : 061 045 030 degrees QTc Int : 445 ms Normal sinus rhythm Normal ECG When compared with ECG of 12-OCT-2023 12:34, Premature atrial complexes are no longer Present Confirmed by Howard Ngo ([id number]) on 10/14/2023 2:58:10 PM Referred By: REFERRED SELF Confirmed By:Howard Ngo
[2023-10-14] MEDS: traMADol HCL 50 MG TABLET PO PRN (15:09)
--- NOTE | 2023-10-14 16:42 | Oncology Consultation ---
Date of Consultation October 14, 2023 Assessment & Plan (1) Sarcoma of right thigh: From medical oncology standpoint we will continue to follow the patient. At this point no active interventions have been recommended from a medical oncology standpoint this includes chemotherapy. This is keeping in mind that the patient is being followed by our surgical oncology colleagues in [place] and is currently under treatment for the sarcoma with radiation. Rest of the medical care per hospital internal medicine colleagues Plan Medical oncology will continue to follow the patient and make appropriate recommendations as needed. 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 Her other medical issues include CKD stage III, chronic back pain, osteoarthritis. She had been having some difficulty walking. She had some generalized fatigue and weakness. She was admitted to the hospital given IV fluids. She has previously been evaluated by Dr. Ramirez at [facility] and the recommendation has been preoperative radiation before she undertakes the patient for surgery. She is also seen my colleague Dr. Mauricio previously. At this point there were no indication that the patient be started on any kind of palliative systemic chemotherapy or neoadjuvant chemotherapy. The patient has been complaining of fatigue, weakness and tired ness. She has low energy. During my interview she was lying comfortably in the bed, she had started radiation therapy with the radiation colleagues. Allergies Allergy/AdvReac Type Severity Reaction Status Date / Time adhesive tape Allergy Intermediate Blister Verified 10/12/23 15:02 Penicillins Allergy Unknown CHILDHOOD Verified 10/12/23 15:02 ALLERGY Sulfa (Sulfonamide Allergy Unknown FACIAL Verified 10/12/23 15:02 Antibiotics) SWELLING gluten AdvReac Intermediate GI SYMPTOMS Verified 10/12/23 15:02 wheat AdvReac Intermediate eczema and Verified 10/12/23 15:02 stomach ache Home Medications Medication Instructions Recorded Confirmed Type conjugated estrogens 0.625 mg/gram 1 applic vaginal 2XWK 02/11/21 10/12/23 History vaginal cream (Premarin) amlodipine 2.5 mg tablet 2.5 mg PO HS 08/08/23 10/12/23 History cholecalciferol (vitamin D3) 10 400 unit PO QDL 08/08/23 10/12/23 History mcg (400 unit) tablet (Vitamin D3) clindamycin HCl 150 mg capsule 600 mg PO DIRECTED PRN dental 08/08/23 10/12/23 History procedures pantoprazole 40 mg tablet,delayed 40 mg PO DAILYBB 08/08/23 10/12/23 History release acetaminophen 325 mg capsule 325 mg PO QID PRN PAIN/FEVER 09/15/23 10/12/23 History ferrous sulfate 325 mg (65 mg 325 mg PO QDL 09/15/23 10/12/23 History iron) tablet losartan 25 mg tablet 25 mg PO DAILY 09/15/23 10/12/23 History sertraline 50 mg tablet 50 mg PO DAILY 09/15/23 10/12/23 History tramadol 50 mg tablet 50 mg PO Q6H PRN Pain 09/15/23 10/12/23 History aspirin 81 mg chewable tablet 81 mg PO HS 10/12/23 10/12/23 History cyanocobalamin (vitamin B-12) 1,000 mcg PO QDL 10/12/23 10/12/23 History 1,000 mcg tablet (Vitamin B-12) furosemide 20 mg tablet 20 mg PO DAILY 10/12/23 10/12/23 History Patient History Medical History (Updated 10/12/23 @ 21:40 by Olegario Norwood M.D.) Obesity CKD (chronic kidney disease), stage III Chronic back pain Osteoarthritis GERD (gastroesophageal reflux disease) Temporomandibular joint disorder Hypertension Sleep apnea CPAP Asthma LAST USED PRN INH 2-3 MONTHS AGO Surgical History History of cataract extraction with lens replacement RIGHT EYE 12/21/18 [facility] History of total hip arthroplasty LEFT History of cholecystectomy History of esophagogastroduodenoscopy (EGD) History of colonoscopy Social History (Updated 09/15/23 @ 13:28 by Gisel Shen RN) Smoking Status: Never smoker Cigarettes Per Day: QUIT AT AGE 36; Second Hand Exposure: No; Do You Dip or Chew Tobacco: No; Hx Alcohol Use: No Hx Substance Use: No Preferred Language: Afghan 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 Ability: Effective Visual Impairment: No Limitations Hearing Ability: Normal Corporate Human Resources Manager Required: No Beliefs That Will Affect Care: None Current Living Situation: Family Current Living Situation Comment: brother is currently staying with pt in her own homw current occupational status: retired Other Information That Helps Us Care for You: No Feels Safe at Home: Yes Safety Concerns: Feels Safe At This Time Assistive Devices: Cane, CPAP, Raised Toilet Seat and Walker Results & Data Vital Signs (Past 12 Hours) Vital Signs Temp Pulse Pulse Pulse Resp BP Pulse Ox 10/14/23 15:48 37.2 C 79 18 122/71 92 10/14/23 09:25 10/14/23 08:12 37.1 C 84 18 124/68 92 10/14/23 07:15 94 H O2 Del Method 10/14/23 15:48 Room Air 10/14/23 09:25 Room Air 10/14/23 08:12 Room Air 10/14/23 07:15
[2023-10-14 17:02] LABS: A calco-baum cmplx NotReported Not Detected (NotDetected); Bact fragilis Not Reported Not Detected (NotDetected); Blood Culture Id Panel PCR Panel Negative (NotDetected); C auris Not Reported Not Detected (NotDetected); Calbicans Not Reported Not Detected (NotDetected); Candida glabrata Not Reported Not Detected (NotDetected); Candida krusei Not Reported Not Detected (NotDetected); Cneoformans/gatti Not Reported Not Detected (NotDetected); Cparapsilosis Not Reported Not Detected (NotDetected); E cloacae compx Not Reported Not Detected (NotDetected); Efaecalis Not Reported Not Detected (NotDetected); Efaecium Not Reported Not Detected (NotDetected); Enterobacterales Not Reported Not Detected (NotDetected); Escherichia coli Not Reported Not Detected (NotDetected); H influenzae Not Reported Not Detected (NotDetected); K aerogenes Not Reported Not Detected (NotDetected); Koxytoca Not Reported Not Detected (NotDetected); Kpneumoniae grp Not Reported Not Detected (NotDetected); Lmonocyt Not Reported Not Detected (NotDetected); N meningitidis Not Reported Not Detected (NotDetected); P aeruginosa Not Reported Not Detected (NotDetected); Proteus spp Not Reported Not Detected (NotDetected); Salmonella spp Not Reported Not Detected (NotDetected); Smarcescens Not Reported Not Detected (NotDetected); Staph lugdunensis Not Reported Not Detected (NotDetected); Staph spp. Not Reported Not Detected (NotDetected); Staphaureus Not Reported Not Detected (NotDetected); Staphepi Not Reported Not Detected (NotDetected); Stenmaltophilia Not Reported Not Detected (NotDetected); Strep agal(GrpB) Not Reported Not Detected (NotDetected); Strep pneum Not Reported Not Detected (NotDetected); Strep pyog (GrpA) Not Reported Not Detected (NotDetected); Strep spp Not Reported Not Detected (NotDetected)
[2023-10-14] MEDS: ASPIRIN 81 MG ECTAB PO SCH (20:59)
[2023-10-14] MEDS: amLODIPine BESYLATE 5 MG TAB PO SCH (20:59)
[2023-10-15] MEDS: PANTOprazole 40 MG TAB PO SCH (05:18)
[2023-10-15 07:27] LABS: Basophils # (auto) 0.08 K/uL (0.00-0.20); Basophils % (auto) 0.7 %; Eosinophils # (auto) 0.28 K/uL (0.00-0.50); Eosinophils % (auto) 2.3 %; Hematocrit (blood only) 27.5 % (37.0-47.0); Hemoglobin 8.7 g/dl (12.0-16.0); Immature Granulocytes # (auto) 0.13 K/uL (0.01-0.20); Immature Granulocytes % (auto) 1.1 %; Lymphocytes # (auto) 1.25 K/uL (1.20-3.40); Lymphocytes % (auto) 10.3 %; Mean Corpuscular Hemoglobin 25.7 pg (25.0-34.0); Mean Corpuscular Hgb Conc 31.6 g/dL (32.0-36.0); Mean Corpuscular Volume 81.1 fL (80.0-100.0); Mean Platelet Volume 9.6 fL (9.4-12.4); Monocytes # (auto) 1.69 K/uL (0.11-0.59); Neutrophils # (auto) 8.66 K/uL (1.40-6.50); Neutrophils % (auto) 71.6 %; Platelet Count 424 K/uL (130-400); RDW Coefficient of Variation 15.8 % (11.5-14.5); RDW Standard Deviation 46.6 fL (36.4-46.3); Red Blood Count 3.39 M/uL (4.20-5.40); White Blood Count 12.09 K/ul (4.8-10.8)
[2023-10-15 07:44] LABS: BUN Creatinine Ratio 18.4 (10-20); Calcium 8.1 mg/dl (8.6-10.3); Creatinine Clr Calc Pharmacy 53.6 ml/min; Est GFR (African American) 61.2 ml/min; Est GFR (Non-African American) 52.8 ml/min; Potassium 3.8 mmol/L (3.5-5.1)
[2023-10-15] MEDS: GABAPENTIN 100 MG CAP PO SCH ×3 (07:58→20:39)
[2023-10-15] MEDS: LOSARTAN POTASSIUM 25 MG TAB PO SCH (07:59)
[2023-10-15] MEDS: SERTRALINE HCL 50 MG TABLET PO SCH (07:59)
[2023-10-15] MEDS: ENOXAPARIN INJ 40 MG/0.4 ML SYR SQ SCH ×2 (08:00→20:41)
[2023-10-15] MEDS: cefTRIAXone SODIUM 2,000 MG in DEXTROSE 5 % MINI-B 50 ML IV SCH (09:11)
--- NOTE | 2023-10-15 11:49 | Palliative Care Consultation ---
Date of Consultation October 15, 2023 Assessment & Plan (1) Cancer related pain: for now no change desired to tramadol but wanted to know about med options to escalate to as needed in future, we discussed the opioid escalation protocol and how meds may be chosen for her pain complex (2) Dry skin: add cerave or aquaphor daily/order written (3) Generalized weakness: agreeable to rehab trial with goal of optimizing prior to surgery (4) Impaired mobility: (5) Advanced care planning/counseling discussion: 65min face to face ACP discussion with pt She is close with her brother who is 9yr younger. He is a mechanical engineering lecturer and very detail focused. She states he has had hard time discussing anything potentially negative and keeps telling her to stay optimistic.This is distressing bc she feels no one is letting her share her fears or acknowledge them. We spent 30 min speaking of her concerns,worries and fears. We normalized her worries, reviewed she is dealing with a very rare cancer that is taking a lot from her and she added that there is also her age as a factor to consider. She tells me she believes her body is too weak for this illness and she will not survive her cancer there was brief mention of poss amputation in prior discussions with Dr Mcpherson and this has worried her - she is not sure she would want an amputation - her whole life would change and she would not have control over where to live and how to live on her own. Her brother works furnace liner, as does his and they cannot provide ATC care for pt plus pt states she knows her body habitus makes caring for a physical challenge. We spoke about code status. For now she wants to try CPR in hopes that she can get to surgery. She notes that if her disease progresses/she declines/surgery is no longer an option then she would not want CPR and would desire a move to comfort care at [facility]. She does not want home hospice, does not want to burden family. (6) Palliative care by specialist: Met with pt/family. Provided overview of Palliative Medicine, a subspecialty that provides specialized medical care for people living with a serious illness by offering a focus on quality of life. Palliative Medicine is often conflated with hospice: I advised patient/family that Palliative and hospice can be partners but we are not the same. It is important to understand the difference so that we may be informed, and not afraid. Palliative Medicine works to improve QOL through reduction of symptom burden/more control over their illness, for both the patient and family. Palliative medicine clinicians are board certified, specially-trained and another member of the patient's medical care team. We often provide an extra layer of support because our care is based on the needs of the patient, not the prognosis; as such, it's appropriate at any age/advancing stage of a serious illness and can be provided along with curative treatment. Palliative Medicine clinicians are also trained in advanced communication methodologies, to facilitate complex discussions about advanced illness planning, which are needed to help assure that the treatment choices match the patient's goals, aka delivering Goal Concordant care. Finally, we discussed that hospice is a visiting nurse service that focuses on care delivered at the very end of life for patients with terminal illness, with life expectancy less than 6 month. (7) Sarcoma of right thigh: Plan * extensive psychosocial counseling and support today * no change to current pain regimen per her pref * she would like to follow with me in OP Pall med clinic for ongoing care * She is thinking about code status further but for now remains full code * ACP discussion above * Agreeable to SNF rehab trial with goal of optimizing for surgery, wants to complete RT and move forward with surgery expeditiously in hopes that it won't lead to needing amputation which she isn't sure she would be agreeable to at this time. * She asks that providers be more open about her prognosis, ask her how she is feeling/what worries her/care about her emotional health as well as the physical and also, when offering interventions, give more info about what that tx will do for her versus it being something providers want to do to her. * I advised her we will make [facility] Pall [facility]/Dr Lynn Bourgeois aware of pt case when her surgery time is nearing, to assure continued pall care collaboration during admission/recovery. She was very comforted by this plan. Thank you for allowing us to participate in the ongoing care of this patient. Please don't hesitate to call or page with any additional concerns. Dr. 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 She is currently under the care of with Antoinette Ramirez and Parth at [facility] for this and for now, no medical onc reccs have been made. 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 She has been getting progressively weaker and more fatigues along with trouble walking Excellent Oncology Hx from Dr Grullon's 10/13/23 Rad Onc note as follows: 08/09/2023. Patient was hospitalized for generalized weakness and urinary tract infection. She reported that she had a mass of her right thigh. On examination the mass was found to be 16 x 13 x 12 cm. An MRI was ordered. 08/11/2023. MRI of the right femur. There is a 23 x 15 x 11 cm necrotic mass involving the majority of the semimembranosus and semitendinosus muscles with additional edema/enhancement extending superiorly into the proximal hamstring muscles as described above. 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 08/12/2023. Medical oncology consultation (Dr. Mcpherson). Patient has a 23 cm necrotic mass with the radiologic appearance of soft tissue sarcoma. Biopsy was discussed and chest CT recommended. 08/13/2023. Chest CT. No evidence of metastatic disease within the chest. No acute intrathoracic findings. Moderate size hiatal hernia. 08/30/2023. Bone marrow biopsy. Normocellular marrow (30%) with trilineage hematopoiesis No evidence of mild dysplasia or myeloproliferative neoplasm. 08/30/2023. Biopsy of soft tissue of the right thigh. Case #: [id number] Collected: 08/30/23 Received: 08/30/23 FINAL DIAGNOSIS Soft tissue, right thigh, 23 cm tumor mass, core biopsy: - High-grade pleomorphic neoplasm consistent with a sarcoma 09/06/2023. Surgical oncology consultation with Dr. Ramirez. Recommendation is for preoperative radiation therapy followed by surgical resection. 09/08/2023. Medical oncology letter to the oncologic surgeon. Review of path report and finding of high-grade malignancy neoplasm consistent with sarcoma. Necrosis and mitotic figures. 09/15/2023. Radiation oncology consultation. Patient complains of significant discomfort and weakness when she stands up. Unable to get herself up and easily. 10/12/2023. Patient admitted to hospital after fall for multiple medical issues. Allergies Allergy/AdvReac Type Severity Reaction Status Date / Time adhesive tape Allergy Intermediate Blister Verified 10/12/23 15:02 Penicillins Allergy Unknown CHILDHOOD Verified 10/12/23 15:02 ALLERGY Sulfa (Sulfonamide Allergy Unknown FACIAL Verified 10/12/23 15:02 Antibiotics) SWELLING gluten AdvReac Intermediate GI SYMPTOMS Verified 10/12/23 15:02 wheat AdvReac Intermediate eczema and Verified 10/12/23 15:02 stomach ache Home Medications Medication Instructions Recorded Confirmed Type conjugated estrogens 0.625 mg/gram 1 applic vaginal 2XWK 02/11/21 10/12/23 History vaginal cream (Premarin) amlodipine 2.5 mg tablet 2.5 mg PO HS 08/08/23 10/12/23 History cholecalciferol (vitamin D3) 10 400 unit PO QDL 08/08/23 10/12/23 History mcg (400 unit) tablet (Vitamin D3) clindamycin HCl 150 mg capsule 600 mg PO DIRECTED PRN dental 08/08/23 10/12/23 History procedures pantoprazole 40 mg tablet,delayed 40 mg PO DAILYBB 08/08/23 10/12/23 History release acetaminophen 325 mg capsule 325 mg PO QID PRN PAIN/FEVER 09/15/23 10/12/23 History ferrous sulfate 325 mg (65 mg 325 mg PO QDL 09/15/23 10/12/23 History iron) tablet losartan 25 mg tablet 25 mg PO DAILY 09/15/23 10/12/23 History sertraline 50 mg tablet 50 mg PO DAILY 09/15/23 10/12/23 History tramadol 50 mg tablet 50 mg PO Q6H PRN Pain 09/15/23 10/12/23 History aspirin 81 mg chewable tablet 81 mg PO HS 10/12/23 10/12/23 History cyanocobalamin (vitamin B-12) 1,000 mcg PO QDL 10/12/23 10/12/23 History 1,000 mcg tablet (Vitamin B-12) furosemide 20 mg tablet 20 mg PO DAILY 10/12/23 10/12/23 History Patient History Medical History (Updated 10/15/23 @ 23:04 by Molly Gill DNP) Obesity CKD (chronic kidney disease), stage III Chronic back pain Osteoarthritis GERD (gastroesophageal reflux disease) Temporomandibular joint disorder Hypertension Sleep apnea CPAP Asthma LAST USED PRN INH 2-3 MONTHS AGO Surgical History History of cataract extraction with lens replacement RIGHT EYE 12/21/18 [facility] History of total hip arthroplasty LEFT History of cholecystectomy History of esophagogastroduodenoscopy (EGD) History of colonoscopy Social History (Updated 09/15/23 @ 13:28 by Gisel Shen, YVAN) Smoking Status: Never smoker Cigarettes Per Day: QUIT AT AGE 36; Second Hand Exposure: No; Do You Dip or Chew Tobacco: No; Hx Alcohol Use: No Hx Substance Use: No Preferred Language: Mohawk 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 Ability: Effective Visual Impairment: No Limitations Hearing Ability: Normal Appeals Specialist Required: No Beliefs That Will Affect Care: None Current Living Situation: Family Current Living Situation Comment: brother is currently staying with pt in her own homw current occupational status: retired Other Information That Helps Us Care for You: No Feels Safe at Home: Yes Safety Concerns: Feels Safe At This Time Assistive Devices: Cane, CPAP, Raised Toilet Seat and Walker Review of Systems Review of Systems: All systems reviewed & are unremarkable except as noted in Subjective Physical Exam Constitutional: WD/WN, vitals as above Eyes: PERRL, conjunctivae normal, anicteric sclerae ENMT: Mouth: + dry oral mucous membranes and + poor dentition Neck: trachea midline, no thyromegaly Respiratory: normal respiratory effort, lungs clear to auscultation Cardiovascular: RRR, no murmur, no edema Gastrointestinal (Abdomen): Inspection/Auscultation: normal bowel sounds and + significant pannus Musculoskeletal: posterior right thigh with large, firm and at times tender mass extending down the back of right thigh to above knee mild induration noted Skin: pale dry flaking skin, ab over lower extremities papery skin Neurologic: AAOx3 Psychiatric: anxious Results & Data Vital Signs (Past 12 Hours) Vital Signs Temp Pulse Pulse Pulse Resp BP Pulse Ox 10/15/23 10:22 10/15/23 09:10 36.8 C 74 19 115/69 91 01/05/24 07:56 36.9 C 88 21 143/79 H 93 10/15/23 05:57 96 H 10/15/23 03:40 37.3 C 86 18 130/77 92 O2 Del Method 10/15/23 10:22 Room Air 10/15/23 09:10 Room Air 10/15/23 07:56 Room Air 10/15/23 05:57 10/15/23 03:40 Room Air Laboratory Results data reviewed, see HPI Diagnostic Findings data reviewed, see HPI PG Care Time/CCT Total # of Minutes Spent Total Time Spent: 150 Total Time Spent with Patient: Total time spent is greater than 50% in coordination of care (as documented) at patient's floor/unit and/or counseling patient: I spent 150 minutes overall addressing this very complex case: 25 min in medical data review/discussion with referring provider(s) and/or preparation for the visit which included extensive OSH data review and [facility] EMR Link review 30 min in direct interaction with the patient/exam 65 min in Advance Care Planning/Goals of Care discussions as detailed above in note (must be >16min) 15 min in subsequent review and synthesis of assessment and plan 15 min communicating with other providers regarding the patient's case: Prolonged Care Time Prolonged Care Time: Yes Advanced Care Planning 04722 Advanced Care Planning 30 Min 89850 Advanced Care Planning Additional 30 [place] [address] IN/OBS CONSULT LVL 5,80M Patient Type New History Comprehensive Exam Comprehensive Medical Decision Making High Complexity Diagnoses Cancer related pain G89.3 Dry skin L85.3 Generalized weakness R53.1 Impaired mobility Z74.09 Advanced care planning/counseling discussion Z71.89 Palliative care by specialist Z51.5 Sarcoma of right thigh C49.21 Additional Codes Advanced Care Planning - 82541 Advanced Care Planning 30 Min: 03727 Advanced Care Planning 30 Min ([id number]) Advanced Care Planning - 45280 Advanced Care Planning Additional 30 Min: 45135 Advanced Care Planning Additional 30 Min ([id number]) Prolonged Care Time - Prolonged Care Time: Yes ([id number])
--- NOTE | 2023-10-15 12:02 | Hospitalist Progress Note ---
Date of Service October 15, 2023 Assessment & Plan (1) Sarcoma of right thigh: (2) Generalized weakness: (3) CKD (chronic kidney disease), stage III: (4) Leukocytosis: (5) NATHALIE (obstructive sleep apnea): (6) Obesity: (7) Elevated troponin: Plan: Generalized weakness weakness Sarcoma R Thigh on XRT -History of newly diagnosed sarcoma of the right thigh, currently undergoing radiation treatment for presurgical tumor reduction, anticipated surgical resection in [facility]. Follows with Dr. Leeann Powell at [facility] and Dr. Layne [facility] with outpatient oncology. CXR-no acute findings, bio fire is negative, Blood culture from 10/31 out of 4 growing gram positive bacilli. Urine culture pending Continue on IV ceftriaxone for now. Repeating blood culture ordered given the culture from 10/12/2023. Discussed with microbiology; likely Corynebacterium species. Patient had Corynebacterium species in blood culture in July. Will consult infectious disease to get further recommendation. MRI Brain wo contrast ordered to rule out stroke as cause for weakness. Continue radiation treatment; discussed with radiation oncology PT OT evaluation Lower extremity Edema -Venous duplexnegative for DVT -Home antihypertensive medications include: Amlodipine, losartan, Lasix. Blood pressure well-controlled. -Obtain soft tissue US of left leg induration. Elevated Troponin Likely secondary to demand ischemia EKG shows normal sinus rhythm with PAC High sensitive troponin elevated to 72; up trended to 109 and down trended. Echocardiogram from September 2023 shows EF of 60 to 65% Patient denies any chest pain, palpitation or dizziness. Repeat EKG shows normal sinus rhythm with no ST or T wave changes. NATHALIE -Continue CPAP at bedtime, will order, patient did not bring CPAP from home DVT PPx: lovenox subq Lines: 2 PIV FEN/GI:HH diet CODE: Full code Dispo: From home, undergoing infectious workup. will need rehab. Time spent evaluating patient, direct bedside care, chart review, placing orders, interpretation of diagnostic studies, discussion with consultants, patient, and family members, as well as other required patient management acti shoshana is 50 minutes. Please note the above document was generated using voice recognition software. It may contain grammatical, syntax or spelling errors. Any formal questions or concerns about the content, text or information contained within the body of this dictation should be directly addressed to the provider for clarification Admission and Anticipated Discharge Date Admission Date: October 12, 2023 Subjective Patient seen and examined at bedside. She continues to report weakness. Evaluated by OT; recommend rehab. Review of Systems Review of Systems: All systems reviewed & are unremarkable except as noted in Subjective Physical Exam Physical Exam: Constitutional: Alert oriented x 3; not in any distress. Respiratory: Bilateral vesicular breath sound. Cardiovascular: RRR, no murmur, no edema Vessels: no JVD or carotid bruit Chest: normal inspection of chest Abdomen: Soft, nontender Musculoskeletal:right posterior thigh indurated. Left calf has indurated lesion. Overlying skin is dark and indurated. Skin: no rashes, warm and dry normal turgor Neurologic: Moves all extremities. PERRLA. EOMI. Psychiatric: A+Ox3, euthymic affect Results & Data Results & Data Vital Signs (Past 12 Hours) Vital Signs Temp Pulse Pulse Pulse Resp BP Pulse Ox 10/15/23 10:22 10/15/23 09:10 36.8 C 74 19 115/69 91 10/15/23 07:56 36.9 C 88 21 143/79 H 93 10/15/23 05:57 96 H 10/15/23 03:40 37.3 C 86 18 130/77 92 O2 Del Method 10/15/23 10:22 Room Air 10/15/23 09:10 Room Air 10/15/23 07:56 Room Air 10/15/23 05:57 10/15/23 03:40 Room Air (4) Leukocytosis Leukocytosis type: unspecified Qualified Code(s): D72.829 - Elevated white blood cell count, unspecified
[2023-10-15] MEDS: CYANOCOBALAMIN (B-12) 500 MCG TABLET PO SCH (12:46)
[2023-10-15] MEDS: FERROUS SULFATE 325 MG TAB PO SCH (12:46)
--- NOTE | 2023-10-15 15:42 | Ultrasound Report ---
US soft tissue ext ltd CLINICAL HISTORY: Left leg( calf area). Left calf pain. COMPARISON STUDY: None. FINDINGS: Real-time sonographic imaging of the left lower leg was performed with access services representative image s submitted. There is a subcutaneous complex avascular hypoechoic collection within the left calf at the patient's area of interest. This measures approximately 4.6 x 3.7 x 0.6 cm. This favors a subcuta neous hematoma. There is increased echogenicity of the surrounding fat. No increased color flow to rodriguez ggest underlying infection at this time. IMPRESSION: There is a subcutaneous complex avascular hypoechoic collection within the left calf at the patient's area of interest. This measures approximately 4.6 x 3.7 x 0.6 cm and favors a subcutane ous hematoma. ACT 112: Negative or not required by law. Electronically signed by: Xavier Montano M.D. 10/15/2023 3:39 PM
[2023-10-15] MEDS: oxyCODONE HCL IR 5 MG TAB (IMMEDIATE RELEASE) PO PRN (20:39)
[2023-10-15] MEDS: ASPIRIN 81 MG ECTAB PO SCH (20:42)
[2023-10-15] MEDS: amLODIPine BESYLATE 5 MG TAB PO SCH (20:42)
--- NOTE | 2023-10-15 22:14 | Magnetic Resonance Report ---
Exam(s): MRI HEAD Without Contrast EXAM: MR Head Without Intravenous Contrast CLINICAL HISTORY: Reason for exam: Rule out stroke. TECHNIQUE: Magnetic resonance images of the head/brain without intravenous contrast in multiple planes. COMPARISON: 02/11/2021. FINDINGS: Brain: Age-appropriate central and peripheral atrophy. No acute stroke. Slight increase in symmetric hyperintense signal on T2-weighted images with the bilateral globus pallidus. 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 Moderate degree of supratentorial periventricular and subcortical white matter hyperintensities on FLAIR and T2-weighted images. No hemorrhage. Ventricles: No midline shift. No ventriculomegaly. Bones/joints: Unremarkable. No acute fracture. Sinuses: Unremarkable as visualized. No acute sinusitis. Mastoid air cells: Unremarkable as visualized. No mastoid effusion. Orbits: Unremarkable as visualized. IMPRESSION: 1. No acute stroke or hemorrhage. 2. Slight increase in symmetric abnormal signal intensity in the bilateral globus pallidus. Appearance is nonspecific and may be seen with toxic/metabolic disorders. 3. 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 4. Nonspecific white matter changes most commonly seen with small vessel disease. Electronically signed by: Mike Tadeo M.D. 10/15/23 22:13 PM
[2023-10-16] MEDS: PANTOprazole 40 MG TAB PO SCH ×2 (06:31→22:04)
[2023-10-16 07:12] LABS: Basophils # (auto) 0.05 K/uL (0.00-0.20); Basophils % (auto) 0.4 %; Eosinophils % (auto) 2.6 %; Hematocrit (blood only) 25.7 % (37.0-47.0); Hemoglobin 8.3 g/dl (12.0-16.0); Immature Granulocytes # (auto) 0.13 K/uL (0.01-0.20); Immature Granulocytes % (auto) 1.1 %; Lymphocytes # (auto) 0.77 K/uL (1.20-3.40); Lymphocytes % (auto) 6.6 %; Mean Corpuscular Hemoglobin 25.8 pg (25.0-34.0); Mean Corpuscular Hgb Conc 32.3 g/dL (32.0-36.0); Mean Corpuscular Volume 79.8 fL (80.0-100.0); Mean Platelet Volume 9.9 fL (9.4-12.4); Monocytes % (auto) 12.1 %; Neutrophils # (auto) 8.95 K/uL (1.40-6.50); Neutrophils % (auto) 77.2 %; Platelet Count 410 K/uL (130-400); RDW Coefficient of Variation 15.7 % (11.5-14.5); RDW Standard Deviation 45.5 fL (36.4-46.3); Red Blood Count 3.22 M/uL (4.20-5.40)
[2023-10-16 07:17] LABS: BUN Creatinine Ratio 20.4 (10-20); Calcium 8.1 mg/dl (8.6-10.3); Creatinine Clr Calc Pharmacy 51.2 ml/min; Est GFR (African American) 57.7 ml/min; Est GFR (Non-African American) 49.8 ml/min
[2023-10-16] MEDS: FERROUS SULFATE 325 MG TAB PO SCH (08:08)
[2023-10-16] MEDS: GABAPENTIN 100 MG CAP PO SCH ×3 (08:08→22:02)
[2023-10-16] MEDS: SERTRALINE HCL 50 MG TABLET PO SCH (08:08)
[2023-10-16] MEDS: LOSARTAN POTASSIUM 25 MG TAB PO SCH (08:08)
[2023-10-16] MEDS: CYANOCOBALAMIN (B-12) 500 MCG TABLET PO SCH (08:08)
[2023-10-16] MEDS: cefTRIAXone SODIUM 2,000 MG in DEXTROSE 5 % MINI-B 50 ML IV SCH (08:09)
[2023-10-16] MEDS: ENOXAPARIN INJ 40 MG/0.4 ML SYR SQ SCH ×2 (08:09→22:01)
--- NOTE | 2023-10-16 12:58 | Hospitalist Progress Note ---
Date of Service October 16, 2023 Assessment & Plan (1) Sarcoma of right thigh: (2) Generalized weakness: (3) CKD (chronic kidney disease), stage III: (4) Leukocytosis: (5) NATHALIE (obstructive sleep apnea): (6) Obesity: (7) Elevated troponin: Plan: Generalized weakness Sarcoma R Thigh on XRT Patient presented with generalized weakness -History of newly diagnosed sarcoma of the right thigh, currently undergoing radiation treatment for presurgical tumor reduction, [place] [facility] Dr. Leeann Powell [place] [facility] [place]. Layne [facility] Roebling with outpatient oncology. CXR-no acute findings, bio fire is negative, Blood culture from 10/31 out of 4 growing gram positive bacilli. Urine culture pending Continue on IV ceftriaxone for now. Repeating blood culture ordered given the culture from 10/12/2023 does not show any growth.. Discussed with microbiology; likely Corynebacterium species. Patient had Corynebacterium species in blood culture in July. MRI Brain wo contrast obtained; no acute stroke or hemorrhage. 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 Slight increase in symmetrical abnormal signal intensity in bilateral global pallidus. Appearance is nonspecific. Recommend to repeat MRI brain as outpatient to ensure resolution. Continue radiation treatment; discussed with radiation oncology Palliative care also saw the patient on October 15, 2023; patient remains full code for now. PT OT evaluation Lower extremity Edema -Venous duplexnegative for DVT -Home antihypertensive medications include: Amlodipine, losartan, Lasix. Blood pressure well-controlled. -Soft tissue ultrasound of left leg shows avascular hypoechoic collection within the left calf. Size is around 4.6 X3.7 X 0.6 cm in favor subcutaneous hematoma. Monitor the site for now. Elevated Troponin Likely secondary to demand ischemia EKG shows normal sinus rhythm with PAC High sensitive troponin elevated to 72; up trended to 109 and down trended. Echocardiogram from September 2023 shows EF of 60 to 65% Patient denies any chest pain, palpitation or dizziness. Repeat EKG shows normal sinus rhythm with no ST or T wave changes. NATHALIE -Continue CPAP at bedtime, will order, patient did not bring CPAP from home DVT PPx: lovenox subq Lines: 2 PIV FEN/GI:HH diet CODE: Full code Dispo: From home, undergoing infectious workup. will need rehab. Case management on board. Time spent evaluating patient, direct bedside care, chart review, placing orders, interpretation of diagnostic studies, discussion with consultants, patient, and family members, as well as other required patient management activities is 50 minutes. Please note the above document was generated using voice recognition software. It may contain grammatical, syntax or spelling errors. Any formal questions or concerns about the content, text or information contained within the body of this dictation should be directly addressed to the provider for clarification Admission and Anticipated Discharge Date Admission Date: October 12, 2023 Subjective Patient seen and examined at bedside. She is lying on the bed comfortably; not in any distress. She denies any pain or discomfort. Review of Systems Review of Systems: All systems reviewed & are unremarkable except as noted in Subjective Physical Exam Physical Exam: Constitutional: Alert oriented x 3; not in any distress. Respiratory: Bilateral vesicular breath sound. Cardiovascular: RRR, no murmur, no edema Vessels: no JVD or carotid bruit Chest: normal inspection of chest Abdomen: Soft, nontender Musculoskeletal:right posterior thigh indurated. Left calf has indurated lesion. Overlying skin is dark, tender and indurated. Skin: no rashes, warm and dry normal turgor Neurologic: Moves all extremities. PERRLA. EOMI. Psychiatric: A+Ox3, euthymic affect Results & Data Results & Data Vital Signs (Past 12 Hours) Vital Signs Temp Pulse Pulse Resp BP Pulse Ox O2 Del Method 10/16/23 12:02 37.1 C 76 16 131/70 95 Room Air 10/16/23 08:00 79 10/16/23 07:52 36.7 C 78 16 119/69 91 Room Air 10/16/23 03:00 37.7 C H 90 20 141/66 H 92 Room Air (4) Leukocytosis Leukocytosis type: unspecified Qualified Code(s): D72.829 - Elevated white blood cell count, unspecified
[2023-10-16] MEDS: amLODIPine BESYLATE 5 MG TAB PO SCH (22:03)
[2023-10-16] MEDS: ASPIRIN 81 MG ECTAB PO SCH (22:04)
[2023-10-17] MEDS: PANTOprazole 40 MG TAB PO SCH (05:52)
[2023-10-17 07:20] LABS: Basophils # (auto) 0.03 K/uL (0.00-0.20); Basophils % (auto) 0.3 %; Eosinophils # (auto) 0.23 K/uL (0.00-0.50); Eosinophils % (auto) 2.2 %; Hematocrit (blood only) 25.2 % (37.0-47.0); Hemoglobin 8.1 g/dl (12.0-16.0); Immature Granulocytes # (auto) 0.15 K/uL (0.01-0.20); Immature Granulocytes % (auto) 1.5 %; Lymphocytes % (auto) 9.7 %; Mean Corpuscular Hemoglobin 25.3 pg (25.0-34.0); Mean Corpuscular Hgb Conc 32.1 g/dL (32.0-36.0); Mean Corpuscular Volume 78.8 fL (80.0-100.0); Mean Platelet Volume 9.4 fL (9.4-12.4); Monocytes # (auto) 1.76 K/uL (0.11-0.59); Monocytes % (auto) 17.1 %; Neutrophils # (auto) 7.11 K/uL (1.40-6.50); Neutrophils % (auto) 69.2 %; Platelet Count 378 K/uL (130-400); RDW Coefficient of Variation 15.6 % (11.5-14.5); RDW Standard Deviation 44.9 fL (36.4-46.3); White Blood Count 10.28 K/ul (4.8-10.8)
[2023-10-17 07:35] LABS: BUN Creatinine Ratio 22.5 (10-20); Creatinine Clr Calc Pharmacy 54.3 ml/min; Est GFR (African American) 61.9 ml/min; Est GFR (Non-African American) 53.4 ml/min; Potassium 4.2 mmol/L (3.5-5.1)
[2023-10-17] MEDS: LOSARTAN POTASSIUM 25 MG TAB PO SCH (08:22)
[2023-10-17] MEDS: FERROUS SULFATE 325 MG TAB PO SCH (08:22)
[2023-10-17] MEDS: CYANOCOBALAMIN (B-12) 500 MCG TABLET PO SCH (08:22)
[2023-10-17] MEDS: ENOXAPARIN INJ 40 MG/0.4 ML SYR SQ SCH ×2 (08:23→20:36)
[2023-10-17] MEDS: cefTRIAXone SODIUM 2,000 MG in DEXTROSE 5 % MINI-B 50 ML IV SCH (08:23)
[2023-10-17] MEDS: GABAPENTIN 100 MG CAP PO SCH ×3 (08:23→20:36)
[2023-10-17] MEDS: SERTRALINE HCL 50 MG TABLET PO SCH (08:23)
--- NOTE | 2023-10-17 13:06 | Hospitalist Progress Note ---
Date of Service October 17, 2023 Assessment & Plan (1) Sarcoma of right thigh: (2) Generalized weakness: (3) CKD (chronic kidney disease), stage III: (4) Leukocytosis: (5) NATHALIE (obstructive sleep apnea): (6) Obesity: (7) Elevated troponin: Plan: Generalized weakness Sarcoma R Thigh on XRT Patient presented with generalized weakness -History of newly diagnosed sarcoma of the right thigh, currently undergoing radiation treatment for presurgical tumor reduction, anticipated surgical resection in [facility] [place]. Follows with Dr. Leeann Powell at [facility] [place] and Dr. Layne [facility] [place] with outpatient oncology. CXR-no acute findings, bio fire is negative, Blood culture from 10/31 out of 4 growing on the bacterium; likely contaminant. Urine culturemore than 3 types of organism, all moderate count. Will stop antibiotics. Repeat culture did not show any growth. MRI Brain wo contrast obtained; no acute stroke or hemorrhage. 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 Slight increase in symmetrical abnormal signal intensity in bilateral global pallidus. Appearance is nonspecific. Patient reports 3 episodes of generalized weakness at home. Will consult neurology for further evaluation. Continue radiation treatment; discussed with radiation oncology Palliative care also saw the patient on October 15, 2023; patient remains full code for now. Continue PT OT. Lower extremity Edema -Venous duplexnegative for DVT -Home antihypertensive medications include: Amlodipine, losartan, Lasix. Blood pressure well-controlled. -Soft tissue ultrasound of left leg shows avascular hypoechoic collection within the left calf. Size is around 4.6 X3.7 X 0.6 cm in favor subcutaneous hematoma. Monitor the site for now. Elevated Troponin Likely secondary to demand ischemia EKG shows normal sinus rhythm with PAC High sensitive troponin elevated to 72; up trended to 109 and down trended. Echocardiogram from September 2023 shows EF of 60 to 65% Patient denies any chest pain, palpitation or dizziness. Repeat EKG shows normal sinus rhythm with no ST or T wave changes. NATHALIE -Continue CPAP at bedtime, will order, patient did not bring CPAP from home DVT PPx: lovenox subq Lines: 2 PIV FEN/GI:HH diet CODE: Full code Dispo: From home; will likely need rehab. Case management on board. Time spent evaluating patient, direct bedside care, chart review, placing orders, interpretation of diagnostic studies, discussion with consultants, patient, and family members, as well as other required patient management activities is 50 minutes. Please note the above document was generated using voice recognition software. It may contain grammatical, syntax or spelling errors. Any formal questions or concerns about the content, text or information contained within the body of this dictation should be directly addressed to the provider for clarification Admission and Anticipated Discharge Date Admission Date: October 12, 2023 Subjective Patient seen and examined at bedside. She is sitting up on the chair at the side of the bed. Comfortable; not in distress. Denies fever, chills, chest pain, shortness of breath, abdominal pain or urinary symptoms. No significant overnight events Review of Systems Review of Systems: All systems reviewed & are unremarkable except as noted in Subjective Physical Exam Physical Exam: Constitutional: Alert oriented x 3; not in any distress. Respiratory: Bilateral vesicular breath sound. Cardiovascular: RRR, no murmur, no edema Vessels: no JVD or carotid bruit Chest: normal inspection of chest Abdomen: Soft, nontender Musculoskeletal:right posterior thigh indurated. Left calf has indurated lesion. Overlying skin is dark, tender and indurated. Skin: no rashes, warm and dry normal turgor Neurologic: Moves all extremities. PERRLA. EOMI. Psychiatric: A+Ox3, euthymic affect Results & Data Results & Data Vital Signs (Past 12 Hours) Vital Signs Temp Pulse Pulse Resp BP Pulse Ox O2 Del Method 10/17/23 12:04 36.7 C 97 H 18 116/72 92 Room Air 10/17/23 09:00 83 10/17/23 07:22 37.4 C 79 16 115/65 91 Room Air 10/17/23 03:02 37.3 C 86 16 124/66 95 Room Air 10/17/23 02:52 38.2 C H 83 16 105/56 L 91 Room Air (4) Leukocytosis Leukocytosis type: unspecified Qualified Code(s): D72.829 - Elevated white blood cell count, unspecified
--- NOTE | 2023-10-17 13:46 | Neurology Consultation ---
Date of Consultation October 17, 2023 Assessment & Plan (1) Weakness: Episodes of weakness in the setting of sarcoma. The only specific pattern for the weakness is postural, perhaps reflecting orthostatic hypotension. Asterixis from metabolic cause is also possible as she is on lasix at home, not present currently. Otherwise this is not consistent with stroke or seizure. MRI is reassuring. No further neurologic workup recommended. Telehealth Consultation Telehealth Information Telehealth Information: I performed this visit using a real-time telehealth connection between my location and the patients location ([facility]). After connecting through interactive tele-video, patient was identified by name and date of and/or wristband check.Patient (or authorized healthcare repre sentative) was informed that this was a telemedicine visit and it was being conducted confidentially over secure lines. My office door was closed and no one else was present in the room with me.Patient (or authorized healthcare technology sales representative) provided consent to proceed with the visit, expressed an understanding of privacy and security of the telemedicine visit, and gave permission to have a hospital technology sales representative in the room in order to assist with the visit and to conduct portions of the visit, as needed. I informed the patient (or authorized healthcare technology sales representative) that I reviewed their record and presented the opportunity for them to ask any questions regarding the visit today. The patient agreed to participate. History of Present Illness Reason for Consultation: Weakness episodes Requesting Physician: Dr. Landry Attending Physician: Moody Landry MD History of Present Illness Candi Grayson is a 77 yo F with R leg sarcoma presenting with episodes of weakness over the past few weeks. She describes three discreet episodes where she feels her back becomes weak and she is unable to move her legs or support her weight. She has warning before she falls and the feeling goes away if she sits down. She denies any particular lightheadedness, change in speech, vision or headache. No back pain with the episodes and no pattern she could identify for any triggers. She is compliant with her CPAP and has not taken any new medications. Allergies Allergy/AdvReac Type Severity Reaction Status Date / Time adhesive tape Allergy Intermediate Blister Verified 10/12/23 15:02 Penicillins Allergy Unknown CHILDHOOD Verified 10/12/23 15:02 ALLERGY Sulfa (Sulfonamide Allergy Unknown FACIAL Verified 10/12/23 15:02 Antibiotics) SWELLING gluten AdvReac Intermediate GI SYMPTOMS Verified 10/12/23 15:02 wheat AdvReac Intermediate eczema and Verified 10/12/23 15:02 stomach ache Home Medications Medication Instructions Recorded Confirmed Type conjugated estrogens 0.625 mg/gram 1 applic vaginal 2XWK 02/11/21 10/12/23 History vaginal cream (Premarin) amlodipine 2.5 mg tablet 2.5 mg PO HS 08/08/23 10/12/23 History cholecalciferol (vitamin D3) 10 400 unit PO QDL 08/08/23 10/12/23 History mcg (400 unit) tablet (Vitamin D3) clindamycin HCl 150 mg capsule 600 mg PO DIRECTED PRN dental 08/08/23 10/12/23 History procedures pantoprazole 40 mg tablet,delayed 40 mg PO DAILYBB 08/08/23 10/12/23 History release acetaminophen 325 mg capsule 325 mg PO QID PRN PAIN/FEVER 09/15/23 10/12/23 History ferrous sulfate 325 mg (65 mg 325 mg PO QDL 09/15/23 10/12/23 History iron) tablet losartan 25 mg tablet 25 mg PO DAILY 09/15/23 10/12/23 History sertraline 50 mg tablet 50 mg PO DAILY 09/15/23 10/12/23 History tramadol 50 mg tablet 50 mg PO Q6H PRN Pain 09/15/23 10/12/23 History aspirin 81 mg chewable tablet 81 mg PO HS 10/12/23 10/12/23 History cyanocobalamin (vitamin B-12) 1,000 mcg PO QDL 10/12/23 10/12/23 History 1,000 mcg tablet (Vitamin B-12) furosemide 20 mg tablet 20 mg PO DAILY 10/12/23 10/12/23 History Patient History Medical History (Updated 10/15/23 @ 23:04 by Molly Gill DNP) Obesity CKD (chronic kidney disease), stage III Chronic back pain Osteoarthritis GERD (gastroesophageal reflux disease) Temporomandibular joint disorder Hypertension Sleep apnea CPAP Asthma LAST USED PRN INH 2-3 MONTHS AGO Surgical History History of cataract extraction with lens replacement RIGHT EYE 12/21/18 [facility] [place] History of total hip arthroplasty LEFT History of cholecystectomy History of esophagogastroduodenoscopy (EGD) History of colonoscopy Social History (Updated 09/15/23 @ 13:28 by Gisel Shen RN) Smoking Status: Never smoker Cigarettes Per Day: QUIT AT AGE 36; Second Hand Exposure: No; Do You Dip or Chew Tobacco: No; Hx Alcohol Use: No Hx Substance Use: No Preferred Language: Palauan 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 Ability: Effective Visual Impairment: No Limitations Hearing Ability: Normal Skin Installer Required: No Beliefs That Will Affect Care: None Current Living Situation: Family Current Living Situation Comment: brother is currently staying with pt in her own homw current occupational status: retired Other Information That Helps Us Care for You: No Feels Safe at Home: Yes Safety Concerns: Feels Safe At This Time Assistive Devices: Cane, CPAP, Raised Toilet Seat and Walker Review of Systems +weakness Physical Exam Awake and alert, speech clear and fluent, language normal. Antigravity strength throughout. No asterixis, no abnormal movements. No dysmetria. Results & Data Vital Signs (Past 12 Hours) Vital Signs Temp Pulse Pulse Resp BP Pulse Ox O2 Del Method 10/17/23 12:04 36.7 C 97 H 18 116/72 92 Room Air 10/17/23 09:00 83 10/17/23 07:22 37.4 C 79 16 115/65 91 Room Air 10/17/23 03:02 37.3 C 86 16 124/66 95 Room Air 10/17/23 02:52 38.2 C H 83 16 105/56 L 91 Room Air Laboratory Results Abnormal lab results 10/17/23 Range/Units 06:55 RBC 3.20 L (4.20-5.40) M/uL Hgb 8.1 L (12.0-16.0) g/dl Hct 25.2 L (37.0-47.0) % MCV 78.8 L (80.0-100.0) fL RDW Coeff of Carlos 15.6 H (11.5-14.5) % Neut # (Auto) 7.11 H (1.40-6.50) K/uL Lymph # (Auto) 1.00 L (1.20-3.40) K/uL Ceiba # (Auto) 1.76 H (0.11-0.59) K/uL Sodium 128 L (136-145) mmol/L Chloride 97 L (98-107) mmol/L BUN/Creatinine Ratio 22.5 H (10-20) Calcium 8.0 L (8.6-10.3) mg/dl Diagnostic Findings MRI brain - Unremarkable
[2023-10-17] MEDS: traMADol HCL 50 MG TABLET PO PRN ×2 (15:37→22:07)
[2023-10-17] MEDS: amLODIPine BESYLATE 5 MG TAB PO SCH (20:35)
[2023-10-17] MEDS: ASPIRIN 81 MG ECTAB PO SCH (20:36)
[2023-10-17] MEDS: ACETAMINOPHEN 500 MG TAB PO PRN (22:07)
[2023-10-18] MEDS: PANTOprazole 40 MG TAB PO SCH (05:35)
[2023-10-18 07:31] LABS: Potassium 4.1 mmol/L (3.5-5.1)
[2023-10-18 07:37] LABS: BUN Creatinine Ratio 23.8 (10-20); Est GFR (African American) 62.6 ml/min
[2023-10-18] MEDS: ENOXAPARIN INJ 40 MG/0.4 ML SYR SQ SCH ×2 (08:28→20:06)
[2023-10-18] MEDS: SERTRALINE HCL 50 MG TABLET PO SCH (08:28)
[2023-10-18] MEDS: GABAPENTIN 100 MG CAP PO SCH ×3 (08:28→20:05)
[2023-10-18] MEDS: LOSARTAN POTASSIUM 25 MG TAB PO SCH (08:29)
[2023-10-18] MEDS: FUROSEMIDE 20 MG TAB PO SCH (08:29)
[2023-10-18] MEDS: FERROUS SULFATE 325 MG TAB PO SCH (11:14)
[2023-10-18] MEDS: CYANOCOBALAMIN (B-12) 500 MCG TABLET PO SCH (11:14)
[2023-10-18] MEDS: amLODIPine BESYLATE 5 MG TAB PO SCH (20:05)
[2023-10-18] MEDS: ASPIRIN 81 MG ECTAB PO SCH (20:06)
[2023-10-19] MEDS: PANTOprazole 40 MG TAB PO SCH (05:35)
[2023-10-19 07:15] LABS: BUN Creatinine Ratio 24.2 (10-20); Calcium 7.9 mg/dl (8.6-10.3); Creatinine Clr Calc Pharmacy 56.2 ml/min; Est GFR (African American) 64.2 ml/min; Est GFR (Non-African American) 55.4 ml/min; Potassium 4.3 mmol/L (3.5-5.1)
[2023-10-19 07:20] LABS: Basophils # (auto) 0.04 K/uL (0.00-0.20); Basophils % (auto) 0.5 %; Eosinophils # (auto) 0.23 K/uL (0.00-0.50); Eosinophils % (auto) 2.7 %; Immature Granulocytes # (auto) 0.09 K/uL (0.01-0.20); Lymphocytes # (auto) 1.16 K/uL (1.20-3.40); Lymphocytes % (auto) 13.4 %; Mean Corpuscular Hemoglobin 24.8 pg (25.0-34.0); Mean Corpuscular Hgb Conc 30.8 g/dL (32.0-36.0); Mean Corpuscular Volume 80.7 fL (80.0-100.0); Mean Platelet Volume 9.8 fL (9.4-12.4); Monocytes # (auto) 1.15 K/uL (0.11-0.59); Monocytes % (auto) 13.3 %; Neutrophils # (auto) 5.96 K/uL (1.40-6.50); Neutrophils % (auto) 69.1 %; Platelet Count 366 K/uL (130-400); RDW Coefficient of Variation 15.9 % (11.5-14.5); RDW Standard Deviation 46.3 fL (36.4-46.3); Red Blood Count 3.22 M/uL (4.20-5.40); White Blood Count 8.63 K/ul (4.8-10.8)
[2023-10-19] MEDS: FUROSEMIDE 20 MG TAB PO SCH (09:09)
[2023-10-19] MEDS: GABAPENTIN 100 MG CAP PO SCH ×3 (09:09→22:04)
[2023-10-19] MEDS: SERTRALINE HCL 50 MG TABLET PO SCH (09:12)
[2023-10-19] MEDS: ENOXAPARIN INJ 40 MG/0.4 ML SYR SQ SCH ×2 (09:13→22:04)
[2023-10-19] MEDS: LOSARTAN POTASSIUM 25 MG TAB PO SCH (09:13)
[2023-10-19] MEDS: CYANOCOBALAMIN (B-12) 500 MCG TABLET PO SCH (11:32)
[2023-10-19] MEDS: FERROUS SULFATE 325 MG TAB PO SCH (11:32)
--- NOTE | 2023-10-19 12:48 | Palliative Care Progress Note ---
Date of Service October 19, 2023 Assessment & Plan (1) Dry skin: Plan: continue aquaphor (2) Impaired mobility: (3) Cancer related pain: (4) Generalized weakness: (5) Sarcoma of right thigh: (6) Palliative care by specialist: Plan continue skin care as ordered no changes to pain regimen today continue RT will likely need placement/SNF Rehab Admission and Anticipated Discharge Date Admission Date: October 12, 2023 Subjective resting at time of visit, tired appearing wants to take a nap appetite ok pain ok Review of Systems Review of Systems: All systems reviewed & are unremarkable except as noted in Subjective Physical Exam Constitutional: WD/WN, vitals as above Eyes: PERRL, conjunctivae normal, anicteric sclerae ENMT: Mouth: + dry oral mucous membranes and + poor dentition Neck: trachea midline, no thyromegaly Respiratory: normal respiratory effort, lungs clear to auscultation Cardiovascular: RRR, no murmur, no edema Gastrointestinal (Abdomen): Inspection/Auscultation: normal bowel sounds and + significant pannus Musculoskeletal: posterior right thigh with large, firm and at times tender mass extending down the back of right thigh to above knee mild induration noted Skin: pale dry flaking skin, ab over lower extremities papery skin Neurologic: AAOx3 Psychiatric: anxious Results & Data Vital Signs (Past 12 Hours) Vital Signs Temp Pulse Pulse Resp BP BP Pulse Ox 10/19/23 09:10 64 112/68 10/19/23 07:47 36.8 C 72 16 108/55 L 93 10/19/23 05:57 67 10/19/23 03:00 37.2 C 75 18 119/65 92 O2 Del Method 10/19/23 09:10 10/19/23 07:47 Room Air 10/19/23 05:57 10/19/23 03:00 Room Air Laboratory Results data reviewed Diagnostic Findings data reviewed PG Care Time/CCT Total # of Minutes Spent Total Time Spent: 45 Total Time Spent with Patient: Total time spent is greater than 50% in coordination of care (as documented) at patient's floor/unit and/or counseling patient: I spent 45 minutes overall addressing this case: 15 min in medical data review/discussion with referring provider(s) and/or preparation for the visit 20 min in direct interaction with the patient/exam 00 min in Advance Care Planning/Goals of Care discussions as detailed above in note (must be >16min) 5 min in subsequent review and synthesis of assessment and plan 5 min communicating with other providers regarding the patient's case: [place] [address] SUB INP/OBS CARE 3/50MIN Patient Type Established History Detailed Exam Detailed Medical Decision Making Moderate Complexity Diagnoses Dry skin L85.3 Impaired mobility Z74.09 Cancer related pain G89.3 Generalized weakness R53.1 Sarcoma of right thigh C49.21 Palliative care by specialist Z51.5
--- NOTE | 2023-10-19 13:12 | Hospitalist Progress Note ---
Date of Service October 19, 2023 Assessment & Plan (1) Sarcoma of right thigh: (2) Generalized weakness: (3) CKD (chronic kidney disease), stage III: (4) Leukocytosis: (5) NATHALIE (obstructive sleep apnea): (6) Obesity: (7) Elevated troponin: Plan: Generalized weakness Sarcoma R Thigh on XRT Patient presented with generalized weakness -History of newly diagnosed sarcoma of the right thigh, currently undergoing radiation treatment for presurgical tumor reduction, anticipated surgical resection in [facility] [place]. Follows with Dr. Leeann Powell at [facility] [place] and Dr. Layne [facility] [place] with outpatient oncology. CXR-no acute findings, bio fire is negative, Blood culture from 10/31 out of 4 growing Corynebacterium; likely contaminant. Urine culturemore than 3 types of organism, all moderate count. Antibiotics stopped. Continue to monitor off antibiotics. MRI Brain wo contrast obtained; no acute stroke or hemorrhage. 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 Slight increase in symmetrical abnormal signal intensity in bilateral global pallidus. Appearance is nonspecific. Patient reports 3 episodes of generalized weakness at home. Neurology consulted;Not consistent with stroke or seizure. Continue radiation treatment; discussed with radiation oncology Palliative care also saw the patient on October 15, 2023; patient remains full code for now. Continue PT OT. Lower extremity Edema -Venous duplexnegative for DVT -Home antihypertensive medications include: Amlodipine, losartan, Lasix. Blood pressure well-controlled. -Soft tissue ultrasound of left leg shows avascular hypoechoic collection within the left calf. Size is around 4.6 X3.7 X 0.6 cm in favor subcutaneous hematoma. Monitor the site for now. Hyponatremia Likely SIADH Sodium of 1 29-1 30 Urine study suggestive of SIADH Continued fluid restriction of 1200 cc Elevated Troponin Likely secondary to demand ischemia EKG shows normal sinus rhythm with PAC High sensitive troponin elevated to 72; up trended to 109 and down trended. Echocardiogram from September 2023 shows EF of 60 to 65% Patient denies any chest pain, palpitation or dizziness. Repeat EKG shows normal sinus rhythm with no ST or T wave changes. NATHALIE -Continue CPAP at bedtime, will order, patient did not bring CPAP from home DVT PPx: lovenox subq Lines: 2 PIV FEN/GI:HH diet CODE: Full code Dispo: From home; PT OT recommends rehab. Patient has 16 more sessions of radiation(total is 25 sessions). Discussed with patient; her priority is finishing radiation. Will need placement to a rehab which can arrange transport for radiation. Case management on board Time spent evaluating patient, direct bedside care, chart review, placing orders, interpretation of diagnostic studies, discussion with consultants, patient, and family members, as well as other required patient management activities is 50 minutes. Please note the above document was generated using voice recognition software. It may contain grammatical, syntax or spelling errors. Any formal questions or concerns about the content, text or information contained within the body of this dictation should be directly addressed to the provider for clarification Admission and Anticipated Discharge Date Admission Date: October 12, 2023 Subjective Patient seen and examined at bedside. Comfortable; not in distress. Denies fever, chills, chest pain, shortness of breath, abdominal pain or urinary symptoms. No significant overnight events Review of Systems Review of Systems: All systems reviewed & are unremarkable except as noted in Subjective Physical Exam Physical Exam: Constitutional: Alert oriented x 3; not in any distress. Respiratory: Bilateral vesicular breath sound. Cardiovascular: RRR, no murmur, no edema Vessels: no JVD or carotid bruit Chest: normal inspection of chest Abdomen: Soft, nontender Musculoskeletal:right posterior thigh indurated. left calf with bruise; nontender. Skin: no rashes, warm and dry normal turgor Neurologic: Moves all extremities. PERRLA. EOMI. Psychiatric: A+Ox3, euthymic affect Results & Data Results & Data Vital Signs (Past 12 Hours) Vital Signs Temp Pulse Pulse Resp BP BP Pulse Ox 10/19/23 09:10 64 112/68 10/19/23 07:47 36.8 C 72 16 108/55 L 93 10/19/23 05:57 67 10/19/23 03:00 37.2 C 75 18 119/65 92 O2 Del Method 10/19/23 09:10 10/19/23 07:47 Room Air 10/19/23 05:57 10/19/23 03:00 Room Air (4) Leukocytosis Leukocytosis type: unspecified Qualified Code(s): D72.829 - Elevated white blood cell count, unspecified
[2023-10-19] MEDS: amLODIPine BESYLATE 5 MG TAB PO SCH (22:03)
[2023-10-19] MEDS: ASPIRIN 81 MG ECTAB PO SCH (22:04)
[2023-10-20] MEDS: PANTOprazole 40 MG TAB PO SCH (06:04)
[2023-10-20 06:39] LABS: Calcium 8.1 mg/dl (8.6-10.3); Potassium 4.2 mmol/L (3.5-5.1)
[2023-10-20 06:45] LABS: BUN Creatinine Ratio 28.7 (10-20); Creatinine Clr Calc Pharmacy 58.7 ml/min; Est GFR (African American) 68.3 ml/min; Est GFR (Non-African American) 58.9 ml/min
[2023-10-20] MEDS: ENOXAPARIN INJ 40 MG/0.4 ML SYR SQ SCH (08:51)
[2023-10-20] MEDS: GABAPENTIN 100 MG CAP PO SCH ×3 (08:52→21:09)
[2023-10-20] MEDS: FUROSEMIDE 20 MG TAB PO SCH (08:52)
[2023-10-20] MEDS: LOSARTAN POTASSIUM 25 MG TAB PO SCH (08:52)
[2023-10-20] MEDS: SERTRALINE HCL 50 MG TABLET PO SCH (08:53)
[2023-10-20] MEDS: CYANOCOBALAMIN (B-12) 500 MCG TABLET PO SCH (10:53)
[2023-10-20] MEDS: FERROUS SULFATE 325 MG TAB PO SCH (10:53)
--- NOTE | 2023-10-20 15:37 | Hospitalist Progress Note ---
Date of Service October 20, 2023 Assessment & Plan (1) Sarcoma of right thigh: (2) Generalized weakness: (3) CKD (chronic kidney disease), stage III: (4) Leukocytosis: (5) NATHALIE (obstructive sleep apnea): (6) Obesity: (7) Elevated troponin: Plan: Generalized weakness Sarcoma R Thigh on XRT Patient presented with generalized weakness -History of newly diagnosed sarcoma of the right thigh, currently undergoing radiation treatment for presurgical tumor reduction, anticipated surgical resection in [facility] [place]. Follows with Dr. Leeann Powell at [facility] [place] and Dr. Layne Cancer [place] with outpatient oncology. CXR-no acute findings, bio fire is negative, Blood culture from 10/31 out of 4 growing Corynebacterium; likely contaminant. Urine culturemore than 3 types of organism, all moderate count. Antibiotics stopped. Continue to monitor off antibiotics. MRI Brain wo contrast obtained; no acute stroke or hemorrhage. 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 Slight increase in symmetrical abnormal signal intensity in bilateral global pallidus. Appearance is nonspecific. Patient reports 3 episodes of generalized weakness at home. Neurology consulted;Not consistent with stroke or seizure. Continue radiation treatment; discussed with radiation oncology Palliative care also saw the patient on October 15, 2023; patient remains full code for now. Continue PT OT. Lower extremity Edema -Venous duplexnegative for DVT -Home antihypertensive medications include: Amlodipine, losartan, Lasix. Blood pressure well-controlled. -Soft tissue ultrasound of left leg shows avascular hypoechoic collection within the left calf. Size is around 4.6 X3.7 X 0.6 cm in favor subcutaneous hematoma. Monitor the site for now. Hold baby aspirin and dvt px, follow HnH. Hyponatremia Likely SIADH Sodium of 1 29-1 30 Urine study suggestive of SIADH Continued fluid restriction of 1200 cc Elevated Troponin Likely secondary to demand ischemia EKG shows normal sinus rhythm with PAC High sensitive troponin elevated to 72; up trended to 109 and down trended. Echocardiogram from September 2023 shows EF of 60 to 65% Patient denies any chest pain, palpitation or dizziness. Repeat EKG shows normal sinus rhythm with no ST or T wave changes. NATHALIE -Continue CPAP at bedtime, will order, patient did not bring CPAP from home DVT PPx: lovenox subq Lines: 2 PIV FEN/GI:HH diet CODE: Full code Dispo: From home; PT OT recommends rehab. Patient has 15 more sessions of radiation(total is 25 sessions). Pt's priority is finishing radiation. Will need placement to a rehab which can arrange transport for radiation. Case management on board Admission and Anticipated Discharge Date Admission Date: October 12, 2023 Subjective Patient seen and examined at bedside. Comfortable; not in distress. Denies fever, chills, chest pain, shortness of breath, abdominal pain or urinary symptoms. No significant overnight events. D/w patient regarding her Left calf subcutaneous hematoma, discussed regarding need for holding aspirin and DVT Px for few days as Hb has been consistently dropping since admission. Pt is aware this might increase risk of DVT and is willing for them to be held for few days to allow HnH to stabilize. Physical Exam Physical Exam: Constitutional: Alert oriented x 3; not in any distress. Respiratory: Bilateral vesicular breath sound. Cardiovascular: RRR, no murmur, no edema Vessels: no JVD or carotid bruit Chest: normal inspection of chest Abdomen: Soft, nontender Musculoskeletal:right posterior thigh indurated. left calf with bruise; nontender. Skin: no rashes, warm and dry normal turgor Neurologic: Moves all extremities. PERRLA. EOMI. Psychiatric: A+Ox3, euthymic affect Results & Data Results & Data Vital Signs (Past 12 Hours) Vital Signs Temp Pulse Pulse Resp BP Pulse Ox O2 Del Method 10/20/23 14:13 85 10/20/23 12:17 36.4 C L 75 16 114/68 92 Room Air 10/20/23 07:35 36.7 C 74 22 144/80 H 92 Room Air 10/20/23 05:51 80 (4) Leukocytosis Leukocytosis type: unspecified Qualified Code(s): D72.829 - Elevated white blood cell count, unspecified
[2023-10-20] MEDS: amLODIPine BESYLATE 5 MG TAB PO SCH (21:09)
[2023-10-21] MEDS: PANTOprazole 40 MG TAB PO SCH (06:15)
[2023-10-21 07:11] LABS: Hematocrit (blood only) 26.3 % (37.0-47.0); Hemoglobin 8.2 g/dl (12.0-16.0); Mean Corpuscular Hemoglobin 24.8 pg (25.0-34.0); Mean Corpuscular Hgb Conc 31.2 g/dL (32.0-36.0); Mean Corpuscular Volume 79.7 fL (80.0-100.0); Mean Platelet Volume 9.6 fL (9.4-12.4); Platelet Count 369 K/uL (130-400); RDW Coefficient of Variation 15.6 % (11.5-14.5); RDW Standard Deviation 45.3 fL (36.4-46.3); White Blood Count 9.28 K/ul (4.8-10.8)
[2023-10-21 07:34] LABS: BUN Creatinine Ratio 28.7 (10-20); Creatinine Clr Calc Pharmacy 58.3 ml/min; Est GFR (African American) 68.3 ml/min; Est GFR (Non-African American) 58.9 ml/min; Potassium 4.2 mmol/L (3.5-5.1)
[2023-10-21] MEDS: SERTRALINE HCL 50 MG TABLET PO SCH (08:01)
[2023-10-21] MEDS: LOSARTAN POTASSIUM 25 MG TAB PO SCH (08:01)
[2023-10-21] MEDS: FUROSEMIDE 20 MG TAB PO SCH (08:01)
[2023-10-21] MEDS: GABAPENTIN 100 MG CAP PO SCH ×3 (08:01→21:26)
[2023-10-21] MEDS: FERROUS SULFATE 325 MG TAB PO SCH (12:10)
[2023-10-21] MEDS: CYANOCOBALAMIN (B-12) 500 MCG TABLET PO SCH (12:10)
[2023-10-21] MEDS ORDERED: MICONAZOLE NITRATE POWDER 85 GM EXT PRN (12:35)
--- NOTE | 2023-10-21 14:57 | Hospitalist Progress Note ---
Date of Service October 21, 2023 Assessment & Plan (1) Sarcoma of right thigh: (2) Generalized weakness: (3) CKD (chronic kidney disease), stage III: (4) Leukocytosis: (5) NATHALIE (obstructive sleep apnea): (6) Obesity: (7) Elevated troponin: Plan: Generalized weakness Sarcoma R Thigh on XRT Patient presented with generalized weakness -History of newly diagnosed sarcoma of the right thigh, currently undergoing radiation treatment for presurgical tumor reduction, anticipated surgical resection in [facility] [place]. Follows with Dr. Leeann Powell at [facility] and Dr. Layne [facility] [place] with outpatient oncology. CXR-no acute findings, bio fire is negative, Blood culture from 10/31 out of 4 growing Corynebacterium; likely contaminant. Urine culturemore than 3 types of organism, all moderate count. Antibiotics stopped. Continue to monitor off antibiotics. MRI Brain wo contrast obtained; no acute stroke or hemorrhage. 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 Slight increase in symmetrical abnormal signal intensity in bilateral global pallidus. Appearance is nonspecific. Patient reports 3 episodes of generalized weakness at home. Neurology consulted;Not consistent with stroke or seizure. Continue radiation treatment; discussed with radiation oncology Palliative care also saw the patient on October 15, 2023; patient remains full code for now. Continue PT OT. Lower extremity Edema -Venous duplexnegative for DVT -Home antihypertensive medications include: Amlodipine, losartan, Lasix. Blood pressure well-controlled. -Soft tissue ultrasound of left leg shows avascular hypoechoic collection within the left calf. Size is around 4.6 X3.7 X 0.6 cm in favor subcutaneous hematoma. Monitor the site for now. continue to hold baby aspirin and dvt px, follow HnH. likely resume in next 1-2 days. Hyponatremia Likely SIADH Sodium of 1 29-1 30 Urine study suggestive of SIADH Continued fluid restriction of 1200 cc Elevated Troponin Likely secondary to demand ischemia EKG shows normal sinus rhythm with PAC High sensitive troponin elevated to 72; up trended to 109 and down trended. Echocardiogram from September 2023 shows EF of 60 to 65% Patient denies any chest pain, palpitation or dizziness. Repeat EKG shows normal sinus rhythm with no ST or T wave changes. NATHALIE -Continue CPAP at bedtime. DVT PPx: lovenox subq Lines: 2 PIV FEN/GI:HH diet CODE: Full code Dispo: From home; PT OT recommends rehab. Patient has 14 more sessions of radiation(total is 25 sessions). Pt's priority is finishing radiation. Will need placement to a rehab which can arrange transport for radiation. Case management on board Admission and Anticipated Discharge Date Admission Date: October 12, 2023 Subjective Patient seen and examined at bedside. Comfortable; not in distress. Denies fever, chills, chest pain, shortness of breath, abdominal pain or urinary symptoms. No significant overnight events. Physical Exam Physical Exam: Constitutional: Alert oriented x 3; not in any distress. Respiratory: Bilateral vesicular breath sound. Cardiovascular: RRR, no murmur, no edema Vessels: no JVD or carotid bruit Chest: normal inspection of chest Abdomen: Soft, nontender Musculoskeletal:right posterior thigh indurated. left calf with bruise; nontender. Skin: no rashes, warm and dry normal turgor Neurologic: Moves all extremities. PERRLA. EOMI. Psychiatric: A+Ox3, euthymic affect Results & Data Results & Data Vital Signs (Past 12 Hours) Vital Signs Temp Pulse Pulse Resp BP BP Pulse Ox 10/21/23 10:04 10/21/23 07:26 36.4 C L 70 16 129/69 93 10/21/23 06:00 64 10/21/23 03:00 36.8 C 69 18 130/75 94 O2 Del Method 10/21/23 10:04 Room Air 10/21/23 07:26 Room Air 10/21/23 06:00 10/21/23 03:00 Room Air (4) Leukocytosis Leukocytosis type: unspecified Qualified Code(s): D72.829 - Elevated white blood cell count, unspecified
[2023-10-21] MEDS: amLODIPine BESYLATE 5 MG TAB PO SCH (21:26)
[2023-10-22] MEDS: PANTOprazole 40 MG TAB PO SCH (05:42)
[2023-10-22 07:19] LABS: Hematocrit (blood only) 26.6 % (37.0-47.0); Hemoglobin 8.3 g/dl (12.0-16.0); Mean Corpuscular Hemoglobin 24.9 pg (25.0-34.0); Mean Corpuscular Hgb Conc 31.2 g/dL (32.0-36.0); Mean Corpuscular Volume 79.6 fL (80.0-100.0); Mean Platelet Volume 9.4 fL (9.4-12.4); Platelet Count 392 K/uL (130-400); RDW Coefficient of Variation 15.8 % (11.5-14.5); RDW Standard Deviation 45.8 fL (36.4-46.3); Red Blood Count 3.34 M/uL (4.20-5.40); White Blood Count 10.16 K/ul (4.8-10.8)
[2023-10-22 07:53] LABS: Calcium 8.2 mg/dl (8.6-10.3); Potassium 4.4 mmol/L (3.5-5.1)
[2023-10-22 07:59] LABS: BUN Creatinine Ratio 26.3 (10-20); Creatinine Clr Calc Pharmacy 55.3 ml/min; Est GFR (African American) 64.2 ml/min; Est GFR (Non-African American) 55.4 ml/min
[2023-10-22] MEDS: FUROSEMIDE 20 MG TAB PO SCH (08:40)
[2023-10-22] MEDS: LOSARTAN POTASSIUM 25 MG TAB PO SCH (08:40)
[2023-10-22] MEDS: GABAPENTIN 100 MG CAP PO SCH ×3 (08:40→21:48)
[2023-10-22] MEDS: SERTRALINE HCL 50 MG TABLET PO SCH (08:40)
[2023-10-22] MEDS: FERROUS SULFATE 325 MG TAB PO SCH (12:01)
[2023-10-22] MEDS: CYANOCOBALAMIN (B-12) 500 MCG TABLET PO SCH (12:01)
--- NOTE | 2023-10-22 14:13 | Palliative Care Progress Note ---
Date of Service October 22, 2023 Assessment & Plan (1) Dry skin: Plan: continue aquaphor (2) Impaired mobility: (3) Cancer related pain: (4) Generalized weakness: (5) Sarcoma of right thigh: (6) Palliative care by specialist: Plan continue skin care as ordered no changes to pain regimen today continue RT will likely need placement/SNF Rehab Thank you for allowing us to participate in the ongoing care of this patient. Please don't hesitate to call or page with any additional concerns. Dr. 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, feels she has not been able to think on this the way she wanted bc it is too distracting in hospital reiterates she worries she cannot meet her needs at home and does not want to burden family Review of Systems Review of Systems: All systems reviewed & are unremarkable except as noted in Subjective Physical Exam Constitutional: WD/WN, vitals as above Eyes: PERRL, conjunctivae normal, anicteric sclerae ENMT: Mouth: + dry oral mucous membranes and + poor dentition Neck: trachea midline, no thyromegaly Respiratory: normal respiratory effort, lungs clear to auscultation Cardiovascular: RRR, no murmur, no edema Gastrointestinal (Abdomen): Inspection/Auscultation: normal bowel sounds and + significant pannus Musculoskeletal: posterior right thigh with large, firm and at times tender mass extending down the back of right thigh to above knee mild induration noted Skin: pale dry flaking skin, ab over lower extremities papery skin Neurologic: AAOx3 Psychiatric: subdued Results & Data Vital Signs (Past 12 Hours) Vital Signs Temp Pulse Pulse Pulse Resp BP BP 10/22/23 11:25 10/22/23 11:13 36.5 C 80 16 108/64 10/22/23 07:53 36.9 C 70 16 116/66 10/22/23 05:38 70 10/22/23 04:17 37.0 C 78 20 110/63 Pulse Ox O2 Del Method 10/22/23 11:25 Room Air 10/22/23 11:13 94 Room Air 10/22/23 07:53 93 Room Air 10/22/23 05:38 10/22/23 04:17 92 Room Air Laboratory Results data reviewed Diagnostic Findings data reviewed PG Care Time/CCT Total # of Minutes Spent Total Time Spent: 55 Total Time Spent with Patient: Total time spent is greater than 50% in coordination of care (as documented) at patient's floor/unit and/or counseling patient: I spent 55 minutes overall addressing this case: 10 min in medical data review/discussion with referring provider(s) and/or preparation for the visit 25 min in direct interaction with the patient/exam 00 min in Advance Care Planning/Goals of Care discussions as detailed above in note (must be >16min) 10 min in subsequent review and synthesis of assessment and plan 10 min communicating with other providers regarding the patient's case: [place] [id number] SUB INP/OBS CARE 3/50MIN Patient Type Established History Comprehensive Exam Comprehensive Medical Decision Making High Complexity Diagnoses Dry skin L85.3 Impaired mobility Z74.09 Cancer related pain G89.3 Generalized weakness R53.1 Sarcoma of right thigh C49.21 Palliative care by specialist Z51.5
--- NOTE | 2023-10-22 16:12 | Hospitalist Progress Note ---
Date of Service October 22, 2023 Assessment & Plan (1) Sarcoma of right thigh: (2) Generalized weakness: (3) CKD (chronic kidney disease), stage III: (4) Leukocytosis: (5) NATHALIE (obstructive sleep apnea): (6) Obesity: (7) Elevated troponin: Plan: Generalized weakness Sarcoma R Thigh on XRT Patient presented with generalized weakness -History of newly diagnosed sarcoma of the right thigh, currently undergoing radiation treatment for presurgical tumor reduction, anticipated surgical resection in [facility] [place]. Follows with Dr. Leeann Powell at [facility] [place] and Dr. Layne [facility] [place] with outpatient oncology. CXR-no acute findings, bio fire is negative, Blood culture from 10/31 out of 4 growing Corynebacterium; likely contaminant. Urine culturemore than 3 types of organism, all moderate count. Antibiotics stopped. Continue to monitor off antibiotics. MRI Brain wo contrast obtained; no acute stroke or hemorrhage. 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 Slight increase in symmetrical abnormal signal intensity in bilateral global pallidus. Appearance is nonspecific. Patient reports 3 episodes of generalized weakness at home. Neurology consulted;Not consistent with stroke or seizure. Continue radiation treatment; discussed with radiation oncology Palliative care also saw the patient on October 15, 2023; patient remains full code for now. Continue PT OT. Lower extremity Edema -Venous duplexnegative for DVT -Home antihypertensive medications include: Amlodipine, losartan, Lasix. Blood pressure well-controlled. -Soft tissue ultrasound of left leg shows avascular hypoechoic collection within the left calf. Size is around 4.6 X3.7 X 0.6 cm in favor subcutaneous hematoma. Monitor the site for now.HnH has been stable/slightly uptrending, will resume aspirin and dvt px. Hyponatremia Likely SIADH Sodium of 1 29-1 30 Urine study suggestive of SIADH Continued fluid restriction of 1200 cc Elevated Troponin Likely secondary to demand ischemia EKG shows normal sinus rhythm with PAC High sensitive troponin elevated to 72; up trended to 109 and down trended. Echocardiogram from September 2023 shows EF of 60 to 65% Patient denies any chest pain, palpitation or dizziness. Repeat EKG shows normal sinus rhythm with no ST or T wave changes. NATHALIE -Continue CPAP at bedtime. DVT PPx: lovenox subq Lines: 2 PIV FEN/GI:HH diet CODE: Full code Dispo: From home; PT OT recommends rehab. Patient has 13 more sessions of radiation(total is 25 sessions). Pt's priority is finishing radiation. Will need placement to a rehab which can arrange transport for radiation. Case management on board Admission and Anticipated Discharge Date Admission Date: October 12, 2023 Subjective Patient seen and examined at bedside. Comfortable; not in distress. Denies fever, chills, chest pain, shortness of breath, abdominal pain or urinary symptoms. No significant overnight events. Feels less tired today. Physical Exam Physical Exam: Constitutional: Alert oriented x 3; not in any distress. Respiratory: Bilateral vesicular breath sound. Cardiovascular: RRR, no murmur, no edema Vessels: no JVD or carotid bruit Chest: normal inspection of chest Abdomen: Soft, nontender Musculoskeletal:right posterior thigh indurated. left calf with bruise; nonten gemma. Skin: no rashes, warm and dry normal turgor Neurologic: Moves all extremities. PERRLA. EOMI. Psychiatric: A+Ox3, euthymic affect Results & Data Results & Data Vital Signs (Past 12 Hours) Vital Signs Temp Pulse Pulse Pulse Resp BP BP 10/22/23 15:30 36.6 C 87 18 99/61 L 10/22/23 11:25 10/22/23 11:13 36.5 C 80 16 108/64 10/22/23 07:53 36.9 C 70 16 116/66 10/22/23 05:38 70 10/22/23 04:17 37.0 C 78 20 110/63 Pulse Ox O2 Del Method 10/22/23 15:30 96 Room Air 10/22/23 11:25 Room Air 10/22/23 11:13 94 Room Air 10/22/23 07:53 93 Room Air 10/22/23 05:38 10/22/23 04:17 92 Room Air (4) Leukocytosis Leukocytosis type: unspecified Qualified Code(s): D72.829 - Elevated white blood cell count, unspecified
[2023-10-22] MEDS: amLODIPine BESYLATE 5 MG TAB PO SCH (21:48)
[2023-10-22] MEDS: ASPIRIN 81 MG ECTAB PO SCH (21:48)
[2023-10-22] MEDS: ENOXAPARIN INJ 40 MG/0.4 ML SYR SQ SCH (21:48)
[2023-10-23] MEDS: PANTOprazole 40 MG TAB PO SCH (06:33)
[2023-10-23 06:52] LABS: Hematocrit (blood only) 25.9 % (37.0-47.0); Hemoglobin 8.1 g/dl (12.0-16.0)
[2023-10-23 07:07] LABS: BUN Creatinine Ratio 30.2 (10-20); Creatinine Clr Calc Pharmacy 56.4 ml/min; Est GFR (African American) 66.6 ml/min; Est GFR (Non-African American) 57.4 ml/min; Potassium 4.3 mmol/L (3.5-5.1)
[2023-10-23] MEDS: ENOXAPARIN INJ 40 MG/0.4 ML SYR SQ SCH ×2 (10:10→21:29)
[2023-10-23] MEDS: SERTRALINE HCL 50 MG TABLET PO SCH (10:29)
[2023-10-23] MEDS: LOSARTAN POTASSIUM 25 MG TAB PO SCH (10:29)
[2023-10-23] MEDS: FUROSEMIDE 20 MG TAB PO SCH (10:29)
[2023-10-23] MEDS: FERROUS SULFATE 325 MG TAB PO SCH (10:30)
[2023-10-23] MEDS: CYANOCOBALAMIN (B-12) 500 MCG TABLET PO SCH (10:30)
[2023-10-23] MEDS: GABAPENTIN 100 MG CAP PO SCH ×3 (10:33→21:29)
--- NOTE | 2023-10-23 13:41 | Hospitalist Progress Note ---
Date of Service October 23, 2023 Assessment & Plan (1) Sarcoma of right thigh: (2) Generalized weakness: (3) CKD (chronic kidney disease), stage III: (4) Leukocytosis: (5) NATHALIE (obstructive sleep apnea): (6) Obesity: (7) Elevated troponin: Plan: Generalized weakness Sarcoma R Thigh on XRT Patient presented with generalized weakness -History of newly diagnosed sarcoma of the right thigh, currently undergoing radiation treatment for presurgical tumor reduction, anticipated surgical resection in [facility] [place]. Follows with Dr. Leeann Powell at [facility] [place] and Dr. Layne [facility] [place] with outpatient oncology. CXR-no acute findings, bio fire is negative, Blood culture from 10/31 out of 4 growing Corynebacterium; likely contaminant. Urine culturemore than 3 types of organism, all moderate count. Antibiotics stopped. Continue to monitor off antibiotics. MRI Brain wo contrast obtained; no acute stroke or hemorrhage. 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 Slight increase in symmetrical abnormal signal intensity in bilateral global pallidus. Appearance is nonspecific. Patient reports 3 episodes of generalized weakness at home. Neurology consulted;Not consistent with stroke or seizure. Continue radiation treatment; discussed with radiation oncology Palliative care also saw the patient on October 15, 2023; patient remains full code for now. Continue PT OT. Lower extremity Edema -Venous duplexnegative for DVT -Home antihypertensive medications include: Amlodipine, losartan, Lasix. Blood pressure well-controlled. -Soft tissue ultrasound of left leg shows avascular hypoechoic collection within the left calf. Size is around 4.6 X3.7 X 0.6 cm in favor subcutaneous hematoma. Monitor the site for now.HnH has been stable/slightly uptrending, c/w aspirin and dvt px. Hyponatremia Likely SIADH Sodium of 1 29-1 30 Urine study suggestive of SIADH Continued fluid restriction of 1200 cc Elevated Troponin Likely secondary to demand ischemia EKG shows normal sinus rhythm with PAC High sensitive troponin elevated to 72; up trended to 109 and down trended. Echocardiogram from September 2023 shows EF of 60 to 65% Patient denies any chest pain, palpitation or dizziness. Repeat EKG shows normal sinus rhythm with no ST or T wave changes. NATHALIE -Continue CPAP at bedtime. DVT PPx: lovenox subq Lines: 2 PIV FEN/GI:HH diet CODE: Full code Dispo: From home; PT OT recommends rehab. Patient has 12 more sessions of radiation(total is 25 sessions). Pt's priority is finishing radiation. Will need placement to a rehab which can arrange transport for radiation. Case management on board. Admission and Anticipated Discharge Date Admission Date: October 12, 2023 Subjective Patient seen and examined at bedside. Comfortable; not in distress. Denies fever, chills, chest pain, shortness of breath, abdominal pain or urinary symptoms. No significant overnight events. No acute events. Physical Exam Physical Exam: Constitutional: Alert oriented x 3; not in any distress. Respiratory: Bilateral vesicular breath sound. Cardiovascular: RRR, no murmur, no edema Vessels: no JVD or carotid bruit Chest: normal inspection of chest Abdomen: Soft, nontender Musculoskeletal:right posterior thigh indurated. left calf with bruise; nontender. Skin: no rashes, warm and dry normal turgor Neurologic: Moves all extremities. PERRLA. EOMI. Psychiatric: A+Ox3, euthymic affect Results & Data Results & Data Vital Signs (Past 12 Hours) Vital Signs Temp Pulse Pulse Resp BP Pulse Ox O2 Del Method 10/23/23 11:34 36.6 C 67 20 91/56 L 94 Room Air 10/23/23 09:00 68 10/23/23 07:49 37.0 C 70 20 102/60 92 Room Air 10/23/23 04:15 37.2 C 79 18 101/58 L 91 Room Air (4) Leukocytosis Leukocytosis type: unspecified Qualified Code(s): D72.829 - Elevated white blood cell count, unspecified
[2023-10-23] MEDS: ASPIRIN 81 MG ECTAB PO SCH (21:29)
[2023-10-23] MEDS: amLODIPine BESYLATE 5 MG TAB PO SCH (21:29)
[2023-10-24 06:00] LABS: Hematocrit (blood only) 25.3 % (37.0-47.0); Hemoglobin 8.1 g/dl (12.0-16.0)
[2023-10-24] MEDS: PANTOprazole 40 MG TAB PO SCH (06:04)
[2023-10-24] MEDS: ENOXAPARIN INJ 40 MG/0.4 ML SYR SQ SCH ×2 (07:56→21:36)
[2023-10-24] MEDS: FUROSEMIDE 20 MG TAB PO SCH (07:57)
[2023-10-24] MEDS: GABAPENTIN 100 MG CAP PO SCH ×3 (07:57→21:36)
[2023-10-24] MEDS: LOSARTAN POTASSIUM 25 MG TAB PO SCH (07:58)
[2023-10-24] MEDS: SERTRALINE HCL 50 MG TABLET PO SCH (07:59)
[2023-10-24 08:41] LABS: Creatinine Clr Calc Pharmacy 51.5 ml/min; Est GFR (African American) 59.7 ml/min; Est GFR (Non-African American) 51.5 ml/min
[2023-10-24] MEDS: FERROUS SULFATE 325 MG TAB PO SCH (11:35)
[2023-10-24] MEDS: CYANOCOBALAMIN (B-12) 500 MCG TABLET PO SCH (11:35)
--- NOTE | 2023-10-24 15:19 | Hospitalist Progress Note ---
Date of Service October 24, 2023 Assessment & Plan (1) Sarcoma of right thigh: (2) Generalized weakness: (3) CKD (chronic kidney disease), stage III: (4) Leukocytosis: (5) NATHALIE (obstructive sleep apnea): (6) Obesity: (7) Elevated troponin: Plan: Generalized weakness Sarcoma R Thigh on XRT Patient presented with generalized weakness -History of newly diagnosed sarcoma of the right thigh, currently undergoing radiation treatment for presurgical tumor reduction, anticipated surgical resection in [facility] [place]. Follows with Dr. Leeann Powell at [facility] [place] and Dr. Layne [facility] [place] with outpatient oncology. CXR-no acute findings, bio fire is negative, Blood culture from 10/31 out of 4 growing Corynebacterium; likely contaminant. Urine culturemore than 3 types of organism, all moderate count. Antibiotics stopped. Continue to monitor off antibiotics. MRI Brain wo contrast obtained; no acute stroke or hemorrhage. 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 Slight increase in symmetrical abnormal signal intensity in bilateral global pallidus. Appearance is nonspecific. Patient reports 3 episodes of generalized weakness at home. Neurology consulted;Not consistent with stroke or seizure. Continue radiation treatment; discussed with radiation oncology Palliative care also saw the patient on October 15, 2023; patient remains full code for now. Continue PT OT. Lower extremity Edema -Venous duplexnegative for DVT -Home antihypertensive medications include: Amlodipine, losartan, Lasix. Blood pressure well-controlled. -Soft tissue ultrasound of left leg shows avascular hypoechoic collection within the left calf. Size is around 4.6 X3.7 X 0.6 cm in favor subcutaneous hematoma. Monitor the site for now.HnH has been stable/slightly uptrending, c/w aspirin and dvt px. Hyponatremia Likely SIADH Sodium of 1 29-1 30 Urine study suggestive of SIADH Continued fluid restriction of 1200 cc Decreased ROM x Rt shoulder: Xray reviewed. active and passive rom painful. will consult ortho in AM. Elevated Troponin Likely secondary to demand ischemia EKG shows normal sinus rhythm with PAC High sensitive troponin elevated to 72; up trended to 109 and down trended. Echocardiogram from September 2023 shows EF of 60 to 65% Patient denies any chest pain, palpitation or dizziness. Repeat EKG shows normal sinus rhythm with no ST or T wave changes. NATHALIE -Continue CPAP at bedtime. DVT PPx: lovenox subq Lines: 2 PIV FEN/GI:HH diet CODE: Full code Dispo: From home; PT OT recommends rehab. Patient has 12 more sessions of radiation(total is 25 sessions). Pt's priority is finishing radiation. Will need placement to a rehab which can arrange transport for radiation. Case management on board. med/surg until dc. Admission and Anticipated Discharge Date Admission Date: October 12, 2023 Subjective Patient seen and examined at bedside. Comfortable; not in distress. Denies fever, chills, chest pain, shortness of breath, abdominal pain or urinary symptoms. No significant overnight events. No acute events. Physical Exam Physical Exam: Constitutional: Alert oriented x 3; not in any distress. Respiratory: Bilateral vesicular breath sound. Cardiovascular: RRR, no murmur, no edema Vessels: no JVD or carotid bruit Chest: normal inspection of chest Abdomen: Soft, nontender Musculoskeletal:right posterior thigh indurated. left calf with bruise; nontender. Skin: no rashes, warm and dry normal turgor Neurologic: Moves all extremities. PERRLA. EOMI. Psychiatric: A+Ox3, euthymic affect Results & Data Results & Data Vital Signs (Past 12 Hours) Vital Signs Temp Pulse Pulse Resp BP Pulse Ox O2 Del Method 10/24/23 11:25 36.6 C 85 20 115/69 95 Room Air 10/24/23 07:44 37.5 C 69 20 120/70 93 Room Air 10/24/23 07:32 65 10/24/23 04:27 37.2 C 74 18 110/54 L 90 Room Air (4) Leukocytosis Leukocytosis type: unspecified Qualified Code(s): D72.829 - Elevated white blood cell count, unspecified
[2023-10-24] MEDS: ASPIRIN 81 MG ECTAB PO SCH (21:36)
[2023-10-24] MEDS: amLODIPine BESYLATE 5 MG TAB PO SCH (21:36)
[2023-10-25] MEDS: PANTOprazole 40 MG TAB PO SCH (06:23)
[2023-10-25 07:13] LABS: Hematocrit (blood only) 25.2 % (37.0-47.0); Hemoglobin 7.9 g/dl (12.0-16.0)
[2023-10-25] MEDS: LOSARTAN POTASSIUM 25 MG TAB PO SCH (08:31)
[2023-10-25] MEDS: ENOXAPARIN INJ 40 MG/0.4 ML SYR SQ SCH ×2 (08:31→20:19)
[2023-10-25] MEDS: SERTRALINE HCL 50 MG TABLET PO SCH (08:32)
[2023-10-25] MEDS: FUROSEMIDE 20 MG TAB PO SCH (08:32)
[2023-10-25] MEDS: GABAPENTIN 100 MG CAP PO SCH ×3 (08:32→20:19)
[2023-10-25] MEDS: CYANOCOBALAMIN (B-12) 500 MCG TABLET PO SCH (12:59)
[2023-10-25] MEDS: FERROUS SULFATE 325 MG TAB PO SCH (12:59)
--- NOTE | 2023-10-25 13:11 | 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 Note ---
Date of Service: October 25, 2023 Attempted to consult patient this afternoon but she was away for radiation treatment. We will attempt to evaluate patient tomorrow morning. Please reach out to [facility] for any immediate questions regarding this patients care.
--- NOTE | 2023-10-25 13:55 | Orthopedic Consultation ---
<Statement entered by Breezy Hilliard, DO - 11/01/23 17:28> I, Dr. Breezy Hilliard, saw and examined Candi at bedside. I agree with the above report. She has some biceps tendinitis and possible rotator cuff tear. I talked to her about an injection but she declined. She would rather treat it conservatively with some therapy. I think that is reasonable. She will follow- up in my office as needed for her shoulder pain. Date of Service October 25, 2023 Assessment & Plan (1) Biceps tendinitis of right shoulder: (2) Impingement syndrome of right shoulder: Plan I had a long and detailed discussion today with the patient about her right shoulder pathology in great detail with ample amount of time for the patient to ask any questions or state any concerns. All questions and concerns were answered to the patient's satisfaction. At this point, I did discuss that I feel that she is dealing with a little bit of both bicep tendinitis and impingement syndrome to the right shoulder. I discussed conservative treatment which included but not limited to activity modifications, physical therapy/Occupational Therapy, oral analgesics, and/or steroid injection. At this time, she would like to begin with physical therapy/Occupational Therapy and hold off on other interventions at this point. She may be weightbearing as tolerated to the right upper extremity. If she wishes to proceed down another route, she may let staff know and we can reevaluate her at that time. Please Wann text or reach out to [facility] orthopedics if this patient's situation is to change. History of Present Illness Reason for Consultation: . Right shoulder weakness/pain Requesting Physician: . Attending Physician: Rachel Ashby MD . Patient is a 77-year-old female with significant past medical history of range of motion includes sarcoma of the right thigh arrived here at [facility] back on October 12, 2023. During her stay, she started noticing her right shoulder became more painful and range of motion was again affected. She notes that she notices it is hard for her to get past 90 degrees of flexion secondary to discomfort. She notes that her pain is roughly around an 8 out of 10 on certain movements that she does. She localizes her pain to the anterior aspect of the right shoulder. She is currently going through radiation treatment well inpatient. She denies any other concerns at this time. Allergies Allergy/AdvReac Type Severity Reaction Status Date / Time adhesive tape Allergy Intermediate Blister Verified 10/12/23 15:02 Penicillins Allergy Unknown CHILDHOOD Verified 10/12/23 15:02 ALLERGY Sulfa (Sulfonamide Allergy Unknown FACIAL Verified 10/12/23 15:02 Antibiotics) SWELLING gluten AdvReac Intermediate GI SYMPTOMS Verified 10/12/23 15:02 wheat AdvReac Intermediate eczema and Verified 10/12/23 15:02 stomach ache Home Medications Medication Instructions Recorded Confirmed Type conjugated estrogens 0.625 mg/gram 1 applic vaginal 2XWK 02/11/21 10/12/23 History vaginal cream (Premarin) amlodipine 2.5 mg tablet 2.5 mg PO HS 08/08/23 10/12/23 History cholecalciferol (vitamin D3) 10 400 unit PO QDL 08/08/23 10/12/23 History mcg (400 unit) tablet (Vitamin D3) clindamycin HCl 150 mg capsule 600 mg PO DIRECTED PRN dental 08/08/2312/04 History procedures pantoprazole 40 mg tablet,delayed 40 mg PO DAILYBB 08/08/23 10/12/23 History release acetaminophen 325 mg capsule 325 mg PO QID PRN PAIN/FEVER 09/15/23 10/12/23 History ferrous sulfate 325 mg (65 mg 325 mg PO QDL 09/15/23 10/12/23 History iron) tablet losartan 25 mg tablet 25 mg PO DAILY 09/15/23 10/12/23 History sertraline 50 mg tablet 50 mg PO DAILY 09/15/23 10/12/23 History tramadol 50 mg tablet 50 mg PO Q6H PRN Pain 09/15/23 10/12/23 History aspirin 81 mg chewable tablet 81 mg PO HS 10/12/23 10/12/23 History cyanocobalamin (vitamin B-12) 1,000 mcg PO QDL 10/12/23 10/12/23 History 1,000 mcg tablet (Vitamin B-12) furosemide 20 mg tablet 20 mg PO DAILY 10/12/23 10/12/23 History Past Med/Surg History Medical History (Updated 10/25/23 @ 13:52 by Tre Stringer PA-C) Obesity CKD (chronic kidney disease), stage III Chronic back pain Osteoarthritis GERD (gastroesophageal reflux disease) Temporomandibular joint disorder Hypertension Sleep apnea CPAP Asthma LAST USED PRN INH 2-3 MONTHS AGO Surgical History History of cataract extraction with lens replacement RIGHT E[place] [facility] [place] of total hip arthroplasty LEFT History of cholecystectomy History of esophagogastroduodenoscopy (EGD) History of colonoscopy Social History (Updated 09/15/23 @ 13:28 by Gisel Shen RN) Smoking Status: Never smoker Cigarettes Per Day: QUIT AT AGE 36; Second Hand Exposure: No; Do You Dip or Chew Tobacco: No; Hx Alcohol Use: No Hx Substance Use: No Preferred Language: Persian 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 Ability: Effective Visual Impairment: No Limitations Hearing Ability: Normal 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 Physical Exam .Constitutional: Alert oriented x 3; not in any distress. Respiratory: Bilateral vesicular breath sound. Cardiovascular: RRR, no murmur, no edema Vessels: no JVD or carotid bruit Chest: normal inspection of chest Abdomen: Soft, nontender Musculoskeletal:right posterior thigh indurated. left calf with bruise; nontender. Skin: no rashes, warm and dry normal turgor Neurologic: Moves all extremities. PERRLA. EOMI. Psychiatric: A+Ox3, euthymic affect Musculoskeletal On physical examination of the right shoulder, right arm shows no signs of erythema, ecchymosis, edema, or other obvious deformities. Tenderness to palpation along the bicipital groove. Limited range of motion in all planes including flexion and abduction 0 to 85 degrees. Painless passive range of motion in all planes. Negative drop arm. +2 radial pulse. Less than 2-second capillary refill. Normal sensation. Novastan intact. Results & Data Results & Data Laboratory Results . Diagnostic Findings . Shoulder X-Ray 10/12/23 14:36 XR shoulder RT min 2V routine HISTORY: 77 years-old Female pain acute right shoulder pain COMPARISON: Chest radiograph of same day TECHNIQUE: 3 views of the right shoulder FINDINGS: Moderate glenohumeral and AC joint osteoarthritis. No acute fracture, dislocation or opaque foreign body. The imaged lung chacon appear clear. IMPRESSION: No acute fracture or dislocation. ACT 112: Negative or not required by law. The above report was generated using voice recognition software. It may contain grammatical, syntax or spelling errors. Electronically signed by: Tre Alvarado M.D. 10/12/2023 4:13 PM PG Care Time/CCT Total # of Minutes Spent Total Time Spent with Patient: Total time spent is greater than 50% in coordination of care (as documented) at patient's floor/unit and/or counseling patient: Coding Level of Care Code 16537 IN/OBS CONSULT LVL 3,45M Diagnoses Biceps tendinitis of right shoulder M75.21 Impingement syndrome of right shoulder M75.41
--- NOTE | 2023-10-25 14:56 | Hospitalist Progress Note ---
Date of Service October 25, 2023 Assessment & Plan (1) Sarcoma of right thigh: (2) Generalized weakness: (3) CKD (chronic kidney disease), stage III: (4) Leukocytosis: (5) NATHALIE (obstructive sleep apnea): (6) Obesity: (7) Elevated troponin: Plan: Generalized weakness Sarcoma R Thigh on XRT Patient presented with generalized weakness -History of newly diagnosed sarcoma of the right thigh, currently undergoing radiation treatment for presurgical tumor reduction, anticipated surgical resection in [facility]. Follows with Dr. Leeann Powell at [facility] and Dr. Layne [facility] [place] with outpatient oncology. CXR-no acute findings, bio fire is negative, Blood culture from 10/31 out of 4 growing Corynebacterium; likely contaminant. Urine culturemore than 3 types of organism, all moderate count. Antibiotics stopped. Continue to monitor off antibiotics. MRI Brain wo contrast obtained; no acute stroke or hemorrhage. 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 Slight increase in symmetrical abnormal signal intensity in bilateral global pallidus. Appearance is nonspecific. Patient reports 3 episodes of generalized weakness at home. Neurology consulted;Not consistent with stroke or seizure. Continue radiation treatment; per radiation oncology Palliative care also saw the patient on October 15, 2023; patient remains full code for now. Continue PT OT. Lower extremity Edema -Venous duplexnegative for DVT -Home antihypertensive medications include: Amlodipine, losartan, Lasix. Blood pressure well-controlled. -Soft tissue ultrasound of left leg shows avascular hypoechoic collection within the left calf. Size is around 4.6 X3.7 X 0.6 cm in favor subcutaneous hematoma. Monitor the site for now.HnH has been stable, c/w aspirin and dvt px. Hyponatremia Likely SIADH Sodium of 1 29-1 30 Urine study suggestive of SIADH Continued fluid restriction of 1200 cc Decreased ROM x Rt shoulder: Xray reviewed. active and passive rom painful. Orthopedics evaluated, appreciate recommendation. Elevated Troponin Likely secondary to demand ischemia EKG shows normal sinus rhythm with PAC High sensitive troponin elevated to 72; up trended to 109 and down trended. Echocardiogram from September 2023 shows EF of 60 to 65% Patient denies any chest pain, palpitation or dizziness. Repeat EKG shows normal sinus rhythm with no ST or T wave changes. NATHALIE -Continue CPAP at bedtime. DVT PPx: lovenox subq Lines: 2 PIV FEN/GI:HH diet CODE: Full code Dispo: From home; PT OT recommends rehab. Patient has many more sessions of radiation(total is 25 sessions) left. Pt's priority is finishing radiation. Will need placement to a rehab which can arrange transport for radiation. Case management on board. med/surg until dc. Admission and Anticipated Discharge Date Admission Date: October 12, 2023 Subjective Patient seen and examined at bedside. Comfortable; not in distress. Denies fever, chills, chest pain, shortness of breath, abdominal pain or urinary symptoms. No significant overnight events. No acute events. Physical Exam Physical Exam: Constitutional: Alert oriented x 3; not in any distress. Respiratory: Bilateral vesicular breath sound. Cardiovascular: RRR, no murmur, no edema Vessels: no JVD or carotid bruit Chest: normal inspection of chest Abdomen: Soft, nontender Musculoskeletal:right posterior thigh indurated. left calf with bruise; nontender. Skin: no rashes, warm and dry normal turgor Neurologic: Moves all extremities. PERRLA. EOMI. Psychiatric: A+Ox3, euthymic affect Results & Data Results & Data Vital Signs (Past 12 Hours) Vital Signs Temp Pulse Pulse Resp BP BP Pulse Ox 10/25/23 11:51 10/25/23 11:42 36.5 C 83 20 101/67 97 10/25/23 07:49 36.9 C 73 20 117/72 93 10/25/23 05:55 69 10/25/23 03:37 36.8 C 75 18 92/57 L 93 O2 Del Method 10/25/23 11:51 Room Air 10/25/23 11:42 Room Air 10/25/23 07:49 Room Air 10/25/23 05:55 10/25/23 03:37 Room Air (4) Leukocytosis Leukocytosis type: unspecified Qualified Code(s): D72.829 - Elevated white blood cell count, unspecified
[2023-10-25] MEDS: amLODIPine BESYLATE 5 MG TAB PO SCH (20:20)
[2023-10-25] MEDS: ASPIRIN 81 MG ECTAB PO SCH (20:20)
[2023-10-25] MEDS: traMADol HCL 50 MG TABLET PO PRN (23:08)
[2023-10-26] MEDS: PANTOprazole 40 MG TAB PO SCH (06:05)
[2023-10-26 08:24] LABS: Hematocrit (blood only) 24.9 % (37.0-47.0); Hemoglobin 7.8 g/dl (12.0-16.0)
[2023-10-26] MEDS: SERTRALINE HCL 50 MG TABLET PO SCH (09:27)
[2023-10-26] MEDS: FUROSEMIDE 20 MG TAB PO SCH (09:27)
[2023-10-26] MEDS: ENOXAPARIN INJ 40 MG/0.4 ML SYR SQ SCH ×2 (09:27→20:43)
[2023-10-26] MEDS: LOSARTAN POTASSIUM 25 MG TAB PO SCH (09:27)
[2023-10-26] MEDS: GABAPENTIN 100 MG CAP PO SCH ×3 (09:27→20:42)
[2023-10-26] MEDS: FERROUS SULFATE 325 MG TAB PO SCH (12:10)
[2023-10-26] MEDS: CYANOCOBALAMIN (B-12) 500 MCG TABLET PO SCH (12:10)
--- NOTE | 2023-10-26 16:10 | Hospitalist Progress Note ---
Date of Service October 26, 2023 Assessment & Plan (1) Sarcoma of right thigh: (2) Generalized weakness: (3) CKD (chronic kidney disease), stage III: (4) Leukocytosis: (5) NATHALIE (obstructive sleep apnea): (6) Obesity: (7) Elevated troponin: Plan: Generalized weakness Sarcoma R Thigh on XRT Patient presented with generalized weakness -History of newly diagnosed sarcoma of the right thigh, currently undergoing radiation treatment for presurgical tumor reduction, anticipated surgical resection in [facility] [place]. Follows with Dr. Leeann Powell at [facility] and Dr. [facility] [place] with outpatient oncology. CXR-no acute findings, bio fire is negative, Blood culture from 10/31 out of 4 growing Corynebacterium; likely contaminant. Urine culturemore than 3 types of organism, all moderate count. Antibiotics stopped. Continue to monitor off antibiotics. MRI Brain wo contrast obtained; no acute stroke or hemorrhage. 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 Slight increase in symmetrical abnormal signal intensity in bilateral global pallidus. Appearance is nonspecific. Patient reports 3 episodes of generalized weakness at home. Neurology consulted;Not consistent with stroke or seizure. Continue radiation treatment; per radiation oncology Palliative care also saw the patient on October 15, 2023; patient remains full code for now. Continue PT OT. Lower extremity Edema -Venous duplexnegative for DVT -Home antihypertensive medications include: Amlodipine, losartan, Lasix. Blood pressure well-controlled. -Soft tissue ultrasound of left leg shows avascular hypoechoic collection within the left calf. Size is around 4.6 X3.7 X 0.6 cm in favor subcutaneous hematoma. Monitor the site for now.HnH has been stable, c/w aspirin and dvt px. Hyponatremia Likely SIADH Sodium of 1 29-1 30 Urine study suggestive of SIADH Continued fluid restriction of 1200 cc Decreased ROM x Rt shoulder: Xray reviewed. active and passive rom painful. Orthopedics evaluated, appreciate recommendation. Elevated Troponin Likely secondary to demand ischemia EKG shows normal sinus rhythm with PAC High sensitive troponin elevated to 72; up trended to 109 and down trended. Echocardiogram from September 2023 shows EF of 60 to 65% Patient denies any chest pain, palpitation or dizziness. Repeat EKG shows normal sinus rhythm with no ST or T wave changes. NATHALIE -Continue CPAP at bedtime. DVT PPx: lovenox subq Lines: 2 PIV FEN/GI:HH diet CODE: Full code Dispo: From home; PT OT recommends rehab. Patient has many more sessions of radiation(total is 25 sessions) left. Pt's priority is finishing radiation. Will need placement to a rehab which can arrange transport for radiation. Case management on board. med/surg until dc. Admission and Anticipated Discharge Date Admission Date: October 12, 2023 Subjective Patient seen and examined at bedside. Comfortable; not in distress. Denies fever, chills, chest pain, shortness of breath, abdominal pain or urinary symptoms. No significant overnight events. No acute events. Physical Exam Physical Exam: Constitutional: Alert oriented x 3; not in any distress. Respiratory: Bilateral vesicular breath sound. Cardiovascular: RRR, no murmur, no edema Vessels: no JVD or carotid bruit Chest: normal inspection of chest Abdomen: Soft, nontender Musculoskeletal:right posterior thigh indurated. left calf with bruise; nontender. Skin: no rashes, warm and dry normal turgor Neurologic: Moves all extremities. PERRLA. EOMI. Psychiatric: A+Ox3, euthymic affect Results & Data Results & Data Vital Signs (Past 12 Hours) Vital Signs Temp Pulse Pulse Resp BP Pulse Ox O2 Del Method 10/26/23 15:43 67 10/26/23 14:55 36.9 C 57 L 16 96/59 L 94 Room Air 10/26/23 07:58 36.7 C 77 16 105/53 L 93 Room Air 10/26/23 06:00 75 (4) Leukocytosis Leukocytosis type: unspecified Qualified Code(s): D72.829 - Elevated white blood cell count, unspecified
[2023-10-26] MEDS: amLODIPine BESYLATE 5 MG TAB PO SCH (20:42)
[2023-10-26] MEDS: ASPIRIN 81 MG ECTAB PO SCH (20:43)
[2023-10-27] MEDS: PANTOprazole 40 MG TAB PO SCH (05:44)
[2023-10-27 07:26] LABS: Hematocrit (blood only) 23.9 % (37.0-47.0); Hemoglobin 7.7 g/dl (12.0-16.0); Mean Corpuscular Hemoglobin 25.2 pg (25.0-34.0); Mean Corpuscular Hgb Conc 32.2 g/dL (32.0-36.0); Mean Corpuscular Volume 78.4 fL (80.0-100.0); Mean Platelet Volume 9.7 fL (9.4-12.4); Platelet Count 494 K/uL (130-400); RDW Coefficient of Variation 15.4 % (11.5-14.5); RDW Standard Deviation 43.9 fL (36.4-46.3); Red Blood Count 3.05 M/uL (4.20-5.40); White Blood Count 10.47 K/ul (4.8-10.8)
[2023-10-27 07:56] LABS: BUN Creatinine Ratio 32.4 (10-20); Calcium 8.1 mg/dl (8.6-10.3); Creatinine Clr Calc Pharmacy 50.5 ml/min; Est GFR (African American) 57.7 ml/min; Est GFR (Non-African American) 49.8 ml/min; Potassium 4.2 mmol/L (3.5-5.1)
[2023-10-27] MEDS: LOSARTAN POTASSIUM 25 MG TAB PO SCH (08:30)
[2023-10-27] MEDS: FUROSEMIDE 20 MG TAB PO SCH (08:30)
[2023-10-27] MEDS: ENOXAPARIN INJ 40 MG/0.4 ML SYR SQ SCH ×2 (08:30→20:46)
[2023-10-27] MEDS: GABAPENTIN 100 MG CAP PO SCH ×3 (08:30→20:46)
[2023-10-27] MEDS: SERTRALINE HCL 50 MG TABLET PO SCH (08:31)
[2023-10-27] MEDS: CYANOCOBALAMIN (B-12) 500 MCG TABLET PO SCH (13:09)
[2023-10-27] MEDS: FERROUS SULFATE 325 MG TAB PO SCH (13:09)
--- NOTE | 2023-10-27 14:00 | Hospitalist Progress Note ---
Date of Service October 27, 2023 Assessment & Plan (1) Sarcoma of right thigh: (2) Generalized weakness: (3) CKD (chronic kidney disease), stage III: (4) Leukocytosis: (5) NATHALIE (obstructive sleep apnea): (6) Obesity: (7) Elevated troponin: Plan: Generalized weakness Likely secondary to sarcoma of the right thigh CXR-no acute findings, bio fire is negative, Blood culture from 10/31 out of 4 growing Corynebacterium; likely contaminant. Urine culturemore than 3 types of organism, all moderate count. Antibiotics stopped. Continue to monitor off antibiotics. Does not have any signs and or symptoms of infection Has been getting physical therapy and recommended rehab Getting better gradually and will continue physical therapy Sarcoma R Thigh on XRT Patient presented with generalized weakness -History of newly diagnosed sarcoma of the right thigh, currently undergoing radiation treatment for presurgical tumor reduction, anticipated surgical resection in [facility] [place]. Follows with Dr. Leeann Ramirez and Parth at [facility] and [facility] with outpatient oncology. MRI Brain wo contrast obtained; no acute stroke or hemorrhage. 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 Slight increase in symmetrical abnormal signal intensity in bilateral global pallidus. Appearance is nonspecific. Patient reports 3 episodes of generalized weakness at home. Neurology consulted-appreciate input and recommendation;Not consistent with stroke or seizure. Continue radiation treatment; per radiation oncology Palliative care also saw the patient on October 15, 2023; patient remains full code for now. Continue PT OT.-Awaiting placement Lower extremity Edema Hematoma of the left calf 4.6 x 3.7 x 0.6 cm -Venous duplexnegative for DVT -Home antihypertensive medications include: Amlodipine, losartan, Lasix. Blood pressure well-controlled. -Soft tissue ultrasound of left leg shows avascular hypoechoic collection within the left calf. Size is around 4.6 X3.7 X 0.6 cm in favor subcutaneous hematoma. Monitor the site for now.HnH has been stable, c/w aspirin and dvt px. Hemoglobin remains stable Will repeat soft tissue ultrasound to evaluate hematoma further Hyponatremia Likely SIADH Sodium of 1 29-1 30 Urine study suggestive of SIADH Continued fluid restriction of 1200 cc Sodium level remains low at 129 Will add sodium tablet 1 g twice daily Decreased ROM x Rt shoulder: Xray reviewed. active and passive rom painful. Orthopedics evaluated, appreciate recommendation. Elevated Troponin Likely secondary to demand ischemia EKG shows normal sinus rhythm with PAC High sensitive troponin elevated to 72; up trended to 109 and down trended. Echocardiogram from September 2023 shows EF of 60 to 65% Patient denies any chest pain, palpitation or dizziness. Repeat EKG shows normal sinus rhythm with no ST or T wave changes. NATHALIE -Continue CPAP at bedtime. DVT PPx: lovenox subq Lines: 2 PIV FEN/GI:HH diet CODE: Full code Dispo: From home; PT OT recommends rehab. Patient has many more sessions of radiation(total is 25 sessions) left. Pt's priority is finishing radiation. Will need placement to a rehab which can arrange transport for radiation. Case management on board. med/surg until dc. Awaiting placement as PT and OT recommended rehab Admission and Anticipated Discharge Date Admission Date: October 12, 2023 Subjective 10/27/2023 The patient was seen and examined in medical telemetry unit in presence of the brother She has been feeling much better today and complains to have some back pain Denies any pain in the right thigh or left calf Remains generally weak and getting physical therapy Review of Systems Review of Systems: All systems reviewed and are unremarkable except as noted below Musculoskeletal: No acute arthritis involving any of the joint Physical Exam Physical Exam: Lying in bed comfortably Constitutional: well developed, well nourished, + ill appearing and + obese Eyes: PERRL, conjunctivae normal, anicteric sclerae ENMT: external ear and nose normal, oropharynx normal Neck: trachea midline, no thyromegaly Respiratory: no respiratory distress Auscultation: lungs clear to auscultation bilaterally Cardiovascular: Rate/Rhythm: regular rate and regular rhythm; not tachycardic Heart Sounds: normal S1 and normal S2; no murmur Extremities: + edema (Trace edema bilaterally) Gastrointestinal (Abdomen): Inspection/Auscultation: normal bowel sounds; abdomen not distended Percussion/Palpation: abdomen soft; abdomen nontender Musculoskeletal: No tenderness in the lateral left calf. Minimal swelling noted. No tenderness in the right thigh on the posteromedial aspect and no tenderness Neurologic: normal touch/pain/proprioception and moves all extremities; no focal motor deficits Remains generally weak with weak legs Lymphatic: no cervical or axillary lymphadenopathy Results & Data Results & Data Vital Signs (Past 12 Hours) Vital Signs Temp Pulse Pulse Resp BP Pulse Ox O2 Del Method 10/27/23 08:02 36.8 C 65 16 98/58 L 93 Room Air 10/27/23 05:55 67 10/27/23 03:59 36.9 C 82 18 126/73 93 Room Air Laboratory Results Short CBC 10/27/23 Range/Units 06:46 WBC 10.47 (4.8-10.8) K/ul Hgb 7.7 L (12.0-16.0) g/dl Hct 23.9 L (37.0-47.0) % Plt Count 494 H (130-400) K/uL BMP 10/27/23 06:46 Sodium 129 L Potassium 4.2 Chloride 98 Carbon Dioxide 24 BUN 35 H Creatinine 1.08 Glucose 87 Calcium 8.1 L Medications Administered Current Inpatient Medications Acetaminophen (Acetaminophen 500 Mg Tab) 1,000 mg PO Q8H PRN PRN Reason: Mild Pain (Scale 1, 2, 3) Stop: 11/12/23 14:51 Last Admin: 10/17/23 22:07 Dose: 1,000 mg Amlodipine Besylate (Amlodipine Besylate 5 Mg Tab) 2.5 mg PO HS [facility] Stop: 11/11/23 20:59 Last Admin: 10/26/23 20:42 Dose: 2.5 mg Aspirin (Aspirin 81 Mg Ectab) 81 mg PO HS [facility] Stop: 11/12/23 20:59 Last Admin: 10/26/23 20:43 Dose: 81 mg Cyanocobalamin (Cyanocobalamin (B-12) 500 Mcg Tablet) 1,000 mcg PO QDL CANDICE Stop: 11/12/23 11:29 Last Admin: 10/27/23 13:09 Dose: 1,000 mcg Enoxaparin Sodium (Enoxaparin Inj 40 Mg/0.4 Ml Syr) 40 mg SQ BID CANDICE Stop: 11/12/23 08:59 Last Admin: 10/27/23 08:30 Dose: 40 mg Ferrous Sulfate (Ferrous Sulfate 325 Mg Tab) 325 mg PO QDL CANDICE Stop: 11/12/23 11:29 Last Admin: 10/27/23 13:09 Dose: 325 mg Furosemide (Furosemide 20 Mg Tab) 20 mg PO DAILY CANDICE Stop: 11/17/23 08:59 Last Admin: 10/27/23 08:30 Dose: 20 mg Gabapentin (Gabapentin 100 Mg Cap) 100 mg PO TID [facility] Stop: 11/13/23 13:59 Last Admin: 10/27/23 13:09 Dose: 100 mg Losartan Potassium (Losartan Potassium 25 Mg Tab) 25 mg PO DAILY CANDICE Stop: 11/12/23 08:59 Last Admin: 10/27/23 08:30 Dose: 25 mg Miconazole Nitrate (Miconazole Nitrate Powder 85 Gm) 1 appln EXT PRN PRN PRN Reason: Affected Skin Folds Stop: 11/20/23 12:34 Oxycodone HCl (Oxycodone Hcl Ir 5 Mg Tab (Immediate Release)) 5 mg PO Q6H PRN PRN Reason: Severe Pain (Scale 7, 8, 9,10) Stop: 10/27/23 14:51 Last Admin: 10/15/23 20:39 Dose: 5 mg Pantoprazole Sodium (Pantoprazole 40 Mg Tab) 40 mg PO DAILYBB [facility] Stop: 11/12/23 06:29 Last Admin: 10/27/23 05:44 Dose: 40 mg Sertraline HCl (Sertraline Hcl 50 Mg Tablet) 50 mg PO DAILY [facility] Stop: 11/12/23 08:59 Last Admin: 10/27/23 08:31 Dose: 50 mg Sodium Chloride (Sodium Chloride 1 Gm Tablet) 1 gm PO BID CANDICE Stop: 11/26/23 20:59 Tramadol HCl (Tramadol Hcl 50 Mg Tablet) 50 mg PO Q6H PRN PRN Reason: Pain Stop: 11/11/23 19:15 Last Admin: 10/25/23 23:08 Dose: 50 mg (4) Leukocytosis Leukocytosis type: unspecified Qualified Code(s): D72.829 - Elevated white blood cell count, unspecified
[2023-10-27] MEDS: ASPIRIN 81 MG ECTAB PO SCH (20:46)
[2023-10-27] MEDS: SODIUM CHLORIDE 1 GM TABLET PO SCH (20:46)
[2023-10-27] MEDS: amLODIPine BESYLATE 5 MG TAB PO SCH (20:47)
[2023-10-28] MEDS: PANTOprazole 40 MG TAB PO SCH (05:55)
[2023-10-28 08:07] LABS: Magnesium 1.6 mg/dl (1.7-2.4); Phosphorus 4.3 mg/dl (2.5-4.9)
[2023-10-28] MEDS: FUROSEMIDE 20 MG TAB PO SCH (08:37)
[2023-10-28] MEDS: SERTRALINE HCL 50 MG TABLET PO SCH (08:37)
[2023-10-28] MEDS: SODIUM CHLORIDE 1 GM TABLET PO SCH ×2 (08:41→20:28)
[2023-10-28] MEDS: LOSARTAN POTASSIUM 25 MG TAB PO SCH (08:41)
[2023-10-28] MEDS: GABAPENTIN 100 MG CAP PO SCH ×3 (08:42→20:28)
[2023-10-28] MEDS: ENOXAPARIN INJ 40 MG/0.4 ML SYR SQ SCH ×2 (08:43→20:29)
[2023-10-28 09:56] LABS: BUN Creatinine Ratio 34.2 (10-20); Calcium 8.3 mg/dl (8.6-10.3); Creatinine Clr Calc Pharmacy 49.2 ml/min; Est GFR (African American) 55.9 ml/min; Est GFR (Non-African American) 48.2 ml/min; Potassium 3.9 mmol/L (3.5-5.1)
[2023-10-28] MEDS: MAGNESIUM OXIDE 400 MG TAB PO SCH ×2 (10:38→20:28)
[2023-10-28] MEDS: FERROUS SULFATE 325 MG TAB PO SCH (10:38)
[2023-10-28] MEDS: CYANOCOBALAMIN (B-12) 500 MCG TABLET PO SCH (10:38)
--- NOTE | 2023-10-28 14:35 | Hospitalist Progress Note ---
Date of Service October 28, 2023 Assessment & Plan (1) Sarcoma of right thigh: (2) Generalized weakness: (3) CKD (chronic kidney disease), stage III: (4) Leukocytosis: (5) ANTHALIE (obstructive sleep apnea): (6) Obesity: (7) Elevated troponin: Plan: Generalized weakness Likely secondary to sarcoma of the right thigh CXR-no acute findings, bio fire is negative, Blood culture from 10/31 out of 4 growing Corynebacterium; likely contaminant. Urine culturemore than 3 types of organism, all moderate count. Antibiotics stopped. Continue to monitor off antibiotics. Does not have any signs and or symptoms of infection Has been getting physical therapy and recommended rehab Getting better gradually and will continue physical therapy A little better today and will need to continue physical therapy in a rehab facility Sarcoma R Thigh on XRT Patient presented with generalized weakness -History of newly diagnosed sarcoma of the right thigh, currently undergoing radiation treatment for presurgical tumor reduction, [place] [facility] [place] Dr. Leeann Powell [place] [facility] [place] and [facility] with outpatient oncology. MRI Brain wo contrast obtained; no acute stroke or hemorrhage. 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 Slight increase in symmetrical abnormal signal intensity in bilateral global pallidus. Appearance is nonspecific. Patient reports 3 episodes of generalized weakness at home. Neurology consulted-appreciate input and recommendation;Not consistent with stroke or seizure. Continue radiation treatment; per radiation oncology Palliative care also saw the patient on October 15, 2023; patient remains full code for now. Continue PT OT.-Awaiting placement Lower extremity Edema Hematoma of the left calf 4.6 x 3.7 x 0.6 cm -Venous duplexnegative for DVT -Home antihypertensive medications include: Amlodipine, losartan, Lasix. Blood pressure well-controlled. -Soft tissue ultrasound of left leg shows avascular hypoechoic collection within the left calf. Size is around 4.6 X3.7 X 0.6 cm in favor subcutaneous hematoma. Monitor the site for now.HnH has been stable, c/w aspirin and dvt px. 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 active and passive rom painful. Orthopedics evaluated, appreciate recommendation. Elevated Troponin Likely secondary to demand ischemia EKG shows normal sinus rhythm with PAC High sensitive troponin elevated to 72; up trended to 109 and down trended. Echocardiogram from September 2023 shows EF of 60 to 65% Patient denies any chest pain, palpitation or dizziness. Repeat EKG shows normal sinus rhythm with no ST or T wave changes. NATHALIE -Continue CPAP at bedtime. DVT PPx: lovenox subq Lines: 2 PIV FEN/GI:HH diet CODE: Full code Dispo: From home; PT OT recommends rehab. Patient has many more sessions of radiation(total is 25 sessions) left. Pt's priority is finishing radiation. Will need placement to a rehab which can arrange transport for radiation. Case management on board. med/surg until dc. Awaiting placement as PT and OT recommended rehab Admission and Anticipated Discharge Date Admission Date: October 12, 2023 Subjective 10/27/2023 The patient was seen and examined in medical telemetry unit in presence of the brother She has been feeling much better today and complains to have some back pain Denies any pain in the right thigh or left calf Remains generally weak and getting physical therapy 10/28/2023 The patient was seen and examined in medical telemetry unit She is back from radiation treatment and denies any significant symptoms except ongoing weakness Has been awaiting placement Review of Systems Review of Systems: All systems reviewed and are unremarkable except as noted below Musculoskeletal: No acute arthritis involving any of the joint Physical Exam Physical Exam: Lying in bed comfortably Constitutional: well developed, well nourished, + ill appearing and + obese Eyes: PERRL, conjunctivae normal, anicteric sclerae ENMT: external ear and nose normal, oropharynx normal Neck: trachea midline, no thyromegaly Respiratory: no respiratory distress Auscultation: lungs clear to auscultation bilaterally Cardiovascular: Rate/Rhythm: regular rate and regular rhythm; not tachycardic Heart Sounds: normal S1 and normal S2; no murmur Extremities: + edema (Trace edema bilaterally) Gastrointestinal (Abdomen): Inspection/Auscultation: normal bowel sounds; abdomen not distended Percussion/Palpation: abdomen soft; abdomen nontender Neurologic: normal touch/pain/proprioception and moves all extremities; no focal motor deficits Lymphatic: no cervical or axillary lymphadenopathy Results & Data Results & Data Vital Signs (Past 12 Hours) Vital Signs Temp Pulse Pulse Resp BP Pulse Ox O2 Del Method 10/28/23 12:57 36.5 C 79 20 145/65 H 92 Room Air 10/28/23 10:22 Room Air 10/28/23 08:45 154/67 H 10/28/23 08:42 162/85 H 10/28/23 08:08 36.7 C 66 16 94/60 L 94 Room Air 10/28/23 07:52 36.6 C 67 16 120/73 94 Room Air 10/28/23 07:00 68 10/28/23 03:19 36.4 C L 69 18 94/56 L 92 Room Air Laboratory Results [facility] 10/28/23 09:17 Sodium 129 L Potassium 3.9 Chloride 97 L Carbon Dioxide 23 BUN 38 H Creatinine 1.11 Glucose 132 H Calcium 8.3 L Medications Administered Current Inpatient Medications Acetaminophen (Acetaminophen 500 Mg Tab) 1,000 mg PO Q8H PRN PRN Reason: Mild Pain (Scale 1, 2, 3) Stop: 11/12/23 14:51 Last Admin: 10/17/23 22:07 Dose: 1,000 mg Amlodipine Besylate (Amlodipine Besylate 5 Mg Tab) 2.5 mg PO [facility] Stop: 11/11/23 20:59 Last Admin: 10/27/23 20:47 Dose: 2.5 mg Aspirin (Aspirin 81 Mg Ectab) 81 mg PO [facility] Stop: 11/12/23 20:59 Last Admin: 10/27/23 20:46 Dose: 81 mg Cyanocobalamin (Cyanocobalamin (B-12) 500 Mcg Tablet) 1,000 mcg PO QDL [facility] Stop: 11/12/23 11:29 Last Admin: 10/28/23 10:38 Dose: 1,000 mcg Enoxaparin Sodium (Enoxaparin Inj 40 Mg/0.4 Ml Syr) 40 mg SQ BID [facility] Stop: 11/12/23 08:59 Last Admin: 10/28/23 08:43 Dose: 40 mg Ferrous Sulfate (Ferrous Sulfate 325 Mg Tab) 325 mg PO QDL [facility] Stop: 11/12/23 11:29 Last Admin: 10/28/23 10:38 Dose: 325 mg Furosemide (Furosemide 20 Mg Tab) 20 mg PO DAILY [facility] Stop: 11/17/23 08:59 Last Admin: 10/28/23 08:37 Dose: 20 mg Gabapentin (Gabapentin 100 Mg Cap) 100 mg PO TID [facility] Stop: 11/13/23 13:59 Last Admin: 10/28/23 13:52 Dose: 100 mg Losartan Potassium (Losartan Potassium 25 Mg Tab) 25 mg PO DAILY [facility] Stop: 11/12/23 08:59 Last Admin: 10/28/23 08:41 Dose: 25 mg Magnesium Oxide (Magnesium Oxide 400 Mg Tab) 400 mg PO BID [facility] Stop: 11/27/23 09:59 Last Admin: 10/28/23 10:38 Dose: 400 mg Miconazole Nitrate (Miconazole Nitrate Powder 85 Gm) 1 appln EXT PRN PRN PRN Reason: Affected Skin Folds Stop: 11/20/23 12:34 Pantoprazole Sodium (Pantoprazole 40 Mg Tab) 40 mg PO DAILYBB [facility] Stop: 11/12/23 06:29 Last Admin: 10/28/23 05:55 Dose: 40 mg Sertraline HCl (Sertraline Hcl 50 Mg Tablet) 50 mg PO DAILY [facility] Stop: 11/12/23 08:59 Last Admin: 10/28/23 08:37 Dose: 50 mg Sodium Chloride (Sodium Chloride 1 Gm Tablet) 1 gm PO BID [facility] Stop: 11/26/23 20:59 Last Admin: 10/28/23 08:41 Dose: 1 gm Tramadol HCl (Tramadol Hcl 50 Mg Tablet) 50 mg PO Q6H PRN PRN Reason: Pain Stop: 11/11/23 19:15 Last Admin: 10/25/23 23:08 Dose: 50 mg (4) Leukocytosis Leukocytosis type: unspecified Qualified Code(s): D72.829 - Elevated white blood cell count, unspecified
[2023-10-28] MEDS: ASPIRIN 81 MG ECTAB PO SCH (20:26)
[2023-10-28] MEDS: amLODIPine BESYLATE 5 MG TAB PO SCH (20:27)
[2023-10-29] MEDS: PANTOprazole 40 MG TAB PO SCH (05:32)
[2023-10-29 07:31] LABS: Basophils # (auto) 0.07 K/uL (0.00-0.20); Basophils % (auto) 0.6 %; Eosinophils % (auto) 3.4 %; Hematocrit (blood only) 25.3 % (37.0-47.0); Hemoglobin 7.9 g/dl (12.0-16.0); Immature Granulocytes # (auto) 0.17 K/uL (0.01-0.20); Immature Granulocytes % (auto) 1.5 %; Lymphocytes # (auto) 1.12 K/uL (1.20-3.40); Lymphocytes % (auto) 9.6 %; Mean Corpuscular Hemoglobin 24.4 pg (25.0-34.0); Mean Corpuscular Hgb Conc 31.2 g/dL (32.0-36.0); Mean Corpuscular Volume 78.1 fL (80.0-100.0); Mean Platelet Volume 9.3 fL (9.4-12.4); Monocytes # (auto) 1.71 K/uL (0.11-0.59); Monocytes % (auto) 14.7 %; Neutrophils # (auto) 8.19 K/uL (1.40-6.50); Neutrophils % (auto) 70.2 %; Platelet Count 519 K/uL (130-400); RDW Coefficient of Variation 15.8 % (11.5-14.5); RDW Standard Deviation 45.1 fL (36.4-46.3); Red Blood Count 3.24 M/uL (4.20-5.40); White Blood Count 11.66 K/ul (4.8-10.8)
[2023-10-29 07:54] LABS: BUN Creatinine Ratio 36.9 (10-20); Calcium 8.2 mg/dl (8.6-10.3); Creatinine Clr Calc Pharmacy 53.1 ml/min; Est GFR (African American) 61.2 ml/min; Est GFR (Non-African American) 52.8 ml/min
[2023-10-29 08:06] LABS: Rouleaux 1+
[2023-10-29] MEDS: LOSARTAN POTASSIUM 25 MG TAB PO SCH (08:43)
[2023-10-29] MEDS: FUROSEMIDE 20 MG TAB PO SCH (08:43)
[2023-10-29] MEDS: GABAPENTIN 100 MG CAP PO SCH ×3 (08:43→20:05)
[2023-10-29] MEDS: SODIUM CHLORIDE 1 GM TABLET PO SCH ×2 (08:43→20:05)
[2023-10-29] MEDS: SERTRALINE HCL 50 MG TABLET PO SCH (08:44)
[2023-10-29] MEDS: ENOXAPARIN INJ 40 MG/0.4 ML SYR SQ SCH ×2 (08:44→20:09)
[2023-10-29] MEDS: MAGNESIUM OXIDE 400 MG TAB PO SCH ×2 (08:44→20:07)
[2023-10-29] MEDS: FERROUS SULFATE 325 MG TAB PO SCH (10:35)
[2023-10-29] MEDS: CYANOCOBALAMIN (B-12) 500 MCG TABLET PO SCH (10:35)
--- NOTE | 2023-10-29 12:48 | XRay Report ---
XR chest 1V portable HISTORY: 77 years-old Female Cough acute cough COMPARISON: 10/12/2023 TECHNIQUE: AP view of the chest FINDINGS: Cardiac silhouette is enlarged. Hiatal hernia. No pneumothorax, pleural effusion or airspace consolid ation. The bones appear grossly intact. IMPRESSION: No acute process. ACT 112: Negative or not required by law. The above report was generated using voice recognition software. It may contain grammatical, syntax o r spelling errors. Electronically signed by: Tre Alvarado M.D. 10/29/2023 12:47 PM
[2023-10-29] MEDS: BENZONATATE 100 MG CAPSULE PO SCH ×2 (13:01→20:08)
--- NOTE | 2023-10-29 16:32 | Hospitalist Progress Note ---
Date of Service October 29, 2023 Assessment & Plan (1) Sarcoma of right thigh: (2) Generalized weakness: (3) CKD (chronic kidney disease), stage III: (4) Leukocytosis: (5) NATHALIE (obstructive sleep apnea): (6) Obesity: (7) Elevated troponin: Plan: Cough Complains of cough without any phlegm No shortness of breath or chest pain Chest x-ray did not show any pathology Will continue Wilfrid Mustafa and she was reassured Likely secondary to sarcoma of the right thigh CXR-no acute findings, bio fire is negative, Blood culture from 10/31 out of 4 growing Corynebacterium; likely contaminant. Urine culturemore than 3 types of organism, all moderate count. Antibiotics stopped. Continue to monitor off antibiotics. Does not have any signs and or symptoms of infection Has been getting physical therapy and recommended rehab Getting better gradually and will continue physical therapy A little better today and will need to continue physical therapy in a rehab facility Remains stable and awaiting acceptance to facility Sarcoma R Thigh on XRT Patient presented with generalized weakness -History of newly diagnosed sarcoma of the right thigh, currently undergoing radiation treatment for presurgical tumor reduction, anticipated surgical resection in [facility] [place]. Follows with Dr. Leeann Powell at [facility] [place] and [facility] with outpatient oncology. MRI Brain wo contrast obtained; no acute stroke or hemorrhage. 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 Slight increase in symmetrical abnormal signal intensity in bilateral global pallidus. Appearance is nonspecific. Patient reports 3 episodes of generalized weakness at home. Neurology consulted-appreciate input and recommendation;Not consistent with stroke or seizure. Continue radiation treatment; per radiation oncology Palliative care also saw the patient on October 15, 2023; patient remains full code for now. She has been at 17 out of 25 radiation treatment for the sarcoma of the thigh Lower extremity Edema Hematoma of the left calf 4.6 x 3.7 x 0.6 cm -Venous duplexnegative for DVT -Home antihypertensive medications include: Amlodipine, losartan, Lasix. Blood pressure well-controlled. -Soft tissue ultrasound of left leg shows avascular hypoechoic collection within the left calf. Size is around 4.6 X3.7 X 0.6 cm in favor subcutaneous hematoma. Monitor the site for now.HnH has been stable, c/w aspirin and dvt px. Hemoglobin remains stable Will repeat soft tissue ultrasound to evaluate hematoma further Denies any symptoms in the left calf or right thigh No symptoms from the hematoma Hyponatremia Likely SIADH Sodium of 1 29-1 30 Urine study suggestive of SIADH Continued fluid restriction of 1200 cc Sodium level remains low at 129 Will add sodium tablet 1 g twice daily Sodium level remains low at 129 and will continue salt tabs Sodium level remains at 129-we will monitor while she is in the Decreased ROM x Rt shoulder: Xray reviewed. active and passive rom painful. Orthopedics evaluated, appreciate recommendation. Elevated Troponin Likely secondary to demand ischemia EKG shows normal sinus rhythm with PAC High sensitive troponin elevated to 72; up trended to 109 and down trended. Echocardiogram from September 2023 shows EF of 60 to 65% Patient denies any chest pain, palpitation or dizziness. Repeat EKG shows normal sinus rhythm with no ST or T wave changes. NATHALIE -Continue CPAP at bedtime. DVT PPx: lovenox subq Lines: 2 PIV FEN/GI:HH diet CODE: Full code Dispo: From home; PT OT recommends rehab. Patient has many more sessions of radiation(total is 25 sessions) left. Pt's priority is finishing radiation. Will need placement to a rehab which can arrange transport for radiation. Case management on board. med/surg until dc. Awaiting placement as PT and OT recommended rehab Admission and Anticipated Discharge Date Admission Date: October 12, 2023 Subjective 10/27/2023 The patient was seen and examined in medical telemetry unit in presence of the brother She has been feeling much better today and complains to have some back pain Denies any pain in the right thigh or left calf Remains generally weak and getting physical therapy 10/28/2023 The patient was seen and examined in medical telemetry unit She is back from radiation treatment and denies any significant symptoms except ongoing weakness Has been awaiting placement 10/29/2023 The patient was seen and examined in medical telemetry unit She is back from radiation therapy Has been complaining of cough Feeling much better since getting Tessalon Perlcrista Denies any other symptoms Review of Systems Review of Systems: All systems reviewed and are unremarkable except as noted below Musculoskeletal: No acute arthritis involving any of the joint Physical Exam Physical Exam: Lying in bed comfortably Constitutional: well developed, well nourished, + ill appearing and + obese Eyes: PERRL, conjunctivae normal, anicteric sclerae ENMT: external ear and nose normal, oropharynx normal Neck: trachea midline, no thyromegaly Respiratory: no respiratory distress Auscultation: lungs clear to auscultation bilaterally Cardiovascular: Rate/Rhythm: regular rate and regular rhythm; not tachycardic Heart Sounds: normal S1 and normal S2; no murmur Extremities: + edema (Trace edema bilaterally) Gastrointestinal (Abdomen): Inspection/Auscultation: normal bowel sounds; abdomen not distended Percussion/Palpation: abdomen soft; abdomen nontender Neurologic: normal touch/pain/proprioception and moves all extremities; no focal motor deficits Lymphatic: no cervical or axillary lymphadenopathy Results & Data Results & Data Vital Signs (Past 12 Hours) Vital Signs Temp Pulse Pulse Resp BP Pulse Ox O2 Del Method 10/29/23 16:00 36.4 C L 86 16 138/57 L 96 Room Air 10/29/23 14:09 80 10/29/23 09:05 Room Air 10/29/23 07:56 36.9 C 62 16 106/64 97 Room Air 10/29/23 07:00 72 Laboratory Results Short CBC 10/29/23 Range/Units 07:15 WBC 11.66 H (4.8-10.8) K/ul Hgb 7.9 L (12.0-16.0) g/dl Hct 25.3 L (37.0-47.0) % Plt Count 519 H (130-400) K/uL BMP 10/29/23 07:15 Sodium 129 L Potassium 4.0 Chloride 98 Carbon Dioxide 23 BUN 38 H Creatinine 1.03 Glucose 94 Calcium 8.2 L Medications Administered Current Inpatient Medications Acetaminophen (Acetaminophen 500 Mg Tab) 1,000 mg PO Q8H PRN PRN Reason: Mild Pain (Scale 1, 2, 3) Stop: 11/12/23 14:51 Last Admin: 10/17/23 22:07 Dose: 1,000 mg Amlodipine Besylate (Amlodipine Besylate 5 Mg Tab) 2.5 mg PO HS [facility] Stop: 11/11/23 20:59 Last Admin: 10/28/23 20:27 Dose: 2.5 mg Aspirin (Aspirin 81 Mg Ectab) 81 mg PO HS [facility] Stop: 11/12/23 20:59 Last Admin: 10/28/23 20:26 Dose: 81 mg Benzonatate (Benzonatate 100 Mg Capsule) 100 mg PO TID [facility] Stop: 11/28/23 13:59 Last Admin: 10/29/23 13:01 Dose: 100 mg Cyanocobalamin (Cyanocobalamin (B-12) 500 Mcg Tablet) 1,000 mcg PO QDL [facility] Stop: 11/12/23 11:29 Last Admin: 10/29/23 10:35 Dose: 1,000 mcg Enoxaparin Sodium (Enoxaparin Inj 40 Mg/0.4 Ml Syr) 40 mg SQ BID [facility] Stop: 11/12/23 08:59 Last Admin: 10/29/23 08:44 Dose: 40 mg Ferrous Sulfate (Ferrous Sulfate 325 Mg Tab) 325 mg PO QDL [facility] Stop: 11/12/23 11:29 Last Admin: 10/29/23 10:35 Dose: 325 mg Furosemide (Furosemide 20 Mg Tab) 20 mg PO DAILY [facility] Stop: 11/17/23 08:59 Last Admin: 10/29/23 08:43 Dose: 20 mg Gabapentin (Gabapentin 100 Mg Cap) 100 mg PO TID [facility] Stop: 11/13/23 13:59 Last Admin: 10/29/23 13:01 Dose: 100 mg Losartan Potassium (Losartan Potassium 25 Mg Tab) 25 mg PO DAILY [facility] Stop: 11/12/23 08:59 Last Admin: 10/29/23 08:43 Dose: 25 mg Magnesium Oxide (Magnesium Oxide 400 Mg Tab) 400 mg PO BID [facility] Stop: 11/27/23 09:59 Last Admin: 10/29/23 08:44 Dose: 400 mg Miconazole Nitrate (Miconazole Nitrate Powder 85 Gm) 1 appln EXT PRN PRN PRN Reason: Affected Skin Folds Stop: 11/20/23 12:34 Pantoprazole Sodium (Pantoprazole 40 Mg Tab) 40 mg PO DAILYBB [facility] Stop: 11/12/23 06:29 Last Admin: 10/29/23 05:32 Dose: 40 mg Sertraline HCl (Sertraline Hcl 50 Mg Tablet) 50 mg PO DAILY [facility] Stop: 11/12/23 08:59 Last Admin: 10/29/23 08:44 Dose: 50 mg Sodium Chloride (Sodium Chloride 1 Gm Tablet) 1 gm PO BID [facility] Stop: 11/26/23 20:59 Last Admin: 10/29/23 08:43 Dose: 1 gm Tramadol HCl (Tramadol Hcl 50 Mg Tablet) 50 mg PO Q6H PRN PRN Reason: Pain Stop: 11/11/23 19:15 Last Admin: 10/25/23 23:08 Dose: 50 mg (4) Leukocytosis Leukocytosis type: unspecified Qualified Code(s): D72.829 - Elevated white blood cell count, unspecified
[2023-10-29] MEDS: ASPIRIN 81 MG ECTAB PO SCH (20:06)
[2023-10-29] MEDS: amLODIPine BESYLATE 5 MG TAB PO SCH (20:06)
[2023-10-29] MEDS ORDERED: guaiFENesin/CODEINE 100MG/10MG 5ML UDC PO PRN (23:03)
[2023-10-30] MEDS: PANTOprazole 40 MG TAB PO SCH (05:31)
[2023-10-30 08:09] LABS: BUN Creatinine Ratio 33.6 (10-20); Calcium 8.5 mg/dl (8.6-10.3); Creatinine Clr Calc Pharmacy 46.2 ml/min; Est GFR (African American) 51.4 ml/min; Est GFR (Non-African American) 44.3 ml/min
[2023-10-30] MEDS: FUROSEMIDE 20 MG TAB PO SCH (09:23)
[2023-10-30] MEDS: LOSARTAN POTASSIUM 25 MG TAB PO SCH (09:23)
[2023-10-30] MEDS: SODIUM CHLORIDE 1 GM TABLET PO SCH ×2 (09:24→20:21)
[2023-10-30] MEDS: GABAPENTIN 100 MG CAP PO SCH ×3 (09:24→20:20)
[2023-10-30] MEDS: BENZONATATE 100 MG CAPSULE PO SCH ×3 (09:24→20:20)
[2023-10-30] MEDS: SERTRALINE HCL 50 MG TABLET PO SCH (09:24)
[2023-10-30] MEDS: ENOXAPARIN INJ 40 MG/0.4 ML SYR SQ SCH ×2 (09:25→20:24)
[2023-10-30] MEDS: MAGNESIUM OXIDE 400 MG TAB PO SCH ×2 (09:25→20:21)
[2023-10-30] MEDS ORDERED: FUROSEMIDE INJ 20 MG/2 ML VIAL IV ONE (10:52)
[2023-10-30] MEDS: SODIUM CHLORIDE 0.9% 1,000 ML IV SCH ×2 (11:08→18:15)
[2023-10-30] MEDS: CYANOCOBALAMIN (B-12) 500 MCG TABLET PO SCH (11:09)
[2023-10-30] MEDS: FERROUS SULFATE 325 MG TAB PO SCH (11:09)
--- NOTE | 2023-10-30 13:49 | Hospitalist Progress Note ---
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 Follows with Dr. Leeann Ramirez and Parth at [facility] and Dr. Layne [facility] [place] with outpatient oncology. MRI Brain wo contrast obtained; no acute stroke or hemorrhage. 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 Slight increase in symmetrical abnormal signal intensity in bilateral global pallidus. Appearance is nonspecific. Patient reports 3 episodes of generalized weakness at home. Neurology consulted-appreciate input and recommendation;Not consistent with stroke or seizure. Continue radiation treatment; per radiation oncology Palliative care also saw the patient on October 15, 2023; patient remains full code for now. She has been at 18 out of 25 radiation treatment for the sarcoma of the thigh Hyponatremia Likely SIADH Sodium of 1 29-1 30 Urine study suggestive of SIADH Continued fluid restriction of 1200 cc Sodium level remains low at 129 Will add sodium tablet 1 g twice daily Sodium level remains low at 129 and will continue salt tabs Sodium level remains at 129-we will monitor while she is in the Sodium levels remained at 129-will try intravenous normal saline with Lasix Monitor PRP Lower extremity Edema Hematoma of the left calf 4.6 x 3.7 x 0.6 cm -Venous duplexnegative for DVT -Home antihypertensive medications include: Amlodipine, losartan, Lasix. Blood pressure well-controlled. -Soft tissue ultrasound of left leg shows avascular hypoechoic collection within the left calf. Size is around 4.6 X3.7 X 0.6 cm in favor subcutaneous hematoma. Monitor the site for now.HnH has been stable, c/w aspirin and dvt px. Hemoglobin remains stable Will repeat soft tissue ultrasound to evaluate hematoma further Denies any symptoms in the left calf or right thigh No symptoms from the hematoma and the hemoglobin remained stable (2) Generalized weakness: Plan: Likely secondary to sarcoma of the right thigh CXR-no acute findings, bio fire is negative, Blood culture from 10/31 out of 4 growing Corynebacterium; likely contaminant. Urine culturemore than 3 types of organism, all moderate count. Antibiotics stopped. Continue to monitor off antibiotics. Does not have any signs and or symptoms of infection Has been getting physical therapy and recommended rehab Getting better gradually and will continue physical therapy A little better today and will need to continue physical therapy in a rehab facility Remains stable and awaiting acceptance to facility Getting better gradual (3) CKD (chronic kidney disease), stage III: Plan: Creatinine remained normal (4) Leukocytosis: Plan: Normalized (5) NATHALIE (obstructive sleep apnea): (6) Obesity: (7) Elevated troponin: Plan: Elevated Troponin Likely secondary to demand ischemia EKG shows normal sinus rhythm with PAC High sensitive troponin elevated to 72; up trended to 109 and down trended. Echocardiogram from September 2023 shows EF of 60 to 65% Patient denies any chest pain, palpitation or dizziness. Repeat EKG shows normal sinus rhythm with no ST or T wave changes. Cough Complains of cough without any phlegm No shortness of breath or chest pain Chest x-ray did not show any pathology Will continue Tessalon Perle and she was reassured Decreased ROM x Rt shoulder: Xray reviewed. active and passive rom painful. Orthopedics evaluated, appreciate recommendation. NATHALIE -Continue CPAP at bedtime. DVT PPx: lovenox subq Lines: 2 PIV FEN/GI:HH diet CODE: Full code Dispo: From home; PT OT recommends rehab. Patient has many more sessions of radiation(total is 25 sessions) left. Pt's priority is finishing radiation. Will need placement to a rehab which can arrange transport for radiation. Case management on board. med/surg until dc. Awaiting placement as PT and OT recommended rehab Admission and Anticipated Discharge Date Admission Date: October 12, 2023 Subjective 10/27/2023 The patient was seen and examined in medical telemetry unit in presence of the brother She has been feeling much better today and complains to have some back pain Denies any pain in the right thigh or left calf Remains generally weak and getting physical therapy 10/28/2023 The patient was seen and examined in medical telemetry unit She is back from radiation treatment and denies any significant symptoms except ongoing weakness Has been awaiting placement 10/29/2023 The patient was seen and examined in medical telemetry unit She is back from radiation therapy Has been complaining of cough Feeling much better since getting Tessalon Perle Denies any other symptoms 10/30/2023 The patient was seen and examined in medical telemetry unit She has been feeling better Weakness is being improving Denies any pain and/or shortness of breath, no nausea or vomiting Review of Systems Review of Systems: All systems reviewed and are unremarkable except as noted below Musculoskeletal: No acute arthritis involving any of the joint Physical Exam Physical Exam: Lying in bed comfortably Constitutional: well developed, well nourished, + ill appearing and + obese Eyes: PERRL, conjunctivae normal, anicteric sclerae ENMT: external ear and nose normal, oropharynx normal Neck: trachea midline, no thyromegaly Respiratory: no respiratory distress Auscultation: lungs clear to auscultation bilaterally Cardiovascular: Rate/Rhythm: regular rate and regular rhythm; not tachycardic Heart Sounds: normal S1 and normal S2; no murmur Extremities: + edema (Trace edema bilaterally) Gastrointestinal (Abdomen): Inspection/Auscultation: normal bowel sounds; abdomen not distended Percussion/Palpation: abdomen soft; abdomen nontender Musculoskeletal: Left calf is not swollen and without any tenderness Neurologic: normal touch/pain/proprioception and moves all extremities; no focal motor deficits Lymphatic: no cervical or axillary lymphadenopathy Results & Data Results & Data Vital Signs (Past 12 Hours) Vital Signs Temp Pulse Pulse Resp BP BP Pulse Ox 10/30/23 11:56 10/30/23 11:33 37 C 75 18 104/51 L 94 10/30/23 09:21 85 107/69 10/30/23 07:58 36.7 C 59 L 17 99/61 L 94 10/30/23 07:00 87 10/30/23 03:56 36.7 C 90 16 102/57 L 93 O2 Del Method 10/30/23 11:56 Room Air 10/30/23 11:33 Room Air 10/30/23 09:21 10/30/23 07:58 Room Air 10/30/23 07:00 10/30/23 03:56 Room Air Laboratory Results BMP 10/30/23 07:05 Sodium 129 L Potassium 4.0 Chloride 97 L Carbon Dioxide 25 BUN 40 H Creatinine 1.19 Glucose 89 Calcium 8.5 L Medications Administered Current Inpatient Medications Acetaminophen (Acetaminophen 500 Mg Tab) 1,000 mg PO Q8H PRN PRN Reason: Mild Pain (Scale 1, 2, 3) Stop: 11/12/23 14:51 Last Admin: 10/17/23 22:07 Dose: 1,000 mg Amlodipine Besylate (Amlodipine Besylate 5 Mg Tab) 2.5 mg PO HS [facility] Stop: 11/11/23 20:59 Last Admin: 10/29/23 20:06 Dose: 2.5 mg Aspirin (Aspirin 81 Mg Ectab) 81 mg PO HS [facility] Stop: 11/12/23 20:59 Last Admin: 10/29/23 20:06 Dose: 81 mg Benzonatate (Benzonatate 100 Mg Capsule) 100 mg PO TID [facility] Stop: 11/28/23 13:59 Last Admin: 10/30/23 13:31 Dose: 100 mg Cyanocobalamin (Cyanocobalamin (B-12) 500 Mcg Tablet) 1,000 mcg PO QDL [facility] Stop: 11/12/23 11:29 Last Admin: 10/30/23 11:09 Dose: 1,000 mcg Enoxaparin Sodium (Enoxaparin Inj 40 Mg/0.4 Ml Syr) 40 mg SQ BID [facility] Stop: 11/12/23 08:59 Last Admin: 10/30/23 09:25 Dose: 40 mg Ferrous Sulfate (Ferrous Sulfate 325 Mg Tab) 325 mg PO QDL [facility] Stop: 11/12/23 11:29 Last Admin: 10/30/23 11:09 Dose: 325 mg Furosemide (Furosemide 20 Mg Tab) 20 mg PO DAILY [facility] Stop: 11/17/23 08:59 Last Admin: 10/30/23 09:23 Dose: 20 mg Gabapentin (Gabapentin 100 Mg Cap) 100 mg PO TID [facility] Stop: 11/13/23 13:59 Last Admin: 10/30/23 13:31 Dose: 100 mg Guaifenesin/Codeine Phosphate (Guaifenesin/Codeine 100mg/10mg 5ml Udc) 5 ml PO Q6H PRN PRN Reason: Cough Stop: 11/28/23 23:02 Last Admin: 10/29/23 23:38 Dose: 5 ml Sodium Chloride (Nss) 1,000 mls @ 125 mls/hr IV .Q8H [facility] Stop: 11/29/23 10:59 Last Admin: 10/30/23 11:08 Dose: 125 mls/hr Losartan Potassium (Losartan Potassium 25 Mg Tab) 25 mg PO DAILY [facility] Stop: 11/12/23 08:59 Last Admin: 10/30/23 09:23 Dose: 25 mg Magnesium Oxide (Magnesium Oxide 400 Mg Tab) 400 mg PO BID [facility] Stop: 11/27/23 09:59 Last Admin: 10/30/23 09:25 Dose: 400 mg Miconazole Nitrate (Miconazole Nitrate Powder 85 Gm) 1 appln EXT PRN PRN PRN Reason: Affected Skin Folds Stop: 11/20/23 12:34 Pantoprazole Sodium (Pantoprazole 40 Mg Tab) 40 mg PO DAILYBB [facility] Stop: 11/12/23 06:29 Last Admin: 10/30/23 05:31 Dose: 40 mg Sertraline HCl (Sertraline Hcl 50 Mg Tablet) 50 mg PO DAILY [facility] Stop: 11/12/23 08:59 Last Admin: 10/30/23 09:24 Dose: 50 mg Sodium Chloride (Sodium Chloride 1 Gm Tablet) 1 gm PO BID [facility] Stop: 11/26/23 20:59 Last Admin: 10/30/23 09:24 Dose: 1 gm Tramadol HCl (Tramadol Hcl 50 Mg Tablet) 50 mg PO Q6H PRN PRN Reason: Pain Stop: 11/11/23 19:15 Last Admin: 10/25/23 23:08 Dose: 50 mg (4) Leukocytosis Leukocytosis type: unspecified Qualified Code(s): D72.829 - Elevated white blood cell count, unspecified
[2023-10-30] MEDS: amLODIPine BESYLATE 5 MG TAB PO SCH (20:18)
[2023-10-30] MEDS: ASPIRIN 81 MG ECTAB PO SCH (20:25)
[2023-10-31] MEDS: SODIUM CHLORIDE 0.9% 1,000 ML IV SCH ×2 (02:15→10:14)
[2023-10-31] MEDS: PANTOprazole 40 MG TAB PO SCH (05:39)
[2023-10-31] MEDS: BENZONATATE 100 MG CAPSULE PO SCH ×3 (07:48→20:26)
[2023-10-31] MEDS: FUROSEMIDE 20 MG TAB PO SCH (07:48)
[2023-10-31] MEDS: GABAPENTIN 100 MG CAP PO SCH ×3 (07:49→20:26)
[2023-10-31] MEDS: SODIUM CHLORIDE 1 GM TABLET PO SCH ×2 (07:49→20:29)
[2023-10-31] MEDS: LOSARTAN POTASSIUM 25 MG TAB PO SCH (07:49)
[2023-10-31] MEDS: ENOXAPARIN INJ 40 MG/0.4 ML SYR SQ SCH ×2 (07:50→20:26)
[2023-10-31] MEDS: SERTRALINE HCL 50 MG TABLET PO SCH (07:50)
[2023-10-31] MEDS: MAGNESIUM OXIDE 400 MG TAB PO SCH ×2 (07:50→20:28)
[2023-10-31 08:06] LABS: BUN Creatinine Ratio 36.1 (10-20); Calcium 8.2 mg/dl (8.6-10.3); Creatinine Clr Calc Pharmacy 51.6 ml/min; Est GFR (African American) 57.7 ml/min; Est GFR (Non-African American) 49.8 ml/min; Magnesium 1.7 mg/dl (1.7-2.4); Potassium 3.8 mmol/L (3.5-5.1)
[2023-10-31] MEDS ORDERED: FUROSEMIDE INJ 20 MG/2 ML VIAL IV ONE (08:18)
[2023-10-31] MEDS ORDERED: SODIUM CHLORIDE 0.9% 500 ML IV SCH (08:30)
[2023-10-31] MEDS: FERROUS SULFATE 325 MG TAB PO SCH (11:42)
[2023-10-31] MEDS: CYANOCOBALAMIN (B-12) 500 MCG TABLET PO SCH (11:42)
--- NOTE | 2023-10-31 13:48 | Hospitalist Progress Note ---
Date of Service October 31, 2023 Assessment & Plan (1) Sarcoma of right thigh: Plan: Sarcoma R Thigh on XRT Patient presented with generalized weakness -History of newly diagnosed sarcoma of the right thigh, currently undergoing radiation treatment for presurgical tumor reduction, anticipated surgical resection in [facility]. Follows with Dr. Leeann Ramirez and Parth at [facility] and Dr. Layne Cancer [place] with outpatient oncology. MRI Brain wo contrast obtained; no acute stroke or hemorrhage. 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 Slight increase in symmetrical abnormal signal intensity in bilateral global pallidus. Appearance is nonspecific. Patient reports 3 episodes of generalized weakness at home. Neurology consulted-appreciate input and recommendation;Not consistent with stroke or seizure. Continue radiation treatment; per radiation oncology Palliative care also saw the patient on October 15, 2023; patient remains full code for now. She has been at 18 out of 25 radiation treatment for the sarcoma of the thigh Will have next radiation treatment tomorrow Likely discharge tomorrow with a facility from where she can get the radiation treatment Hyponatremia Likely SIADH Sodium of 11 08-11 09 Urine study suggestive of SIADH Continued fluid restriction of 1200 cc Sodium level remains low at 129 Will add sodium tablet 1 g twice daily Sodium level remains low at 129 and will continue salt tabs Sodium level remains at 129-we will monitor while she is in the Sodium levels remained at 129-will try intravenous normal saline with Lasix Monitor PRP-sodium level has gone up to 131 Will give another dose of IV Lasix today and got IV fluid with normal saline as well Lower extremity Edema Hematoma of the left calf 4.6 x 3.7 x 0.6 cm -Venous duplexnegative for DVT -Home antihypertensive medications include: Amlodipine, losartan, Lasix. Blood pressure well-controlled. -Soft tissue ultrasound of left leg shows avascular hypoechoic collection within the left calf. Size is around 4.6 X3.7 X 0.6 cm in favor subcutaneous hematoma. Monitor the site for now.HnH has been stable, c/w aspirin and dvt px. Hemoglobin remains stable Will repeat soft tissue ultrasound to evaluate hematoma further Denies any symptoms in the left calf or right thigh No symptoms from the hematoma and the hemoglobin remained stable Hematoma seems to be cleared (2) Generalized weakness: Plan: Likely secondary to sarcoma of the right thigh CXR-no acute findings, bio fire is negative, Blood culture from 10/31 out of 4 growing Corynebacterium; likely contaminant. Urine culturemore than 3 types of organism, all moderate count. Antibiotics stopped. Continue to monitor off antibiotics. Does not have any signs and or symptoms of infection Has been getting physical therapy and recommended rehab Getting better gradually and will continue physical therapy A little better today and will need to continue physical therapy in a rehab facility Remains stable and awaiting acceptance to facility Getting better gradual (3) CKD (chronic kidney disease), stage III: Plan: Creatinine remained normal (4) Leukocytosis: Plan: Normalized (5) NATHALIE (obstructive sleep apnea): (6) Obesity: (7) Elevated troponin: Plan: Elevated Troponin Likely secondary to demand ischemia EKG shows normal sinus rhythm with PAC High sensitive troponin elevated to 72; up trended to 109 and down trended. Echocardiogram from September 2023 shows EF of 60 to 65% Patient denies any chest pain, palpitation or dizziness. Repeat EKG shows normal sinus rhythm with no ST or T wave changes. Cough Complains of cough without any phlegm No shortness of breath or chest pain Chest x-ray did not show any pathology Will continue Wilfrid Mustafa and she was reassured Decreased ROM x Rt shoulder: Xray reviewed. active and passive rom painful. Orthopedics evaluated, appreciate recommendation. NATHALIE -Continue CPAP at bedtime. DVT PPx: lovenox subq Lines: 2 PIV FEN/GI:HH diet CODE: Full code Dispo: From home; PT OT recommends rehab. Patient has many more sessions of radiation(total is 25 sessions) left. Pt's priority is finishing radiation. Will need placement to a rehab which can arrange transport for radiation. Case management on board. med/surg until dc. Awaiting placement as PT and OT recommended rehab Admission and Anticipated Discharge Date Admission Date: October 12, 2023 Subjective 10/27/2023 The patient was seen and examined in medical telemetry unit in presence of the brother She has been feeling much better today and complains to have some back pain Denies any pain in the right thigh or left calf Remains generally weak and getting physical therapy 10/28/2023 The patient was seen and examined in medical telemetry unit She is back from radiation treatment and denies any significant symptoms except ongoing weakness Has been awaiting placement 10/29/2023 The patient was seen and examined in medical telemetry unit She is back from radiation therapy Has been complaining of cough Feeling much better since getting Wilfrid Perlcrista Denies any other symptoms 10/30/2023 The patient was seen and examined in medical telemetry unit She has been feeling better Weakness is being improving Denies any pain and/or shortness of breath, no nausea or vomiting 10/31/2023 The patient was seen and examined in medical telemetry unit She has been feeling much better and denies any significant symptoms Her sodium level has come up to 131 Review of Systems Review of Systems: All systems reviewed and are unremarkable except as noted below Musculoskeletal: No acute arthritis involving any of the joint Physical Exam Physical Exam: Lying in bed comfortably Constitutional: well developed, well nourished, + ill appearing and + obese Eyes: PERRL, conjunctivae normal, anicteric sclerae ENMT: external ear and nose normal, oropharynx normal Neck: trachea midline, no thyromegaly Respiratory: no respiratory distress Auscultation: lungs clear to auscultation bilaterally Cardiovascular: Rate/Rhythm: regular rate and regular rhythm; not tachycardic Heart Sounds: normal S1 and normal S2; no murmur Extremities: + edema (Trace edema bilaterally) Gastrointestinal (Abdomen): Inspection/Auscultation: normal bowel sounds; abdomen not distended Percussion/Palpation: abdomen soft; abdomen nontender Musculoskeletal: No acute arthritis involving any of the joint. Left calf pain is gone Neurologic: normal touch/pain/proprioception and moves all extremities; no focal motor deficits Lymphatic: no cervical or axillary lymphadenopathy Results & Data Results & Data Vital Signs (Past 12 Hours) Vital Signs Temp Pulse Pulse Resp BP Pulse Ox O2 Del Method 10/31/23 11:43 36.7 C 73 18 106/64 93 Room Air 10/31/23 09:00 Room Air 10/31/23 08:02 36.8 C 74 18 105/80 93 Room Air 10/31/23 07:00 70 10/31/23 04:06 36.7 C 83 18 142/74 H 92 Room Air Laboratory Results [facility] 10/31/23 06:40 Sodium 131 L Potassium 3.8 Chloride 101 Carbon Dioxide 23 BUN 39 H Creatinine 1.08 Glucose 85 Calcium 8.2 L (4) Leukocytosis Leukocytosis type: unspecified Qualified Code(s): D72.829 - Elevated white blood cell count, unspecified
[2023-10-31] MEDS: ASPIRIN 81 MG ECTAB PO SCH (20:27)
[2023-10-31] MEDS: amLODIPine BESYLATE 5 MG TAB PO SCH (20:27)
[2023-11-01] MEDS: PANTOprazole 40 MG TAB PO SCH (05:41)
[2023-11-01] MEDS: ENOXAPARIN INJ 40 MG/0.4 ML SYR SQ SCH ×2 (08:54→20:45)
[2023-11-01] MEDS: LOSARTAN POTASSIUM 25 MG TAB PO SCH (08:55)
[2023-11-01] MEDS: MAGNESIUM OXIDE 400 MG TAB PO SCH ×2 (08:55→20:44)
[2023-11-01] MEDS: SERTRALINE HCL 50 MG TABLET PO SCH (08:55)
[2023-11-01] MEDS: BENZONATATE 100 MG CAPSULE PO SCH ×3 (08:55→20:45)
[2023-11-01] MEDS: SODIUM CHLORIDE 1 GM TABLET PO SCH ×2 (08:55→20:45)
[2023-11-01] MEDS: GABAPENTIN 100 MG CAP PO SCH ×3 (08:55→20:44)
[2023-11-01] MEDS: FUROSEMIDE 20 MG TAB PO SCH (08:55)
[2023-11-01 09:34] LABS: Calcium 8.4 mg/dl (8.6-10.3); Creatinine Clr Calc Pharmacy 56.5 ml/min; Est GFR (African American) 63.4 ml/min; Est GFR (Non-African American) 54.7 ml/min; Potassium 3.7 mmol/L (3.5-5.1)
[2023-11-01] MEDS: CYANOCOBALAMIN (B-12) 500 MCG TABLET PO SCH (12:51)
[2023-11-01] MEDS: FERROUS SULFATE 325 MG TAB PO SCH (12:51)
--- NOTE | 2023-11-01 14:23 | Hospitalist Progress Note ---
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 Follow[place] with Dr. Leeann Ramirez and Parth [place] [facility] [place]. Layne Cancer Henry with outpatient oncology. MRI Brain wo contrast obtained; no acute stroke or hemorrhage. 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 Slight increase in symmetrical abnormal signal intensity in bilateral global pallidus. Appearance is nonspecific. Patient reports 3 episodes of generalized weakness at home. Neurology consulted-appreciate input and recommendation;Not consistent with stroke or seizure. Continue radiation treatment; per radiation oncology Palliative care also saw the patient on October 15, 2023; patient remains full code for now. She has been at 18 out of 25 radiation treatment for the sarcoma of the thigh Will have next radiation treatment tomorrow Likely discharge tomorrow with a facility from where she can get the radiation treatment Minimal skin abrasion from radiation without any ulceration and the drain is Wound care has been consulted Hyponatremia Likely SIADH Sodium of 1 29-1 30 Urine study suggestive of SIADH Continued fluid restriction of 1200 cc Sodium level remains low at 129 Will add sodium tablet 1 g twice daily Sodium level remains low at 129 and will continue salt tabs Sodium level remains at 129-we will monitor while she is in the Sodium levels remained at 129-will try intravenous normal saline with Lasix Monitor PRP-sodium level has gone up to 131 Will give another dose of IV Lasix today and got IV fluid with normal saline as well Sodium level remains stable at 131 Continue with the fluid restriction Lower extremity Edema Hematoma of the left calf 4.6 x 3.7 x 0.6 cm -Venous duplexnegative for DVT -Home antihypertensive medications include: Amlodipine, losartan, Lasix. Blood pressure well-controlled. -Soft tissue ultrasound of left leg shows avascular hypoechoic collection within the left calf. Size is around 4.6 X3.7 X 0.6 cm in favor subcutaneous hematoma. Monitor the site for now.HnH has been stable, c/w aspirin and dvt px. Hemoglobin remains stable Will repeat soft tissue ultrasound to evaluate hematoma further Denies any symptoms in the left calf or right thigh No symptoms from the hematoma and the hemoglobin remained stable Hematoma seems to be cleared (2) Generalized weakness: Plan: Likely secondary to sarcoma of the right thigh CXR-no acute findings, bio fire is negative, Blood culture from 10/31 out of 4 growing Corynebacterium; likely contaminant. Urine culturemore than 3 types of organism, all moderate count. Antibiotics stopped. Continue to monitor off antibiotics. Does not have any signs and or symptoms of infection Has been getting physical therapy and recommended rehab Getting better gradually and will continue physical therapy A little better today and will need to continue physical therapy in a rehab facility Remains stable and awaiting acceptance to facility Getting better gradually-awaiting placement (3) CKD (chronic kidney disease), stage III: Plan: Creatinine remained normal (4) Leukocytosis: Plan: Normalized (5) NATHALIE (obstructive sleep apnea): (6) Obesity: (7) Elevated troponin: Plan: Elevated Troponin Likely secondary to demand ischemia EKG shows normal sinus rhythm with PAC High sensitive troponin elevated to 72; up trended to 109 and down trended. Echocardiogram from September 2023 shows EF of 60 to 65% Patient denies any chest pain, palpitation or dizziness. Repeat EKG shows normal sinus rhythm with no ST or T wave changes. Cough Complains of cough without any phlegm No shortness of breath or chest pain Chest x-ray did not show any pathology Will continue Wilfrid Mustafa and she was reassured Decreased ROM x Rt shoulder: Xray reviewed. active and passive rom painful. Orthopedics evaluated, appreciate recommendation. NATHALIE -Continue CPAP at bedtime. DVT PPx: lovenox subq Lines: 2 PIV FEN/GI:HH diet CODE: Full code Dispo: From home; PT OT recommends rehab. Patient has many more sessions of radiation(total is 25 sessions) left. Pt's priority is finishing radiation. Will need placement to a rehab which can arrange transport for radiation. Case management on board. med/surg until dc. Awaiting placement as PT and OT recommended rehab Admission and Anticipated Discharge Date Admission Date: October 12, 2023 Subjective 10/27/2023 The patient was seen and examined in medical telemetry unit in presence of the brother She has been feeling much better today and complains to have some back pain Denies any pain in the right thigh or left calf Remains generally weak and getting physical therapy 10/28/2023 The patient was seen and examined in medical telemetry unit She is back from radiation treatment and denies any significant symptoms except ongoing weakness Has been awaiting placement 10/29/2023 The patient was seen and examined in medical telemetry unit She is back from radiation therapy Has been complaining of cough Feeling much better since getting Tesnaresh Perlcrista Denies any other symptoms 10/30/2023 The patient was seen and examined in medical telemetry unit She has been feeling better Weakness is being improving Denies any pain and/or shortness of breath, no nausea or vomiting 10/31/2023 The patient was seen and examined in medical telemetry unit She has been feeling much better and denies any significant symptoms Her sodium level has come up to 131 11/01/2023 The patient was seen and examined in medical telemetry unit She has been complaining of skin lesions at the site of radiation therapy Minimal pain and whitish discoloration of the skin but no ulceration and/or discharge Wound care has been consulted Denies any other symptoms Review of Systems Review of Systems: All systems reviewed and are unremarkable except as noted below Musculoskeletal: No acute arthritis involving any of the joint Physical Exam Physical Exam: Lying in bed comfortably Constitutional: well developed, well nourished, + ill appearing and + obese Eyes: PERRL, conjunctivae normal, anicteric sclerae ENMT: external ear and nose normal, oropharynx normal Neck: trachea midline, no thyromegaly Respiratory: no respiratory distress Auscultation: lungs clear to auscultation bilaterally Cardiovascular: Rate/Rhythm: regular rate and regular rhythm; not tachycardic Heart Sounds: normal S1 and normal S2; no murmur Extremities: + edema (Trace edema bilaterally) Gastrointestinal (Abdomen): Inspection/Auscultation: normal bowel sounds; abdomen not distended Percussion/Palpation: abdomen soft; abdomen nontender Skin: Loss of superficial skin layers the upper posterior part of right thigh at the site of radiation. No ulceration Neurologic: normal touch/pain/proprioception and moves all extremities; no focal motor deficits Lymphatic: no cervical or axillary lymphadenopathy Results & Data Results & Data Vital Signs (Past 12 Hours) Vital Signs Temp Pulse Pulse Resp BP Pulse Ox O2 Del Method 11/01/23 12:28 36.6 C 81 18 105/55 L 95 Room Air 11/01/23 10:53 Room Air 11/01/23 08:03 37.1 C 93 H 18 108/62 93 Room Air 11/01/23 06:00 98 H 11/01/23 03:08 37.2 C 93 H 18 113/55 L 92 Room Air Laboratory Results [facility] 11/01/23 08:54 Sodium 131 L Potassium 3.7 Chloride 102 Carbon Dioxide 23 BUN 36 H Creatinine 1.00 Glucose 150 H Calcium 8.4 L Medications Administered Current Inpatient Medications Acetaminophen (Acetaminophen 500 Mg Tab) 1,000 mg PO Q8H PRN PRN Reason: Mild Pain (Scale 1, 2, 3) Stop: 11/12/23 14:51 Last Admin: 10/17/23 22:07 Dose: 1,000 mg Amlodipine Besylate (Amlodipine Besylate 5 Mg Tab) 2.5 mg PO HS [facility] Stop: 11/11/23 20:59 Last Admin: 10/31/23 20:27 Dose: 2.5 mg Aspirin (Aspirin 81 Mg Ectab) 81 mg PO [facility] Stop: 11/12/23 20:59 Last Admin: 10/31/23 20:27 Dose: 81 mg Benzonatate (Benzonatate 100 Mg Capsule) 100 mg PO TID [facility] Stop: 11/28/23 13:59 Last Admin: 11/01/23 13:31 Dose: 100 mg Cyanocobalamin (Cyanocobalamin (B-12) 500 Mcg Tablet) 1,000 mcg PO QDL [facility] Stop: 11/12/23 11:29 Last Admin: 11/01/23 12:51 Dose: 1,000 mcg Enoxaparin Sodium (Enoxaparin Inj 40 Mg/0.4 Ml Syr) 40 mg SQ BID [facility] Stop: 11/12/23 08:59 Last Admin: 11/01/23 08:54 Dose: 40 mg Ferrous Sulfate (Ferrous Sulfate 325 Mg Tab) 325 mg PO QDL [facility] Stop: 11/12/23 11:29 Last Admin: 11/01/23 12:51 Dose: 325 mg Furosemide (Furosemide 20 Mg Tab) 20 mg PO DAILY [facility] Stop: 11/17/23 08:59 Last Admin: 11/01/23 08:55 Dose: 20 mg Gabapentin (Gabapentin 100 Mg Cap) 100 mg PO TID [facility] Stop: 11/13/23 13:59 Last Admin: 11/01/23 13:31 Dose: 100 mg Guaifenesin/Codeine Phosphate (Guaifenesin/Codeine 100mg/10mg 5ml Udc) 5 ml PO Q6H PRN PRN Reason: Cough Stop: 11/28/23 23:02 Last Admin: 10/29/23 23:38 Dose: 5 ml Losartan Potassium (Losartan Potassium 25 Mg Tab) 25 mg PO DAILY [facility] Stop: 11/12/23 08:59 Last Admin: 11/01/23 08:55 Dose: 25 mg Magnesium Oxide (Magnesium Oxide 400 Mg Tab) 400 mg PO BID [facility] Stop: 11/27/23 09:59 Last Admin: 11/01/23 08:55 Dose: 400 mg Miconazole Nitrate (Miconazole Nitrate Powder 85 Gm) 1 appln EXT PRN PRN PRN Reason: Affected Skin Folds Stop: 11/20/23 12:34 Pantoprazole Sodium ([facility] 40 Mg [facility]) [facility] Stop: 11/12/23 06:29 Last Admin: 11/01/23 05:41 Dose: 40 mg Sertraline HCl (Sertraline Hcl 50 Mg Tablet) 50 mg PO DAILY [facility] Stop: 11/12/23 08:59 Last Admin: 11/01/23 08:55 Dose: 50 mg Sodium Chloride (Sodium Chloride 1 Gm Tablet) 1 gm PO BID [facility] Stop: 11/26/23 20:59 Last Admin: 11/01/23 08:55 Dose: 1 gm Tramadol HCl (Tramadol Hcl 50 Mg Tablet) 50 mg PO Q6H PRN PRN Reason: Pain Stop: 11/11/23 19:15 Last Admin: 10/25/23 23:08 Dose: 50 mg (4) Leukocytosis Leukocytosis type: unspecified Qualified Code(s): D72.829 - Elevated white blood cell count, unspecified
[2023-11-01] MEDS: ASPIRIN 81 MG ECTAB PO SCH (20:45)
[2023-11-01] MEDS: amLODIPine BESYLATE 5 MG TAB PO SCH (20:45)
[2023-11-02] MEDS: PANTOprazole 40 MG TAB PO SCH (06:13)
[2023-11-02 07:41] LABS: Calcium 8.5 mg/dl (8.6-10.3); Creatinine Clr Calc Pharmacy 54.7 ml/min; Est GFR (African American) 61.2 ml/min; Est GFR (Non-African American) 52.8 ml/min; Potassium 3.9 mmol/L (3.5-5.1)
[2023-11-02] MEDS: MAGNESIUM OXIDE 400 MG TAB PO SCH ×2 (08:13→22:42)
[2023-11-02] MEDS: SERTRALINE HCL 50 MG TABLET PO SCH (08:13)
[2023-11-02] MEDS: SODIUM CHLORIDE 1 GM TABLET PO SCH (08:13)
[2023-11-02] MEDS: GABAPENTIN 100 MG CAP PO SCH ×3 (08:13→22:41)
[2023-11-02] MEDS: BENZONATATE 100 MG CAPSULE PO SCH ×3 (08:13→22:42)
[2023-11-02] MEDS: LOSARTAN POTASSIUM 25 MG TAB PO SCH (08:14)
[2023-11-02] MEDS: ENOXAPARIN INJ 40 MG/0.4 ML SYR SQ SCH ×2 (08:14→22:43)
[2023-11-02] MEDS: FUROSEMIDE 20 MG TAB PO SCH (08:14)
[2023-11-02] MEDS: CYANOCOBALAMIN (B-12) 500 MCG TABLET PO SCH (12:30)
[2023-11-02] MEDS: FERROUS SULFATE 325 MG TAB PO SCH (12:30)
--- NOTE | 2023-11-02 14:56 | Ultrasound Report ---
US venous doppler LE RT CLINICAL HISTORY: r/o DVT TECHNIQUE: Right lower extremity real-time compression venous ultrasound with Color Doppler imaging. Utilizing real-time ultrasonic imaging multiple real time high-resolution ultrasonic images with comp ression and noncompression maneuvers of the deep venous system in addition to color doppler imaging w ere performed from the common femoral vein through the proximal calf veins. COMPARISON: None available at the time of this dictation. FINDINGS/IMPRESSION: Currently there is normal compressibility of the deep venous system from the common femoral vein thro ugh the proximal calf veins. No superficial venous thrombosis is identified. ACT 112: Negative or not required by law. Electronically signed by: Cody Randolph M.D. 11/02/2023 2:55 PM
[2023-11-02] MEDS ORDERED: FUROSEMIDE 40 MG/4 ML VIAL IV ONE (15:52)
[2023-11-02] MEDS ORDERED: POTASSIUM CHLORIDE CRTAB 20 MEQ TABCR PO STA (15:52)
--- NOTE | 2023-11-02 15:52 | Hospitalist Progress Note ---
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 Dr. Leeann Ramirez and [place] [facility] [place] Layne Cancer Badger with outpatient oncology. MRI Brain wo contrast obtained; no acute stroke or hemorrhage. 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 Slight increase in symmetrical abnormal signal intensity in bilateral global pallidus. Appearance is nonspecific. Patient reports 3 episodes of generalized weakness at home. Neurology consulted-appreciate input and recommendation;Not consistent with stroke or seizure. Continue radiation treatment; per radiation oncology Palliative care also saw the patient on October 15, 2023; patient remains full code for now. She has been at 18 out of 25 radiation treatment for the sarcoma of the thigh Will have next radiation treatment tomorrow Likely discharge tomorrow with a facility from where she can get the radiation treatment Minimal skin abrasion from radiation without any ulceration and the drain is Wound care has been consulted Ongoing radiation treatment-right lower extremity is swollen Ultrasound did not show any deep venous thrombosis and she has been on Lovenox 40 mg twice daily She is advised to keep the legs elevated Will try to avoid giving much Lasix but will get 1 dose today Hyponatremia Likely SIADH Sodium of 1 29-1 30 Urine study suggestive of SIADH Continued fluid restriction of 1200 cc Sodium level remains low at 129 Will add sodium tablet 1 g twice daily Sodium level remains low at 129 and will continue salt tabs Sodium level remains at 129-we will monitor while she is in the Sodium levels remained at 129-will try intravenous normal saline with Lasix Monitor PRP-sodium level has gone up to 131 Will give another dose of IV Lasix today and got IV fluid with normal saline as well Sodium level remains stable at 131 Continue with the fluid restriction Sodium level remains at 128-will stop the sodium pills Lower extremity Edema Hematoma of the left calf 4.6 x 3.7 x 0.6 cm -Venous duplexnegative for DVT -Home antihypertensive medications include: Amlodipine, losartan, Lasix. Blood pressure well-controlled. -Soft tissue ultrasound of left leg shows avascular hypoechoic collection within the left calf. Size is around 4.6 X3.7 X 0.6 cm in favor subcutaneous hematoma. Monitor the site for now.HnH has been stable, c/w aspirin and dvt px. Hemoglobin remains stable Will repeat soft tissue ultrasound to evaluate hematoma further Denies any symptoms in the left calf or right thigh No symptoms from the hematoma and the hemoglobin remained stable Hematoma seems to be cleared Hemoglobin remains stable and evidence of hematoma resolved (2) Generalized weakness: Plan: Likely secondary to sarcoma of the right thigh CXR-no acute findings, bio fire is negative, Blood culture from 10/31 out of 4 growing Corynebacterium; likely contaminant. Urine culturemore than 3 types of organism, all moderate count. Antibiotics stopped. Continue to monitor off antibiotics. Does not have any signs and or symptoms of infection Has been getting physical therapy and recommended rehab Getting better gradually and will continue physical therapy A little better today and will need to continue physical therapy in a rehab facility Remains stable and awaiting acceptance to facility Getting better gradually-awaiting placement (3) CKD (chronic kidney disease), stage III: Plan: Creatinine remained normal (4) Leukocytosis: Plan: Normalized (5) NATHALIE (obstructive sleep apnea): (6) Obesity: (7) Elevated troponin: Plan: Elevated Troponin Likely secondary to demand ischemia EKG shows normal sinus rhythm with PAC High sensitive troponin elevated to 72; up trended to 109 and down trended. Echocardiogram from September 2023 shows EF of 60 to 65% Patient denies any chest pain, palpitation or dizziness. Repeat EKG shows normal sinus rhythm with no ST or T wave changes. Cough Complains of cough without any phlegm No shortness of breath or chest pain Chest x-ray did not show any pathology Will continue Wilfrid Mustafa and she was reassured Decreased ROM x Rt shoulder: Xray reviewed. active and passive rom painful. Orthopedics evaluated, appreciate recommendation. NATHALIE -Continue CPAP at bedtime. DVT PPx: lovenox subq Lines: 2 PIV FEN/GI:HH diet CODE: Full code Dispo: From home; PT OT recommends rehab. Patient has many more sessions of radiation(total is 25 sessions) left. Pt's priority is finishing radiation. Will need placement to a rehab which can arrange transport for radiation. Case management on board. med/surg until dc. Awaiting placement as PT and OT recommended rehab Admission and Anticipated Discharge Date Admission Date: October 12, 2023 Subjective 10/27/2023 The patient was seen and examined in medical telemetry unit in presence of the brother She has been feeling much better today and complains to have some back pain Denies any pain in the right thigh or left calf Remains generally weak and getting physical therapy 10/28/2023 The patient was seen and examined in medical telemetry unit She is back from radiation treatment and denies any significant symptoms except ongoing weakness Has been awaiting placement 10/29/2023 The patient was seen and examined in medical telemetry unit She is back from radiation therapy Has been complaining of cough Feeling much better since getting Tessalon Perle Denies any other symptoms 10/30/2023 The patient was seen and examined in medical telemetry unit She has been feeling better Weakness is being improving Denies any pain and/or shortness of breath, no nausea or vomiting 10/31/2023 The patient was seen and examined in medical telemetry unit She has been feeling much better and denies any significant symptoms Her sodium level has come up to 131 11/01/2023 The patient was seen and examined in medical telemetry unit She has been complaining of skin lesions at the site of radiation therapy Minimal pain and whitish discoloration of the skin but no ulceration and/or discharge Wound care has been consulted Denies any other symptoms 11/02/2023 The patient was seen and examined in medical telemetry unit She has been complaining of swelling of the left lower extremity more than the right Denies any pain in that limb No chest pain, palpitation or shortness of breath Review of Systems Review of Systems: All systems reviewed and are unremarkable except as noted below Musculoskeletal: No acute arthritis involving any of the joint Physical Exam Physical Exam: Lying in bed comfortably Constitutional: well developed, well nourished, + ill appearing and + obese Eyes: PERRL, conjunctivae normal, anicteric sclerae ENMT: external ear and nose normal, oropharynx normal Neck: trachea midline, no thyromegaly Respiratory: no respiratory distress Auscultation: lungs clear to auscultation bilaterally Cardiovascular: Rate/Rhythm: regular rate and regular rhythm; not tachycardic Heart Sounds: normal S1 and normal S2; no murmur Extremities: + edema (Trace edema bilaterally) Gastrointestinal (Abdomen): Inspection/Auscultation: normal bowel sounds; abdomen not distended Percussion/Palpation: abdomen soft; abdomen nontender Musculoskeletal: No acute arthritis involving any joint. Right lower extremity is very swollen and nontender Neurologic: normal touch/pain/proprioception and moves all extremities; no focal motor deficits Lymphatic: no cervical or axillary lymphadenopathy Results & Data Results & Data Vital Signs (Past 12 Hours) Vital Signs Temp Pulse Pulse Resp BP Pulse Ox O2 Del Method 11/02/23 11:27 Room Air 11/02/23 07:54 36.8 C 70 16 101/56 L 93 Room Air 11/02/23 05:48 80 11/02/23 04:14 36.6 C 88 18 128/72 94 Room Air Laboratory Results [facility] 11/02/23 06:56 Sodium 128 L Potassium 3.9 Chloride 98 Carbon Dioxide 24 BUN 33 H Creatinine 1.03 Glucose 96 Calcium 8.5 L Medications Administered Current Inpatient Medications Acetaminophen (Acetaminophen 500 Mg Tab) 1,000 mg PO Q8H PRN PRN Reason: Mild Pain (Scale 1, 2, 3) Stop: 11/12/23 14:51 Last Admin: 10/17/23 22:07 Dose: 1,000 mg Amlodipine Besylate (Amlodipine Besylate 5 Mg Tab) 2.5 mg PO HS [facility] Stop: 11/11/23 20:59 Last Admin: 11/01/23 20:45 Dose: 2.5 mg Aspirin (Aspirin 81 Mg Ectab) 81 mg PO [facility] Stop: 11/12/23 20:59 Last Admin: 11/01/23 20:45 Dose: 81 mg Benzonatate (Benzonatate 100 Mg Capsule) 100 mg PO TID [facility] Stop: 11/28/23 13:59 Last Admin: 11/02/23 15:39 Dose: 100 mg Cyanocobalamin (Cyanocobalamin (B-12) 500 Mcg Tablet) 1,000 mcg PO QDL [facility] Stop: 11/12/23 11:29 Last Admin: 11/02/23 12:30 Dose: 1,000 mcg Enoxaparin Sodium (Enoxaparin Inj 40 Mg/0.4 Ml Syr) 40 mg SQ BID [facility] Stop: 11/12/23 08:59 Last Admin: 11/02/23 08:14 Dose: 40 mg Ferrous Sulfate (Ferrous Sulfate 325 Mg Tab) 325 mg PO QDL [facility] Stop: 11/12/23 11:29 Last Admin: 11/02/23 12:30 Dose: 325 mg Furosemide (Furosemide 20 Mg Tab) 20 mg PO DAILY [facility] Stop: 11/17/23 08:59 Last Admin: 11/02/23 08:14 Dose: 20 mg Gabapentin (Gabapentin 100 Mg Cap) 100 mg PO TID [facility] Stop: 11/13/23 13:59 Last Admin: 11/02/23 15:39 Dose: 100 mg Guaifenesin/Codeine Phosphate (Guaifenesin/Codeine 100mg/10mg 5ml Udc) 5 ml PO Q6H PRN PRN Reason: Cough Stop: 11/28/23 23:02 Last Admin: 10/29/23 23:38 Dose: 5 ml Losartan Potassium (Losartan Potassium 25 Mg Tab) 25 mg PO DAILY [facility] Stop: 11/12/23 08:59 Last Admin: 11/02/23 08:14 Dose: 25 mg Magnesium Oxide (Magnesium Oxide 400 Mg Tab) 400 mg PO BID [facility] Stop: 11/27/23 09:59 Last Admin: 11/02/23 08:13 Dose: 400 mg Miconazole Nitrate (Miconazole Nitrate Powder 85 Gm) 1 appln EXT PRN PRN PRN Reason: Affected Skin Folds Stop: 11/20/23 12:34 Pantoprazole Sodium (Pantoprazole 40 Mg Tab) 40 mg PO DAILYBB [facility] Stop: 11/12/23 06:29 Last Admin: 11/02/23 06:13 Dose: 40 mg Sertraline HCl (Sertraline Hcl 50 Mg Tablet) 50 mg PO DAILY [facility] Stop: 11/12/23 08:59 Last Admin: 11/02/23 08:13 Dose: 50 mg Sodium Chloride (Sodium Chloride 1 Gm Tablet) 1 gm PO BID [facility] Stop: 11/26/23 20:59 Last Admin: 11/02/23 08:13 Dose: 1 gm Tramadol HCl (Tramadol Hcl 50 Mg Tablet) 50 mg PO Q6H PRN PRN Reason: Pain Stop: 11/11/23 19:15 Last Admin: 10/25/23 23:08 Dose: 50 mg (4) Leukocytosis Leukocytosis type: unspecified Qualified Code(s): D72.829 - Elevated white blood cell count, unspecified
[2023-11-02] MEDS: ASPIRIN 81 MG ECTAB PO SCH (22:42)
[2023-11-02] MEDS: amLODIPine BESYLATE 5 MG TAB PO SCH (22:43)
[2023-11-02] MEDS: traMADol HCL 50 MG TABLET PO PRN (22:47)
[2023-11-03] MEDS: PANTOprazole 40 MG TAB PO SCH (05:41)
[2023-11-03 07:50] LABS: Calcium 8.5 mg/dl (8.6-10.3); Potassium 3.9 mmol/L (3.5-5.1)
[2023-11-03 07:56] LABS: BUN Creatinine Ratio 30.2 (10-20); Creatinine Clr Calc Pharmacy 57.8 ml/min; Est GFR (African American) 66.6 ml/min; Est GFR (Non-African American) 57.4 ml/min
[2023-11-03] MEDS: SERTRALINE HCL 50 MG TABLET PO SCH (08:35)
[2023-11-03] MEDS: GABAPENTIN 100 MG CAP PO SCH ×3 (08:36→20:31)
[2023-11-03] MEDS: BENZONATATE 100 MG CAPSULE PO SCH ×3 (08:36→20:31)
[2023-11-03] MEDS: MAGNESIUM OXIDE 400 MG TAB PO SCH ×2 (08:36→20:30)
[2023-11-03] MEDS: FUROSEMIDE 20 MG TAB PO SCH (08:36)
[2023-11-03] MEDS: ENOXAPARIN INJ 40 MG/0.4 ML SYR SQ SCH ×2 (08:37→20:31)
[2023-11-03] MEDS: CYANOCOBALAMIN (B-12) 500 MCG TABLET PO SCH (12:40)
[2023-11-03] MEDS: FERROUS SULFATE 325 MG TAB PO SCH (12:40)
--- NOTE | 2023-11-03 15:15 | Hospitalist Progress Note ---
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 Dr. Leeann Ramirez and [place] [facility] [place] [facility]. Layne [facility] with outpatient oncology. --MRI Brain: No acute stroke or hemorrhage. Slight increase in symmetric abnormal signal intensity in the bilateral globus pallidus. Appearance is nonspecific and may be seen with toxic/metabolic disorders. 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 Nonspecific white matter changes most commonly seen with small vessel disease. --Venous Doppler showed no signs of DVT --Appreciate neurology input:Not consistent with stroke or seizure. 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 This measures approximately 4.6 x 3.7 x 0.6 cm and favors a subcutaneous hematoma. -Venous duplexnegative for DVT -Monitor CBC Hemoglobin 7.9 today Consider to repeat soft tissue ultrasound if needed Denies any pain currently Hypertension BP relatively low Hold amlodipine, losartan Monitor BP (2) Generalized weakness: Plan: Likely secondary to sarcoma of the right thigh CXR-no acute findings, bio fire is negative Blood culture from 10/31 out of 4 growing Corynebacterium; likely contaminant. Urine culturemore than 3 types of organism, all moderate count. Antibiotics discontinued Continue PT OT (3) CKD (chronic kidney disease), stage III: Plan: Renal function stable Monitor (4) Leukocytosis: Plan: Monitor (5) NATHALIE (obstructive sleep apnea): (6) Obesity: Plan: Morbid obesity BMI 41 (7) Elevated troponin: Plan: As per prior provider: Elevated Troponin Likely secondary to demand ischemia EKG shows normal sinus rhythm with PAC High sensitive troponin elevated to 72; up trended to 109 and down trended. Echocardiogram from September 2023 shows EF of 60 to 65% Patient denies any chest pain, palpitation or dizziness. Repeat EKG shows normal sinus rhythm with no ST or T wave changes. Currently denies any chest pain Cough Complains of cough without any phlegm No shortness of breath or chest pain Chest x-ray did not show any pathology Antitussives as needed Biceps tendinitis of right shoulder Impingement syndrome of right shoulder -R shoulder X ray:No acute fracture or dislocation. Continue PT OT Weightbearing as tolerated on right lower extremity Orthopedics evaluated, appreciate recommendation. NATHALIE -Continue CPAP at bedtime. DVT Px: Lovenox SQ CODE STATUS: Full code Admission and Anticipated Discharge Date Admission Date: October 12, 2023 Subjective Patient is seen and examined at bedside Admits to have right lower extremity pain Also reports feeling tired Denies any chest pain, dyspnea, dizziness, nausea, vomiting, abdominal pain No other complaints Review of Systems Review of Systems: All systems reviewed & are unremarkable except as noted in Subjective Physical Exam Physical Exam: Physical Exam: Vitals signs as noted above General Appearance:Obese, no apparent distress, chronic ill-appearing Head: normocephalic, Atraumatic Eyes: normal inspection, EOMI Neck: supple, Trachea midline Respiratory/Chest: Normal breath sounds, CTA, No accessory muscle use Cardiovascular: S1, S2, No murmur Abdomen/GI:Soft, Non tender, Bowel sounds present Extremities/Musculoskeletal:normal inspection, right lower extremity swelling, left calf ecchymotic changes from hematoma Neurologic/Psych:AAOX3, grossly no focal neurological deficits Skin: normal color, warm Results & Data Results & Data Vital Signs (Past 12 Hours) Vital Signs Temp Pulse Pulse Resp BP Pulse Ox O2 Del Method 11/03/23 08:07 36.8 C 84 18 101/57 L 93 Room Air 11/03/23 06:00 88 11/03/23 03:14 36.4 C L 96 H 18 117/66 94 Room Air Laboratory Results BMP 11/03/23 07:11 Sodium 131 L Potassium 3.9 Chloride 100 Carbon Dioxide 25 BUN 29 H Creatinine 0.96 Glucose 92 Calcium 8.5 L (4) Leukocytosis Leukocytosis type: unspecified Qualified Code(s): D72.829 - Elevated white blood cell count, unspecified
[2023-11-03] MEDS: ASPIRIN 81 MG ECTAB PO SCH (20:31)
[2023-11-04] MEDS: PANTOprazole 40 MG TAB PO SCH (06:15)
[2023-11-04 07:24] LABS: Hematocrit (blood only) 22.4 % (37.0-47.0); Hemoglobin 7.2 g/dl (12.0-16.0); Mean Corpuscular Hemoglobin 24.7 pg (25.0-34.0); Mean Corpuscular Hgb Conc 32.1 g/dL (32.0-36.0); Mean Corpuscular Volume 76.7 fL (80.0-100.0); Mean Platelet Volume 9.4 fL (9.4-12.4); Platelet Count 458 K/uL (130-400); RDW Coefficient of Variation 16.1 % (11.5-14.5); RDW Standard Deviation 45.2 fL (36.4-46.3); Red Blood Count 2.92 M/uL (4.20-5.40); White Blood Count 12.27 K/ul (4.8-10.8)
[2023-11-04 07:39] LABS: BUN Creatinine Ratio 29.3 (10-20); Calcium 8.4 mg/dl (8.6-10.3); Creatinine Clr Calc Pharmacy 56.1 ml/min; Est GFR (African American) 64.2 ml/min; Est GFR (Non-African American) 55.4 ml/min; Magnesium 1.6 mg/dl (1.7-2.4); Potassium 3.9 mmol/L (3.5-5.1)
[2023-11-04] MEDS: GABAPENTIN 100 MG CAP PO SCH ×3 (08:41→21:12)
[2023-11-04] MEDS: FUROSEMIDE 20 MG TAB PO SCH (08:42)
[2023-11-04] MEDS: SERTRALINE HCL 50 MG TABLET PO SCH (08:42)
[2023-11-04] MEDS: MAGNESIUM OXIDE 400 MG TAB PO SCH ×2 (08:42→21:13)
[2023-11-04] MEDS: BENZONATATE 100 MG CAPSULE PO SCH ×3 (08:43→21:13)
[2023-11-04] MEDS: ENOXAPARIN INJ 40 MG/0.4 ML SYR SQ SCH (08:43)
[2023-11-04] MEDS ORDERED: SODIUM CHLORIDE 0.9% 250 ML IV PRN (09:03)
--- NOTE | 2023-11-04 11:48 | Ultrasound Report ---
US extremity non-vascular ltd HISTORY: 77 years-old Female Left calf Hematoma, drop in Hb COMPARISON: 10/15/2023 TECHNIQUE: Multiple real-time sonographic images of the left calf soft tissues were obtained apolinar kirby grayscale appearance and color flow FINDINGS: There is a subcutaneous ill-defined avascular hypoechoic linear wider than tall parallel orientation structure measuring 3.2 x 0.3 x 2.6 cm, previously 4.6 x 0.6 x 3.7 cm. Mild adjacent subcutaneous xavier ma. IMPRESSION: Decreasing size of the subcutaneous hematoma. ACT 112: Negative or not required by law. The above report was generated using voice recognition software. It may contain grammatical, syntax o r spelling errors. Electronically signed by: Tre Alvarado M.D. 11/04/2023 11:47 AM
[2023-11-04] MEDS: FERROUS SULFATE 325 MG TAB PO SCH (12:42)
[2023-11-04] MEDS: CYANOCOBALAMIN (B-12) 500 MCG TABLET PO SCH (12:42)
--- NOTE | 2023-11-04 18:44 | Hospitalist Progress Note ---
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 [place] --Follows with Dr. Leeann Ramirez and Par[place] [facility] [place] [facility]. --MRI Brain: No acute stroke or hemorrhage. Slight increase in symmetric abnormal signal intensity in the bilateral globus pallidus. Appearance is nonspecific and may be seen with toxic/metabolic disorders. 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 Nonspecific white matter changes most commonly seen with small vessel disease. --Venous Doppler showed no signs of DVT --Appreciate neurology input:Not consistent with stroke or seizure. --Continue radiation treatment; per radiation oncology --Minimal skin abrasion from radiation without any ulceration/drainage Continue local wound care --Lasix as needed for edema --Leg elevation as able to help with edema Lovenox for DVT prophylaxis--held due to drop in hemoglobin, bleeding issues. Patient understands risks versus benefits Patient agrees to monitor off DVT off anticoagulation. Understands the risk for clotting. 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 This measures approximately 4.6 x 3.7 x 0.6 cm and favors a subcutaneous hematoma. -Venous duplexnegative for DVT -Monitor CBC Hemoglobin 7.2 today Denies any pain currently Repeat ultrasound showed decreasing size of the subcutaneous hematoma. Hypertension BP relatively low Hold amlodipine, losartan Monitor BP (2) Generalized weakness: Plan: Likely secondary to sarcoma of the right thigh CXR-no acute findings, bio fire is negative Blood culture from 10/31 out of 4 growing Corynebacterium; likely contaminant. Urine culturemore than 3 types of organism, all moderate count. Antibiotics discontinued Continue PT OT (3) CKD (chronic kidney disease), stage III: Plan: Renal function stable Monitor (4) Leukocytosis: Plan: Monitor (5) NATHALIE (obstructive sleep apnea): (6) Obesity: Plan: Morbid obesity BMI 41 (7) Elevated troponin: Plan: As per prior provider: Elevated Troponin Likely secondary to demand ischemia EKG shows normal sinus rhythm with PAC High sensitive troponin elevated to 72; up trended to 109 and down trended. Echocardiogram from September 2023 shows EF of 60 to 65% Patient denies any chest pain, palpitation or dizziness. Repeat EKG shows normal sinus rhythm with no ST or T wave changes. Currently denies any chest pain Cough Complains of cough without any phlegm No shortness of breath or chest pain Chest x-ray did not show any pathology Antitussives as needed Biceps tendinitis of right shoulder Impingement syndrome of right shoulder -R shoulder X ray:No acute fracture or dislocation. Continue PT OT Weightbearing as tolerated on right lower extremity Orthopedics evaluated, appreciate recommendation. NATHALIE -Continue CPAP at bedtime. DVT Px: Lovenox SQ--Held: Re: Bleeding, anemia SCDs for now CODE STATUS: Full code Admission and Anticipated Discharge Date Admission Date: October 12, 2023 Subjective Patient is seen and examined at bedside Patient had radiation therapy today Reports some bleeding from site of radiation Noted drop in hemoglobin Denies any other bleeding issues Right lower extremity pain is controlled Denies any chest pain, dyspnea, dizziness, nausea, vomiting, abdominal pain Discussed with patient's family at bedside Review of Systems Review of Systems: All systems reviewed & are unremarkable except as noted in Subjective Physical Exam Physical Exam: Physical Exam: Vitals signs as noted above General Appearance:Obese, no apparent distress, chronic ill-appearing Head: normocephalic, Atraumatic Eyes: normal inspection, EOMI Neck: supple, Trachea midline Respiratory/Chest: Normal breath sounds, CTA, No accessory muscle use Cardiovascular: S1, S2, No murmur Abdomen/GI:Soft, Non tender, Bowel sounds present Extremities/Musculoskeletal:normal inspection, right lower extremity swelling, left calf ecchymotic changes from hematoma Neurologic/Psych:AAOX3, grossly no focal neurological deficits Skin: normal color, warm Results & Data Results & Data Vital Signs (Past 12 Hours) Vital Signs Temp Pulse Pulse Resp BP Pulse Ox O2 Del Method 11/04/23 17:03 36.8 C 75 17 113/69 94 Room Air 11/04/23 15:54 78 11/04/23 10:57 Room Air 11/04/23 07:25 36.4 C L 75 17 114/67 94 Room Air Laboratory Results Short CBC 11/04/23 Range/Units 06:59 WBC 12.27 H (4.8-10.8) K/ul Hgb 7.2 L (12.0-16.0) g/dl Hct 22.4 L (37.0-47.0) % Plt Count 458 H (130-400) K/uL BMP 11/04/23 06:59 Sodium 131 L Potassium 3.9 Chloride 100 Carbon Dioxide 25 BUN 29 H Creatinine 0.99 Glucose 91 Calcium 8.4 L (4) Leukocytosis Leukocytosis type: unspecified Qualified Code(s): D72.829 - Elevated white blood cell count, unspecified
[2023-11-04 20:25] LABS: Hematocrit (blood only) 24.4 % (37.0-47.0); Hemoglobin 7.6 g/dl (12.0-16.0)
[2023-11-04] MEDS: ACETAMINOPHEN 500 MG TAB PO PRN (21:11)
[2023-11-04] MEDS: traMADol HCL 50 MG TABLET PO PRN (21:11)
[2023-11-04] MEDS: ASPIRIN 81 MG ECTAB PO SCH (21:12)
[2023-11-05] MEDS: PANTOprazole 40 MG TAB PO SCH (06:07)
[2023-11-05 07:51] LABS: BUN Creatinine Ratio 27.8 (10-20); Calcium 8.5 mg/dl (8.6-10.3); Creatinine Clr Calc Pharmacy 57.7 ml/min; Est GFR (African American) 65.8 ml/min; Est GFR (Non-African American) 56.7 ml/min; Magnesium 1.7 mg/dl (1.7-2.4); Potassium 3.9 mmol/L (3.5-5.1)
[2023-11-05] MEDS: traMADol HCL 50 MG TABLET PO PRN (08:36)
[2023-11-05] MEDS: MAGNESIUM OXIDE 400 MG TAB PO SCH ×2 (09:28→21:21)
[2023-11-05] MEDS: GABAPENTIN 100 MG CAP PO SCH ×3 (09:28→21:21)
[2023-11-05] MEDS: FUROSEMIDE 20 MG TAB PO SCH ×2 (09:28→21:20)
[2023-11-05] MEDS: SERTRALINE HCL 50 MG TABLET PO SCH (09:28)
[2023-11-05] MEDS: BENZONATATE 100 MG CAPSULE PO SCH ×3 (09:28→21:21)
[2023-11-05] MEDS: ENOXAPARIN INJ 40 MG/0.4 ML SYR SQ SCH (09:29)
[2023-11-05] MEDS: CYANOCOBALAMIN (B-12) 500 MCG TABLET PO SCH (13:26)
[2023-11-05] MEDS: FERROUS SULFATE 325 MG TAB PO SCH (13:26)
[2023-11-05] MEDS: ACETAMINOPHEN 500 MG TAB PO PRN (13:27)
[2023-11-05] MEDS: SILVER SULFADIAZINE 1% CR 50 GM JAR EXT SCH ×2 (15:09→21:23)
[2023-11-05] MEDS: DOXYCYCLINE HYCLATE 100 MG CAP PO SCH (16:48)
--- NOTE | 2023-11-05 18:26 | Hospitalist Progress Note ---
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 --Follows with Dr. Leeann Ramirez and Parth at [facility] [place] and Dr. Layne [facility] with outpatient oncology. --MRI Brain: No acute stroke or hemorrhage. Slight increase in symmetric abnormal signal intensity in the bilateral globus pallidus. Appearance is nonspecific and may be seen with toxic/metabolic disorders. 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 Nonspecific white matter changes most commonly seen with small vessel disease. --Venous Doppler showed no signs of DVT --Appreciate neurology input:Not consistent with stroke or seizure. --Continue radiation treatment; per radiation oncology --Minimal skin abrasion from radiation without any ulceration/drainage Continue local wound care --Lasix as needed for edema --Leg elevation as able to help with edema Lovenox for DVT prophylaxis--held due to drop in hemoglobin, bleeding issues. Patient understands risks versus benefits Patient agrees to monitor off DVT off anticoagulation. Understands the risk for clotting. Case management to help with discharge planning -- Increased Lasix dose to help with edema --MRI leg pending. 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 This measures approximately 4.6 x 3.7 x 0.6 cm and favors a subcutaneous hematoma. -Venous duplexnegative for DVT -Monitor CBC Denies any pain currently Repeat ultrasound showed decreasing size of the subcutaneous hematoma. Hypertension BP relatively low Hold amlodipine, losartan Monitor BP (2) Generalized weakness: Plan: Likely secondary to sarcoma of the right thigh CXR-no acute findings, bio fire is negative Blood culture from 10/31 out of 4 growing Corynebacterium; likely contaminant. Urine culturemore than 3 types of organism, all moderate count. Antibiotics discontinued Continue PT OT (3) CKD (chronic kidney disease), stage III: Plan: Renal function stable Monitor (4) Leukocytosis: Plan: Monitor (5) NATHALIE (obstructive sleep apnea): (6) Obesity: Plan: Morbid obesity BMI 41 (7) Elevated troponin: Plan: As per prior provider: Elevated Troponin Likely secondary to demand ischemia EKG shows normal sinus rhythm with PAC High sensitive troponin elevated to 72; up trended to 109 and down trended. Echocardiogram from September 2023 shows EF of 60 to 65% Patient denies any chest pain, palpitation or dizziness. Repeat EKG shows normal sinus rhythm with no ST or T wave changes. Currently denies any chest pain Cough Complains of cough without any phlegm No shortness of breath or chest pain Chest x-ray did not show any pathology Antitussives as needed Biceps tendinitis of right shoulder Impingement syndrome of right shoulder -R shoulder X ray:No acute fracture or dislocation. Continue PT OT Weightbearing as tolerated on right lower extremity Orthopedics evaluated, appreciate recommendation. NATHALIE -Continue CPAP at bedtime. DVT Px: Lovenox SQ CODE STATUS: Full code Admission and Anticipated Discharge Date Admission Date: October 12, 2023 Subjective Patient is seen and examined at bedside Continues to have bleeding from sarcoma site Discussed with radiation oncology today Still has Right lower extremity pain Denies any chest pain, dyspnea, dizziness, nausea, vomiting, abdominal pain Discussed with patient's family at bedside Review of Systems Review of Systems: All systems reviewed & are unremarkable except as noted in Subjective Physical Exam Physical Exam: Physical Exam: Vitals signs as noted above General Appearance:Obese, no apparent distress, chronic ill-appearing Head: normocephalic, Atraumatic Eyes: normal inspection, EOMI Neck: supple, Trachea midline Respiratory/Chest: Normal breath sounds, CTA, No accessory muscle use Cardiovascular: S1, S2, No murmur Abdomen/GI:Soft, Non tender, Bowel sounds present Extremities/Musculoskeletal:normal inspection, right lower extremity swelling, left calf ecchymotic changes from hematoma Neurologic/Psych:AAOX3, grossly no focal neurological deficits Skin: normal color, warm Results & Data Results & Data Vital Signs (Past 12 Hours) Vital Signs Temp Pulse Pulse Resp BP Pulse Ox O2 Del Method 11/05/23 16:16 37.0 C 82 17 98/64 L 93 Room Air 11/05/23 14:00 81 11/05/23 09:10 36.8 C 81 18 116/68 90 Room Air Laboratory Results Short CBC 11/04/23 Range/Units 20:03 Hgb 7.6 L (12.0-16.0) g/dl Hct 24.4 L (37.0-47.0) % BMP 11/05/23 06:49 Sodium 131 L Potassium 3.9 Chloride 98 Carbon Dioxide 27 BUN 27 H Creatinine 0.97 Glucose 88 Calcium 8.5 L (4) Leukocytosis Leukocytosis type: unspecified Qualified Code(s): D72.829 - Elevated white blood cell count, unspecified
[2023-11-05] MEDS: ASPIRIN 81 MG ECTAB PO SCH (21:21)
[2023-11-06] MEDS: DOXYCYCLINE HYCLATE 100 MG CAP PO SCH ×2 (02:08→15:39)
[2023-11-06] MEDS: PANTOprazole 40 MG TAB PO SCH (05:48)
[2023-11-06 07:14] LABS: Hematocrit (blood only) 21.6 % (37.0-47.0); Hemoglobin 6.8 g/dl (12.0-16.0); Mean Corpuscular Hemoglobin 24.5 pg (25.0-34.0); Mean Corpuscular Hgb Conc 31.5 g/dL (32.0-36.0); Mean Platelet Volume 9.5 fL (9.4-12.4); Platelet Count 469 K/uL (130-400); RDW Coefficient of Variation 16.2 % (11.5-14.5); RDW Standard Deviation 45.7 fL (36.4-46.3); Red Blood Count 2.77 M/uL (4.20-5.40); White Blood Count 13.27 K/ul (4.8-10.8)
[2023-11-06] MEDS ORDERED: SODIUM CHLORIDE 0.9% 250 ML IV PRN (07:31)
[2023-11-06] MEDS: SILVER SULFADIAZINE 1% CR 50 GM JAR EXT SCH ×2 (09:22→21:46)
[2023-11-06] MEDS: MAGNESIUM OXIDE 400 MG TAB PO SCH ×2 (09:24→21:45)
[2023-11-06] MEDS: BENZONATATE 100 MG CAPSULE PO SCH ×3 (09:24→21:43)
[2023-11-06] MEDS: GABAPENTIN 100 MG CAP PO SCH ×3 (09:24→21:44)
[2023-11-06] MEDS: FUROSEMIDE 20 MG TAB PO SCH ×2 (09:24→21:44)
[2023-11-06] MEDS: SERTRALINE HCL 50 MG TABLET PO SCH (09:24)
[2023-11-06] MEDS: FERROUS SULFATE 325 MG TAB PO SCH (12:01)
[2023-11-06] MEDS: CYANOCOBALAMIN (B-12) 500 MCG TABLET PO SCH (12:01)
[2023-11-06] MEDS: oxyCODONE HCL IR 5 MG TAB (IMMEDIATE RELEASE) PO PRN ×2 (12:07→19:49)
--- NOTE | 2023-11-06 13:53 | Hospitalist Progress Note ---
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 --Follows with Dr. Leeann Ramirez and Parth at [facility] [place] and Dr. Layne [facility] with outpatient oncology. --MRI Brain: No acute stroke or hemorrhage. Slight increase in symmetric abnormal signal intensity in the bilateral globus pallidus. Appearance is nonspecific and may be seen with toxic/metabolic disorders. 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 Nonspecific white matter changes most commonly seen with small vessel disease. --Venous Doppler showed no signs of DVT --Appreciate neurology input:Not consistent with stroke or seizure. --Continue radiation treatment; per radiation oncology --Minimal skin abrasion from radiation without any ulceration/drainage Continue local wound care --Lasix as needed for edema --Leg elevation as able to help with edema Lovenox for DVT prophylaxis--held due to drop in hemoglobin, bleeding issues. Patient understands risks Vs benefits Patient agrees to monitor off DVT off anticoagulation. Understands the risk for clotting. Case management to help with discharge planning -- Increased Lasix dose to help with edema --MRI leg pending. Will need follow-up with surgical oncology as outpatient --Hb 6.8 today Offload right lower extremity as able to minimize pressure at the site of sarcoma Will transfuse 1 unit PRBC today Cough ? 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 This measures approximately 4.6 x 3.7 x 0.6 cm and favors a subcutaneous hematoma. -Venous duplexnegative for DVT -Monitor CBC Denies any pain currently Repeat ultrasound showed decreasing size of the subcutaneous hematoma. Hypertension BP relatively low Hold amlodipine, losartan Monitor BP (2) Generalized weakness: Plan: Likely secondary to sarcoma of the right thigh CXR-no acute findings, bio fire is negative Blood culture from 10/31 out of 4 growing Corynebacterium; likely contaminant. Urine culturemore than 3 types of organism, all moderate count. Empiric Antibiotics discontinued Continue PT OT (3) CKD (chronic kidney disease), stage III: Plan: Renal function stable Monitor (4) Leukocytosis: Plan: Monitor (5) NATHALIE (obstructive sleep apnea): (6) Obesity: Plan: Morbid obesity BMI 41 (7) Elevated troponin: Plan: As per prior provider: Elevated Troponin Likely secondary to demand ischemia EKG shows normal sinus rhythm with PAC High sensitive troponin elevated to 72; up trended to 109 and down trended. Echocardiogram from September 2023 shows EF of 60 to 65% Patient denies any chest pain, palpitation or dizziness. Repeat EKG shows normal sinus rhythm with no ST or T wave changes. Currently denies any chest pain Biceps tendinitis of right shoulder Impingement syndrome of right shoulder -R shoulder X ray:No acute fracture or dislocation. Continue PT OT Weightbearing as tolerated on right lower extremity Orthopedics evaluated, appreciate recommendation. NATHALIE -Continue CPAP at bedtime. DVT Px: Lovenox SQ--held due to Bleeding issues SCDs CODE STATUS: Full code Admission and Anticipated Discharge Date Admission Date: October 12, 2023 Subjective Patient is seen and examined at bedside Hb dropped to 6.8 today States having minimal dry cough today Continues to have right lower extremity pain Denies any chest pain, dyspnea, dizziness, nausea, vomiting, abdominal pain Review of Systems Review of Systems: All systems reviewed & are unremarkable except as noted in Subjective Physical Exam Physical Exam: Physical Exam: Vitals signs as noted above General Appearance:Obese, no apparent distress, chronic ill-appearing Head: normocephalic, Atraumatic Eyes: normal inspection, EOMI Neck: supple, Trachea midline Respiratory/Chest: Normal breath sounds, CTA, No accessory muscle use Cardiovascular: S1, S2, No murmur Abdomen/GI:Soft, Non tender, Bowel sounds present Extremities/Musculoskeletal:normal inspection, right lower extremity swelling, left calf ecchymotic changes from hematoma Neurologic/Psych:AAOX3, grossly no focal neurological deficits Skin: normal color, warm Results & Data Results & Data Vital Signs (Past 12 Hours) Vital Signs Temp Pulse Pulse Resp BP BP Pulse Ox 11/06/23 12:31 36.9 C 66 16 118/69 92 11/06/23 10:30 36.6 C 85 16 114/71 95 11/06/23 08:38 36.7 C 76 16 107/65 92 11/06/23 08:35 36.7 C 73 16 103/66 91 11/06/23 08:20 36.8 C 75 16 111/66 92 11/06/23 08:06 36.9 C 78 16 118/69 92 11/06/23 05:45 76 11/06/23 04:20 36.8 C 77 18 115/70 95 O2 Del Method 11/06/23 12:31 Room Air 11/06/23 10:30 11/06/23 08:38 11/06/23 08:35 11/06/23 08:20 11/06/23 08:06 11/06/23 05:45 11/06/23 04:20 Room Air Laboratory Results Short CBC 11/06/23 Range/Units 06:27 WBC 13.27 H (4.8-10.8) K/ul Hgb 6.8 L* (12.0-16.0) g/dl Hct 21.6 L (37.0-47.0) % Plt Count 469 H (130-400) K/uL (4) Leukocytosis Leukocytosis type: unspecified Qualified Code(s): D72.829 - Elevated white blood cell count, unspecified
[2023-11-06] MEDS ORDERED: GADOBUTROL 30ML VIAL IV ONE (15:07)
[2023-11-06 16:08] LABS: Hematocrit (blood only) 26.7 % (37.0-47.0); Hemoglobin 8.9 g/dl (12.0-16.0)
--- NOTE | 2023-11-06 16:08 | Magnetic Resonance Report ---
MR femur RT wo/w con HISTORY: Sarcoma Right Thigh TECHNIQUE: Multiplanar multisequence MRI of the right femur was performed both before and after the i ntravenous administration of 10 cc of Gadavist contrast. COMPARISON STUDY: Right leg ultrasound 08/11/2023. FINDINGS: Interval development of a nondisplaced subchondral fracture within the medial femoral condy le which could represent an insufficiency fracture. There is a small right knee effusion, unchanged. Subcutaneous edema within the right thigh and skin thickening has progressed. There is been significa nt increase in size of the lobular and heterogeneous enhancing large necrotic mass within the right p osterior thigh musculature. This appears to invade into both the semimembranosus and semitendinosus m uscles. This lesion measures approximately 29 x 20 x 14 cm, previously measuring 23 x 15 x 11 cm. Thi s lesion does not invade into the sciatic nerve. This lesion is in close proximity but does not invol ve or the femur. No inguinal or popliteal lymphadenopathy identified. IMPRESSION: Increase in size in the now 29 x 20 x 14 cm necrotic mass involving the majority of the semimembranos us and semitendinosus muscles as described above. ACT 112: Negative or not required by law. Electronically signed by: Xavier Montano M.D. 11/06/2023 4:06 PM
[2023-11-06] MEDS ORDERED: ONDANSETRON INJ 2 MG/ML 2 ML VIAL IV PRN (16:21)
[2023-11-06] MEDS: ASPIRIN 81 MG ECTAB PO SCH (21:44)
[2023-11-07] MEDS: DOXYCYCLINE HYCLATE 100 MG CAP PO SCH ×2 (02:13→15:01)
[2023-11-07] MEDS: PANTOprazole 40 MG TAB PO SCH (05:52)
[2023-11-07 05:58] LABS: Hematocrit (blood only) 27.3 % (37.0-47.0); Hemoglobin 8.8 g/dl (12.0-16.0); Mean Corpuscular Hemoglobin 25.4 pg (25.0-34.0); Mean Corpuscular Hgb Conc 32.2 g/dL (32.0-36.0); Mean Corpuscular Volume 78.9 fL (80.0-100.0); Mean Platelet Volume 9.3 fL (9.4-12.4); Platelet Count 477 K/uL (130-400); RDW Coefficient of Variation 16.2 % (11.5-14.5); RDW Standard Deviation 45.8 fL (36.4-46.3); Red Blood Count 3.46 M/uL (4.20-5.40); White Blood Count 13.14 K/ul (4.8-10.8)
[2023-11-07 06:07] LABS: BUN Creatinine Ratio 27.6 (10-20); Calcium 8.6 mg/dl (8.6-10.3); Creatinine Clr Calc Pharmacy 52.9 ml/min; Est GFR (African American) 59.7 ml/min; Est GFR (Non-African American) 51.5 ml/min; Magnesium 1.6 mg/dl (1.7-2.4); Potassium 3.9 mmol/L (3.5-5.1)
[2023-11-07] MEDS: SILVER SULFADIAZINE 1% CR 50 GM JAR EXT SCH ×2 (08:48→20:34)
[2023-11-07] MEDS: MAGNESIUM OXIDE 400 MG TAB PO SCH ×2 (08:48→20:33)
[2023-11-07] MEDS: SERTRALINE HCL 50 MG TABLET PO SCH (08:48)
[2023-11-07] MEDS: GABAPENTIN 100 MG CAP PO SCH ×3 (08:48→20:33)
[2023-11-07] MEDS: BENZONATATE 100 MG CAPSULE PO SCH ×3 (08:48→20:34)
[2023-11-07] MEDS: FUROSEMIDE 20 MG TAB PO SCH ×2 (08:48→20:34)
[2023-11-07] MEDS: oxyCODONE HCL IR 5 MG TAB (IMMEDIATE RELEASE) PO PRN ×2 (08:51→19:38)
[2023-11-07] MEDS: FERROUS SULFATE 325 MG TAB PO SCH (10:50)
[2023-11-07] MEDS: CYANOCOBALAMIN (B-12) 500 MCG TABLET PO SCH (10:50)
--- NOTE | 2023-11-07 13:57 | XRay Report ---
XR chest 1V portable CLINICAL HISTORY: cough TECHNIQUE: Single frontal radiograph of the chest was obtained. Comparison: Comparison is made to chest radiograph 10/29/2023 FINDINGS: No lines and tubes are seen. The cardiomediastinal silhouette is stable. The lungs are clear. No evid ence of pleural effusion or pneumothorax. IMPRESSION: No acute chest disease. ACT 112: Negative or not required by law. Electronically signed by: Cody Randolph M.D. 11/07/2023 1:56 PM
--- NOTE | 2023-11-07 16:01 | Hospitalist Progress Note ---
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 --Follows with Dr. Leeann Ramirez and Parth at [facility] [place] and Dr. Layne Rust with outpatient oncology. --MRI Brain: No acute stroke or hemorrhage. Slight increase in symmetric abnormal signal intensity in the bilateral globus pallidus. Appearance is nonspecific and may be seen with toxic/metabolic disorders. 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 Nonspecific white matter changes most commonly seen with small vessel disease. --Femur MRI:Increase in size in the now 29 x 20 x 14 cm necrotic mass involving the majority of the semimembranosus and semitendinosus muscles as described above. --Venous Doppler showed no signs of DVT --Appreciate neurology input:Not consistent with stroke or seizure. --Continue radiation treatment; per radiation oncology --Minimal skin abrasion from radiation without any ulceration/drainage Continue local wound care --Lasix as needed for edema --Leg elevation as able to help with edema Lovenox for DVT prophylaxis--held due to drop in hemoglobin, bleeding issues. Patient understands risks Vs benefits Patient agrees to monitor off DVT off anticoagulation. Understands the risk for clotting. Case management to help with discharge planning -- Increased Lasix dose to help with edema --Need follow-up with surgical oncology as outpatient Offload right lower extremity as able to minimize pressure at the site of sarcoma MRI showed increased necrotic mass. Will discuss with radiation oncology tomorrow for further recommendations Cough Likely URI Normal procalcitonin --CXR:No acute chest disease. 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 This measures approximately 4.6 x 3.7 x 0.6 cm and favors a subcutaneous hematoma. -Venous duplexnegative for DVT -Monitor CBC Denies any pain currently Repeat ultrasound showed decreasing size of the subcutaneous hematoma. Hypertension BP stable off meds Hold amlodipine, losartan Monitor BP (2) Generalized weakness: Plan: Likely secondary to sarcoma of the right thigh CXR-no acute findings, bio fire is negative Blood culture from 10/31 out of 4 growing Corynebacterium; likely contaminant. Urine culturemore than 3 types of organism, all moderate count. Empiric Antibiotics discontinued Continue PT OT (3) CKD (chronic kidney disease), stage III: Plan: Renal function stable Monitor (4) Leukocytosis: Plan: Monitor (5) NATHALIE (obstructive sleep apnea): (6) Obesity: Plan: Morbid obesity BMI 41 (7) Elevated troponin: Plan: As per prior provider: Elevated Troponin Likely secondary to demand ischemia EKG shows normal sinus rhythm with PAC High sensitive troponin elevated to 72; up trended to 109 and down trended. Echocardiogram from September 2023 shows EF of 60 to 65% Patient denies any chest pain, palpitation or dizziness. Repeat EKG shows normal sinus rhythm with no ST or T wave changes. Currently denies any chest pain Biceps tendinitis of right shoulder Impingement syndrome of right shoulder -R shoulder X ray:No acute fracture or dislocation. Continue PT OT Weightbearing as tolerated on right lower extremity Orthopedics evaluated, appreciate recommendation. NATHALIE -Continue CPAP at bedtime. DVT Px: Lovenox SQ--held due to Bleeding issues, anemia SCDs CODE STATUS: Full code Admission and Anticipated Discharge Date Admission Date: October 12, 2023 Subjective Patient is seen and examined at bedside Cough much improved Right lower extremity pain same as yesterday Hemoglobin stable Had dressing changed today No other complaints Denies any chest pain, dyspnea, dizziness, nausea, vomiting, abdominal pain Review of Systems Review of Systems: All systems reviewed & are unremarkable except as noted in Subjective Physical Exam Physical Exam: Physical Exam: Vitals signs as noted above General Appearance:Obese, no apparent distress, chronic ill-appearing Head: normocephalic, Atraumatic Eyes: normal inspection, EOMI Neck: supple, Trachea midline Respiratory/Chest: Normal breath sounds, CTA, No accessory muscle use Cardiovascular: S1, S2, No murmur Abdomen/GI:Soft, Non tender, Bowel sounds present Extremities/Musculoskeletal:normal inspection, right lower extremity swelling, left calf ecchymotic changes from hematoma Neurologic/Psych:AAOX3, grossly no focal neurological deficits Skin: normal color, warm Results & Data Results & Data Vital Signs (Past 12 Hours) Vital Signs Temp Pulse Pulse Resp BP Pulse Ox O2 Del Method 11/07/23 12:43 36.3 C L 84 16 127/75 92 Room Air 11/07/23 09:12 73 11/07/23 07:45 36.8 C 71 16 113/69 90 Room Air 11/07/23 07:44 Room Air Laboratory Results Short CBC 11/06/23 11/07/23 Range/Units 15:50 05:25 WBC 13.14 H (4.8-10.8) K/ul Hgb 8.9 L 8.8 L (12.0-16.0) g/dl Hct 26.7 L 27.3 L (37.0-47.0) % Plt Count 477 H (130-400) K/uL BMP 11/07/23 05:25 Sodium 129 L Potassium 3.9 Chloride 96 L Carbon Dioxide 28 BUN 29 H Creatinine 1.05 Glucose 91 Calcium 8.6 (4) Leukocytosis Leukocytosis type: unspecified Qualified Code(s): D72.829 - Elevated white blood cell count, unspecified
[2023-11-07] MEDS: ACETAMINOPHEN 500 MG TAB PO PRN (19:39)
[2023-11-07] MEDS: ASPIRIN 81 MG ECTAB PO SCH (20:34)
[2023-11-08] MEDS: DOXYCYCLINE HYCLATE 100 MG CAP PO SCH ×2 (02:12→13:47)
[2023-11-08] MEDS: PANTOprazole 40 MG TAB PO SCH (05:59)
[2023-11-08 08:02] LABS: Hematocrit (blood only) 26.7 % (37.0-47.0); Hemoglobin 8.5 g/dl (12.0-16.0)
[2023-11-08 08:21] LABS: BUN Creatinine Ratio 32.7 (10-20); Calcium 8.5 mg/dl (8.6-10.3); Creatinine Clr Calc Pharmacy 56.7 ml/min; Est GFR (African American) 64.9 ml/min; Magnesium 1.6 mg/dl (1.7-2.4); Potassium 3.7 mmol/L (3.5-5.1)
[2023-11-08] MEDS: FUROSEMIDE 20 MG TAB PO SCH ×2 (08:25→20:07)
[2023-11-08] MEDS: SERTRALINE HCL 50 MG TABLET PO SCH (08:25)
[2023-11-08] MEDS: MAGNESIUM OXIDE 400 MG TAB PO SCH ×2 (08:25→20:07)
[2023-11-08] MEDS: GABAPENTIN 100 MG CAP PO SCH ×3 (08:25→20:07)
[2023-11-08] MEDS: BENZONATATE 100 MG CAPSULE PO SCH ×3 (08:25→20:07)
[2023-11-08] MEDS: SILVER SULFADIAZINE 1% CR 50 GM JAR EXT SCH ×2 (08:27→20:13)
[2023-11-08] MEDS: ACETAMINOPHEN 500 MG TAB PO PRN ×2 (10:04→20:06)
[2023-11-08] MEDS: oxyCODONE HCL IR 5 MG TAB (IMMEDIATE RELEASE) PO PRN ×2 (10:05→20:06)
[2023-11-08] MEDS: CYANOCOBALAMIN (B-12) 500 MCG TABLET PO SCH (12:03)
[2023-11-08] MEDS: FERROUS SULFATE 325 MG TAB PO SCH (12:03)
--- NOTE | 2023-11-08 14:46 | Hospitalist Progress Note ---
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 --Follows with Dr. Leeann Ramirez and Parth at [facility] [place] and Dr. Layne [facility] with outpatient oncology. --MRI Brain: No acute stroke or hemorrhage. Slight increase in symmetric abnormal signal intensity in the bilateral globus pallidus. Appearance is nonspecific and may be seen with toxic/metabolic disorders. 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 Nonspecific white matter changes most commonly seen with small vessel disease. --Femur MRI:Increase in size in the now 29 x 20 x 14 cm necrotic mass involving the majority of the semimembranosus and semitendinosus muscles as described above. --Venous Doppler showed no signs of DVT --Appreciate neurology input:Not consistent with stroke or seizure. --Continue radiation treatment; per radiation oncology --Minimal skin abrasion from radiation without any ulceration/drainage Continue local wound care --Lasix as needed for edema --Leg elevation as able to help with edema Lovenox for DVT prophylaxis--held intermittewntly due to drop in hemoglobin, bleeding issues. Patient understands risks Vs benefits. Pt understands the risk for clotting. Case management to help with discharge planning -- Increased Lasix dose to help with edema --Need follow-up with surgical oncology as outpatient Offload right lower extremity as able to minimize pressure at the site of sarcoma MRI showed increased necrotic mass. Discussed with radiation oncology Dr. Malachi Matamoros on 11/08/2023: Plans to resume radiation therapy tomorrow Cough Likely URI Normal procalcitonin --CXR:No acute chest disease. 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 This measures approximately 4.6 x 3.7 x 0.6 cm and favors a subcutaneous hematoma. -Venous duplexnegative for DVT -Monitor CBC Denies any pain currently Repeat ultrasound showed decreasing size of the subcutaneous hematoma. Hypertension BP stable off meds Hold amlodipine, losartan Monitor BP Hypomagnesemia Replete electrolytes as needed Monitor (2) Generalized weakness: Plan: Likely secondary to sarcoma of the right thigh CXR-no acute findings, bio fire is negative Blood culture from 10/31 out of 4 growing Corynebacterium; likely contaminant. Urine culturemore than 3 types of organism, all moderate count. Empiric Antibiotics discontinued Continue PT OT (3) CKD (chronic kidney disease), stage III: Plan: Renal function stable Monitor (4) Leukocytosis: Plan: Monitor (5) NATHALIE (obstructive sleep apnea): (6) Obesity: Plan: Morbid obesity BMI 41 (7) Elevated troponin: Plan: As per prior provider: Elevated Troponin Likely secondary to demand ischemia EKG shows normal sinus rhythm with PAC High sensitive troponin elevated to 72; up trended to 109 and down trended. Echocardiogram from September 2023 shows EF of 60 to 65% Patient denies any chest pain, palpitation or dizziness. Repeat EKG shows normal sinus rhythm with no ST or T wave changes. Currently denies any chest pain Biceps tendinitis of right shoulder Impingement syndrome of right shoulder -R shoulder X ray:No acute fracture or dislocation. Continue PT OT Weightbearing as tolerated on right lower extremity Orthopedics evaluated, appreciate recommendation. NATHALIE -Continue CPAP at bedtime. DVT Px: Lovenox SQ SCDs CODE STATUS: Full code Admission and Anticipated Discharge Date Admission Date: October 12, 2023 Subjective Patient is seen and examined at bedside States feeling tired No other complaints Discussed with radiation oncologist today Right lower extremity pain is controlled Denies any chest pain, dyspnea, dizziness, nausea, vomiting, abdominal pain Review of Systems Review of Systems: All systems reviewed & are unremarkable except as noted in Subjective Physical Exam Physical Exam: Physical Exam: Vitals signs as noted above General Appearance:Obese, no apparent distress, chronic ill-appearing Head: normocephalic, Atraumatic Eyes: normal inspection, EOMI Neck: supple, Trachea midline Respiratory/Chest: Normal breath sounds, CTA, No accessory muscle use Cardiovascular: S1, S2, No murmur Abdomen/GI:Soft, Non tender, Bowel sounds present Extremities/Musculoskeletal:normal inspection, right lower extremity swelling, left calf ecchymotic changes from hematoma Neurologic/Psych:AAOX3, grossly no focal neurological deficits Skin: normal color, warm Results & Data Results & Data Vital Signs (Past 12 Hours) Vital Signs Temp Pulse Pulse Resp BP BP Pulse Ox 11/08/23 11:35 37.0 C 75 18 110/68 92 11/08/23 07:47 36.4 C L 73 18 120/68 92 11/08/23 07:45 80 11/08/23 07:40 11/08/23 03:15 36.5 C 67 18 147/84 H 96 O2 Del Method 11/08/23 11:35 Room Air 11/08/23 07:47 Room Air 11/08/23 07:45 11/08/23 07:40 Room Air 11/08/23 03:15 Room Air Laboratory Results Short CBC 11/08/23 Range/Units 07:16 Hgb 8.5 L (12.0-16.0) g/dl Hct 26.7 L (37.0-47.0) % BMP 11/08/23 07:16 Sodium 130 L Potassium 3.7 Chloride 96 L Carbon Dioxide 28 BUN 32 H Creatinine 0.98 Glucose 89 Calcium 8.5 L (4) Leukocytosis Leukocytosis type: unspecified Qualified Code(s): D72.829 - Elevated white blood cell count, unspecified
[2023-11-08] MEDS: ASPIRIN 81 MG ECTAB PO SCH (20:07)
[2023-11-09] MEDS: DOXYCYCLINE HYCLATE 100 MG CAP PO SCH ×2 (03:55→16:40)
[2023-11-09] MEDS: PANTOprazole 40 MG TAB PO SCH (05:34)
[2023-11-09] MEDS: ACETAMINOPHEN 500 MG TAB PO PRN ×2 (05:34→10:40)
[2023-11-09] MEDS: oxyCODONE HCL IR 5 MG TAB (IMMEDIATE RELEASE) PO PRN ×4 (05:34→21:38)
[2023-11-09 07:12] LABS: Hematocrit (blood only) 25.6 % (37.0-47.0); Hemoglobin 8.3 g/dl (12.0-16.0); Mean Corpuscular Hemoglobin 25.4 pg (25.0-34.0); Mean Corpuscular Hgb Conc 32.4 g/dL (32.0-36.0); Mean Corpuscular Volume 78.3 fL (80.0-100.0); Mean Platelet Volume 9.4 fL (9.4-12.4); Platelet Count 486 K/uL (130-400); RDW Coefficient of Variation 16.5 % (11.5-14.5); RDW Standard Deviation 46.3 fL (36.4-46.3); Red Blood Count 3.27 M/uL (4.20-5.40); White Blood Count 12.31 K/ul (4.8-10.8)
[2023-11-09 07:26] LABS: BUN Creatinine Ratio 31.8 (10-20); Calcium 8.5 mg/dl (8.6-10.3); Creatinine Clr Calc Pharmacy 51.9 ml/min; Est GFR (African American) 58.4 ml/min; Est GFR (Non-African American) 50.4 ml/min; Magnesium 1.6 mg/dl (1.7-2.4); Potassium 3.7 mmol/L (3.5-5.1)
[2023-11-09] MEDS: ENOXAPARIN INJ 40 MG/0.4 ML SYR SQ SCH (09:37)
[2023-11-09] MEDS: BENZONATATE 100 MG CAPSULE PO SCH ×3 (09:37→21:41)
[2023-11-09] MEDS: MAGNESIUM OXIDE 400 MG TAB PO SCH ×2 (09:38→21:39)
[2023-11-09] MEDS: FUROSEMIDE 20 MG TAB PO SCH ×2 (09:38→21:40)
[2023-11-09] MEDS: GABAPENTIN 100 MG CAP PO SCH ×3 (09:38→21:39)
[2023-11-09] MEDS: SERTRALINE HCL 50 MG TABLET PO SCH (09:39)
[2023-11-09] MEDS: SILVER SULFADIAZINE 1% CR 50 GM JAR EXT SCH ×2 (09:39→21:41)
[2023-11-09] MEDS: FERROUS SULFATE 325 MG TAB PO SCH (12:26)
[2023-11-09] MEDS: CYANOCOBALAMIN (B-12) 500 MCG TABLET PO SCH (12:26)
--- NOTE | 2023-11-09 15:39 | Hospitalist Progress Note ---
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 --Follows with Dr. Leeann Ramirez and Parth at [facility] [place] and Dr. Layne [facility] with outpatient oncology. --MRI Brain: No acute stroke or hemorrhage. Slight increase in symmetric abnormal signal intensity in the bilateral globus pallidus. Appearance is nonspecific and may be seen with toxic/metabolic disorders. 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 Nonspecific white matter changes most commonly seen with small vessel disease. --Femur MRI:Increase in size in the now 29 x 20 x 14 cm necrotic mass involving the majority of the semimembranosus and semitendinosus muscles as described above. --Venous Doppler showed no signs of DVT --Appreciate neurology input:Not consistent with stroke or seizure. Appreciate radiation oncology help --Minimal skin abrasion from radiation without any ulceration/drainage Continue local wound care --Lasix as needed for edema --Leg elevation as able to help with edema Lovenox for DVT prophylaxis--held intermittently due to drop in hemoglobin, bleeding issues. Patient understands risks Vs benefits. Pt understands the risk for clotting. Case management to help with discharge planning -- Increased Lasix dose to help with edema --Need follow-up with surgical oncology as outpatient Offload right lower extremity as able to minimize pressure at the site of sarcoma MRI showed increased necrotic mass. Discussed with radiation oncology Dr. Malachi Matamoros on 11/08/2023: Plans to complete radiation therapy while hospitalized Had radiation therapy today Needs follow-up with surgical oncology as outpatient Cough Likely URI Normal procalcitonin --CXR:No acute chest disease. 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 This measures approximately 4.6 x 3.7 x 0.6 cm and favors a subcutaneous hematoma. -Venous duplexnegative for DVT -Monitor CBC Denies any pain currently Repeat ultrasound showed decreasing size of the subcutaneous hematoma. Hypertension BP stable off meds Hold amlodipine, losartan Monitor BP Hypomagnesemia Replete electrolytes as needed Monitor (2) Generalized weakness: Plan: Likely secondary to sarcoma of the right thigh CXR-no acute findings, bio fire is negative Blood culture from 10/31 out of 4 growing Corynebacterium; likely contaminant. Urine culturemore than 3 types of organism, all moderate count. Empiric Antibiotics discontinued Continue PT OT (3) CKD (chronic kidney disease), stage III: Plan: Renal function stable Monitor (4) Leukocytosis: Plan: Monitor (5) NATHALIE (obstructive sleep apnea): (6) Obesity: Plan: Morbid obesity BMI 41 (7) Elevated troponin: Plan: As per prior provider: Elevated Troponin Likely secondary to demand ischemia EKG shows normal sinus rhythm with PAC High sensitive troponin elevated to 72; up trended to 109 and down trended. Echocardiogram from September 2023 shows EF of 60 to 65% Patient denies any chest pain, palpitation or dizziness. Repeat EKG shows normal sinus rhythm with no ST or T wave changes. Currently denies any chest pain Biceps tendinitis of right shoulder Impingement syndrome of right shoulder -R shoulder X ray:No acute fracture or dislocation. Continue PT OT Weightbearing as tolerated on right lower extremity Orthopedics evaluated, appreciate recommendation. NATHALIE -Continue CPAP at bedtime. DVT Px: Lovenox SQ SCDs CODE STATUS: Full code Admission and Anticipated Discharge Date Admission Date: October 12, 2023 Subjective Patient is seen and examined at bedside Patient had radiation therapy earlier today Offers no new complaints Right leg pain is controlled Discussed with patient's family at bedside Denies any chest pain, dyspnea, dizziness, nausea, vomiting, abdominal pain Review of Systems Review of Systems: All systems reviewed & are unremarkable except as noted in Subjective Physical Exam Physical Exam: Physical Exam: Vitals signs as noted above General Appearance:Obese, no apparent distress, chronic ill-appearing Head: normocephalic, Atraumatic Eyes: normal inspection, EOMI Neck: supple, Trachea midline Respiratory/Chest: Normal breath sounds, CTA, No accessory muscle use Cardiovascular: S1, S2, No murmur Abdomen/GI:Soft, Non tender, Bowel sounds present Extremities/Musculoskeletal:normal inspection, right lower extremity swelling, left calf ecchymotic changes from hematoma Neurologic/Psych:AAOX3, grossly no focal neurological deficits Skin: normal color, warm Results & Data Results & Data Vital Signs (Past 12 Hours) Vital Signs Temp Pulse Pulse Resp BP Pulse Ox O2 Del Method 11/09/23 15:30 36.7 C 70 20 102/64 92 Room Air 11/09/23 10:14 Room Air 11/09/23 07:29 73 11/09/23 07:21 36.5 C 86 14 171/64 H 98 Room Air 11/09/23 04:00 37.1 C 81 18 119/72 93 Room Air Laboratory Results Short CBC 11/09/23 Range/Units 06:43 WBC 12.31 H (4.8-10.8) K/ul Hgb 8.3 L (12.0-16.0) g/dl Hct 25.6 L (37.0-47.0) % Plt Count 486 H (130-400) K/uL BMP 11/09/23 06:43 Sodium 129 L Potassium 3.7 Chloride 95 L Carbon Dioxide 28 BUN 34 H Creatinine 1.07 Glucose 93 Calcium 8.5 L (4) Leukocytosis Leukocytosis type: unspecified Qualified Code(s): D72.829 - Elevated white blood cell count, unspecified
[2023-11-09] MEDS: ASPIRIN 81 MG ECTAB PO SCH (21:41)
[2023-11-10] MEDS: DOXYCYCLINE HYCLATE 100 MG CAP PO SCH ×2 (01:32→13:32)
[2023-11-10] MEDS: PANTOprazole 40 MG TAB PO SCH (06:16)
[2023-11-10 07:47] LABS: Hematocrit (blood only) 24.4 % (37.0-47.0); Hemoglobin 7.9 g/dl (12.0-16.0)
[2023-11-10 08:01] LABS: Calcium 8.5 mg/dl (8.6-10.3); Est GFR (African American) 61.2 ml/min; Est GFR (Non-African American) 52.8 ml/min; Magnesium 1.7 mg/dl (1.7-2.4); Potassium 3.8 mmol/L (3.5-5.1)
[2023-11-10] MEDS: DOCUSATE SODIUM 100 MG CAP PO SCH ×2 (10:27→20:12)
[2023-11-10] MEDS: oxyCODONE HCL IR 5 MG TAB (IMMEDIATE RELEASE) PO PRN ×2 (10:27→14:55)
[2023-11-10] MEDS: BENZONATATE 100 MG CAPSULE PO SCH ×3 (10:27→20:12)
[2023-11-10] MEDS: POLYETHYLENE (MIRALAX) 17 GM PACK PO PRN (10:27)
[2023-11-10] MEDS: MAGNESIUM OXIDE 400 MG TAB PO SCH ×2 (10:27→20:14)
[2023-11-10] MEDS: GABAPENTIN 100 MG CAP PO SCH ×3 (10:28→20:13)
[2023-11-10] MEDS: FUROSEMIDE 20 MG TAB PO SCH ×2 (10:28→20:12)
[2023-11-10] MEDS: SILVER SULFADIAZINE 1% CR 50 GM JAR EXT SCH ×2 (10:29→20:13)
[2023-11-10] MEDS: ACETAMINOPHEN 500 MG TAB PO PRN (13:30)
[2023-11-10] MEDS: FERROUS SULFATE 325 MG TAB PO SCH (13:31)
[2023-11-10] MEDS: SERTRALINE HCL 50 MG TABLET PO SCH (13:31)
[2023-11-10] MEDS: ENOXAPARIN INJ 40 MG/0.4 ML SYR SQ SCH (13:31)
[2023-11-10] MEDS: CYANOCOBALAMIN (B-12) 500 MCG TABLET PO SCH (13:31)
--- NOTE | 2023-11-10 15:02 | Hospitalist Progress Note ---
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 --Follows with Dr. Leeann Ramirez and Parth at [facility] [place] and Dr. Layne [facility] with outpatient oncology. --MRI Brain: No acute stroke or hemorrhage. Slight increase in symmetric abnormal signal intensity in the bilateral globus pallidus. Appearance is nonspecific and may be seen with toxic/metabolic disorders. 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 Nonspecific white matter changes most commonly seen with small vessel disease. --Femur MRI:Increase in size in the now 29 x 20 x 14 cm necrotic mass involving the majority of the semimembranosus and semitendinosus muscles as described above. --Venous Doppler showed no signs of DVT --Appreciate neurology input:Not consistent with stroke or seizure. Appreciate radiation oncology help --Minimal skin abrasion from radiation without any ulceration/drainage Continue local wound care --Lasix as needed for edema --Leg elevation as able to help with edema Lovenox for DVT prophylaxis--held intermittently due to drop in hemoglobin, bleeding issues. Patient understands risks Vs benefits. Pt understands the risk for clotting. Case management to help with discharge planning -- Increased Lasix dose to help with edema --Need follow-up with surgical oncology as outpatient Offload right lower extremity as able to minimize pressure at the site of sarcoma MRI showed increased necrotic mass. Discussed with radiation oncology Dr. Malahci Matamoros on 11/08/2023: Plans to complete radiation therapy while hospitalized Needs follow-up with surgical oncology as outpatient Plan to complete radiation therapy on Wednesday Case management to help with discharge planning Cough Likely URI Normal procalcitonin --CXR:No acute chest disease. 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 This measures approximately 4.6 x 3.7 x 0.6 cm and favors a subcutaneous hematoma. -Venous duplexnegative for DVT -Monitor CBC Denies any pain currently Repeat ultrasound showed decreasing size of the subcutaneous hematoma. Hypertension BP stable off meds Hold amlodipine, losartan Monitor BP Hypomagnesemia Replete electrolytes as needed Monitor (2) Generalized weakness: Plan: Likely secondary to sarcoma of the right thigh CXR-no acute findings, bio fire is negative Blood culture from 10/31 out of 4 growing Corynebacterium; likely contaminant. Urine culturemore than 3 types of organism, all moderate count. Empiric Antibiotics discontinued Continue PT OT Constipation Started on bowel regimen Monitor (3) CKD (chronic kidney disease), stage III: Plan: Renal function stable Monitor (4) Leukocytosis: Plan: Monitor (5) NATHALIE (obstructive sleep apnea): (6) Obesity: Plan: Morbid obesity BMI 41 (7) Elevated troponin: Plan: As per prior provider: Elevated Troponin Likely secondary to demand ischemia EKG shows normal sinus rhythm with PAC High sensitive troponin elevated to 72; up trended to 109 and down trended. Echocardiogram from September 2023 shows EF of 60 to 65% Patient denies any chest pain, palpitation or dizziness. Repeat EKG shows normal sinus rhythm with no ST or T wave changes. Currently denies any chest pain Biceps tendinitis of right shoulder Impingement syndrome of right shoulder -R shoulder X ray:No acute fracture or dislocation. Continue PT OT Weightbearing as tolerated on right lower extremity Orthopedics evaluated, appreciate recommendation. NATHALIE -Continue CPAP at bedtime. DVT Px: Lovenox SQ SCDs CODE STATUS: Full code Admission and Anticipated Discharge Date Admission Date: October 12, 2023 Subjective Patient is seen and examined at bedside Reported constipation to RN Had BM with assistance Right leg pain is controlled Denies any chest pain, dyspnea, dizziness, nausea, vomiting, abdominal pain Review of Systems Review of Systems: All systems reviewed & are unremarkable except as noted in Subjective Physical Exam Physical Exam: Physical Exam: Vitals signs as noted above General Appearance:Obese, no apparent distress, chronic ill-appearing Head: normocephalic, Atraumatic Eyes: normal inspection, EOMI Neck: supple, Trachea midline Respiratory/Chest: Normal breath sounds, CTA, No accessory muscle use Cardiovascular: S1, S2, No murmur Abdomen/GI:Soft, Non tender, Bowel sounds present Extremities/Musculoskeletal:normal inspection, right lower extremity swelling, left calf ecchymotic changes from hematoma Neurologic/Psych:AAOX3, grossly no focal neurological deficits Skin: normal color, warm Results & Data Results & Data Vital Signs (Past 12 Hours) Vital Signs Temp Pulse Pulse Resp BP Pulse Ox O2 Del Method 11/10/23 07:52 36.6 C 93 H 16 100/54 L 92 Room Air 11/10/23 05:50 79 11/10/23 03:58 36.9 C 91 H 18 119/65 91 Room Air Laboratory Results Short CBC 11/10/23 Range/Units 07:10 Hgb 7.9 L (12.0-16.0) g/dl Hct 24.4 L (37.0-47.0) % BMP 11/10/23 07:10 Sodium 130 L Potassium 3.8 Chloride 97 L Carbon Dioxide 29 BUN 35 H Creatinine 1.03 Glucose 87 Calcium 8.5 L (4) Leukocytosis Leukocytosis type: unspecified Qualified Code(s): D72.829 - Elevated white blood cell count, unspecified
[2023-11-10] MEDS: ASPIRIN 81 MG ECTAB PO SCH (20:12)
[2023-11-11] MEDS: DOXYCYCLINE HYCLATE 100 MG CAP PO SCH ×2 (02:21→15:24)
[2023-11-11] MEDS: PANTOprazole 40 MG TAB PO SCH (05:56)
[2023-11-11 07:13] LABS: Hematocrit (blood only) 26.1 % (37.0-47.0); Hemoglobin 8.4 g/dl (12.0-16.0); Mean Corpuscular Hemoglobin 25.4 pg (25.0-34.0); Mean Corpuscular Hgb Conc 32.2 g/dL (32.0-36.0); Mean Corpuscular Volume 78.9 fL (80.0-100.0); Mean Platelet Volume 9.4 fL (9.4-12.4); Platelet Count 511 K/uL (130-400); RDW Coefficient of Variation 17.1 % (11.5-14.5); RDW Standard Deviation 48.4 fL (36.4-46.3); Red Blood Count 3.31 M/uL (4.20-5.40); White Blood Count 12.82 K/ul (4.8-10.8)
[2023-11-11 07:53] LABS: Creatinine Clr Calc Pharmacy 52.1 ml/min; Est GFR (African American) 57.7 ml/min; Est GFR (Non-African American) 49.8 ml/min
[2023-11-11] MEDS: GABAPENTIN 100 MG CAP PO SCH ×3 (09:45→20:03)
[2023-11-11] MEDS: ENOXAPARIN INJ 40 MG/0.4 ML SYR SQ SCH (09:46)
[2023-11-11] MEDS: MAGNESIUM OXIDE 400 MG TAB PO SCH ×2 (10:06→20:03)
[2023-11-11] MEDS: FERROUS SULFATE 325 MG TAB PO SCH (10:06)
[2023-11-11] MEDS: SERTRALINE HCL 50 MG TABLET PO SCH (10:06)
[2023-11-11] MEDS: CYANOCOBALAMIN (B-12) 500 MCG TABLET PO SCH (10:06)
[2023-11-11] MEDS: FUROSEMIDE 20 MG TAB PO SCH ×2 (10:06→20:02)
[2023-11-11] MEDS: DOCUSATE SODIUM 100 MG CAP PO SCH ×2 (10:07→20:02)
[2023-11-11] MEDS: BENZONATATE 100 MG CAPSULE PO SCH ×3 (10:08→20:04)
[2023-11-11] MEDS: SILVER SULFADIAZINE 1% CR 50 GM JAR EXT SCH ×2 (10:10→20:04)
[2023-11-11] MEDS: oxyCODONE HCL IR 5 MG TAB (IMMEDIATE RELEASE) PO PRN (13:24)
[2023-11-11] MEDS: ACETAMINOPHEN 500 MG TAB PO PRN (13:25)
[2023-11-11] MEDS: POLYETHYLENE (MIRALAX) 17 GM PACK PO PRN (13:25)
--- NOTE | 2023-11-11 15:41 | Hospitalist Progress Note ---
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 --Follows with Dr. Leeann Ramirez and Parth at [facility] [place] and Dr. Layne [facility] with outpatient oncology. --MRI Brain: No acute stroke or hemorrhage. Slight increase in symmetric abnormal signal intensity in the bilateral globus pallidus. Appearance is nonspecific and may be seen with toxic/metabolic disorders. 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 Nonspecific white matter changes most commonly seen with small vessel disease. --Femur MRI:Increase in size in the now 29 x 20 x 14 cm necrotic mass involving the majority of the semimembranosus and semitendinosus muscles as described above. --Venous Doppler showed no signs of DVT --Appreciate neurology input:Not consistent with stroke or seizure. Appreciate radiation oncology help --Minimal skin abrasion from radiation without any ulceration/drainage Continue local wound care --Lasix as needed for edema --Leg elevation as able to help with edema Lovenox for DVT prophylaxis--held intermittently due to drop in hemoglobin, bleeding issues. Patient understands risks Vs benefits. Pt understands the risk for clotting. Case management to help with discharge planning -- Increased Lasix dose to help with edema --Need follow-up with surgical oncology as outpatient Offload right lower extremity as able to minimize pressure at the site of sarcoma MRI showed increased necrotic mass. Discussed with radiation oncology Dr. Malachi Matamoros on 11/08/2023: Plans to complete radiation therapy while hospitalized Needs follow-up with surgical oncology as outpatient Case management to help with discharge planning Will complete radiation therapy tomorrow Cough Likely URI Normal procalcitonin --CXR:No acute chest disease. 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 This measures approximately 4.6 x 3.7 x 0.6 cm and favors a subcutaneous hematoma. -Venous duplexnegative for DVT -Monitor CBC Denies any pain currently Repeat ultrasound showed decreasing size of the subcutaneous hematoma. Hypertension BP stable off meds Hold amlodipine, losartan Monitor BP Hypomagnesemia Replete electrolytes as needed Monitor (2) Generalized weakness: Plan: Likely secondary to sarcoma of the right thigh CXR-no acute findings, bio fire is negative Blood culture from 10/31 out of 4 growing Corynebacterium; likely contaminant. Urine culturemore than 3 types of organism, all moderate count. Empiric Antibiotics discontinued Continue PT OT Constipation Continue bowel regimen Check KUB Monitor (3) CKD (chronic kidney disease), stage III: Plan: Renal function stable Monitor (4) Leukocytosis: Plan: Monitor (5) NATHALIE (obstructive sleep apnea): (6) Obesity: Plan: Morbid obesity BMI 41 (7) Elevated troponin: Plan: As per prior provider: Elevated Troponin Likely secondary to demand ischemia EKG shows normal sinus rhythm with PAC High sensitive troponin elevated to 72; up trended to 109 and down trended. Echocardiogram from September 2023 shows EF of 60 to 65% Patient denies any chest pain, palpitation or dizziness. Repeat EKG shows normal sinus rhythm with no ST or T wave changes. Currently denies any chest pain Biceps tendinitis of right shoulder Impingement syndrome of right shoulder -R shoulder X ray:No acute fracture or dislocation. Continue PT OT Weightbearing as tolerated on right lower extremity Orthopedics evaluated, appreciate recommendation. NATHALIE -Continue CPAP at bedtime. DVT Px: Lovenox SQ SCDs CODE STATUS: Full code Admission and Anticipated Discharge Date Admission Date: October 12, 2023 Subjective Patient is seen and examined at bedside Reports having poor sleep overnight Also states having poor appetite Right leg pain is controlled No other complaints Denies any chest pain, dyspnea, dizziness, nausea, vomiting, abdominal pain Review of Systems Review of Systems: All systems reviewed & are unremarkable except as noted in Subjective Physical Exam Physical Exam: Physical Exam: Vitals signs as noted above General Appearance:Obese, no apparent distress, chronic ill-appearing Head: normocephalic, Atraumatic Eyes: normal inspection, EOMI Neck: supple, Trachea midline Respiratory/Chest: Normal breath sounds, CTA, No accessory muscle use Cardiovascular: S1, S2, No murmur Abdomen/GI:Soft, Non tender, Bowel sounds present Extremities/Musculoskeletal:normal inspection, right lower extremity swelling, left calf ecchymotic changes from hematoma Neurologic/Psych:AAOX3, grossly no focal neurological deficits Skin: normal color, warm Results & Data Results & Data Vital Signs (Past 12 Hours) Vital Signs Temp Pulse Pulse Pulse Resp BP BP 11/11/23 12:32 36.5 C 71 14 123/74 11/11/23 09:07 11/11/23 08:05 36.7 C 80 18 106/68 11/11/23 07:25 84 11/11/23 05:59 37.0 C 86 16 132/74 11/11/23 03:59 37.7 C H 104 H 20 168/79 H Pulse Ox O2 Del Method 11/11/23 12:32 94 Room Air 11/11/23 09:07 Room Air 11/11/23 08:05 91 Room Air 11/11/23 07:25 11/11/23 05:59 93 Room Air 11/11/23 03:59 93 Room Air Laboratory Results Short CBC 11/11/23 Range/Units 06:41 WBC 12.82 H (4.8-10.8) K/ul Hgb 8.4 L (12.0-16.0) g/dl Hct 26.1 L (37.0-47.0) % Plt Count 511 H (130-400) K/uL BMP 11/11/23 06:41 Creatinine 1.08 (4) Leukocytosis Leukocytosis type: unspecified Qualified Code(s): D72.829 - Elevated white blood cell count, unspecified
[2023-11-11] MEDS: ASPIRIN 81 MG ECTAB PO SCH (20:04)
[2023-11-12] MEDS: DOXYCYCLINE HYCLATE 100 MG CAP PO SCH (02:00)
[2023-11-12 06:59] LABS: Hematocrit (blood only) 29.6 % (37.0-47.0); Hemoglobin 9.2 g/dl (12.0-16.0); Mean Corpuscular Hemoglobin 25.1 pg (25.0-34.0); Mean Corpuscular Hgb Conc 31.1 g/dL (32.0-36.0); Mean Corpuscular Volume 80.7 fL (80.0-100.0); Mean Platelet Volume 9.4 fL (9.4-12.4); Platelet Count 555 K/uL (130-400); RDW Coefficient of Variation 17.5 % (11.5-14.5); RDW Standard Deviation 51.3 fL (36.4-46.3); Red Blood Count 3.67 M/uL (4.20-5.40); White Blood Count 11.16 K/ul (4.8-10.8)
[2023-11-12 07:15] LABS: Calcium 8.9 mg/dl (8.6-10.3); Magnesium 1.9 mg/dl (1.7-2.4); Potassium 3.9 mmol/L (3.5-5.1)
[2023-11-12 07:21] LABS: Creatinine Clr Calc Pharmacy 56.1 ml/min; Est GFR (African American) 63.4 ml/min; Est GFR (Non-African American) 54.7 ml/min
[2023-11-12] MEDS: oxyCODONE HCL IR 5 MG TAB (IMMEDIATE RELEASE) PO PRN (07:34)
[2023-11-12] MEDS: ACETAMINOPHEN 500 MG TAB PO PRN (07:35)
[2023-11-12] MEDS: FUROSEMIDE 20 MG TAB PO SCH ×2 (09:08→21:40)
[2023-11-12] MEDS: MAGNESIUM OXIDE 400 MG TAB PO SCH ×2 (09:08→21:40)
[2023-11-12] MEDS: GABAPENTIN 100 MG CAP PO SCH ×3 (09:08→21:40)
[2023-11-12] MEDS: DOCUSATE SODIUM 100 MG CAP PO SCH ×2 (09:09→21:40)
[2023-11-12] MEDS: ENOXAPARIN INJ 40 MG/0.4 ML SYR SQ SCH (09:09)
[2023-11-12] MEDS: BENZONATATE 100 MG CAPSULE PO SCH ×3 (09:09→20:46)
[2023-11-12] MEDS: SILVER SULFADIAZINE 1% CR 50 GM JAR EXT SCH ×2 (09:13→20:46)
--- NOTE | 2023-11-12 12:07 | XRay Report ---
XR KUB/Abdomen 1 view CLINICAL HISTORY: constipation TECHNIQUE: 1 view of the abdomen was obtained. Comparison: Comparison is made to CT abdomen pelvis 02/03/2020 FINDINGS: Lung bases are unremarkable. Degenerative changes are seen in the visualized skeleton. Left hip total arthroplasty noted. The bowel gas pattern is nonobstructive. A moderate amount of stool is noted wit hin the large bowel. IMPRESSION: Moderate stool burden without evidence of fecal impaction. ACT 112: Negative or not required by law. Electronically signed by: Cody Randolph M.D. 11/12/2023 12:05 PM
--- NOTE | 2023-11-12 12:18 | Hospitalist Progress Note ---
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 Dr. Leeann Ramirez and Parth [place] [facility] [place]. Layne [facility] with outpatient oncology. --MRI Brain: No acute stroke or hemorrhage. Slight increase in symmetric abnormal signal intensity in the bilateral globus pallidus. Appearance is nonspecific and may be seen with toxic/metabolic disorders. Old left frontal s ubcortical white matter infarct. Nonspecific white matter changes most commonly seen with small vessel disease. --Femur MRI:Increase in size in the now 29 x 20 x 14 cm necrotic mass involving the majority of the semimembranosus and semitendinosus muscles as described above. --Venous Doppler showed no signs of DVT --Appreciate neurology input:Not consistent with stroke or seizure. Appreciate radiation oncology help --Minimal skin abrasion from radiation without any ulceration/drainage Continue local wound care --Lasix as needed for edema --Leg elevation as able to help with edema Lovenox for DVT prophylaxis--held intermittently due to drop in hemoglobin, bleeding issues. Patient understands risks Vs benefits. Pt understands the risk for clotting. Case management to help with discharge planning -- Increased Lasix dose to help with edema --Need follow-up with surgical oncology as outpatient Offload right lower extremity as able to minimize pressure at the site of sarcoma MRI showed increased necrotic mass. Previous attending discussed with radiation oncology Dr. Malachi Matamoros on 11/08/2023: Plans to complete radiation therapy while hospitalized Needs follow-up with surgical oncology as outpatient Case management to help with discharge planning Patient to complete radiation treatment today. Possible DC in next few days to rehab if placement is available. Cough Likely URI Normal procalcitonin --CXR:No acute chest disease. 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 This measures approximately 4.6 x 3.7 x 0.6 cm and favors a subcutaneous hematoma. -Venous duplexnegative for DVT -Monitor CBC Denies any pain currently Repeat ultrasound showed decreasing size of the subcutaneous hematoma. Hypertension BP stable off meds Hold amlodipine, losartan Monitor BP Hypomagnesemia Replete electrolytes as needed Monitor Full code DVT prophylaxis Lovenox Please note the above document was generated using voice recognition software. It may contain grammatical, syntax or spelling errors. Any formal questions or concerns about the content, text or information contained within the body of this dictation should be directly addressed to the provider for clarification (2) Generalized weakness: Plan: Likely secondary to sarcoma of the right thigh CXR-no acute findings, bio fire is negative Blood culture from 10/31 out of 4 growing Corynebacterium; likely contaminant. Urine culturemore than 3 types of organism, all moderate count. Empiric Antibiotics discontinued Continue PT OT Constipation Continue bowel regimen Check KUB Monitor (3) CKD (chronic kidney disease), stage III: Plan: Renal function stable Monitor (4) Leukocytosis: Plan: Monitor (5) NATHALIE (obstructive sleep apnea): (6) Obesity: Plan: Morbid obesity BMI 41 (7) Elevated troponin: Plan: As per prior provider: Elevated Troponin Likely secondary to demand ischemia EKG shows normal sinus rhythm with PAC High sensitive troponin elevated to 72; up trended to 109 and down trended. Echocardiogram from September 2023 shows EF of 60 to 65% Patient denies any chest pain, palpitation or dizziness. Repeat EKG shows normal sinus rhythm with no ST or T wave changes. Currently denies any chest pain Biceps tendinitis of right shoulder Impingement syndrome of right shoulder -R shoulder X ray:No acute fracture or dislocation. Continue PT OT Weightbearing as tolerated on right lower extremity Orthopedics evaluated, appreciate recommendation. NATHALIE -Continue CPAP at bedtime. DVT Px: Lovenox SQ SCDs CODE STATUS: Full code Admission and Anticipated Discharge Date Admission Date: October 12, 2023 Subjective Patient seen and examined at bedside. Comfortable; not in distress. Denies fever, chills, chest pain, shortness of breath, abdominal pain or urinary symptoms. No significant overnight events Review of Systems Review of Systems: All systems reviewed & are unremarkable except as noted in Subjective Physical Exam Physical Exam: Constitutional: Alert oriented x 3; not in any distress. Respiratory: Bilateral vesicular breath sound. Cardiovascular: RRR, no murmur, no edema Vessels: no JVD or carotid bruit Chest: normal inspection of chest Abdomen: Soft, nontender Musculoskeletal:right posterior thigh indurated. left calf with bruise; nontender. Skin: no rashes, warm and dry normal turgor Neurologic: Moves all extremities. PERRLA. EOMI. Psychiatric: A+Ox3, euthymic affect Results & Data Results & Data Vital Signs (Past 12 Hours) Vital Signs Temp Pulse Pulse Resp BP Pulse Ox O2 Del Method 11/12/23 08:16 37 C 63 17 100/68 99 CPAP 11/12/23 07:04 94 H 11/12/23 03:28 63 14 95 11/12/23 03:06 37 C 64 16 117/66 95 Room Air FiO2 11/12/23 08:16 11/12/23 07:04 11/12/23 03:28 21 11/12/23 03:06 (4) Leukocytosis Leukocytosis type: unspecified Qualified Code(s): D72.829 - Elevated white blood cell count, unspecified
[2023-11-12] MEDS: oxyCODONE/ACETAMINOPHEN 5mg/325mg TAB PO PRN (20:45)
[2023-11-13 07:34] LABS: Basophils # (auto) 0.05 K/uL (0.00-0.20); Basophils % (auto) 0.5 %; Eosinophils # (auto) 0.44 K/uL (0.00-0.50); Eosinophils % (auto) 4.3 %; Hematocrit (blood only) 27.6 % (37.0-47.0); Hemoglobin 8.8 g/dl (12.0-16.0); Lymphocytes # (auto) 1.45 K/uL (1.20-3.40); Lymphocytes % (auto) 14.2 %; Mean Corpuscular Hemoglobin 25.4 pg (25.0-34.0); Mean Corpuscular Hgb Conc 31.9 g/dL (32.0-36.0); Mean Corpuscular Volume 79.8 fL (80.0-100.0); Mean Platelet Volume 9.5 fL (9.4-12.4); Monocytes # (auto) 1.42 K/uL (0.11-0.59); Monocytes % (auto) 13.9 %; Neutrophils # (auto) 6.73 K/uL (1.40-6.50); Neutrophils % (auto) 66.1 %; Platelet Count 553 K/uL (130-400); RDW Coefficient of Variation 17.3 % (11.5-14.5); Red Blood Count 3.46 M/uL (4.20-5.40); White Blood Count 10.19 K/ul (4.8-10.8)
[2023-11-13 07:47] LABS: BUN Creatinine Ratio 35.1 (10-20); Calcium 8.4 mg/dl (8.6-10.3); Est GFR (African American) 65.8 ml/min; Est GFR (Non-African American) 56.7 ml/min; Potassium 3.9 mmol/L (3.5-5.1)
[2023-11-13] MEDS: oxyCODONE/ACETAMINOPHEN 5mg/325mg TAB PO PRN ×2 (09:36→17:18)
[2023-11-13] MEDS: MAGNESIUM OXIDE 400 MG TAB PO SCH ×2 (09:37→20:02)
[2023-11-13] MEDS: GABAPENTIN 100 MG CAP PO SCH (09:37)
[2023-11-13] MEDS: DOCUSATE SODIUM 100 MG CAP PO SCH ×2 (10:45→20:02)
[2023-11-13] MEDS: FUROSEMIDE 20 MG TAB PO SCH ×2 (10:45→20:02)
[2023-11-13] MEDS: SILVER SULFADIAZINE 1% CR 50 GM JAR EXT SCH ×2 (10:45→20:00)
[2023-11-13] MEDS: ENOXAPARIN INJ 40 MG/0.4 ML SYR SQ SCH (10:45)
[2023-11-13] MEDS: BENZONATATE 100 MG CAPSULE PO SCH ×3 (10:45→20:01)
--- NOTE | 2023-11-13 11:35 | Hospitalist Progress Note ---
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 --Follows with Dr. Leeann Ramirez and Parth at [facility] [place] and Dr. Layne [facility] with outpatient oncology. --MRI Brain: No acute stroke or hemorrhage. Slight increase in symmetric abnormal signal intensity in the bilateral globus pallidus. Appearance is nonspecific and may be seen with toxic/metabolic disorders. Old left frontal s ubcortical white matter infarct. Nonspecific white matter changes most commonly seen with small vessel disease. --Femur MRI:Increase in size in the now 29 x 20 x 14 cm necrotic mass involving the majority of the semimembranosus and semitendinosus muscles as described above. --Venous Doppler showed no signs of DVT --Appreciate neurology input:Not consistent with stroke or seizure. Appreciate radiation oncology help --Minimal skin abrasion from radiation without any ulceration/drainage Continue local wound care --Lasix as needed for edema --Leg elevation as able to help with edema Lovenox for DVT prophylaxis--held intermittently due to drop in hemoglobin, bleeding issues. Patient understands risks Vs benefits. Pt understands the risk for clotting. Case management to help with discharge planning -- Increased Lasix dose to help with edema --Need follow-up with surgical oncology as outpatient Offload right lower extremity as able to minimize pressure at the site of sarcoma MRI showed increased necrotic mass. Previous attending discussed with radiation oncology Dr. Malachi Matamoros on 11/08/2023: Plans to complete radiation therapy while hospitalized Needs follow-up with surgical oncology as outpatient Case management to help with discharge planning Completed radiation treatment on November 12, 2023.. Possible DC in next few days to rehab if placement is available. Cough Likely URI Normal procalcitonin --CXR:No acute chest disease. 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 This measures approximately 4.6 x 3.7 x 0.6 cm and favors a subcutaneous hematoma. -Venous duplexnegative for DVT -Monitor CBC Denies any pain currently Repeat ultrasound showed decreasing size of the subcutaneous hematoma. Hypertension BP stable off meds Hold amlodipine, losartan Monitor BP Hypomagnesemia Replete electrolytes as needed Monitor Full code DVT prophylaxis Lovenox Please note the above document was generated using voice recognition software. It may contain grammatical, syntax or spelling errors. Any formal questions or concerns about the content, text or information contained within the body of this dictation should be directly addressed to the provider for clarification (2) Generalized weakness: Plan: Likely secondary to sarcoma of the right thigh CXR-no acute findings, bio fire is negative Blood culture from 10/31 out of 4 growing Corynebacterium; likely contaminant. Urine culturemore than 3 types of organism, all moderate count. Empiric Antibiotics discontinued Continue PT OT Constipation Continue bowel regimen Check KUB Monitor (3) CKD (chronic kidney disease), stage III: Plan: Renal function stable Monitor (4) Leukocytosis: Plan: Monitor (5) NATHALIE (obstructive sleep apnea): (6) Obesity: Plan: Morbid obesity BMI 41 (7) Elevated troponin: Plan: As per prior provider: Elevated Troponin Likely secondary to demand ischemia EKG shows normal sinus rhythm with PAC High sensitive troponin elevated to 72; up trended to 109 and down trended. Echocardiogram from September 2023 shows EF of 60 to 65% Patient denies any chest pain, palpitation or dizziness. Repeat EKG shows normal sinus rhythm with no ST or T wave changes. Currently denies any chest pain Biceps tendinitis of right shoulder Impingement syndrome of right shoulder -R shoulder X ray:No acute fracture or dislocation. Continue PT OT Weightbearing as tolerated on right lower extremity Orthopedics evaluated, appreciate recommendation. NATHALIE -Continue CPAP at bedtime. DVT Px: Lovenox SQ SCDs CODE STATUS: Full code Admission and Anticipated Discharge Date Admission Date: October 12, 2023 Subjective Patient seen and examined at bedside. Comfortable; not in distress. Denies fever, chills, chest pain, shortness of breath, abdominal pain or urinary symptoms. No significant overnight events Review of Systems Review of Systems: All systems reviewed & are unremarkable except as noted in Subjective Physical Exam Physical Exam: Constitutional: Alert oriented x 3; not in any distress. Respiratory: Bilateral vesicular breath sound. Cardiovascular: RRR, no murmur, no edema Vessels: no JVD or carotid bruit Chest: normal inspection of chest Abdomen: Soft, nontender Musculoskeletal:right posterior thigh indurated. left calf with bruise; nontender. Skin: no rashes, warm and dry normal turgor Neurologic: Moves all extremities. PERRLA. EOMI. Psychiatric: A+Ox3, euthymic affect Results & Data Results & Data Vital Signs (Past 12 Hours) Vital Signs Temp Pulse Pulse Resp BP Pulse Ox O2 Del Method 11/13/23 09:06 36.7 C 71 17 112/67 92 Room Air 11/13/23 07:43 Room Air 11/13/23 07:16 70 11/13/23 04:53 36.6 C 63 20 121/71 98 Room Air (4) Leukocytosis Leukocytosis type: unspecified Qualified Code(s): D72.829 - Elevated white blood cell count, unspecified
[2023-11-13] MEDS ORDERED: CYANOCOBALAMIN (B-12) 500 MCG TABLET PO SCH (11:45)
[2023-11-13] MEDS ORDERED: FERROUS SULFATE 325 MG TAB PO SCH (11:45)
[2023-11-13] MEDS: LOSARTAN POTASSIUM 25 MG TAB PO SCH (13:38)
[2023-11-13] MEDS: SERTRALINE HCL 50 MG TABLET PO SCH (13:38)
[2023-11-13] MEDS ORDERED: amLODIPine BESYLATE 5 MG TAB PO SCH (21:00)
[2023-11-13] MEDS ORDERED: ASPIRIN 81 MG ECTAB PO SCH (21:00)
[2023-11-14] MEDS: oxyCODONE/ACETAMINOPHEN 5mg/325mg TAB PO PRN (05:21)
[2023-11-14] MEDS ORDERED: PANTOprazole 40 MG TAB PO SCH (06:30)
[2023-11-14] MEDS: FUROSEMIDE 20 MG TAB PO SCH (08:33)
[2023-11-14] MEDS: DOCUSATE SODIUM 100 MG CAP PO SCH (08:33)
[2023-11-14] MEDS: MAGNESIUM OXIDE 400 MG TAB PO SCH (08:33)
[2023-11-14] MEDS: SERTRALINE HCL 50 MG TABLET PO SCH (08:34)
[2023-11-14] MEDS: ENOXAPARIN INJ 40 MG/0.4 ML SYR SQ SCH (08:34)
[2023-11-14] MEDS: LOSARTAN POTASSIUM 25 MG TAB PO SCH (08:34)
[2023-11-14] MEDS: BENZONATATE 100 MG CAPSULE PO SCH (08:34)
[2023-11-14] MEDS: SILVER SULFADIAZINE 1% CR 50 GM JAR EXT SCH (08:35)
--- NOTE | 2023-11-14 12:31 | Discharge Summary ---
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 The patient was evaluated by Dr. Ramirez from [facility] who recommended preoperative radiation therapy followed by surgical resection. The patient does also follow with Dr. Alba at [facility] and Dr. Mcpherson at [facility] from medical oncology. She started radiation therapy on Oct 05 and has been getting it daily Other past medical history includes CKD stage III, chronic back pain, osteoarthritis, obesity, GERD, HTN, sleep apnea on CPAP and asthma. The patient has been at home, but has had difficulty with standing and walking several times recently. She has generalized fatigue and weakness. Given fluids and aspirin here today with minimally bumped troponin. Her brother and sister in law are helpful in her home but she lives alone. Also reports R sided shoulder pain recently but thinks that this could be due to people in her home helping her get up to help her move around. She admits to having on and off nausea, but currently is hungry as she hasn't eaten all day, pt reports decreased appetite. She admits to having diarrhea and constipation back and forth, she moved her bowels today for the first time since last Wednesday. She denies any urinary complaints but admits to having hx of urinary tract infection 3 years ago. Pt is on zoloft since mid Sep and isn't sure that it's truely helping her mood at all. She took all her medications yesterday, but not this morning. Denies any recent known sick contacts or other viral-like symptoms. Admission Exam Per Admitting Provider General: awake, alert, no apparent distress, morbidly obese white female Head: Normocephalic, atraumatic ENT: PERRL, EOMI, no pharyngeal exudate, mucous membranes moist Chest: Clear to auscultation, on room air, no adventitious breath sounds Cardiac: Regular rate and rhythm, no murmur, no JVD, normal peripheral pulses, good capillary refill Abdominal: NABS x 4 quadrants, soft, nondistended, nontender to palpation, no rebound or guarding Extremities: Right posterior thigh skin is hard/taught, surrounding skin appears without discoloration, has some edema in the anterior thigh and lower extremity with 1+ pitting, left leg normal inspection, no peripheral edema or erythema, calfs nontender to palpation Psych: Normal mood and affect Neuro: AAO x 3, strength intact bilaterally and rated 5/5, no motor deficits, speech is clear, no peripheral sensory deficits Principal Diagnosis Generalized weakness Sarcoma s/p radiation Discharge Exam Constitutional: Alert oriented x 3; not in any distress. Respiratory: Bilateral vesicular breath sound. Cardiovascular: RRR, no murmur, no edema Vessels: no JVD or carotid bruit Chest: normal inspection of chest Abdomen: Soft, nontender Musculoskeletal:right posterior thigh indurated. left calf with bruise; nontender. Skin: no rashes, warm and dry normal turgor Neurologic: Moves all extremities. PERRLA. EOMI. Psychiatric: A+Ox3, euthymic affect Discharge Data Allergies Allergy/AdvReac Type Severity Reaction Status Date / Time adhesive tape Allergy Intermediate Blister Verified 10/12/23 15:02 Penicillins Allergy Unknown CHILDHOOD Verified 10/12/23 15:02 ALLERGY Sulfa (Sulfonamide Allergy Unknown FACIAL Verified 10/12/23 15:02 Antibiotics) SWELLING gluten AdvReac Intermediate GI SYMPTOMS Verified 10/12/23 15:02 wheat AdvReac Intermediate eczema and Verified 10/12/23 15:02 stomach ache Consultations 10/12/23 15:10 ED Decision to Admit Stat 10/12/23 16:15 Consult Oncology Routine Consult Radiation Oncology Routine 10/13/23 14:57 Consult Palliative Care Routine 10/17/23 13:03 Consult Neurology Routine 10/25/23 08:11 Consult Orthopedic Surgery Routine Ordered Studies 10/12/23 16:28 US venous doppler LE RT Stat 10/15/23 10:48 MRI Brain [MR brain wo con] Routine US soft tissue ext ltd Routine 11/02/23 11:32 US venous doppler LE RT Urgent 11/04/23 09:00 US leg [US extremity non-vascular ltd] Routine 11/06/23 09:00 MR femur RT wo/w con Routine Hospital Course (1) Sarcoma of right thigh: (2) Generalized weakness: (3) CKD (chronic kidney disease), stage III: (4) Leukocytosis: (5) NATHALIE (obstructive sleep apnea): (6) Obesity: (7) Elevated troponin: Plan Sarcoma Right Thigh on XRT Patient presented with generalized weakness -H/O newly diagnosed sarcoma of the right thigh, currently undergoing radiation treatment for presurgical tumor reduction, anticipated surgical resection in [facility] [place]. --Follows with Dr. Leeann Powell at [facility] [place] and Dr. [facility] with outpatient oncology. During the hospitalization, patient underwent workup for generalized weakness including MRI brain, neurology evaluation. The weakness was thought secondary to deconditioning. 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 Treated with fluid restriction. She received 1 unit of packed RBC during the hospitalization Discussed with patient about DVT prophylaxis with Lovenox. Patient has been minimal mobility and active cancer which places her at high risks for DVT. Discussed side effects that could include bleeding/hemorrhage. Patient verbalized and understood the risks. Wound care instructions placed in the discharge paperwork. Patient will need daily wound care Please note the above document was generated using voice recognition software. It may contain grammatical, syntax or spelling errors. Any formal questions or concerns about the content, text or information contained within the body of this dictation should be directly addressed to the provider for clarification Total Time Total Time Spent Total Time Spent (In Minutes): 45 Total Time Includes: Examination of the Patient, Discharge Planning, Medication Reconciliation, 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 With Other Providers and Other Discharge Plan Discharge Items Patient Disposition: Transfer Residential Fac Reason For Visit: ANEMIC Discharge Diagnosis: Generalized weakness Sarcoma of right thigh status postradiation Activity: Resume your previous activity Non-emergency contact: Primary Care Provider Call non-emergency contact if: you have any medication questions and your symptoms worsen Follow-up/Referrals: Carol Garcia PA-C [Physician Cotton Expert] - 03/01/24 1:30 pm (Radiation Oncology Follow Up. If you are unable to keep this appt, please call [phone].) Samy Sharif, [Primary Care Provider] - Diet: Regular Fluids: 1200ml (5 cups) Addtl Attending Provider Instructions: You were admitted to the hospital due to weakness. You underwent various investigations including brain MRI, neurological evaluation which did not show any significant findings. Take medication as prescribed. Please follow-up with surgical oncology. You are placed on Lovenox 40 mg every day to prevent blood clots. This should be kept on hold before the procedure for 1 day. Wound care instructions (on right posterior thigh and right upper inner thigh) Clean gently with saline and pat dry. Apply Silvadean Cover any open areas with Adaptic and cover with skin fold managers Change dressing every day or as needed for increased redness Pending Studies at Discharge: No Stand-Alone Forms: My [facility] Skilled Items Patient informed of condition?: Yes DNR: No Discharge Level of Care: Skilled Communicable Disease: No Discharge Prognosis: Stable Lines: None Urinary Catheter: No Medications and DC Order Prescriptions: New enoxaparin [Lovenox] 40 mg/0.4 mL Syringe 40 mg subcut QAM Qty: 30 0RF oxycodone-acetaminophen [Percocet] 5-325 mg Tablet 1 tab PO DAILY PRN (Reason: pain) Qty: 5 0RF docusate sodium 100 mg Capsule 100 mg PO BID Qty: 60 0RF magnesium oxide 400 mg (241.3 mg magnesium) Tablet 400 mg PO BID Qty: 60 0RF polyethylene glycol 3350 [Miralax] 17 gram Powder In Packet 17 g PO DAILY PRN (Reason: constipation) Qty: 30 0RF Continued clindamycin HCl 150 mg capsule 600 mg PO DIRECTED PRN (Reason: dental procedures) Rx Instructions: take 4 capsules 1 hour prior to dental procedures cyanocobalamin (vitamin B-12) [Vitamin B-12] 1,000 mcg Tablet 1,000 mcg PO QDL Qty: 30 0RF amlodipine 2.5 mg tablet 2.5 mg PO HS Qty: 30 0RF pantoprazole 40 mg tablet,delayed release (DR/EC) 40 mg PO DAILYBB Qty: 60 0RF ferrous sulfate 325 mg (65 mg iron) tablet 325 mg PO QDL Qty: 30 0RF Premarin 0.625 mg/gram cream 1 applic vaginal 2XWK Qty: 30 0RF Rx Instructions: Insert 0.5 grams vaginally once daily on Wednesday and . losartan 25 mg tablet 25 mg PO DAILY Qty: 30 0RF sertraline 50 mg tablet 50 mg PO DAILY Qty: 30 0RF cholecalciferol (vitamin D3) [Vitamin D3] 10 mcg (400 unit) Tablet 400 unit PO QDL Qty: 30 0RF acetaminophen 325 mg capsule 325 mg PO QID PRN (Reason: PAIN/FEVER) Qty: 60 0RF Changed aspirin 81 mg tablet,chewable 81 mg PO HS Qty: 30 0RF furosemide 20 mg tablet 20 mg PO DAILY Qty: 30 0RF Discontinued tramadol 50 mg tablet 50 mg PO Q6H PRN (Reason: Pain) Discharge Orders: Discharge Order (Routine); Ordered 11/14/23 Ordered By: Moody Landry Admission Data Admit Date/Time: 10/12/23 17:06 Attending Provider: Moody Landry Admit Provider: Rachel Ashby Primary Care Provider: Samy Sharif Other Providers: Rachel Ashby; Molly Gill; [facility]; Tanya Mckinley; Malachi Matamoros; Tari Lopez; Antony Rouse; Tari Rivera; Emery Griffiths; Drake Schulte; Alban Gonzalez; William Magallon; Shahrzad Ventura; Keaton Floyd; Beau Clark; Dany Ortega; Alexander Dow; Farhana Lozoya; Haleigh Edwards; William Joyce; Breezy Hilliard; [facility] Other Interventions: Discharge Summary Assessment (RN) Last Done: 11/14/23 09:24
== END 2023-11-14 09:24 | DRG 543 ==
LOC: ED 10:45 → EDINP 17:06 → SUATTDRO 17:06 → 2N 19:17